=== PATIENT | male | born 1960 | race Caucasian/White ===

== ENCOUNTER → 2019-07-22 07:57 | Outpatient (BNVA) | payer MEDICARE, SELFPAY | PROVIDERS: Family Provider Family Medicine; PCP Family Medicine; Visit Provider Anesthesiology | DX: G89.4 Chronic pain syndrome (principal); M25.569 Pain in unspecified knee; M25.512 Pain in left shoulder; F17.210 Nicotine dependence, cigarettes, uncomplicated; Z79.891 Long term (current) use of opiate analgesic | CPT/HCPCS: 99214 ==

== ENCOUNTER → 2019-11-20 13:53 | Outpatient (BNVA) | payer MEDICARE, SELFPAY | PROVIDERS: Family Provider Family Medicine; PCP Family Medicine; Visit Provider Anesthesiology | DX: G89.4 Chronic pain syndrome (principal); M43.16 Spondylolisthesis, lumbar region; M54.9 Dorsalgia, unspecified; M25.512 Pain in left shoulder; F17.210 Nicotine dependence, cigarettes, uncomplicated; Z79.891 Long term (current) use of opiate analgesic | CPT/HCPCS: 99213; 99214 ==

== ENCOUNTER → 2020-01-01 14:00 | Outpatient (BNVA) | payer MEDICARE, SELFPAY | PROVIDERS: Family Provider Family Medicine; PCP Family Medicine; Visit Provider Nurse Practitioner Family | DX: R50.9 Fever, unspecified (principal); J44.1 Chronic obstructive pulmonary disease with (acute) exacerbation | CPT/HCPCS: 87635 ==

== ENCOUNTER 2020-01-04 03:59 | Inpatient (IN) | payer MEDICARE, SELFPAY ==
[2020-01-04] VITALS (43 sets, daily range): BP systolic 124–168; BP diastolic 74–100; PULSE 48–107; RESP 12–28; TEMP 35.9–37.1; O2SAT 92–100; BMI 27.1
--- NOTE | 2020-01-04 | XACV_ITS ---
Exam Room: [facility] Gender: Male : 1960 Exam Priority: Routine Procedure(s): Procedure Description: Diagnostic procedure Procedure Description: Left Heart Catheterization Procedure Description: Percutaenous coronary intervention Diagnostic Cath Status: Urgent Diagnostic Findings The left main is a medium caliber vessel with no significant stenotic lesions. The left circumflex artery is a medium caliber vessel which gives off a large obtuse marginal branch. The mid segment of the obtuse marginal artery was found to have a high-grade around 90 to 95% lesion. The rest of the vessel was found to have no significant stenotic lesion. Right coronary artery is a medium caliber dominant vessel which was found to have 20 to 30% irregular narrowing proximally. The distal artery was found to have minimal intimal irregularities. No significant stenotic lesions. The left anterior descending artery is a medium caliber vessel which appears to wrap around the LV apex. The proximal LAD was found to have a tapering narrowing of around 50% worse the first diagonal branch. The first diagonal branch was found an ostial around 60% stenosis. The mid LAD was found to have minimal intimal irregularities. The distal LAD was found to have a tubular extrinsic compression causing around 60- 70% narrowing during systole. Mid Circumflex Coronary Artery: Severe 80% stenosis, 18.00 mm in length, eccentric plaque, mild proximal segment tortuosity, ANNE: 2 flow, high/c lesion. PCI Status: Urgent PCI Indication: NSTE - ACS Interventional Findings Mid Circumflex Coronary Artery: 80% stenosis treated with AB TREK 2.50X15 RX BALLOON and MDT R EVERETT 2.75X22 LETY. 0% residual stenosis, ANNE: 3 flow. Successful intervention. Mid Circumflex Coronary Artery: treated with AB TREK 2.50X15 RX BALLOON and MDT R EVERETT 2.75X22 LETY. Conclusions No significant disease noted in the Left Main, LAD, or RCA coronary arteries. Mid Circumflex Coronary Artery was treated with Balloon and Drug Eluting Stent. 59-year-old white male with a history of heavy smoking abuse and alcohol abuse and requested history of dyslipidemia, presented with symptoms of unstable angina and clinical features of a non-ST elevation myocardial infarction. He continued to have chest pain during the hospital stay. For further management of his condition, an urgent cardiac catheterization was recommended. Patient underwent left heart catheterization with left and right coronary angiogram today. The findings are as follows. High-grade lesion mid circumflex extending into first obtuse marginal artery. Moderate disease in the proximal LAD and ostium of the first diagonal branch. 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 Mild diffuse disease in the other vessels. LVEDP of 16 mmHg. The cardiac catheterization findings were reviewed and discussed with Dr. Scott. For further management of his condition, PCI of the obtuse marginal artery lesion was thought to be appropriate. Dr. Scott took over further management of this patient at this time. Continue Aspirin and Plavix for atleast 1 year. Mid Circumflex Coronary Artery was successfully treated with Balloon and Drug Eluting Stent. Mid Circumflex Coronary Artery was treated with Balloon and Drug Eluting Stent. There is severe coronary artery disease with two vessel disease. Recommendations Continue Aspirin and Plavix for atleast 1 year. High intensity statin therapy. Smoking cessation advised. Diagnostic RX Recommendation: PCI w/o planned CABG LV EDP: 16 mmHg Left Ventriculography Findings: The LV gram was not performed since the LV ejection fraction was within normal limits by echocardiogram. Pressures Phase:Rest AO : 126 mmHg / 71 mmHg ( 91 mmHg ) @ 4:07:00 PM 125 mmHg / 70 mmHg ( 90 mmHg ) @ 4:08:00 PM 118 mmHg / 73 mmHg ( 94 mmHg ) @ 4:14:00 PM LV : 138 mmHg / -1 mmHg / @ 4:07:00 PM 132 mmHg / -4 mmHg / @ 4:07:00 PM Valves Phase:DefaultPhase AV : 6.0 mmHg @ 9:42:39 PM 6.0 mmHg @ 9:42:39 PM 6.0 mmHg @ 8:21:33 AM 6.0 mmHg @ 8:21:33 AM 6.0 mmHg @ 8:23:08 AM 6.0 mmHg @ 8:23:08 AM 6.0 mmHg @ 8:23:23 AM 6.0 mmHg @ 8:23:24 AM 6.0 mmHg @ 8:30:30 AM 6.0 mmHg @ 8:30:45 AM 6.0 mmHg @ 8:37:17 AM 6.0 mmHg @ 8:37:32 AM AV Mean Gradient: 13.0 mmHg @ 9:42:39 PM 13.0 mmHg @ 9:42:39 PM 13.0 mmHg @ 8:21:33 AM 13.0 mmHg @ 8:21:33 AM 13.0 mmHg @ 8:23:08 AM 13.0 mmHg @ 8:23:08 AM 13.0 mmHg @ 8:23:24 AM 13.0 mmHg @ 8:30:30 AM 13.0 mmHg @ 8:30:45 AM 13.0 mmHg @ 8:37:17 AM 13.0 mmHg @ 8:37:32 AM Clinical Evaluation EBL: 5mL-10mL Procedural Details Pre-Procedure Time Out. Identified patient by full name and date of as verbalized by the patient/guarantor. Does the consent match the physician's order: Yes. Accurate & Complete Informed Consent: Yes. Inpatient/Outpatient History & Physical on Chart: Yes. If H&P is completed, is and addenduem needed: No; If yes, is the addendum complete: No. Visualize and Verify Site with Patient/Guarantor: N/A. Relevant Radiology Images available: Yes. Pre-op teaching completed and patient verbalized understanding. The risks, benefits, and alternatives of sedation and/or procedure were discussed by physician. The patient agrees to continue. Procedure started. Correct patient, site and procedure confirmed by cath team. Current diagnosis: NSTEMI. PERRLA. 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 Lungs clear x 5 lobes. IV Site on Arrival: 18 gauge in the left anticubital. IV Fluids: 0.9% NaCl at KVO. 200 mL infused prior to lab instructor. Oxygen started at 2liters/min via nasal canula. right radial was prepped with chloroprep then draped in the usual sterile fashion. right groin was prepped with chloroprep then draped in the usual sterile fashion. Physician notified. Baseline sample Acquired. HR: 70 BPM. Equipment: 6F - Radial. Cardiac Cath Pack. ACIST Manifold Kit Model BT 2000. Heparinized Saline (2 units/mL), 1000 mL bag. Physician arrived. Physician scrubbed in. Immediate Pre-Procedure Time Out. Correct Patient: Yes; Correct Procedure: Yes; Correct Site: Yes; Correct Patient Position: Yes; Correct Supplies: Yes; Dried Flammable Prep: Yes; Blood Products Available: N/A;. Lidocaine 1% infiltrated to the right radial. Arterial access obtained. A 5 hungarian Martir catheter in over wire. Multiple views taken of left coronary artery. Catheter redirected to the RCA. Multiple views taken of right coronary artery. A 5 hungarian Angled Pig catheter in over wire. EDP Sample taken: LV 138/-2,16; HR: 75 BPM; SpO2: 94%. Pullback taken: LV 132/-5,16; AO 126/71(91); Mean: 13mmHg, Peak to Peak: 6mmHg, SEP: 7sec/min; HR: 78 BPM; SpO2: 94%. Catheter out. 6 hungarian XB 3.5 guide catheter was inserted over the wire. BMW guidewire was advanced through the guide catheter to lesion in the mid Circ. ACT drawn. Results 368 seconds. Therapeutic limits - pre-heparin administration 90-150 seconds and monitoring heparin during a vascular procedure >250 seconds. Balloon inserted to lesion in the mid Circ. Inflation number : 1 A AB TREK 2.50X15 RX BALLOON was prepped and advanced across the Mid CX , then inflated to 10 IVAN for 0:15 seconds. Inflation number: 2 The AB TREK 2.50X15 RX BALLOON was reinflated across the Mid CX, to 10 IVAN for 0:17 seconds. Balloon out. Stent inserted to lesion in the mid Circ. Inflation Number : 3 A MDT R EVERETT 2.75X22 LETY -Lot Number# [id number] was prepped and advanced across the Mid CX. The stent was deployed at 12 IVAN for 0:21 seconds. Inflation number: 4 The stent balloon was then re-inflated across the Mid CX to 16 IVAN for 0:09 seconds. Results checked. Stent balloon out over wire. Wire out. TR band placed. Hemostasis obtained. PERRLA. 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 No VTE prophylaxis required. Medication's Wasted: Lidocaine 1% = 18 mL. Total IV fluids: 75 mL. Medication's Wasted: Nitro = 49.8 mg. Medication's Wasted: Heparin = 1000 units. Complications: none. Estimated blood loss: 5mL-10mL. Procedure completed. Post-op diagnosis: nstemi . Patient transferred by wheelchair to 1st floor. Vital chart was stopped. Accurate & Complete Informed Consent: Yes. Inpatient/Outpatient History & Physical on Chart: Yes. If H&P is completed, is and addenduem needed: No; If yes, is the addendum complete: No. ACT drawn. Results 368 seconds. Therapeutic limits - pre-heparin administration 90-150 seconds and monitoring heparin during a vascular procedure >250 seconds. Accurate & Complete Informed Consent: Yes. Inpatient/Outpatient History & Physical on Chart: Yes. If H&P is completed, is and addenduem needed: No; If yes, is the addendum complete: No. ACT drawn. Results 368 seconds. Therapeutic limits - pre-heparin administration 90-150 seconds and monitoring heparin during a vascular procedure >250 seconds. Accurate & Complete Informed Consent: Yes. Inpatient/Outpatient History & Physical on Chart: Yes. If H&P is completed, is and addenduem needed: No; If yes, is the addendum complete: No. ACT drawn. Results 368 seconds. Therapeutic limits - pre-heparin administration 90-150 seconds and monitoring heparin during a vascular procedure >250 seconds. Accurate & Complete Informed Consent: Yes. Inpatient/Outpatient History & Physical on Chart: Yes. If H&P is completed, is and addenduem needed: No; If yes, is the addendum complete: No. ACT drawn. Results 368 seconds. Therapeutic limits - pre-heparin administration 90-150 seconds and monitoring heparin during a vascular procedure >250 seconds. Accurate & Complete Informed Consent: Yes. Inpatient/Outpatient History & Physical on Chart: Yes. If H&P is completed, is and addenduem needed: No; If yes, is the addendum complete: No. ACT drawn. Results 368 seconds. Therapeutic limits - pre-heparin administration 90-150 seconds and monitoring heparin during a vascular procedure >250 seconds. Accurate & Complete Informed Consent: Yes. Inpatient/Outpatient History & Physical on Chart: Yes. If H&P is completed, is and addenduem needed: No; If yes, is the addendum complete: No. ACT drawn. Results 368 seconds. Therapeutic limits - pre-heparin administration 90-150 seconds and monitoring heparin during a vascular procedure >250 seconds. Accurate & Complete Informed Consent: Yes. Inpatient/Outpatient History & Physical on Chart: Yes. If H&P is completed, is and addenduem needed: No; If yes, is the addendum complete: No. ACT drawn. Results 368 seconds. Therapeutic limits - pre-heparin administration 90-150 seconds and monitoring heparin during a vascular procedure >250 seconds. Site: Right Radial artery Sheath Size: 6 Fr Hemostasis Success: Unsuccessful Procedure Medications Start: 8:41 PM Stop: 8:41 PM Medication: Versed Amount: 1 mg Route: I.V. Start: 8:41 PM Stop: 8:41 PM Medication: Fentanyl Amount: 50 mcg Route: I.V. Start: 8:46 PM Stop: 8:46 PM Medication: Versed Amount: 1 mg Route: I.V. Start: 8:52 PM Stop: 8:52 PM Medication: Versed Amount: 1 mg Route: I.V. Start: 8:52 PM Stop: 8:52 PM Medication: Fentanyl Amount: 50 mcg Route: I.V. Start: 8:54 PM Stop: 8:54 PM Medication: Verapamil Amount: 5 mg Route: I.A. Start: 8:55 PM Stop: 8:55 PM Medication: Nitrogylcerin Amount: 200 mcg Route: I.A. Start: 8:59 PM Stop: 8:59 PM Medication: Versed Amount: 1 mg Route: I.V. Start: 9:10 PM Stop: 9:10 PM Medication: Heparin Amount: 5000 units Start: 9:10 PM Stop: 9:10 PM Medication: Fentanyl Amount: 50 mcg Route: I.V. Start: 9:13 PM Stop: 9:13 PM Medication: Versed Amount: 1 mg Route: I.V. Start: 9:20 PM Stop: 9:20 PM Medication: Fentanyl Amount: 50 mcg Route: I.V. Start: 9:21 PM Stop: 9:21 PM Medication: Versed Amount: 1 mg Route: I.V. Start: 9:26 PM Stop: 9:26 PM Medication: Versed Amount: 1 mg Route: I.V. Start: 9:33 PM Stop: 9:33 PM Medication: Versed Amount: 1 mg Route: I.V. Start: 9:36 PM Stop: 9:36 PM Medication: Plavix Amount: 300 mg Route: P.O. I, the attending physician, have reviewed and verified all procedure medications. Yes, all medications given per verbal order History/Risk Factors Hypertension: Yes Tobacco Use: Current/Recent(w/in 1 year) Report Signatures Diagnostic Workflow - Finalized by:Dr Nitesh Corral MD [facility] on 01/05/2020 10:53:28 AM Interventional Workflow - Finalized by: Mike Scott MD on 01/05/2020 9:18:14 AM
--- NOTE | 2020-01-04 04:04 | ECG_ITS ---
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 Measurements Intervals [place] Rate: 105 P: 73 [place]: 147 QRS: 142 QRSD: 98 T: 77 QT: 323 QTc: 427 Interpretive Statements SINUS TACHYCARDIA INCOMPLETE RIGHT BUNDLE BRANCH BLOCK [90+ ms QRS DURATION, TERMINAL R IN V1/V2, 40+ ms S IN I/aVL/V4/V5/V6] POSSIBLE RIGHT VENTRICULAR HYPERTROPHY [SOME/ALL OF: PROMINENT R IN V1, LATE TRANSITION, RAD, ELI, SSS] INTERPRETATION BASED ON A DEFAULT AGE OF 40 YEARS No previous ECG available for comparison Electronically Signed On 01-04-2020 22:54:54 CDT by Nitesh Corral M.D. [email or web address]
--- NOTE | 2020-01-04 04:05 | ED_ITS ---
Documented by User: Shahrzad Parra MD 01/04/20 05:18 HPI - Chest Pain General: Chief Complaint: Chest Pain Stated Complaint: CP Time Seen by Provider: 01/04/20 04:04 Source: patient and EMS Mode of arrival: EMS Limitations: no limitations History of Present Illness: HPI narrative: 59-year-old male who presents here with chest pain. He states headache cough shortness of breath over the last 2 weeks. Patient states he is recently put on prednisone and Levaquin. He states continue have a cough and a wheeze and has been having sharp chest pains with exertion. He states he is having sex tonight and started having a sharp pain. His pain is reproduced by palpation. He denies any fevers. He denies any vomiting or sweating. He does smoke. Onset (ago): week(s) Timing of current episode: episodic Onset: during exertion Pain location: substernal Severity: moderate Quality: sharp Relieving factors: nothing Exacerbating factors: nothing Associated symptoms: Reports dyspnea; Deny abdominal pain, fever(s), nausea or vomiting Review of Systems Const: Denies: fever(s), chills, body aches or change in appetite Eyes: Denies: blurry vision or eye discomfort ENMT: Denies: throat pain or dental pain Card: Reports: chest pain Resp: Reports: dyspnea and wheezing GI: Denies: abdominal pain, nausea, vomiting or diarrhea : Denies: dysuria Musc: Denies: neck pain or back pain Skin/Breast: Denies: rash Neuro: Denies: headache(s) Psych: Denies: depression Mauri/Lymph: Denies: easy bruising All/Imm: Denies: urticaria PFSH ED PFSH: Medical History Chronic pain in left shoulder Chronic pain syndrome Cigarette nicotine dependence Encounter for long-term (current) use of NSAIDs Encounter for long-term opiate analgesic use Surgical History Hx of hernia repair Hx of knee surgery Hx of shoulder surgery Family History Other Diabetes Hypertension Myocardial infarct Social History Smoking and tobacco status: former smoker Second hand smoke exposure: Yes Alcohol intake: never Lives independently: Yes Household members: spouse Marital status: History of recent travel: No Physical Exam Const: COMMON NORMALS: no acute distress, patient oriented x3 and healthy appearing HENMT: COMMON NORMALS: normocephalic and atraumatic HEAD & SCALP: normocephalic and atraumatic Eye: COMMON NORMALS: Equal, round and reactive pupils present and EOMs intact bilaterally PUPIL: Yes Equal, round and reactive pupils present Neck/C-Spine: COMMON NORMALS: full ROM and supple Chest: COMMONS NORMALS: normal inspection of the chest; negative for normal palpation of entire chest wall (point tender in center of chest reprodcues pain) Resp: COMMON NORMALS: normal respiratory effort, No retractions and No use of accessory muscles AUSCULTATION: wheezes Cardio: COMMON NORMALS: regular rate, regular rhythm and No murmurs present (Cardio) RATE: regular rate RHYTHM: regular rhythm GI: COMMON NORMALS: Normal to inspection, nondistended, normoactive bowel sounds present, Soft to palpation, non-tender and no masses PALPATION: Yes Soft to palpation Extremity: COMMON NORMALS: normal to inspection and full ROM Neuro: COMMON NORMALS: patient oriented x3, moves all extremities and no focal motor deficits Psych: COMMON NORMALS: mental status grossly normal, Normal thought process present and cooperative THOUGHT PROCESS: Normal thought process present Skin: COMMON NORMALS: no rashes or lesions noted and no wounds GENERAL SKIN EXAM: no rashes or lesions noted Course Vital Signs: Vital signs: Vital Signs Temperature 98.6 F 01/04/20 04:02 Pulse Rate 67 01/04/20 06:41 Respiratory Rate 18 01/04/20 06:41 Blood Pressure 148/84 01/04/20 06:41 Pulse Oximetry 96 01/04/20 06:41 MDM - Chest Pain MDM Narrative: Medical decision making narrative: David presents here with chest pain that is atypical in nature. His chest pain is likely pleuritic or chest wall as he is point tender to touch and reproduces pain. Patient feels improved after breathing treatments. X-ray shows no signs of pneumonia. Will check 2-hour troponin. Patient's care turned over to Dr. Francisco at this time to follow patient. Lab Data: Labs: Lab Results 0801/04/20 01/04/20 Range/Units 04:10 04:10 04:10 WBC 13.4 H (4.0-10.0) 10^3/ uL RBC 4.04 L (4.1-5.3) 10^6/u L Hgb 14.0 (11.7-16.6) g/dL Hct 41.9 L (42.0-52.0) % MCV 103.7 H (80-94) fL MCH 34.7 H (28.0-34.0) pg MCHC 33.4 (30.0-36.0) g/dL RDW 12.1 (12.1-15.1) % Plt Count 265 (130-400) 10^3/c mm MPV 8.5 (7.4-10.4) fL Neut % (Auto) 83.8 % Lymph % (Auto) 6.7 % [place] % (Auto) 8.5 % Eos % (Auto) 0.3 % Baso % (Auto) 0.3 % Neut # (Auto) 11.24 H (1.8-7.7) 10^3/u L Lymph # (Auto) 0.9 (0.8-4.8) 10^3/u L [place] # (Auto) 1.1 H (0.2-0.9) 10^3/u L Eos # (Auto) 0.0 (0.0-0.8) 10^3/u L Baso # (Auto) 0.0 (0.0-0.1) 10^3/u L Nucleated RBC % (a uto) 0 % Nucleated RBCs # 0.0 /100WBC Sodium 140 (136-145) mmol/L Potassium 3.9 (3.5-5.1) mmol/L Chloride 104 (98-107) mmol/L Carbon Dioxide 26 (22-29) mmol/L Anion Gap 13.9 (5-19) BUN 20 (6-20) mg/dL Creatinine 1.0 (0.7-1.2) mg/dL GFR Calculation 76.7 L (90-130) mL/min Glucose 143 H (65-115) mg/dL Calculated Osmolal ity 289 (285-295) mOsm/k g Calcium 9.7 (8.5-10.5) mg/dL Total Bilirubin 0.2 (0.15-1.2) mg/dL AST 41 H (0-40) U/L ALT 31 (0-41) U/L Alkaline Phosphata se 91 (40-130) IU/L Troponin T Baselin e 17 H (0-15) ng/L Troponin T 120 [place] (0-15) ng/L Delta Troponin T (0-10) ABS# NT-Pro-B Natriuret Pep 121 (0-125) pg/mL Total Protein 7.5 (6.6-8.7) g/dL Albumin 4.4 (3.5-5.2) g/dL Globulin 3.1 (1.3-4.6) g/dL 01/04/20 Range/Units 06:05 WBC (4.0-10.0) 10^3/ uL RBC (4.1-5.3) 10^6/u L Hgb (11.7-16.6) g/dL Hct (42.0-52.0) % MCV (80-94) fL MCH (28.0-34.0) pg MCHC (30.0-36.0) g/dL RDW (12.1-15.1) % Plt Count (130-400) 10^3/c mm MPV (7.4-10.4) fL Neut % (Auto) % Lymph % (Auto) % [place] % (Auto) % Eos % (Auto) % Baso % (Auto) % Neut # (Auto) (1.8-7.7) 10^3/u L Lymph # (Auto) (0.8-4.8) 10^3/u L [place] # (Auto) (0.2-0.9) 10^3/u L Eos # (Auto) (0.0-0.8) 10^3/u L Baso # (Auto) (0.0-0.1) 10^3/u L Nucleated RBC % (a uto) % Nucleated RBCs # /100WBC Sodium (136-145) mmol/L Potassium (3.5-5.1) mmol/L Chloride (98-107) mmol/L Carbon Dioxide (22-29) mmol/L Anion Gap (5-19) BUN (6-20) mg/dL Creatinine (0.7-1.2) mg/dL GFR Calculation (90-130) mL/min Glucose (65-115) mg/dL Calculated Osmolal ity (285-295) mOsm/k g Calcium (8.5-10.5) mg/dL Total Bilirubin (0.15-1.2) mg/dL AST (0-40) U/L ALT (0-41) U/L Alkaline Phosphata se (40-130) IU/L Troponin T Baselin e (0-15) ng/L Troponin T 120 [address] [place] 33.20 H (0-15) ng/L Delta Troponin T 16.20 H* (0-10) ABS# NT-Pro-B Natriuret Pep (0-125) pg/mL Total Protein (6.6-8.7) g/dL Albumin (3.5-5.2) g/dL Globulin (1.3-4.6) g/dL Imaging Data^: CXR: Radiologist's impression: [place] [address] XRay Report Signed Patient: David Lanza JR Unit #: [id number] : 1960 Age/Sex: 59 / M ADM Date: 01/04/20 Loc: ER Room/Bed: Attending Dr: Ordering Provider/Ordering MD: Shahrzad Parra MD Date of Service: 01/04/20 Procedure(s): XR chest 1V portable [id number] Accession Number(s): [id number] Report Number: [id number] PROCEDURE INFORMATION: Exam: XR Chest, 1 View Exam date and time: 01/04/2020 4:22 AM Age: 59 years old Clinical indication: Chest pain; Type not specified; Additional info: Cp TECHNIQUE: Imaging protocol: XR of the chest Views: 1 view. COMPARISON: CT Chest/Abdomen/Pelvis wo IV 12/20/2018 2:31 PM FINDINGS: Lungs: There are innumerable tiny bilateral apical pulmonary nodules as seen on chest CT 12/20/2018. There is no consolidation. Pleural space: There is no pleural effusion or pneumothorax. Heart/Mediastinum: Cardiomediastinal contours are unremarkable. Bones/joints: Bones are unremarkable. XR/XR chest 1V portable [id number] IMPRESSION: No acute findings. EKG Data^: EKG 1: Attestation: I personally reviewed and interpreted this EKG as follows: EKG interpretation date: 01/04/20 EKG interpretation time: 04:03 Interpretation: sinus tach hr [address] or t wave abnormalities rbbb qrs 98 qtc 384 no STEMI Discharge Plan Discharge Patient Disposition: Home Clinical Impression: Bronchitis, Atypical chest pain, Non-ST elevation (NSTEMI) myocardial infarction Condition: Fair Prescriptions: New Keflex 500 mg capsule 500 mg PO Q6H 7 Days Qty: 28 RF: 0 Naprosyn 500 mg tablet 500 mg PO BID PRN (Reason: pain) Qty: 20 RF: 0 No Action citalopram [Celexa] 20 mg tablet 20 mg PO QDAY RF: 0 albuterol sulfate 2.5 mg /3 mL (0.083 %) solution for nebulization 2.5 mg INHALATION Q6H RF: 0 hydrocodone-acetaminophen 10-325 mg tablet 1 tab PO .6 times a day PRN (Reason: pain) 30 Days Qty: 180 RF: 0 tramadol 50 mg tablet 50 mg PO .6 times a day PRN (Reason: pain) 30 Days Qty: 180 RF: 1 prednisone 20 mg tablet 40 mg PO DAILY Qty: 10 RF: 0 levofloxacin [Levaquin] 750 mg tablet 750 mg PO DAILY 7 Days Qty: 7 RF: 0 Discharge Diet: Advance as tolerated Discharge Activity: Resume usual activity Patient Instructions: Acute Bronchitis (ED) Sign Out Sign Out Data: Patient Sign Out occurred on 01/04/20 at 06:44. Patient's care was discussed, and care was transferred from to Marcel Perez. Coding Level of Care Code ED Habilitation Assistant for Chg Fwd Exam Comprehensive Documented by User: Marcel Perez DO 01/04/20 07:09 HPI - Chest Pain General: Chief Complaint: Chest Pain Stated Complaint: CP Time Seen by Provider: 01/04/20 04:04 PFSH ED PFSH: Medical History Chronic pain in left shoulder Chronic pain syndrome Cigarette nicotine dependence Encounter for long-term (current) use of NSAIDs Encounter for long-term opiate analgesic use Surgical History Hx of hernia repair Hx of knee surgery Hx of shoulder surgery Family History Other Diabetes Hypertension Myocardial infarct Social History Smoking and tobacco status: former smoker Second hand smoke exposure: Yes Alcohol intake: never Lives independently: Yes Household members: spouse Marital status: History of recent travel: No Course Vital Signs: Vital signs: Vital Signs Temperature 98.6 F 01/04/20 04:02 Pulse Rate 67 01/04/20 06:41 Respiratory Rate 18 01/04/20 06:41 Blood Pressure 148/84 01/04/20 06:41 Pulse Oximetry 96 01/04/20 06:41 MDM - Chest Pain Lab Data: Labs: Lab Results 01/04/20 01/04/20 01/04/20 Range/Units 04:10 04:10 04:10 WBC 13.4 H (4.0-10.0) 10^3/ uL RBC 4.04 L (4.1-5.3) 10^6/u L Hgb 14.0 (11.7-16.6) g/dL Hct 41.9 L (42.0-52.0) % MCV 103.7 H (80-94) fL MCH 34.7 H (28.0-34.0) pg MCHC 33.4 (30.0-36.0) g/dL RDW 12.1 (12.1-15.1) % Plt Count 265 (130-400) 10^3/c mm MPV 8.5 (7.4-10.4) fL Neut % (Auto) 83.8 % Lymph % (Auto) 6.7 % [place] % (Auto) 8.5 % Eos % (Auto) 0.3 % Baso % (Auto) 0.3 % Neut # (Auto) 11.24 H (1.8-7.7) 10^3/u L Lymph # (Auto) 0.9 (0.8-4.8) 10^3/u L [place] # (Auto) 1.1 H (0.2-0.9) 10^3/u L Eos # (Auto) 0.0 (0.0-0.8) 10^3/u L Baso # (Auto) 0.0 (0.0-0.1) 10^3/u L Nucleated RBC % (a uto) 0 % Nucleated RBCs # 0.0 /100WBC Sodium 140 (136-145) mmol/L Potassium 3.9 (3.5-5.1) mmol/L Chloride 104 (98-107) mmol/L Carbon Dioxide 26 (22-29) mmol/L Anion Gap 13.9 (5-19) BUN 20 (6-20) mg/dL Creatinine 1.0 (0.7-1.2) mg/dL GFR Calculation 76.7 L (90-130) mL/min Glucose 143 H (65-115) mg/dL Calculated Osmolal ity 289 (285-295) mOsm/k g Calcium 9.7 (8.5-10.5) mg/dL Total Bilirubin 0.2 (0.15-1.2) mg/dL AST 41 H (0-40) U/L ALT 31 (0-41) U/L Alkaline Phosphata se 91 (40-130) IU/L Troponin T Baselin e 17 H (0-15) ng/L Troponin T 120 [place] (0-15) ng/L Delta Troponin T (0-10) ABS# NT-Pro-B Natriuret Pep 121 (0-125) pg/mL Total Protein 7.5 (6.6-8.7) g/dL Albumin 4.4 (3.5-5.2) g/dL Globulin 3.1 (1.3-4.6) g/dL 01/04/20 Range/Units 06:05 WBC (4.0-10.0) 10^3/ uL RBC (4.1-5.3) 10^6/u L Hgb (11.7-16.6) g/dL Hct (42.0-52.0) % MCV (80-94) fL MCH (28.0-34.0) pg MCHC (30.0-36.0) g/dL RDW (12.1-15.1) % Plt Count (130-400) 10^3/c mm MPV (7.4-10.4) fL Neut % (Auto) % Lymph % (Auto) % [place] % (Auto) % Eos % (Auto) % Baso % (Auto) % Neut # (Auto) (1.8-7.7) 10^3/u L Lymph # (Auto) (0.8-4.8) 10^3/u L [place] # (Auto) (0.2-0.9) 10^3/u L Eos # (Auto) (0.0-0.8) 10^3/u L Baso # (Auto) (0.0-0.1) 10^3/u L Nucleated RBC % (a uto) % Nucleated RBCs # /100WBC Sodium (136-145) mmol/L Potassium (3.5-5.1) mmol/L Chloride (98-107) mmol/L Carbon Dioxide (22-29) mmol/L Anion Gap (5-19) BUN (6-20) mg/dL Creatinine (0.7-1.2) mg/dL GFR Calculation (90-130) mL/min Glucose (65-115) mg/dL Calculated Osmolal ity (285-295) mOsm/k g Calcium (8.5-10.5) mg/dL Total Bilirubin (0.15-1.2) mg/dL AST (0-40) U/L ALT (0-41) U/L Alkaline Phosphata se (40-130) IU/L Troponin T Baselin e (0-15) ng/L Troponin T 120 [address] [place] 33.20 H (0-15) ng/L Delta Troponin T 16.20 H* (0-10) ABS# NT-Pro-B Natriuret Pep (0-125) pg/mL Total Protein (6.6-8.7) g/dL Albumin (3.5-5.2) g/dL Globulin (1.3-4.6) g/dL Discharge Plan Discharge Patient Disposition: Home Clinical Impression: Bronchitis, Atypical chest pain, Non-ST elevation (NSTEMI) myocardial infarction Condition: Fair Prescriptions: New Keflex 500 mg capsule 500 mg PO Q6H 7 Days Qty: 28 RF: 0 Naprosyn 500 mg tablet 500 mg PO BID PRN (Reason: pain) Qty: 20 RF: 0 No Action citalopram [Celexa] 20 mg tablet 20 mg PO QDAY RF: 0 albuterol sulfate 2.5 mg /3 mL (0.083 %) solution for nebulization 2.5 mg INHALATION Q6H RF: 0 hydrocodone-acetaminophen 10-325 mg tablet 1 tab PO .6 times a day PRN (Reason: pain) 30 Days Qty: 180 RF: 0 tramadol 50 mg tablet 50 mg PO .6 times a day PRN (Reason: pain) 30 Days Qty: 180 RF: 1 prednisone 20 mg tablet 40 mg PO DAILY Qty: 10 RF: 0 levofloxacin [Levaquin] 750 mg tablet 750 mg PO DAILY 7 Days Qty: 7 RF: 0 Discharge Diet: Advance as tolerated Discharge Activity: Resume usual activity Patient Instructions: Acute Bronchitis (ED) Sign Out Sign Out Data: Patient Sign Out occurred on 01/04/20 at 06:44. Patient's care was discussed, and care was transferred from to Marcel Perez. Coding Level of Care Code ED Habilitation Assistant for Mara Fwjoaquin Exam Comprehensive
[2020-01-04] MEDS: ondansetron 2 mg/ML SDV 2 mL 4 MG IVP (04:09)
[2020-01-04] MEDS: ipratropium-albuterol 3 mL Neb INHALATION ×2 (04:10→08:29)
[2020-01-04] MEDS: morphine 4 mg/mL SDV 1 mL IVP (04:10)
[2020-01-04 04:24] LABS: Basophils % 0.3 %; Eosinophils % 0.3 %; Hematocrit 41.9 % (42.0-52.0); Lymphocytes # 0.9 10^3/uL (0.8-4.8); Lymphocytes % 6.7 %; Mean Corpuscular HGB Conc 33.4 g/dL (30.0-36.0); Mean Corpuscular Hemoglobin 34.7 pg (28.0-34.0); Mean Corpuscular Volume 103.7 fL (80-94); Mean Platelet Volume 8.5 fL (7.4-10.4); Monocytes # 1.1 10^3/uL (0.2-0.9); Monocytes % 8.5 %; Neutrophils # 11.24 10^3/uL (1.8-7.7); Neutrophils % 83.8 %; Nucleated Red Blood Cells % 0 %; Platelet Count 265 10^3/cmm (130-400); Red Blood Count 4.04 10^6/uL (4.1-5.3); Red Cell Distribution Width 12.1 % (12.1-15.1); White Blood Count 13.4 10^3/uL (4.0-10.0)
[2020-01-04 04:51] LABS: Troponin(5th) Baseline 17 ng/L (0-15)
[2020-01-04 05:00] LABS: Alanine Aminotransferase 31 U/L (0-41); Albumin Level 4.4 g/dL (3.5-5.2); Alkaline Phosphatase 91 IU/L (40-130); Anion Gap 13.9 (5-19); Aspartate Amino Transferase 41 U/L (0-40); Blood Urea Nitrogen 20 mg/dL (6-20); Calcium 9.7 mg/dL (8.5-10.5); Carbon Dioxide 26 mmol/L (22-29); Chloride 104 mmol/L (98-107); Globulin 3.1 g/dL (1.3-4.6); Glomerular Filtration Rate 76.7 mL/min (90-130); Glucose 143 mg/dL (65-115); NT Pro B Type Natriuretic Pept 121 pg/mL (0-125); Osmolality Calculated 289 mOsm/kg (285-295); Potassium 3.9 mmol/L (3.5-5.1); Sodium 140 mmol/L (136-145); Total Bilirubin 0.2 mg/dL (0.15-1.2); Total Protein 7.5 g/dL (6.6-8.7)
--- NOTE | 2020-01-04 06:04 | ECG_ITS ---
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 Measurements Intervals [place] Rate: 85 P: 66 [place]: 159 QRS: 99 QRSD: 109 T: 75 QT: 372 QTc: 444 Interpretive Statements SINUS RHYTHM WITH SINUS ARRHYTHMIA BORDERLINE RIGHT AXIS DEVIATION [QRS AXIS > 90] INCOMPLETE RIGHT BUNDLE BRANCH BLOCK [90+ ms QRS DURATION, TERMINAL R IN V1/V2, 40+ ms S IN I/aVL/V4/V5/V6] POSSIBLE INFERIOR MYOCARDIAL INFARCTION , OF INDETERMINATE AGE [30 ms Q WAVE IN II/aVF] INTERPRETATION BASED ON A DEFAULT AGE OF 40 YEARS Compared to ECG 01/04/2020 04:03:49 Myocardial infarct finding now present Sinus tachycardia no longer present Atrial abnormality no longer present Electronically Signed On 01-05-2020 9:40:40 CDT by Nitesh Corral M.D. [id number]
--- NOTE | 2020-01-04 06:50 | PC.NURSE ---
Report received from DORCAS Sanches.
[2020-01-04] MEDS: sodium chloride 0.9% 1,000 ML 125 ML IV (07:17)
--- NOTE | 2020-01-04 08:23 | USCV_ITS ---
David Lanza Age: 59 Gender: M : 1960 Exam Date: 01/04/2020 10:01 Ordering Phys: Héctor Hutton MD Technologist: Berenice Reyna Exam Location: [facility] [place] Indication: Myocardial infarction BP: 137 / 75 HR: 66 Rhythm: Sinus Technical Quality: Technically difficult study MEASUREMENTS (Male / Female) Normal Values 2D ECHO LV Diastolic Diameter PLAX 3.1 cm 4.2 - 5.9 / 3.9 - 5.3 cm LV Systolic Diameter PLAX 2.0 cm LV Chamber Size 3.6 cm IVS Diastolic Thickness 1.1 cm 0.6 - 1.0 / 0.6 - 0.9 cm IVS Systolic Thickness 1.6 cm LVPW Diastolic Thickness 1.2 cm 0.6 - 1.0 / 0.6 - 0.9 cm LVPW Systolic Thickness 1.7 cm RV Chamber Size 2.7 cm LVOT Diameter 2.0 cm LV Ejection Fraction 2D Teich 64.0 % LA Diameter 2.3 cm LA Width 2.7 cm LA Height 5.0 cm RA Width 2.8 cm RA Height 4.5 cm Aorta at Sinotubular Diameter 3.6 cm M-MODE LV Diastolic Diameter MM 5.4 cm 4.2 - 5.9 / 3.9 - 5.3 cm LV Systolic Diameter MM 2.9 cm LV Ejection Fraction MM Teich 77.5 % IVS Diastolic Thickness MM 1.1 cm 0.6 - 1.0 / 0.6 - 0.9 cm IVS Systolic Thickness MM 1.6 cm LVPW Diastolic Thickness MM 1.0 cm 0.6 - 1.0 / 0.6 - 0.9 cm LVPW Systolic Thickness MM 1.5 cm RV Diastolic Diameter MM 2.0 cm DOPPLER AV Peak Velocity 162.0 cm/s LVOT Peak Velocity 149.0 cm/s AV Area Cont Eq vti 3.0 cm squared AV Area Cont Eq pk 2.9 cm squared MV Area PHT 2.3 cm squared Mitral E to A Ratio 0.9 MV E' Velocity 12.0 cm/s Mitral E to MV E' Ratio 5.5 Mitral E to LV E' Lateral Ratio 5.6 Mitral E to LV E' Septal Ratio 5.5 TV Peak E Velocity 62.0 cm/s Right Atrial Pressure 3.0 mmHg PV Peak Velocity 83.0 cm/s RV Acceleration Time 0.1 s RV Ejection Time 0.3 s RV AcT/ET 0.3 FINDINGS Left Ventricle Normal left ventricular size and systolic function, EF 65% . No regional wall motion abnormalities. Right Ventricle The right ventricle is normal in size and function. Right Atrium The right atrium is normal in size. Left Atrium The left atrium is normal in size. Mitral Valve Thickened mitral valve. Mild mitral annular calcification. Aortic Valve Thickened aortic valve. Tricuspid Valve No gross abnormalities noted Pulmonic Valve Pulmonic valve not well visualized. Pericardium Normal pericardium without effusion. Aorta Normal aortic annulus size. CONCLUSIONS Normal left ventricular size and systolic function, EF 65% . Thickened mitral valve. Mild mitral annular calcification. Thickened aortic valve. No regional wall motion abnormalities. There is no pericardial effusion. There are no intracardiac masses. No previous study is available for comparison. Dr Nitesh Corral MD FAC (Electronically Signed) Final Date: 04 January 2020 12:16 S
--- NOTE | 2020-01-04 08:26 | ECG_ITS ---
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 Measurements Intervals [place] Rate: 86 P: 58 [place]: 164 QRS: 128 QRSD: 110 T: 63 QT: 347 QTc: 417 Interpretive Statements SINUS RHYTHM INCOMPLETE RIGHT BUNDLE BRANCH BLOCK [90+ ms QRS DURATION, TERMINAL R IN V1/V2, 40+ ms S IN I/aVL/V4/V5/V6] POSSIBLE RIGHT VENTRICULAR HYPERTROPHY [SOME/ALL OF: PROMINENT R IN V1, LATE TRANSITION, RAD, ELI, SSS] PROBABLE INFERIOR MYOCARDIAL INFARCTION [35 ms Q WAVE IN II/aVF], OF INDETERMINATE AGE Compared to ECG 01/04/2020 06:06:03 Atrial abnormality now present Sinus arrhythmia no longer present Myocardial infarct finding still present Electronically Signed On 01-04-2020 22:55:06 CDT by Nitesh Corral M.D. [id number]
[2020-01-04] MEDS: nitroglycerin 0.4 mg sublingual Tablet SUBLINGUAL (08:46)
[2020-01-04] MEDS: enoxaparin 100 mg/mL Syringe 90 MG SUBCUT (08:47)
[2020-01-04] MEDS: levalbuterol 0.63 mg/3 mL Neb INHALATION ×3 (08:47→15:24)
[2020-01-04] MEDS: pantoprazole 40 mg SDV IVP (08:48)
--- NOTE | 2020-01-04 08:55 | P.HP_ITS ---
Providers/Chief Complaint Admitting Physician: Héctor Hutton MD Chief Complaint: CP History of Present Illness David Lanza JR is a 59 year old male presents to emerge department with severe substernal nonradiating sharp chest pain that started at midnight while patient was having sex with his . called EMS and patient was given full dose aspirin, nitroglycerin and morphine. His pain almost completely was gone but recurred while in emergency department. He became diaphoretic but denied nausea. He had some shortness of breath. Patient reports that in the last 2 weeks he had to similar episodes of severe chest pain with exertion. He denies previous history of diabetes or heart disease. He had stroke twice affecting his left side but completely improving back to normal baseline 2 weeks later. His troponin was elevated with positive delta. His EKG showed no evidence of ST elevation. During my evaluation on cardiac stepdown unit patient reports 4-5 out of 10 similar chest pain. He denies lower extremity swelling. He has chronic COPD and uses nebulized treatments at home. He is in mild COPD exacerbation clinically with expiratory wheezing throughout and decreased air movement. He is hypertensive with blood pressure 160s over 100 during my evaluation and heart rate around 100. He is a lifelong smoker but reports that 6 months ago he decreased his smoking to 2 cigarettes/day and reports that sometimes he even has days when he did not smoke. He used to be drinking alcohol heavily but is completely abstinent for the last 2 years. Reports that he was diagnosed with hepatitis C before which was treated and he is now virus free. He has history of IV drug abuse in his young ages. Reports that only did it 2-3 times. He has been on steroids for the last 2 days and likely the cause of patient's leukocytosis Review of Systems Const: Denies: fever(s) or chills Eyes: Denies: change in vision ENMT: Denies: throat pain or change in hearing Card: Denies: chest pain, edema or lightheadedness Resp: Reports: non-productive cough (For several months); Denies: dyspnea or productive cough GI: Reports: dysphagia (Reports having sensation with food getting stuck at the lower esophageal ar), constipation (Ever since he was started on opioid medications.) and hematochezia (Reports occasionally having small amount/streaks of blood on the stool which appeared to be related to episodes of constipation with hard stool.); Denies: abdominal pain, nausea, vomiting, diarrhea or melena Musc: Reports: joint pain (Chronic left shoulder pain); Denies: joint swelling Skin/Breast: Denies: rash or erythema Neuro: Denies: headache(s) or weakness in extremities Psych: Denies: depression or suicidal ideation Endo: Denies: excessive sweating Mauri/Lymph: Denies: easy bleeding (Except as mentioned.) or tender lymph nodes All/Imm: Denies: throat swelling Medications/Allergies Home Medications Medication Instructions Recorded Confirmed Last Taken Type albuterol sulfate 2.5 mg INHALATION Q6H 06/19/19 01/04/20 01/03/20 08:30 History citalopram 20 mg tablet 20 mg PO QDAY 06/19/19 01/04/20 01/03/20 08:30 History hydrocodone 10 mg-acetaminophen 1 tab PO .6 times a day PRN 30 11/20/19 01/04/20 01/03/20 22:00 Rx 325 mg tablet Days #180 tab tramadol 50 mg tablet 50 mg PO .6 times a day PRN 30 11/20/19 01/04/20 01/03/20 20:00 Rx Days #180 tab levofloxacin 750 mg tablet 750 mg PO DAILY 7 Days #7 tab 01/01/20 01/04/20 01/03/20 08:30 Rx prednisone 20 mg tablet 40 mg PO DAILY #10 tab 01/01/20 01/04/20 01/03/20 08:30 Rx cephalexin [Keflex] 500 mg PO Q6H 7 Days #28 cap 01/04/20 Unknown Rx naproxen [Naprosyn] 500 mg PO BID PRN #20 tab 01/04/20 Unknown Rx Allergies Allergy/AdvReac Type Severity Reaction Status Date / Time gabapentin [From Neurontin] Allergy ADR-Agitate Verified 01/04/20 04:14 d PFSH Acute PFSH: Medical History (Updated 01/04/20 @ 09:06 by Héctor Hutton MD) Chronic pain in left shoulder Chronic pain syndrome Cigarette nicotine dependence Encounter for long-term (current) use of NSAIDs Encounter for long-term opiate analgesic use Hepatitis C Liver cirrhosis Surgical History Hx of hernia repair Hx of knee surgery Hx of shoulder surgery Family History Other Diabetes Hypertension Myocardial infarct Social History (Updated 01/04/20 @ 09:05 by Héctor Hutton MD) Smoking and tobacco status: current some day smoker Second hand smoke exposure: Yes Alcohol intake: former Lives independently: Yes Household members: spouse Marital status: History of recent travel: No Vitals/I&O/Wt Last Vital Signs Temp 98.6 F 01/04/20 04:02 Pulse 81 01/04/20 08:40 Resp 18 01/04/20 08:29 BP 124/78 01/04/20 08:00 Pulse Ox 92 01/04/20 08:29 Weight last 48 hrs Weight 90.718 kg Physical Exam Const: COMMON NORMALS: no acute distress, patient oriented x3 and alert HENMT: COMMON NORMALS: normocephalic and atraumatic HEAD & SCALP: normocephalic and atraumatic Eye: COMMON NORMALS: EOMs intact bilaterally, conjunctivae normal and no scleral icterus CONJUNCTIVA: Yes conjunctivae normal Neck/C-Spine: COMMON NORMALS: no lymphadenopathy and no meningeal signs Lymph: LYMPHATIC: no lymphadenopathy noted Chest: COMMONS NORMALS: normal palpation of entire chest wall Resp: COMMON NORMALS: No use of accessory muscles OTHER: Decreased air movement with minimal expiratory wheezing throughout Cardio: COMMON NORMALS: regular rate, regular rhythm and No murmurs present (Cardio) RATE: regular rate RHYTHM: regular rhythm OTHER: No lower extremity edema GI: COMMON NORMALS: Soft to palpation and non-tender PALPATION: Yes Soft to palpation RECTAL EXAM: Yes deferred : COMMON NORMALS: Yes no CVA tenderness BLADDER/KIDNEY EXAM: Yes no CVA tenderness Back/Pelvis: COMMON NORMALS: no CVA tenderness and thoracic and lumbar spine normal to inspection Extremity: COMMON NORMALS: normal to inspection and capillary refill normal Neuro: COMMON NORMALS: patient oriented x3 and no focal motor deficits SENSORIUM/ORIENTATION: Yes alert MENINGEAL SIGNS: Yes no meningeal signs Psych: COMMON NORMALS: mental status grossly normal, Normal thought process present and cooperative THOUGHT PROCESS: Normal thought process present Skin: COMMON NORMALS: no rashes or lesions noted GENERAL SKIN EXAM: no rashes or lesions noted Data : 01/04/20 04:10 01/04/20 04:10 A&P Assessment and plan (1) Non-ST elevation (NSTEMI) myocardial infarction: Status: Acute (2) COPD exacerbation: Status: Acute (3) Esophageal dysphagia: This is likely related to steroid/NSAID induced gastritis/esophagitis Status: Acute (4) Tobacco abuse: Status: Acute Additional A&P Information PLAN: Patient will be given nitroglycerin, morphine and start therapeutic Lovenox. If pain is not controlled we will transfer patient to ICU for nitroglycerin drip. Discussed case with Dr. Corral who will see patient in consultation. At this point I think patient needs coronary angiogram. Will request echocardiogram and also carotid artery ultrasound as well given previous history of stroke. Will start patient on levalbuterol. Hold steroids and start IV Protonix. Repeat EKG. Discussed regarding importance of smoking cessation. Patient voiced understanding and agreed that he needs to absolutely quit. He does not want any pharmacological help. If patient's dysphagia does not improve with Protonix consider upper endoscopy down the road. Attestations Medical Necessity Statement*: Patient with non-ST elevation [place] requires close inpatient monitoring, treatment and evaluation. I expect patient will require more than 2 midnights. Time Spent in Patient Care: Greater than 35 minutes Coding Level of Care Code Acute Supervisor [employer] for [facility] Diagnoses Non-ST elevation (NSTEMI) myocardial infarction I21.4 COPD exacerbation J44.1 Esophageal dysphagia R13.10 Tobacco abuse Z72.0
--- NOTE | 2020-01-04 09:05 | PC.NURSE ---
Chest Pain 4-5/10 per pain scale EKG taken, BP- 162/104 sitting, HR- 97. Dr. Hutton at bedside, RT at bedside for breathing treatment for wheezing and SOB 0845- Nitro SL given, BP-124/78, HR-120s, ST 0900- Chest pain down to 3/10 pain scale. 2nd nitro given. BP-111/65, HR-97. 2 L/min O2 administered for Spo2 of 87%-90%. Received orders for Nitro paste and Morphine PRN.
[2020-01-04 09:07] LABS: INR 0.94 (0.8-1.2)
[2020-01-04 09:08] LABS: Partial Thromboplastin Time 27.7 SECONDS (23.9-36.7)
--- NOTE | 2020-01-04 09:14 | USCV_ITS ---
David Lanza Age: 59 Gender: M : 1960 Exam Date: 01/04/2020 09:30 Ordering Phys: Héctor Hutton MD Technologist: Berenice Reyna [place] [facility] [place], previous history of stroke Risk Factors: Smoker Previous Vascular Surgery: None Right Brachial BP: / Left Brachial BP: / Right Left Velocity (cm/s) Spectral Plaque Velocity (cm/s) Spectral Plaque Syst/Diast Broadening Syst/Diast Broadening 93.70/ 9.90 Prox CCA 104.70/ 15.40 109.20/9.90 Mid CCA 114.40/ 19.70 Homo 145.70/12.60 Hetro Distal CCA 152.30/ 14.00 Hetro 134.90/16.20 Homo Prox ICA 145.70/ 14.40 Hetro 69.70/ 11.80 Mid ICA 104.30/ 14.40 69.70/ 14.50 Distal ICA 57.80 / 17.10 140.30 ECA 151.10 0.93 ICA/CCA 0.96 Antegrade Vertebral Antegrade 44.40/ 11.10 cm/s 53.00/ 12.00 cm/s Tri Subclavian Tri 154.8 172.9 0 0 FINDINGS Comparison: 11-29-10. See measurements listed above. Mild to moderate dense irregular plaques at the bifurcations bilaterally Carotid plaques in the common carotid arteries bilaterally Elevated velocity in the distal CCAs and proximal ICAs bilaterally CONCLUSIONS Mild to moderate dense plaques at the bifurcations and distal CCA's bilaterally with elevated velocities, may suggest hemodynamically significant stenosis. Consider CTA, to better evaluate the aortic arch vessels and the common carotid arteries No previous studies available for comparison Dr Nitesh Corral MD [facility] (Electronically Signed) Final Date: 04 January 2020 12:28 S
[2020-01-04] MEDS: morphine 4 mg/mL SDV 1 mL 2 MG IVP ×2 (09:17→13:20)
[2020-01-04] MEDS: lactated ringers 1,000 ML 75 ML IV (09:23)
[2020-01-04] MEDS: docusate sodium 100 mg Capsule PO ×2 (09:28→17:08)
[2020-01-04] MEDS: nitroglycerin 1 gm/inch oint Pkt 2 INCH TOPICAL ×2 (09:28→17:14)
--- NOTE | 2020-01-04 10:05 | PC.NURSE ---
Addendum entered by Dontae Cruz RN 01/04/20 10:10: Re-assess pain and pt verbalizes, the pain is completely gone. just pressure right now. Nitro paste applied as ordered. BP-109/56; SpO2-95-97% on 2 L/min NC Original Note: No chest pain Dr Corral at bedside. Ancillary staff at bedside. Pt denies any chest pain post Morphine administration. Will keep monitor.
--- NOTE | 2020-01-04 10:13 | P.CONIM_ITS ---
Providers/Reason For Consult Consulting Physican/Specialty*: FRENCH Ellis/cardiology Reason for Consult*: Patient with chest pain and elevated troponin T Attending Physician: Héctor Hutton MD History of Present Illness History of Present Illness David Lanza JR is a 59 year old male with a history of COPD/emphysema and dyslipidemia, is present with complaints of chest pain off and on for the last 2 weeks. He had a prolonged episode of chest pain around midnight while having sex with his . The pain was most severe at this time. For this reason, his called the ambulance and was brought to the hospital. His troponin T came back with a positive delta. Cardiology consult is requested for further cardiac evaluation recommendations. Patient has no previous history for coronary artery disease, myocardial infarction or congestive heart failure. He has a history of CVA x2, first 1 was 5 years ago and the second 1 was 3 years ago. According the patient, the first episode of CVA happened with anemia caused by a drug that he was taking for hepatitis C. Because of the second CVA is not known. He used to be a heavy smoker and alcoholic. He practically quit smoking a year ago. He smoked drinking also a year ago. He has been his baseline state of health up until 2 weeks ago when he started having a cough and shortness of breath. He has been coughing up yellowish/greenish sputum. He was seen by a healthcare provider 2 days ago and was prescribed some antibiotic and steroids. He had 3 episodes of chest pain within the last 3 weeks. Each time the pains are precipitated with activities. The pain may last anywhere from 15 to 20 minutes. It is upper substernal and of moderate intensity. Pressure-like in nature. Associated with shortness of breath and sweating. He has been profusely sweating even with the air conditioner on. No radiation of pain. No other associated symptoms. Last night apparently the pain was more severe which is subsided a little bit with rest. But for minutes later, he started having the pain again. For this reason, his called the ambulance. In the ambulance, he was given sublingual nitro, p.o. aspirin and morphine. His symptoms started subsiding. While being in the emergency room, he had an episode of chest pain associated with profuse sweating. The pain has been waxing and waning since then. His EKG did not reveal any acute ST-T changes. He was given another dose of morphine, started on nitro paste. His symptoms are getting better. Currently has a pressure-like feeling in the chest otherwise most of the pain is gone. He has no fever or chills. No other specific complaints. Review of Systems Narrative: CONSTITUTIONAL: No fever or chills. Cough and shortness of breath as mentioned above EYES: No blurring of vision or other visual disturbances lately. ENT: No hoarseness of voice, auditory disturbances or sore throat. CARDIOVASCULAR: As mentioned above. RESPIRATORY: Cough and shortness of breath. Bringing out yellowish sputum. GASTROINTESTINAL: History of cirrhosis of the liver. Hepatitis C GENITOURINARY: No dysuria or hematuria. INTEGUMENTARY: No skin rashes or history of skin cancer. NEURO: History of CVA x2 PSYCHIATRIC: No history of psychosis or major depression. HEMATOLOGIC: History of anemia ENDOCRINE: No history of polyuria or polydipsia. MUSCULOSKELETAL: No recent joint pain or swelling. ALLERGY/IMMUNOLOGY: As mentioned above. Meds/Allergies Home Medications and Allergies Home Medications Medication Instructions Recorded Confirmed Last Taken Type albuterol sulfate 2.5 mg INHALATION Q6H 06/19/19 01/04/20 01/03/20 08:30 History citalopram 20 mg tablet 20 mg PO QDAY 06/19/19 01/04/20 01/03/20 08:30 History hydrocodone 10 mg-acetaminophen 1 tab PO .6 times a day PRN 30 11/20/19 01/04/20 01/03/20 22:00 Rx 325 mg tablet Days #180 tab tramadol 50 mg tablet 50 mg PO .6 times a day PRN 30 11/20/19 01/04/20 01/03/20 20:00 Rx Days #180 tab levofloxacin 750 mg tablet 750 mg PO DAILY 7 Days #7 tab 01/01/20 01/04/20 01/03/20 08:30 Rx prednisone 20 mg tablet 40 mg PO DAILY #10 tab 01/01/20 01/04/20 01/03/20 08:30 Rx cephalexin [Keflex] 500 mg PO Q6H 7 Days #28 cap 01/04/20 Unknown Rx naproxen [Naprosyn] 500 mg PO BID PRN #20 tab 01/04/20 Unknown Rx Allergies Allergy/AdvReac Type Severity Reaction Status Date / Time gabapentin [From Neurontin] Allergy ADR-Agitate Verified 01/04/20 04:14 d Current Medications Current Medications Generic Name Dose Route Start Last Admin Trade Name Freq PRN Reason Stop Dose Admin Docusate Sodium 100 mg 01/04/20 09:00 01/04/20 09:28 Colace PO 100 mg BID REBECA Administration Enoxaparin Sodium 90 mg 01/04/20 08:30 01/04/20 08:47 Lovenox 1 mg/kg (90 mg) 90 mg SUBCUT Administration Q12H REBECA Sodium Chloride 1,000 mls @ 125 mls/hr 01/04/20 07:15 01/04/20 07:17 Sodium Chloride 0.9% IV 125 mls/hr .Q8H REBECA Administration Lactated Ringer's 1,000 mls @ 75 mls/hr 01/04/20 09:00 01/04/20 09:23 Lactated Ringers IV 75 mls/hr .[id number] REBECA Administration Levalbuterol HCl 0.63 mg 01/04/20 09:00 01/04/20 08:47 Xopenex INHALATION 0.63 mg QID REBECA Administration Morphine Sulfate 2 mg 01/04/20 08:49 01/04/20 09:17 Morphine IVP 2 mg Q4H PRN Administration SEVERE PAIN Nitroglycerin 0.4 mg 01/04/20 08:32 01/04/20 08:46 Nitrostat SUBLINGUAL 0.4 mg Q5M PRN Administration CHEST PAIN Nitroglycerin 2 inch 01/04/20 09:00 01/04/20 09:28 Nitro-Bid TOPICAL 2 inch Q6H REBECA Administration Pantoprazole Sodium 40 mg 01/04/20 09:00 01/04/20 08:48 Protonix IVP 40 mg DAILY REBECA Administration PFSH Acute PFSH: Medical History Alcoholic cirrhosis of liver Chronic pain in left shoulder Chronic pain syndrome Cigarette nicotine dependence Dyslipidemia Encounter for long-term (current) use of NSAIDs Encounter for long-term opiate analgesic use Hepatitis C Liver cirrhosis Recurrent cerebrovascular accidents (CVAs) Surgical History Hx of hernia repair Hx of knee surgery Hx of shoulder surgery Family History Mother CAD (coronary artery disease) Had a myocardial infarction at the age of 18. She is alive. She had a PCI? Father CAD (coronary artery disease) Had myocardial infarction in his 70s and is alive Other Diabetes Hypertension Myocardial infarct Social History Smoking and tobacco status: current some day smoker Second hand smoke exposure: Yes Alcohol intake: former Lives independently: Yes Household members: spouse Marital status: History of recent travel: No Vitals/I&O/Wt Last Vital Signs Temp 98.7 F 01/04/20 09:27 Pulse 85 01/04/20 09:27 Resp 23 H 01/04/20 09:27 BP 137/75 01/04/20 09:27 Pulse Ox 95 01/04/20 09:27 Weight last 48 hrs Weight 200 lb Physical Exam Narrative: EXAM NARRATIVE: GENERAL: The patient is alert and oriented times three. Not in any acute distress. HEENT: No significant pallor, icterus or lymphadenopathy. The pupils are reactant to light. Oral cavity: There are no mucous membrane lesions. Funduscopic examination: Fundus is not visualized NECK: Trachea appears to be central. No masses noted. No JVD or thyromegaly appreciated. No carotid bruit. RESPIRATORY: Chest is symmetrical. No intercostals muscle retraction or any accessory muscle activation. There is no chest wall tenderness. Breath sounds are heard bilaterally. Scattered expiratory wheezing and some occasional coarse crackles. Diminished intensity of breath sounds in the bases. BREASTS: Deferred. HEART: The PMI could not be palpated. No other palpable precordial events. First and second heart sounds are normal. No S3. No significant murmurs. ABDOMEN: No vessel pulsations or distention. No tenderness. No organomegaly appreciated. No abdominal bruit. Bowel sounds are normally heard. : Deferred. RECTAL: Deferred. LYMPHATIC: No lymphadenopathy noted in the neck or groin. EXTREMITIES: No edema or cyanosis. No clubbing. The pulses are symmetrical bilaterally. The radial, femoral, dorsalis pedis and the posterior tibial pulses are palpated and found to be in good volume and amplitude. MUSCULOSKELETAL: No acute joint deformities or swelling SKIN: There are no significant scars or skin rash noted. NEUROPSYCHIATRIC: The patient is alert and oriented x3. Appears to be in a good mood. The higher functions are grossly within normal limits. No tremors or rigidity noted. Data Labs: Other Labs: Laboratory Last Values WBC 13.4 10^3/uL (4.0 -10.0) H 01/04/20 04:10 RBC 4.04 10^6/uL (4.1 -5.3) L 01/04/20 04:10 Hgb 14.0 g/dL (11.7-1 6.6) 01/04/20 04:10 Hct 41.9 % (42.0-52.0 ) L 01/04/20 04:10 MCV 103.7 fL (80-94) H 01/04/20 04:10 MCH 34.7 pg (28.0-34. 0) H 01/04/20 04:10 MCHC 33.4 g/dL (30.0-3 6.0) 01/04/20 04:10 RDW 12.1 % (12.1-15.1 ) 01/04/20 04:10 Plt Count 265 10^3/cmm (130 -400) 01/04/20 04:10 MPV 8.5 fL (7.4-10.4) 01/04/20 04:10 Neut % (Auto) 83.8 % 01/04/20 04:10 Lymph % (Auto) 6.7 % 01/04/20 04:10 [place] % (Auto) 8.5 % 01/04/20 04:10 Eos % (Auto) 0.3 % 01/04/20 04:10 Baso % (Auto) 0.3 % 01/04/20 04:10 Neut # (Auto) 11.24 10^3/uL (1. 8-7.7) H 01/04/20 04:10 Lymph # (Auto) 0.9 10^3/uL (0.8- 4.8) 01/04/20 04:10 [place] # (Auto) 1.1 10^3/uL (0.2- 0.9) H 01/04/20 04:10 Eos # (Auto) 0.0 10^3/uL (0.0- 0.8) 01/04/20 04:10 Baso # (Auto) 0.0 10^3/uL (0.0- 0.1) 01/04/20 04:10 Nucleated RBC % (a uto) 0 % 01/04/20 04:10 Nucleated RBCs # 0.0 /100WBC 01/04/20 04:10 PT 12.90 SECONDS (10 .5-13.3) 01/04/20 04:10 INR 0.94 (0.8-1.2) 01/04/20 04:10 APTT 27.7 SECONDS (23. 9-36.7) 01/04/20 04:10 Sodium 140 mmol/L (136-1 45) 01/04/20 04:10 Potassium 3.9 mmol/L (3.5-5 .1) 01/04/20 04:10 Chloride 104 mmol/L (98-10 7) 01/04/20 04:10 Carbon Dioxide 26 mmol/L (22-29) 01/04/20 04:10 Anion Gap 13.9 (5-19) 01/04/20 04:10 BUN 20 mg/dL (6-20) 01/04/20 04:10 Creatinine 1.0 mg/dL (0.7-1. 2) 01/04/20 04:10 GFR Calculation 76.7 mL/min (90-1 30) L 01/04/20 04:10 Glucose 143 mg/dL (65-115 ) H 01/04/20 04:10 Calculated Osmolal ity 289 mOsm/kg (285- 295) 01/04/20 04:10 Calcium 9.7 mg/dL (8.5-10 .5) 01/04/20 04:10 Phosphorus 2.8 mg/dL (2.5-4. 5) 01/04/20 10:00 Magnesium 2.0 mg/dL (1.7-2. 3) 01/04/20 10:00 Total Bilirubin 0.2 mg/dL (0.15-1 .2) 01/04/20 04:10 AST 41 U/L (0-40) H 01/04/20 04:10 ALT 31 U/L (0-41) 01/04/20 04:10 Alkaline Phosphata se 91 IU/L (40-130) 01/04/20 04:10 Troponin T Baselin e 17 ng/L (0-15) H 01/04/20 04:10 Troponin T 120 Min [place] 33.20 ng/L (0-15) H 01/04/20 06:05 Delta Troponin T 16.20 ABS# (0-10) H* 01/04/20 06:05 Troponin T Hi Sens 6Hr 71.48 ng/L (0-15) H 01/04/20 10:00 Troponin T Hi Sens 6Hr Delta 54.48 ng/L (0-12) H* 01/04/20 10:00 NT-Pro-B Natriuret Pep 194 pg/mL (0-125) H 01/04/20 10:00 Total Protein 7.5 g/dL (6.6-8.7 ) 01/04/20 04:10 Albumin 4.4 g/dL (3.5-5.2 ) 01/04/20 04:10 Globulin 3.1 g/dL (1.3-4.6 ) 01/04/20 04:10 TSH 0.31 uIU/mL (0.27 -4.20) 01/04/20 10:00 A&P Assessment and plan (1) Non-ST elevation (NSTEMI) myocardial infarction: Patient's clinical features and elevated troponin T are suggestive of an unstable angina with a non-ST elevation myocardial infarction. Hemodynamically he seems to be stable. His symptoms is currently subsiding. An echocardiogram would be helpful to further evaluate his LV function and rule out any other pathology. I may start him with subcu Lovenox, aspirin, beta-ayla and statin. I may go ahead and give him 300 mg of Plavix p.o. now. May continue on the current medications. Status: Acute (2) Dyslipidemia: May do a lipid profile on the blood in the lab. Patient may be started on Crestor 10 mg p.o. now and daily. Status: Acute (3) COPD (chronic obstructive pulmonary disease): Patient has a 80 pack year history of smoking abuse. Management as per the primary. Status: Acute Qualifiers: COPD type: unspecified COPD Qualified Code(s): J44.9 - Chronic obstructive pulmonary disease, unspecified (4) Alcoholic cirrhosis of liver: Has a history of heavy alcohol abuse Status: Acute Qualifiers: Ascites presence: unspecified Qualified Code(s): K70.30 - Alcoholic cirrhosis of liver without ascites (5) Recurrent cerebrovascular accidents (CVAs): Etiology of the CVA is not clear at this time. I may review his carotid Doppler examination. Status: Acute (6) Bronchitis: Patient is currently on antibiotics which may be continued. Status: Acute Additional A&P Information Based on the patient's clinical progress and the results of the above, further recommendations will be made. Thank you for the opportunity to evaluate this patient make these recommendations. I may keep him n.p.o. for the time being. 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
[2020-01-04 10:23] LABS: Troponin 5 6HR 71.48 ng/L (0-15)
[2020-01-04 10:33] LABS: Troponin 5 6HR Delta 54.48 ng/L (0-12)
[2020-01-04 10:34] LABS: NT Pro B Type Natriuretic Pept 194 pg/mL (0-125); Phosphorus 2.8 mg/dL (2.5-4.5); Thyroid Stimulating Hormone 0.31 uIU/mL (0.27-4.20)
--- NOTE | 2020-01-04 10:50 | PC.CHAP ---
Pastoral Care Encounter/Spiritual Assessment Type of Contact [] Declined it systems engineer visit [] Patient/Family/Request visit [] Outpatient visit [] Follow-up visit [] Physician referral [] Code/Alert [X] Routine visit [] Staff referral [] Actively dying [] Patient sleeping [] Family support [] [] Out of room [] Palliative care [] [] Receiving care in room [] Pre-surgical visit [] Trauma [] Long length of stay [] ICU visit [] Other: Relational/Emotional Strength [X] Patient feels connected with others/family/visitors/staff [] Distress [] Loneliness/isolation [] Abandonment Spirituality of Patient [] Person of Lulu [] Attends Mosque of their Lulu [] Believes in Prayer [] Reads Bible or Yazidi materials [] There are Spiritual issues to be addressed Bank Secrecy Act Officer Interventions [] Prayer [] Active listening [] Non-anxious presence [] Spiritual/emotional support [] Crisis/trauma care [] Spiritual counseling [] Bereavement support [] Provided bereavement packet [] Provided Bible/devotional materials [] Provided toy/stuffed animal, coloring book to patient or family member [] Provided Communion [] Anointing/[place] [] Salvation [X] Completed spiritual assessment [] Other: Impact on Illness or Injury [] Angry [] Fearful [] Anxious [] Often cries [] Exhaustion [] Unable to work [] Unable to attend gnosticist [] Unable to walk/stand [] Unable to read [] Unable to drive [] Unable to eat/drink [] Unable to sleep [] Unable to be with family [] Patient intubated [] Other: Summary: Pt reports that he had a heart attack. His daughter works at [employer] as a nurse. He is connected to his family and was able to speak with his this morning. He seemed fidgety--looking around the room rather than holding eye contact, giving me quick answers. I asked about the care he is receiving and assessed any need for advocacy; there was none. I summarized that it seems he is being well taken care of, is connected with his family, and I asked about other needs. He denied needing anything else, so I asked if I could keep him in prayer; this made his eyes water. If he remains in the hospital tomorrow, Jess may be able to connect with him. Time spent with patient: <5 mins
[2020-01-04] MEDS: atorvastatin 40 mg Tablet PO (11:32)
[2020-01-04] MEDS: clopidogrel 300 mg Tablet PO (11:33)
--- NOTE | 2020-01-04 13:15 | ECG_ITS ---
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 Measurements Intervals [place] Rate: 97 P: 147 CT: 125 QRS: 143 QRSD: 98 T: 150 QT: 337 QTc: 428 Interpretive Statements SINUS RHYTHM INCOMPLETE RIGHT BUNDLE BRANCH BLOCK [90+ ms QRS DURATION, TERMINAL R IN V1/V2, 40+ ms S IN I/aVL/V4/V5/V6] POSSIBLE RIGHT VENTRICULAR HYPERTROPHY [SOME/ALL OF: PROMINENT R IN V1, LATE TRANSITION, RAD, ELI, SSS] POSSIBLE INFERIOR MYOCARDIAL INFARCTION [30 ms Q WAVE IN II/aVF], PROBABLY OLD Compared to ECG 01/04/2020 08:44:59 No significant changes Electronically Signed On 01-05-2020 9:41:31 CDT by Nitesh Corral M.D. [email or web address]
--- NOTE | 2020-01-04 13:52 | PC.NURSE ---
Pt reports Pain Pt stated he has 3/10 chest pain. I asked him to describe and he said achy pain. I asked him to show where the pain is at and he pointed to left rib cage area.Area is tender to the touch. He stated pain is worse when he coughs. He stated he had broken ribs from falls. He said he goes to pain mgt clinic and takes hydrocodone and tramadol 6x a day. EKG taken, no changes noted. Morphine 2 mg given PRN order. Notified Dr to review his home meds.
[2020-01-04] MEDS: metoprolol tartrate 25 mg Tablet PO (17:08)
--- NOTE | 2020-01-04 19:30 | ECG_ITS ---
[facility] Test Date: 2020-01-04 Pat Name: David Lanza Department: Room: 101 Gender: Male Contract Law Specialist: joanna RODRIGUEZ: 1960 Requested By: Nitesh Corral Order Number: [id number] Amalia MD: Nitesh Corral M.D. Measurements Intervals [place] Rate: 72 P: 81 FL: 163 QRS: 94 QRSD: 106 T: 76 QT: 384 QTc: 421 Interpretive Statements SINUS RHYTHM BORDERLINE RIGHT AXIS DEVIATION [QRS AXIS > 90] INCOMPLETE RIGHT BUNDLE BRANCH BLOCK [90+ ms QRS DURATION, TERMINAL R IN V1/V2, 40+ ms S IN I/aVL/V4/V5/V6] INTERPRETATION BASED ON A DEFAULT AGE OF 40 YEARS Compared to ECG 01/04/2020 13:28:16 Myocardial infarct finding no longer present Electronically Signed On 01-05-2020 9:30:24 CDT by Nitesh Corral M.D. [id number]
--- NOTE | 2020-01-04 19:33 | PC.NURSE ---
PT C/O CHEST PAIN 10/11. PT STATES THAT IT FEELS LIKE HE WAS KICKED IN THE CHEST AND SOMETHING SAT ON IT. PT STATES THAT THEY COULDN'T EAT ANYTHING BUT THE SALAD BECAUSE OF THE PAIN. DR SMALLWOOD IS IN THE ROOM WITH PT AT THIS TIME. 2 OF NITRO IS ON LEFT CHEST. BP 141/76. PT TOLD THE DOCTOR THAT IT IS THE SAME PAIN WHEN THE DR TOUCHES HIS CHEST. DR SAYS IT IS POSSIBLE TO DO AN ANGIOGRAM TONIGHT. PT STATES THAT WE SHOULD DO IT.
[2020-01-04] MEDS: nitroglycerin drip 50 MG/250 ML PREMIX 6 MG IV (20:03)
--- NOTE | 2020-01-04 20:04 | PC.NURSE ---
PT SIGNED CONSENT FORM. PULSES WERE DOPPLED. DAYSHIFT RN STARTED NITRO DRIP 20MCG. AWAITING CARD CUTTER. WILL CONTINUE TO MONITOR.
--- NOTE | 2020-01-04 20:15 | XACV_ITS ---
Exam Room: [facility] Gender: Male : 1960 Exam Priority: Routine Indication(s): - NSTEMI Procedure(s): Procedure Description: Diagnostic procedure Procedure Description: Left Heart Catheterization Procedure Description: Right Heart Catheterization Diagnostic Cath Status: Urgent Diagnostic Findings The left main is a medium caliber vessel with no significant stenotic lesions. The left anterior descending artery is a medium caliber vessel which appears to wrap around the LV apex. The proximal LAD was found to have a tapering narrowing of around 50% worse the first diagonal branch. The first diagonal branch was found an ostial around 60% stenosis. The mid LAD was found to have minimal intimal irregularities. The distal LAD was found to have a tubular extrinsic compression causing around 60- 70% narrowing during systole. The left circumflex artery is a medium caliber vessel which gives off a large obtuse marginal branch. The mid segment of the obtuse marginal artery was found to have a high-grade around 90 to 95% lesion. The rest of the vessel was found to have no significant stenotic lesion. Right coronary artery is a medium caliber dominant vessel which was found to have 20 to 30% irregular narrowing proximally. The distal artery was found to have minimal intimal irregularities. No significant stenotic lesions. Interventional Findings Mid Circumflex Coronary Artery: treated with AB TREK 2.50X15 RX BALLOON and BRIAN De León EVERETT 2.75X22 LETY. Conclusions No significant disease noted in the Left Main, LAD, Circumflex, or RCA coronary arteries. Mid Circumflex Coronary Artery was treated with Balloon and Drug Eluting Stent. 59-year-old white male with a history of heavy smoking abuse and alcohol abuse and requested history of dyslipidemia, presented with symptoms of unstable angina and clinical features of a non-ST elevation myocardial infarction. He continued to have chest pain during the hospital stay. For further management of his condition, an urgent cardiac catheterization was recommended. Patient underwent left heart catheterization with left and right coronary angiogram today. The findings are as follows. High-grade lesion in the first obtuse marginal artery. Moderate disease in the proximal LAD and ostium of the first diagonal branch. 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 Mild diffuse disease in the other vessels. LVEDP of 16 mmHg. The cardiac catheterization findings were reviewed and discussed with Dr. Scott. For further management of his condition, PCI of the obtuse marginal artery lesion was thought to be appropriate. Dr. Scott took over further management of this patient at this time. Recommendations Continue current medical management and risk factor modification. Diagnostic RX Recommendation: PCI w/o planned CABG LV EDP: 16 mmHg Left Ventriculography Findings: The LV gram was not performed since the LV ejection fraction was within normal limits by echocardiogram. Pressures Phase:Rest AO : 126 mmHg / 71 mmHg ( 91 mmHg ) @ 4:07:00 PM 125 mmHg / 70 mmHg ( 90 mmHg ) @ 4:08:00 PM 118 mmHg / 73 mmHg ( 94 mmHg ) @ 4:14:00 PM LV : 138 mmHg / -1 mmHg / @ 4:07:00 PM 132 mmHg / -4 mmHg / @ 4:07:00 PM Valves Phase:DefaultPhase AV : 6.0 mmHg @ 9:42:39 PM 6.0 mmHg @ 9:42:39 PM AV Mean Gradient: 13.0 mmHg @ 9:42:39 PM 13.0 mmHg @ 9:42:39 PM Clinical Evaluation EBL: 5mL-10mL Procedural Details Pre-Procedure Time Out. Identified patient by full name and date of as verbalized by the patient/guarantor. Does the consent match the physician's order: Yes. Accurate & Complete Informed Consent: Yes. Inpatient/Outpatient History & Physical on Chart: Yes. If H&P is completed, is and addenduem needed: No; If yes, is the addendum complete: No. Visualize and Verify Site with Patient/Guarantor: N/A. Relevant Radiology Images available: Yes. Pre-op teaching completed and patient verbalized understanding. The risks, benefits, and alternatives of sedation and/or procedure were discussed by physician. The patient agrees to continue. Procedure started. Correct patient, site and procedure confirmed by cath team. Current diagnosis: NSTEMI. PERRLA. Strong, equal hand through operator bilaterally. Lungs clear x 5 lobes. IV Site on Arrival: 18 gauge in the left anticubital. IV Fluids: 0.9% NaCl at KVO. 200 mL infused prior to flower shop laborer/designer. Oxygen started at 2liters/min via nasal canula. right radial was prepped with chloroprep then draped in the usual sterile fashion. right groin was prepped with chloroprep then draped in the usual sterile fashion. Physician notified. Baseline sample Acquired. HR: 70 BPM. Equipment: 6F - Radial. Cardiac Cath Pack. ACIST Manifold Kit Model BT 2000. Heparinized Saline (2 units/mL), 1000 mL bag. Physician arrived. Physician scrubbed in. Immediate Pre-Procedure Time Out. Correct Patient: Yes; Correct Procedure: Yes; Correct Site: Yes; Correct Patient Position: Yes; Correct Supplies: Yes; Dried Flammable Prep: Yes; Blood Products Available: N/A;. Lidocaine 1% infiltrated to the right radial. Arterial access obtained. A 5 tur[place] ca[place] islander Martir catheter in over wire. Multiple views taken of left coronary artery. Catheter redirected to the RCA. Multiple views taken of right coronary artery. A 5 tur[place] ca[place] islander Angled Pig catheter in over wire. EDP Sample taken: LV 138/-2,16; HR: 75 BPM; SpO2: 94%. Pullback taken: LV 132/-5,16; AO 126/71(91); Mean: 13mmHg, Peak to Peak: 6mmHg, SEP: 7sec/min; HR: 78 BPM; SpO2: 94%. Catheter out. 6 tur[place] and ca[place] islander XB 3.5 guide catheter was inserted over the wire. BMW guidewire was advanced through the guide catheter to lesion in the mid Circ. ACT drawn. Results 368 seconds. Therapeutic limits - pre-heparin administration 90-150 seconds and monitoring heparin during a vascular procedure >250 seconds. BMW guidewire was advanced through the guide catheter to lesion in the mid Circ. Balloon inserted to lesion in the mid Circ. Inflation number : 1 A AB TREK 2.50X15 RX BALLOON was prepped and advanced across the Mid CX , then inflated to 10 IVAN for 0:15 seconds. Inflation number: 2 The AB TREK 2.50X15 RX BALLOON was reinflated across the Mid CX, to 10 IVAN for 0:17 seconds. Balloon out. Stent inserted to lesion in the mid Circ. Inflation Number : 3 A BRIAN De León EVERETT 2.75X22 LETY -Lot Number# [id number] was prepped and advanced across the Mid CX. The stent was deployed at 12 IVAN for 0:21 seconds. Inflation number: 4 The stent balloon was then re-inflated across the Mid CX to 16 IVAN for 0:09 seconds. Results checked. Stent balloon out over wire. Wire out. TR band placed. Hemostasis obtained. PERRLA. Strong, equal hand through operator bilaterally. No VTE prophylaxis required. Medication's Wasted: Lidocaine 1% = 18 mL. Total IV fluids: 75 mL. Medication's Wasted: Nitro = 49.8 mg. Medication's Wasted: Heparin = 1000 units. Complications: none. Estimated blood loss: 5mL-10mL. Procedure completed. Post-op diagnosis: nstemi . Patient transferred by wheelchair to 1st floor. Vital chart was stopped. Site: Right Radial artery Sheath Size: 6 Fr Hemostasis Success: Unsuccessful Procedure Medications Start: 8:41 PM Stop: 8:41 PM Medication: Versed Amount: 1 mg Route: I.V. Start: 8:41 PM Stop: 8:41 PM Medication: Fentanyl Amount: 50 mcg Route: I.V. Start: 8:46 PM Stop: 8:46 PM Medication: Versed Amount: 1 mg Route: I.V. Start: 8:52 PM Stop: 8:52 PM Medication: Versed Amount: 1 mg Route: I.V. Start: 8:52 PM Stop: 8:52 PM Medication: Fentanyl Amount: 50 mcg Route: I.V. Start: 8:54 PM Stop: 8:54 PM Medication: Verapamil Amount: 5 mg Route: I.A. Start: 8:55 PM Stop: 8:55 PM Medication: Nitrogylcerin Amount: 200 mcg Route: I.A. Start: 8:59 PM Stop: 8:59 PM Medication: Versed Amount: 1 mg Route: I.V. Start: 9:10 PM Stop: 9:10 PM Medication: Heparin Amount: 5000 units Start: 9:10 PM Stop: 9:10 PM Medication: Fentanyl Amount: 50 mcg Route: I.V. Start: 9:13 PM Stop: 9:13 PM Medication: Versed Amount: 1 mg Route: I.V. Start: 9:20 PM Stop: 9:20 PM Medication: Fentanyl Amount: 50 mcg Route: I.V. Start: 9:21 PM Stop: 9:21 PM Medication: Versed Amount: 1 mg Route: I.V. Start: 9:26 PM Stop: 9:26 PM Medication: Versed Amount: 1 mg Route: I.V. Start: 9:33 PM Stop: 9:33 PM Medication: Versed Amount: 1 mg Route: I.V. Start: 9:36 PM Stop: 9:36 PM Medication: Plavix Amount: 300 mg Route: P.O. I, the attending physician, have reviewed and verified all procedure medications. Yes, all medications given per verbal order History/Risk Factors Hypertension: Yes Tobacco Use: Current/Recent(w/in 1 year) Report Signatures Finalized by:Dr Nitesh Corral MD [facility] on 01/04/2020 10:50:32 PM
[2020-01-04 20:20] LABS: Add Urine Microscopic? NO
[2020-01-04 20:27] LABS: Bilirubin Urine Neg (NEGATIVE); Blood Urine Neg (Negative); Glucose Urine UA Norm (Normal); Ketones Urine Negative (Negative); Leukocyte Esterase Urine Negative (Negative); Nitrate Urine Negative (Negative); Protein Urine Neg (Negative); Specific Gravity, Urine 1.015 (1.005-1.030); Urine Appearance Clear (CLEAR); Urine Color Yellow (Yellow); Urobilinogen Urine Norm (Negative); pH Urine 6 (5-7)
--- NOTE | 2020-01-04 20:48 | W.PM.OPSUD ---
Surgery/Procedure H&P Update DATE OF PROCEDURE: January 04, 2020 DATE H&P PERFORMED: 01/04/20 H&P UPDATE INFORMATION: I have reviewed H&P completed within last 30 days and I have examined patient prior to procedure PREOP DIAGNOSIS: UAP/NSTEMUI PATIENT REASSESSED PRIOR TO SEDATION, WITH NO CHANGE NOTED: Yes PHYSICAL EXAM: alert, oriented x 3, clear to auscultation bilaterally and regular rate & rhythm AIRWAY EVAL/ANESTHESIA PLAN: normal airway, see other exam findings, ASA II, Risks, benefits & alternatives of sedation and/or procedure discussed and Patient agrees to continue as planned
--- NOTE | 2020-01-04 21:55 | PC.NURSE ---
PT RETURNED FROM WALL CLEANER. PT HAD A STENT TO MID CIR. TR BAND ON RIGHT RADIAL AND HAS 17ML OF AIR AT THIS TIME. NO HEMATOMA NOTED. GOOD PULSE DISTAL TO TR BAND. PT DENIES PAIN AT THIS TIME. BP IS 153/88. PT STATES THAT THEY FEEL MUCH BETTER. WILL CONTINUE TO MONITOR.
[2020-01-05] VITALS (42 sets, daily range): BP systolic 120–159; BP diastolic 70–96; PULSE 45–78; RESP 15–30; TEMP 35.5–36.7; O2SAT 91–100
[2020-01-05] MEDS: lactated ringers 1,000 ML 75 ML IV (01:12)
--- NOTE | 2020-01-05 04:10 | PC.NURSE ---
Began taking air out of patient's TR band about 2330. TR band began with 17 mls of air in it. I got down to 8mls out. Patients wrist was oozing I added 2 mls and waited 30mins. Patient was still oozing and added 2more mls of air. About 0300 supervisor dimension warehouse was called to come and evaluate the band cause it did not feel like it was blowing up with air like it was supposed to. Pressure was held while we took all the air out and refilled the band. Waited 30min and re checked band had leaked out 6mls out of 13 mls. TR band removed at 0347 and manual pressure held 10 minutes. No hematoma. Dressing is clean dry and intact. Will continue to monitor.
[2020-01-05 05:26] LABS: Basophils % 0.3 %; Eosinophils % 0.3 %; Hematocrit 40.2 % (42.0-52.0); Hemoglobin 13.2 g/dL (11.7-16.6); Lymphocytes # 2.1 10^3/uL (0.8-4.8); Lymphocytes % 15.1 %; Mean Corpuscular HGB Conc 32.8 g/dL (30.0-36.0); Mean Corpuscular Hemoglobin 33.9 pg (28.0-34.0); Mean Corpuscular Volume 103.3 fL (80-94); Mean Platelet Volume 8.7 fL (7.4-10.4); Monocytes # 1.4 10^3/uL (0.2-0.9); Monocytes % 10.6 %; Neutrophils # 9.88 10^3/uL (1.8-7.7); Nucleated Red Blood Cells % 0 %; Platelet Count 246 10^3/cmm (130-400); Red Blood Count 3.89 10^6/uL (4.1-5.3); Red Cell Distribution Width 12.4 % (12.1-15.1); White Blood Count 13.5 10^3/uL (4.0-10.0)
[2020-01-05 05:48] LABS: Alanine Aminotransferase 24 U/L (0-41); Albumin Level 4.2 g/dL (3.5-5.2); Alkaline Phosphatase 78 IU/L (40-130); Anion Gap 14.9 (5-19); Aspartate Amino Transferase 24 U/L (0-40); Blood Urea Nitrogen 13 mg/dL (6-20); Calcium 9.8 mg/dL (8.5-10.5); Carbon Dioxide 28 mmol/L (22-29); Chloride 99 mmol/L (98-107); Globulin 3.1 g/dL (1.3-4.6); Glomerular Filtration Rate 115.8 mL/min (90-130); Glucose 88 mg/dL (65-115); Magnesium 2.3 mg/dL (1.7-2.3); Osmolality Calculated 282 mOsm/kg (285-295); Potassium 3.9 mmol/L (3.5-5.1); Sodium 138 mmol/L (136-145); Total Bilirubin 0.4 mg/dL (0.15-1.2); Total Protein 7.3 g/dL (6.6-8.7)
[2020-01-05 06:00] LABS: Estmated Average Glucose 126
[2020-01-05 06:01] LABS: Cholesterol 171 mg/dL (0-200); HDL Cholesterol 45 mg/dL (60-100); LDL Cholesterol Calculated 97 mg/dL (50-129); LDL HDL Ratio 2.16 RATIO (0.00-3.22); Triglycerides 146 mg/dL (0-150)
--- NOTE | 2020-01-05 06:32 | PC.NURSE ---
PT APPEARED TO HAVE RESTED WELL. PAPER SUPERVISOR NURSE HAD TO HOLD MANUAL PRESSURE TO STOP SOME OOZING AROUND TR BAND. TR BAND DIDN'T WANT TO HOLD AIR. NO HEMATOMA NOTED. PRESSURE DRESSING IS C/D/I. HR 53. WILL GIVE REPORT TO ON COMING NURSE.
[2020-01-05] MEDS: levalbuterol 0.63 mg/3 mL Neb INHALATION ×3 (07:38→19:55)
--- NOTE | 2020-01-05 08:51 | PM.PN ---
Subjective Subjective: Interval history: The patient is feeling okay with no recurrence of chest pain. Has significant improvement of the symptoms, since the PCI. Continues to have the productive cough. No hemoptysis. No fever or chills. Medications: Reviewed: Yes Medication Review Details: Current Medications Acetaminophen (Tylenol) 650 mg PO Q6H PRN PRN Reason: MILD PAIN Al Hydrox/Mg Hydrox/Simethicone (Maalox) 30 ml PO Q15M PRN PRN Reason: INDIGESTION Alprazolam (Xanax) 0.25 mg PO TID PRN PRN Reason: ANXIETY Atorvastatin Calcium (Lipitor) 40 mg PO BEDTIME [facility] Atropine Sulfate (Atropine) 0.5 mg IVP PRN PRN PRN Reason: Symptomatic bradycardia Clopidogrel Bisulfate (Plavix) 75 mg PO DAILY [facility] Docusate Sodium (Colace) 100 mg PO BID [facility] Last Admin: 01/04/20 17:08 Dose: 100 mg Documented by: Sodium Chloride (Sodium Chloride 0.9%) 1,000 mls @ 50 mls/hr IV .Q20H ONE Stop: 01/05/20 15:47 Last Admin: 01/04/20 22:26 Dose: Not Given Documented by: Lactated Ringer's (Lactated Ringers) 1,000 mls @ 75 mls/hr IV .[id number] [facility] Last Admin: 01/05/20 01:12 Dose: 75 mls/hr Documented by: Levalbuterol HCl (Xopenex) 0.63 mg INHALATION QID.RESPIRATORY [facility] Last Admin: 01/05/20 07:38 Dose: 0.63 mg Documented by: Magnesium Hydroxide (Milk Of Magnesia) 30 ml PO DAILY PRN PRN Reason: CONSTIPATION Metoprolol Tartrate (Lopressor) 25 mg PO BID [facility] Last Admin: 01/04/20 17:08 Dose: 25 mg Documented by: Morphine Sulfate (Morphine) 2 mg IVP Q4H PRN PRN Reason: SEVERE PAIN Last Admin: 01/04/20 13:20 Dose: 2 mg Documented by: Naloxone HCl (Narcan) 0.1 mg IVP Q2M PRN PRN Reason: RESPIRATORY RATE < 8/MIN Nitroglycerin (Nitrostat) 0.4 mg SUBLINGUAL Q5M PRN PRN Reason: CHEST PAIN Last Admin: 01/04/20 08:46 Dose: 0.4 mg Documented by: Ondansetron HCl (Zofran) 4 mg IVP Q8H PRN PRN Reason: vomiting, or N/V if npo Pantoprazole Sodium (Protonix) 40 mg IVP DAILY [facility] Last Admin: 01/04/20 08:48 Dose: 40 mg Documented by: Senna (Senna Lax) 17.2 mg PO BEDTIME [facility] Temazepam (Restoril) 15 mg PO BEDTIME PRN PRN Reason: INSOMNIA Vitals/I&O/Wt Last Vital Signs Temp 97.4 F L 01/05/20 03:43 Pulse 74 01/05/20 07:42 Resp 16 01/05/20 07:42 BP 136/85 01/05/20 06:15 Pulse Ox 94 01/05/20 07:42 01/04/20 01/05/20 01/05/20 22:59 06:59 14:59 Intake Total 0 / 0 Output Total 500 / 500 1000 / 1500 Balance -500 / -500 -1000 / -1500 Weight last 48 hrs Weight 200 lb Physical Exam Narrative: EXAM NARRATIVE: GENERAL: The patient is alert and oriented times three. Not in any acute distress. HEENT: No significant pallor, icterus or lymphadenopathy. The pupils are reactant to light. Oral cavity: There are no mucous membrane lesions. Funduscopic examination: NECK: Trachea appears to be central. No masses noted. No JVD or thyromegaly appreciated. No carotid bruit. RESPIRATORY: Chest is symmetrical. No intercostals muscle retraction or any accessory muscle activation. There is no chest wall tenderness. Breath sounds are heard bilaterally. Scattered expiratory wheezing and some occasional coarse crackles. Diminished intensity of breath sounds in the bases. BREASTS: Deferred. HEART: The PMI could not be palpated. No other palpable precordial events. First and second heart sounds are normal. No S3. No significant murmurs. ABDOMEN: No vessel pulsations or distention. No tenderness. No organomegaly appreciated. No abdominal bruit. Bowel sounds are normally heard. : Deferred. RECTAL: Deferred. LYMPHATIC: No lymphadenopathy noted in the neck or groin. EXTREMITIES: No edema or cyanosis. No clubbing. The radial arterial puncture site has minimal oozing. No hematoma. MUSCULOSKELETAL: No acute joint deformities or swelling SKIN: There are no significant scars or skin rash noted. NEUROPSYCHIATRIC: The patient is alert and oriented x3. Appears to be in a good mood. The higher functions are grossly within normal limits. No tremors or rigidity noted. Const: COMMON NORMALS: alert Resp: COMMON NORMALS: clear to auscultation bilaterally AUSCULTATION: clear to auscultation bilaterally Neuro: SENSORIUM/ORIENTATION: Yes alert Data : 01/06/20 03:06 01/06/20 03:06 Other Labs: Laboratory Last Values WBC 13.5 10^3/uL (4.0-10.0) H 01/05/20 04:20 RBC 3.89 10^6/uL (4.1-5.3) L 01/05/20 04:20 Hgb 13.2 g/dL (11.7-16.6) 01/05/20 04:20 Hct 40.2 % (42.0-52.0) L 01/05/20 04:20 MCV 103.3 fL (80-94) H 01/05/20 04:20 MCH 33.9 pg (28.0-34.0) 01/05/20 04:20 MCHC 32.8 g/dL (30.0-36.0) 01/05/20 04:20 RDW 12.4 % (12.1-15.1) 01/05/20 04:20 Plt Count 246 10^3/cmm (130-400) 01/05/20 04:20 MPV 8.7 fL (7.4-10.4) 01/05/20 04:20 Neut % (Auto) 73.0 % 01/05/20 04:20 Lymph % (Auto) 15.1 % 01/05/20 04:20 [place] % (Auto) 10.6 % 01/05/20 04:20 Eos % (Auto) 0.3 % 01/05/20 04:20 Baso % (Auto) 0.3 % 01/05/20 04:20 Neut # (Auto) 9.88 10^3/uL (1.8-7.7) H 01/05/20 04:20 Lymph # (Auto) 2.1 10^3/uL (0.8-4.8) 01/05/20 04:20 [place] # (Auto) 1.4 10^3/uL (0.2-0.9) H 01/05/20 04:20 Eos # (Auto) 0.0 10^3/uL (0.0-0.8) 01/05/20 04:20 Baso # (Auto) 0.0 10^3/uL (0.0-0.1) 01/05/20 04:20 Nucleated RBC % (auto) 0 % 01/05/20 04:20 Nucleated RBCs # 0.0 /100WBC 01/05/20 04:20 PT 12.90 SECONDS (10.5-13.3) 01/04/20 04:10 INR 0.94 (0.8-1.2) 01/04/20 04:10 APTT 27.7 SECONDS (23.9-36.7) 01/04/20 04:10 Sodium 138 mmol/L (136-145) 01/05/20 04:20 Potassium 3.9 mmol/L (3.5-5.1) 01/05/20 04:20 Chloride 99 mmol/L (98-107) 01/05/20 04:20 Carbon Dioxide 28 mmol/L (22-29) 01/05/20 04:20 Anion Gap 14.9 (5-19) 01/05/20 04:20 BUN 13 mg/dL (6-20) 01/05/20 04:20 Creatinine 0.7 mg/dL (0.7-1.2) 01/05/20 04:20 GFR Calculation 115.8 mL/min (90-130) 01/05/20 04:20 Glucose 88 mg/dL (65-115) 01/05/20 04:20 Estimat Average Glucose 126 01/05/20 04:20 Hemoglobin A1c 6.0 % (4.0-6.0) 01/05/20 04:20 Calculated Osmolality 282 mOsm/kg (285-295) L 01/05/20 04:20 Calcium 9.8 mg/dL (8.5-10.5) 01/05/20 04:20 Phosphorus 2.8 mg/dL (2.5-4.5) 01/04/20 10:00 Magnesium 2.3 mg/dL (1.7-2.3) 01/05/20 04:20 Total Bilirubin 0.4 mg/dL (0.15-1.2) 01/05/20 04:20 AST 24 U/L (0-40) 01/05/20 04:20 ALT 24 U/L (0-41) 01/05/20 04:20 Alkaline Phosphatase 78 IU/L (40-130) 01/05/20 04:20 Troponin T Baseline 17 ng/L (0-15) H 01/04/20 04:10 Troponin T 120 Minute 33.20 ng/L (0-15) H 01/04/20 06:05 Delta Troponin T 16.20 ABS# (0-10) H* 01/04/20 06:05 Troponin T Hi Sens 6Hr 71.48 ng/L (0-15) H 01/04/20 10:00 Troponin T Hi Sens 6Hr Delta 54.48 ng/L (0-12) H* 01/04/20 10:00 NT-Pro-B Natriuret Pep 194 pg/mL (0-125) H 01/04/20 10:00 Total Protein 7.3 g/dL (6.6-8.7) 01/05/20 04:20 Albumin 4.2 g/dL (3.5-5.2) 01/05/20 04:20 Globulin 3.1 g/dL (1.3-4.6) 01/05/20 04:20 Triglycerides 146 mg/dL (0-150) 01/05/20 04:20 Cholesterol 171 mg/dL (0-200) 01/05/20 04:20 LDL Cholesterol, Calc 97 mg/dL (50-129) 01/05/20 04:20 HDL Cholesterol 45 mg/dL (60-100) L 01/05/20 04:20 LDL/HDL Ratio 2.16 RATIO (0.00-3.22) 01/05/20 04:20 Cholesterol/HDL Ratio 3.80 mg/dL (1.0-5.00) 01/05/20 04:20 TSH 0.31 uIU/mL (0.27-4.20) 01/04/20 10:00 Urine Color Yellow (Yellow) 01/04/20 18:40 Urine Appearance Clear (CLEAR) 01/04/20 18:40 Urine pH 6 (5-7) 01/04/20 18:40 Ur Specific [place] 1.015 (1.005-1.030) 01/04/20 18:40 Urine Protein Neg (Negative) 01/04/20 18:40 Urine Glucose (UA) Norm (Normal) 01/04/20 18:40 Urine Ketones Negative (Negative) 01/04/20 18:40 Urine Blood Neg (Negative) 01/04/20 18:40 Urine Nitrate Negative (Negative) 01/04/20 18:40 Urine Bilirubin Neg (NEGATIVE) 01/04/20 18:40 Urine Urobilinogen Norm mg/dL (Negative) 01/04/20 18:40 Ur Leukocyte Esterase Negative (Negative) 01/04/20 18:40 A&P Assessment and plan (1) Non-ST elevation (NSTEMI) myocardial infarction: Patient is status post angiogram and PCI of the obtuse marginal artery. Currently seems to be stable. May continue on the Plavix, aspirin and other medications. Status: Acute (2) Dyslipidemia: Currently on the statin Status: Acute (3) COPD (chronic obstructive pulmonary disease): Patient has a 80 pack year history of smoking abuse. Management as per the primary. Status: Acute Qualifiers: COPD type: unspecified COPD Qualified Code(s): J44.9 - Chronic obstructive pulmonary disease, unspecified (4) Alcoholic cirrhosis of liver: Has a history of heavy alcohol abuse Status: Acute Qualifiers: Ascites presence: unspecified Qualified Code(s): K70.30 - Alcoholic cirrhosis of liver without ascites (5) Recurrent cerebrovascular accidents (CVAs): Carotid duplex have revealed bilateral carotid artery disease. He needs to have follow-up evaluations. Status: Acute (6) Bronchitis: Patient is currently on antibiotics which may be continued. His white cell count still remains elevated. Could be related to the recent steroids Status: Acute Additional A&P Information Advised to have a pressure dressing at the arterial puncture site. There appears to be oozing from the skin. Currently other measures. Attestations Medical Necessity Statement*: Patient requires continued hospital stay for close monitoring and further management. Possible discharge home tomorrow Coding Level of Care Code Acute Engineering Designer for Devorag Fwd Exam Expanded Problem Focused Diagnoses Non-ST elevation (NSTEMI) myocardial infarction I21.4 Dyslipidemia E78.5 COPD (chronic obstructive pulmonary disease) J44.9 COPD type: unspecified COPD Alcoholic cirrhosis of liver K70.30 Ascites presence: unspecified Recurrent cerebrovascular accidents (CVAs) I63.9 Bronchitis J40
[2020-01-05] MEDS: clopidogrel 75 mg Tablet PO (09:00)
[2020-01-05] MEDS: docusate sodium 100 mg Capsule PO ×2 (09:00→18:14)
[2020-01-05] MEDS: pantoprazole 40 mg SDV IVP (09:00)
[2020-01-05] MEDS: metoprolol tartrate 25 mg Tablet PO ×2 (09:00→18:14)
--- NOTE | 2020-01-05 09:23 | PC.NURSE ---
Oozing on dressing noted Pt post Tr band removal with right wrist dressing. Oozing noted .5cm x.5cm under 2x2 dressing. Palpable +3 radial pulse. No hematoma, swelling noted. Marked and circled. will keep monitoring.
--- NOTE | 2020-01-05 09:28 | PC.NURSE ---
Dressing is saturated with blood Dr Corral in room and look at the dressing and right wrist area post access. No hematoma. This nurse applied 10 mins of manual pressure directly to puncture site. Dr. Corral verbal orders to change saturated dressing and apply new one and wrap with coband. Will keep monitoring. Instructed pt to not apply weight of more than 5 lbs next 2-3 days. Pt verbalizes understanding. Educational video regarding post heart attack provided to pt. He is watching now.
--- NOTE | 2020-01-05 09:56 | PM.PN ---
Vitals/I&O/Wt Last Vital Signs Temp 97.4 F L 01/05/20 03:43 Pulse 74 01/05/20 07:42 Resp 16 01/05/20 07:42 BP 136/85 01/05/20 06:15 Pulse Ox 94 01/05/20 07:42 01/04/20 01/05/20 01/05/20 22:59 06:59 14:59 Intake Total 0 / 0 354 / 354 Output Total 500 / 500 1000 / 1500 300 / 300 Balance -500 / -500 -1000 / -1500 54 / 54 Weight last 48 hrs Weight 90.718 kg Physical Exam Narrative: EXAM NARRATIVE: GEN: Awake, alert and oriented, no acute distress CVS: S1S2 N RS: CTA B/L Abd: Soft, nt/nd , bs+ RUBBER CUTTER AND SHAPE CARVER: no focal neuro deficits Data : 01/05/20 04:20 01/05/20 04:20 A&P Assessment and plan (1) Non-ST elevation (NSTEMI) myocardial infarction: Status: Acute (2) COPD exacerbation: Status: Acute (3) Esophageal dysphagia: This is likely related to steroid/NSAID induced gastritis/esophagitis Status: Acute (4) Tobacco abuse: Status: Acute Additional A&P Information 1. NSTEMI: s/p PCI with stent to obtuse marginal overnight Start ASA 81mg po qd Continue plavix 75mg po qd, given loading dose of 300mg continue metoprolol 25mg po BID, atorvastatin 40mg po qd Normal left ventricular size and systolic function, EF 65% D/c IVF 2. COPD, recently with exacerbation for which he was on outpatient steroids and abx No evidence of pneumonia on CXR Covid 19 testing negative on 12/31 as outpatient (quest) Duonebs q4h prn home 02 eval, currently on 1lpm nasal canula continue prednisone to complete 5 day course 3. chronic pain, resume home dose of norco and tramadol Attestations Medical Necessity Statement*: awaiting optimization of respiratory status prior to discharge Coding Level of Care Code Acute Form Press Operator for Mara Enriquez Diagnoses Non-ST elevation (NSTEMI) myocardial infarction I21.4 COPD exacerbation J44.1 Esophageal dysphagia R13.10 Tobacco abuse Z72.0
--- NOTE | 2020-01-05 10:00 | USCV_ITS ---
Pool David Age: 59 Gender: M : 1960 Exam Date: 01/05/2020 10:13 Ordering Phys: Jessica Lee MD Technologist: Ifrah Woodruff Exam Location: [facility] [place] Indication: NSTEMI PCI BP: 140 / 70 HR: 62 Rhythm: Sinus Technical Quality: Very poor MEASUREMENTS (Male / Female) Normal Values 2D ECHO LV Diastolic Diameter PLAX 4.0 cm 4.2 - 5.9 / 3.9 - 5.3 cm LV Systolic Diameter PLAX 3.0 cm LV Chamber Size 3.4 cm IVS Diastolic Thickness 1.3 cm 0.6 - 1.0 / 0.6 - 0.9 cm IVS Systolic Thickness 1.7 cm LVPW Diastolic Thickness 1.5 cm 0.6 - 1.0 / 0.6 - 0.9 cm LVPW Systolic Thickness 2.0 cm RV Chamber Size 3.0 cm LVOT Diameter 2.0 cm LV Ejection Fraction 2D Teich 46.4 % LV Ejection Fraction MOD 2C 69.9 % LV Ejection Fraction 2C AL 71.6 % LA Diameter 3.5 cm LA Width 2.9 cm LA Height 4.2 cm RA Width 3.6 cm RA Height 3.5 cm M-MODE LV Diastolic Diameter MM 3.2 cm 4.2 - 5.9 / 3.9 - 5.3 cm LV Systolic Diameter MM 2.6 cm LV Ejection Fraction MM Teich 37.5 % IVS Diastolic Thickness MM 1.8 cm 0.6 - 1.0 / 0.6 - 0.9 cm IVS Systolic Thickness MM 2.1 cm LVPW Diastolic Thickness MM 1.2 cm 0.6 - 1.0 / 0.6 - 0.9 cm LVPW Systolic Thickness MM 1.7 cm RV Diastolic Diameter MM 3.9 cm Aortic Annulus Diameter 3.4 cm LA Ao Ratio MM 1.0 MV E Point Septal Separation 0.6 cm DOPPLER AV Peak Velocity 177.0 cm/s LVOT Peak Velocity 111.0 cm/s AV Area Cont Eq vti 2.0 cm squared AV Area Cont Eq pk 2.0 cm squared MV Area PHT 3.0 cm squared Mitral E to A Ratio 1.6 MV E' Velocity 13.0 cm/s Mitral E to MV E' Ratio 7.7 Mitral E to LV E' Lateral Ratio 6.2 Mitral E to LV E' Septal Ratio 10.4 TR Peak Velocity 197.0 cm/s TR Peak Gradient 15.6 mmHg TR Mean Velocity 137.2 cm/s TR Mean Gradient 8.9 mmHg TR Velocity Time Integral 56.6 cm TV Peak E Velocity 47.0 cm/s Right Atrial Pressure 3.0 mmHg Pulmonary Artery Systolic Pressu 18.5 mmHg PV Peak Velocity 52.0 cm/s RV Acceleration Time 0.2 s RV Ejection Time 0.3 s RV AcT/ET 0.5 FINDINGS Left Ventricle Normal left ventricular cavity size. Normal left ventricular systolic function. No regional wall motion abnormalities. Left ventricular ejection fraction is estimated at 60 %. Grade II/IV diastolic dysfunction, moderately elevated filling pressures. Right Ventricle The right ventricle is normal in size and function. Right Atrium The right atrium is normal in size. Left Atrium The left atrium is normal in size. Mitral Valve Structurally normal mitral valve without significant stenosis or prolapse. There is no mitral regurgitation. Aortic Valve Moderate aortic valve calcification. No aortic valve stenosis. Mild aortic valve regurgitation. Tricuspid Valve Structurally normal tricuspid valve without significant stenosis or regurgitation. Pulmonary artery systolic pressure is normal. Pulmonic Valve Structurally normal pulmonic valve without significant stenosis. There is no pulmonic regurgitation. Pericardium Normal pericardium without effusion. Aorta Normal ascending aorta dimension. CONCLUSIONS 1-Normal left ventricular cavity size. Normal left ventricular systolic function. No regional wall motion abnormalities. Left ventricular ejection fraction is estimated at 60 %. Grade II/IV diastolic dysfunction, moderately elevated filling pressures. 2-Moderate aortic valve calcification. No aortic valve stenosis. Mild aortic valve regurgitation. 3-There is no pericardial effusion. 4-Pulmonary artery systolic pressure is within normal limits. 5-Right atrial pressure is around 5 mm of mercury. 6-when compared to the prior echocardiogram dated 0 07/24/2019 there appeared to be mild aortic valve regurgitation Chang Rojo MD (Electronically Signed) Final Date: 07 January 2020 19:46 S
--- NOTE | 2020-01-05 10:14 | PC.CHAP ---
Pastoral Care Encounter/Spiritual Assessment Type of Contact [] Declined voice intercept technician visit [] Patient/Family/Request visit [] Outpatient visit [] Follow-up visit [] Physician referral [] Code/Alert [x] Routine visit [] Staff referral [] Actively dying [] Patient sleeping [] Family support [] [] Out of room [] Palliative care [] [] Receiving care in room [] Pre-surgical visit [] Trauma [] Long length of stay [] ICU visit [] Other: Relational/Emotional Strength [] Patient feels connected with others/family/visitors/staff [] Distress [] Loneliness/isolation [] Abandonment Spirituality of Patient [] Person of Lulu [] Attends Taoism of their Lulu [] Believes in Prayer [] Reads Bible or Hinduism materials [] There are Spiritual issues to be addressed Hadoop Application Developer Interventions [x] Prayer [x] Active listening [x] Non-anxious presence [x] Spiritual/emotional support [] Crisis/trauma care [] Spiritual counseling [] Bereavement support [] Provided bereavement packet [] Provided Bible/devotional materials [] Provided toy/stuffed animal, coloring book to patient or family member [] Provided Communion [] Anointing/[place] [] Salvation [x] Completed spiritual assessment [] Other: Impact on Illness or Injury [] Angry [] Fearful [] Anxious [] Often cries [] Exhaustion [] Unable to work [] Unable to attend druze [] Unable to walk/stand [] Unable to read [] Unable to drive [] Unable to eat/drink [] Unable to sleep [] Unable to be with family [] Patient intubated [] Other: Summary patient resting well. pain in chest has eased Time spent with patient 10 min
--- NOTE | 2020-01-05 10:38 | PC.RESP ---
Smoking Cessation and Pulmonary Rehab information sent to patient.
[2020-01-05] MEDS: HYDROcodone-acetaminophen 10-325 mg Tablet 1 TAB PO ×3 (10:46→20:09)
[2020-01-05] MEDS: aspirin 81 mg EC Tablet PO (10:48)
[2020-01-05] MEDS: citalopram 20 mg Tablet PO (10:48)
[2020-01-05] MEDS: ipratropium-albuterol 3 mL Neb INHALATION (11:16)
--- NOTE | 2020-01-05 13:35 | PC.NURSE ---
Saturated dressing Upon checking on pt, noted blood on bed sheet and gown. 2x2 dressing that was applied around 9 am was completely saturated. Applied pressure for 10 mins and still has track ooze, Called Dr Corral to inform him and be aware. 4x4 dressing applied and manual pressure applied for another 30 mins. No track ooze noted but DORCAS Blue took over and held for another 15 mins. Will keep monitoring. No hematoma, swlling around site. Pt reports of mild tenderness upon palpation. instructed pt to call nurse if noticed blood oozing, unusual pain or swelling on right wrist. He verbalizes understanding.
--- NOTE | 2020-01-05 18:30 | PC.NURSE ---
Dressing is dry and intact No new bleeding noted. radial pulse is palpable. No hematoma noted. Instructed pt on activity restrictions.
--- NOTE | 2020-01-05 19:58 | PC.NURSE ---
PT RESTING IN BED. DRESSING TO RIGHT RADIAL IS C/D/I. PT DENIES PAIN AT THIS TIME. VS WNL. RT IS IN WITH PT AT THIS TIME. WILL CONTINUE TO MONITOR.
[2020-01-05] MEDS: sennosides 8.6 mg Tablet 17.2 MG PO (20:11)
[2020-01-05] MEDS: atorvastatin 40 mg Tablet PO (20:11)
[2020-01-06] VITALS (9 sets, daily range): BP systolic 114–138; BP diastolic 65–97; PULSE 51–73; RESP 16–20; TEMP 36.4–36.9; O2SAT 91–93
[2020-01-06] MEDS: HYDROcodone-acetaminophen 10-325 mg Tablet 1 TAB PO ×2 (01:16→08:00)
[2020-01-06 04:42] LABS: Basophils # 0.1 10^3/uL (0.0-0.1); Basophils % 0.6 %; Eosinophils # 0.3 10^3/uL (0.0-0.8); Eosinophils % 3.5 %; Hematocrit 38.7 % (42.0-52.0); Hemoglobin 12.8 g/dL (11.7-16.6); Lymphocytes # 1.8 10^3/uL (0.8-4.8); Lymphocytes % 21.7 %; Mean Corpuscular HGB Conc 33.1 g/dL (30.0-36.0); Mean Corpuscular Hemoglobin 34.3 pg (28.0-34.0); Mean Corpuscular Volume 103.8 fL (80-94); Mean Platelet Volume 8.5 fL (7.4-10.4); Neutrophils # 5.19 10^3/uL (1.8-7.7); Neutrophils % 61.4 %; Nucleated Red Blood Cells % 0 %; Platelet Count 219 10^3/cmm (130-400); Red Blood Count 3.73 10^6/uL (4.1-5.3); Red Cell Distribution Width 12.4 % (12.1-15.1); White Blood Count 8.5 10^3/uL (4.0-10.0)
[2020-01-06 05:13] LABS: Alanine Aminotransferase 18 U/L (0-41); Albumin Level 3.5 g/dL (3.5-5.2); Alkaline Phosphatase 65 IU/L (40-130); Anion Gap 13.2 (5-19); Aspartate Amino Transferase 16 U/L (0-40); Blood Urea Nitrogen 13 mg/dL (6-20); Calcium 8.8 mg/dL (8.5-10.5); Carbon Dioxide 26 mmol/L (22-29); Chloride 101 mmol/L (98-107); Globulin 2.8 g/dL (1.3-4.6); Glomerular Filtration Rate 99.3 mL/min (90-130); Glucose 88 mg/dL (65-115); Magnesium 2.1 mg/dL (1.7-2.3); Osmolality Calculated 278 mOsm/kg (285-295); Potassium 4.2 mmol/L (3.5-5.1); Sodium 136 mmol/L (136-145); Total Bilirubin 0.4 mg/dL (0.15-1.2); Total Protein 6.3 g/dL (6.6-8.7)
--- NOTE | 2020-01-06 05:33 | PC.NURSE ---
PT RESTING IN BED. DRESSING TO RIGHT RADIAL IS C/D/I. PT DENIES PAIN AT THIS TIME. PT HAS BEEN ON THE GAMA SIDE 40-50'S. WILL GIVE REPORT TO ON COMING NURSE.
[2020-01-06] MEDS: levalbuterol 0.63 mg/3 mL Neb INHALATION ×2 (07:30→11:27)
[2020-01-06] MEDS: predniSONE 20 mg Tablet 40 MG PO (08:00)
[2020-01-06] MEDS: citalopram 20 mg Tablet PO (08:01)
[2020-01-06] MEDS: clopidogrel 75 mg Tablet PO (08:01)
[2020-01-06] MEDS: pantoprazole DR 40 mg Tablet PO (08:01)
[2020-01-06] MEDS: metoprolol tartrate 25 mg Tablet PO (08:02)
[2020-01-06] MEDS: aspirin 81 mg EC Tablet PO (08:02)
[2020-01-06] MEDS: docusate sodium 100 mg Capsule PO (08:05)
--- NOTE | 2020-01-06 08:43 | P.PN_ITS ---
Subjective Subjective: Interval history: This patient is feeling okay. He has no chest pain or shortness of breath. He remains afebrile. The white cell count is coming down. No unusual shortness of breath. No arrhythmias on the monitor. Medications: Reviewed: Yes Medication Review Details: Current Medications Acetaminophen (Tylenol) 650 mg PO Q6H PRN PRN Reason: MILD PAIN Hydrocodone Bitart/Acetaminophen ([place] 10-325 Mg) 1 tab PO 6XD PRN PRN Reason: pain Last Admin: 01/06/20 08:00 Dose: 1 tab Documented by: Al Hydrox/Mg Hydrox/Simethicone (Maalox) 30 ml PO Q15M PRN PRN Reason: INDIGESTION Albuterol/Ipratropium (Duoneb) 3 ml INHALATION Q4H.RESPIRATORY PRN PRN Reason: SHORTNESS OF BREATH Last Admin: 01/05/20 11:16 Dose: 3 ml Documented by: Alprazolam (Xanax) 0.25 mg PO TID PRN PRN Reason: ANXIETY Aspirin (Aspirin Ec) 81 mg PO DAILY [facility] Last Admin: 01/06/20 08:02 Dose: 81 mg Documented by: Atorvastatin Calcium (Lipitor) 40 mg PO BEDTIME [facility] Last Admin: 01/05/20 20:11 Dose: 40 mg Documented by: Atropine Sulfate (Atropine) 0.5 mg IVP PRN PRN PRN Reason: Symptomatic bradycardia Citalopram Hydrobromide (Celexa) 20 mg PO DAILY [facility] Last Admin: 01/06/20 08:01 Dose: 20 mg Documented by: Clopidogrel Bisulfate (Plavix) 75 mg PO DAILY [facility] Last Admin: 01/06/20 08:01 Dose: 75 mg Documented by: Docusate Sodium (Colace) 100 mg PO BID [facility] Last Admin: 01/06/20 08:05 Dose: 100 mg Documented by: Levalbuterol HCl (Xopenex) 0.63 mg INHALATION QID.RESPIRATORY [facility] Last Admin: 01/06/20 07:30 Dose: 0.63 mg Documented by: Magnesium Hydroxide (Milk Of Magnesia) 30 ml PO DAILY PRN PRN Reason: CONSTIPATION Metoprolol Tartrate (Lopressor) 25 mg PO BID [facility] Last Admin: 01/06/20 08:02 Dose: 25 mg Documented by: Morphine Sulfate (Morphine) 2 mg IVP Q4H PRN PRN Reason: SEVERE PAIN Last Admin: 01/04/20 13:20 Dose: 2 mg Documented by: Naloxone HCl (Narcan) 0.1 mg IVP Q2M PRN PRN Reason: RESPIRATORY RATE < 8/MIN Nitroglycerin (Nitrostat) 0.4 mg SUBLINGUAL Q5M PRN PRN Reason: CHEST PAIN Last Admin: 01/04/20 08:46 Dose: 0.4 mg Documented by: Ondansetron HCl (Zofran) 4 mg IVP Q8H PRN PRN Reason: vomiting, or N/V if npo Pantoprazole Sodium (Protonix) 40 mg PO DAILY [facility] Last Admin: 01/06/20 08:01 Dose: 40 mg Documented by: Prednisone (Prednisone) 40 mg PO DAILY [facility] Last Admin: 01/06/20 08:00 Dose: 40 mg Documented by: Senna (Senna Lax) 17.2 mg PO BEDTIME [facility] Last Admin: 01/05/20 20:11 Dose: 17.2 mg Documented by: Temazepam (Restoril) 15 mg PO BEDTIME PRN PRN Reason: INSOMNIA Tramadol HCl (Ultram) 50 mg PO 6XD PRN PRN Reason: pain Vitals/I&O/Wt Last Vital Signs Temp 97.5 F L 01/06/20 07:10 Pulse 57 L 01/06/20 07:28 Resp 16 01/06/20 07:28 BP 114/89 01/06/20 07:10 Pulse Ox 92 01/06/20 07:28 01/05/20 01/06/20 01/06/20 22:59 06:59 14:59 Intake Total 360 / 714 660 / 1374 340 / 340 Output Total 500 / 1150 175 / 1325 500 / 500 Balance -140 / -436 485 / 49 -160 / -160 Physical Exam Narrative: EXAM NARRATIVE: GENERAL: The patient is alert and oriented times three. Not in any acute distress. HEENT: No significant pallor, icterus or lymphadenopathy. The pupils are reactant to light. Oral cavity: There are no mucous membrane lesions. NECK: Trachea appears to be central. No masses noted. No JVD or thyromegaly appreciated. No carotid bruit. RESPIRATORY: Chest is symmetrical. No intercostals muscle retraction or any accessory muscle activation. There is no chest wall tenderness. Breath sounds are heard bilaterally. Scattered expiratory wheezing and some occasional coarse crackles. Diminished intensity of breath sounds in the bases. BREASTS: Deferred. HEART: The PMI could not be palpated. No other palpable precordial events. First and second heart sounds are normal. No S3. No significant murmurs. ABDOMEN: No vessel pulsations or distention. No tenderness. No organomegaly appreciated. No abdominal bruit. Bowel sounds are normally heard. : Deferred. RECTAL: Deferred. LYMPHATIC: No lymphadenopathy noted in the neck or groin. EXTREMITIES: No edema or cyanosis. No clubbing. The radial arterial puncture site has no hematoma or bleeding MUSCULOSKELETAL: No acute joint deformities or swelling SKIN: There are no significant scars or skin rash noted. NEUROPSYCHIATRIC: The patient is alert and oriented x3. Appears to be in a good mood. The higher functions are grossly within normal limits. No tremors or rigi dity noted. Const: COMMON NORMALS: alert Resp: COMMON NORMALS: clear to auscultation bilaterally AUSCULTATION: clear to auscultation bilaterally Neuro: SENSORIUM/ORIENTATION: Yes alert Data : 01/06/20 03:06 01/06/20 03:06 Other Labs: Laboratory Last Values WBC 8.5 10^3/uL (4.0-10.0) 01/06/20 03:06 RBC 3.73 10^6/uL (4.1-5.3) L 01/06/20 03:06 Hgb 12.8 g/dL (11.7-16.6) 01/06/20 03:06 Hct 38.7 % (42.0-52.0) L 01/06/20 03:06 MCV 103.8 fL (80-94) H 01/06/20 03:06 MCH 34.3 pg (28.0-34.0) H 01/06/20 03:06 MCHC 33.1 g/dL (30.0-36.0) 01/06/20 03:06 RDW 12.4 % (12.1-15.1) 01/06/20 03:06 Plt Count 219 10^3/cmm (130-400) 01/06/20 03:06 MPV 8.5 fL (7.4-10.4) 01/06/20 03:06 Neut % (Auto) 61.4 % 01/06/20 03:06 Lymph % (Auto) 21.7 % 01/06/20 03:06 [place] % (Auto) 12.0 % 01/06/20 03:06 Eos % (Auto) 3.5 % 01/06/20 03:06 Baso % (Auto) 0.6 % 01/06/20 03:06 Neut # (Auto) 5.19 10^3/uL (1.8-7.7) 01/06/20 03:06 Lymph # (Auto) 1.8 10^3/uL (0.8-4.8) 01/06/20 03:06 [place] # (Auto) 1.0 10^3/uL (0.2-0.9) H 01/06/20 03:06 Eos # (Auto) 0.3 10^3/uL (0.0-0.8) 01/06/20 03:06 Baso # (Auto) 0.1 10^3/uL (0.0-0.1) 01/06/20 03:06 Nucleated RBC % (auto) 0 % 01/06/20 03:06 Nucleated RBCs # 0.0 /100WBC 01/06/20 03:06 PT 12.90 SECONDS (10.5-13.3) 01/04/20 04:10 INR 0.94 (0.8-1.2) 01/04/20 04:10 APTT 27.7 SECONDS (23.9-36.7) 01/04/20 04:10 Sodium 136 mmol/L (136-145) 01/06/20 03:06 Potassium 4.2 mmol/L (3.5-5.1) 01/06/20 03:06 Chloride 101 mmol/L (98-107) 01/06/20 03:06 Carbon Dioxide 26 mmol/L (22-29) 01/06/20 03:06 Anion Gap 13.2 (5-19) 01/06/20 03:06 BUN 13 mg/dL (6-20) 01/06/20 03:06 Creatinine 0.8 mg/dL (0.7-1.2) 01/06/20 03:06 GFR Calculation 99.3 mL/min (90-130) 01/06/20 03:06 Glucose 88 mg/dL (65-115) 01/06/20 03:06 Estimat Average Glucose 126 01/05/20 04:20 Hemoglobin A1c 6.0 % (4.0-6.0) 01/05/20 04:20 Calculated Osmolality 278 mOsm/kg (285-295) L 01/06/20 03:06 Calcium 8.8 mg/dL (8.5-10.5) 01/06/20 03:06 Phosphorus 2.8 mg/dL (2.5-4.5) 01/04/20 10:00 Magnesium 2.1 mg/dL (1.7-2.3) 01/06/20 03:06 Total Bilirubin 0.4 mg/dL (0.15-1.2) 01/06/20 03:06 AST 16 U/L (0-40) 01/06/20 03:06 ALT 18 U/L (0-41) 01/06/20 03:06 Alkaline Phosphatase 65 IU/L (40-130) 01/06/20 03:06 Troponin T Baseline 17 ng/L (0-15) H 01/04/20 04:10 Troponin T 120 Minute 33.20 ng/L (0-15) H 01/04/20 06:05 Delta Troponin T 16.20 ABS# (0-10) H* 01/04/20 06:05 Troponin T Hi Sens 6Hr 71.48 ng/L (0-15) H 01/04/20 10:00 Troponin T Hi Sens 6Hr Delta 54.48 ng/L (0-12) H* 01/04/20 10:00 NT-Pro-B Natriuret Pep 194 pg/mL (0-125) H 01/04/20 10:00 Total Protein 6.3 g/dL (6.6-8.7) L 01/06/20 03:06 Albumin 3.5 g/dL (3.5-5.2) 01/06/20 03:06 Globulin 2.8 g/dL (1.3-4.6) 01/06/20 03:06 Triglycerides 146 mg/dL (0-150) 01/05/20 04:20 Cholesterol 171 mg/dL (0-200) 01/05/20 04:20 LDL Cholesterol, Calc 97 mg/dL (50-129) 01/05/20 04:20 HDL Cholesterol 45 mg/dL (60-100) L 01/05/20 04:20 LDL/HDL Ratio 2.16 RATIO (0.00-3.22) 01/05/20 04:20 Cholesterol/HDL Ratio 3.80 mg/dL (1.0-5.00) 01/05/20 04:20 TSH 0.31 uIU/mL (0.27-4.20) 01/04/20 10:00 Urine Color Yellow (Yellow) 01/04/20 18:40 Urine Appearance Clear (CLEAR) 01/04/20 18:40 Urine pH 6 (5-7) 01/04/20 18:40 Ur Specific [place] 1.015 (1.005-1.030) 01/04/20 18:40 Urine Protein Neg (Negative) 01/04/20 18:40 Urine Glucose (UA) Norm (Normal) 01/04/20 18:40 Urine Ketones Negative (Negative) 01/04/20 18:40 Urine Blood Neg (Negative) 01/04/20 18:40 Urine Nitrate Negative (Negative) 01/04/20 18:40 Urine Bilirubin Neg (NEGATIVE) 01/04/20 18:40 Urine Urobilinogen Norm mg/dL (Negative) 01/04/20 18:40 Ur Leukocyte Esterase Negative (Negative) 01/04/20 18:40 A&P Assessment and plan (1) Non-ST elevation (NSTEMI) myocardial infarction: Patient is status post angiogram and PCI of the obtuse marginal artery. Currently seems to be stable. May continue on the Plavix, aspirin and other medications. Status: Acute (2) Dyslipidemia: Currently on the statin Status: Acute (3) COPD (chronic obstructive pulmonary disease): Patient has a 80 pack year history of smoking abuse. Management as per the primary. Status: Acute Qualifiers: COPD type: unspecified COPD Qualified Code(s): J44.9 - Chronic obstructive pulmonary disease, unspecified (4) Alcoholic cirrhosis of liver: Has a history of heavy alcohol abuse Status: Acute Qualifiers: Ascites presence: unspecified Qualified Code(s): K70.30 - Alcoholic cirrhosis of liver without ascites (5) Recurrent cerebrovascular accidents (CVAs): Carotid duplex have revealed bilateral carotid artery disease. He needs to have follow-up evaluations. Status: Acute (6) Bronchitis: Antibiotic management as per the primary Status: Acute Additional A&P Information If the patient continues remain stable, may be discharged home from a cardiac standpoint. Need to be seen at the office this by the nurse practitioner, Keisha Scott. Please make an appointment to be seen by me in the office in 3 weeks. Importance of diet, exercise and medications were discussed with the patient in detail which is understood well. Attestations Medical Necessity Statement*: Possible discharge home today. Coding Level of Care Code Acute Device Repair Technician for g Fwd Exam Expanded Problem Focused Diagnoses Non-ST elevation (NSTEMI) myocardial infarction I21.4 Dyslipidemia E78.5 COPD (chronic obstructive pulmonary disease) J44.9 COPD type: unspecified COPD Alcoholic cirrhosis of liver K70.30 Ascites presence: unspecified Recurrent cerebrovascular accidents (CVAs) I63.9 Bronchitis J40
--- NOTE | 2020-01-06 10:33 | PM.DCS ---
Discharge Providers Date of Admission: 01/04/20 07:08 Date of Discharge: January 06, 2020 Attending Provider at Admission: Héctor Hutton MD Attending Provider at Discharge: Jessica Lee MD Diagnoses at Discharge Discharge Diagnosis (1) Non-ST elevation (NSTEMI) myocardial infarction: Status: Acute (2) Dyslipidemia: Status: Acute (3) COPD (chronic obstructive pulmonary disease): Status: Acute Qualifiers: COPD type: unspecified COPD Qualified Code(s): J44.9 - Chronic obstructive pulmonary disease, unspecified (4) Alcoholic cirrhosis of liver: Status: Acute Qualifiers: Ascites presence: unspecified Qualified Code(s): K70.30 - Alcoholic cirrhosis of liver without ascites (5) Recurrent cerebrovascular accidents (CVAs): Status: Acute (6) Bronchitis: Status: Acute Reason for Visit Reason for Visit: CP Hospital Course Discharge Summary: David Lanza JR is a 59 year old male with PMH COPD, CVA, hepatitis C, chronic amoking who presented to emergency department with severe substernal nonradiating sharp chest pain. He was found to have an NSTEMi based on rising tropinins and ongoing chest pain. Details as below: 1. NSTEMI: s/p PCI on 01/03, Mid Circumflex Coronary Artery was treated with Balloon and Drug Eluting Stent. No significant disease noted in the Left Main, LAD, or RCA coronary arteries. Continue ASA 81mg po qd and plavix 75mg po qd continue metoprolol 25mg po BID, atorvastatin 40mg po qd Normal left ventricular size and systolic function, EF 65% chest pain free since procedure 2. COPD, recently with exacerbation for which he was on outpatient steroids and abx No evidence of pneumonia on CXR Covid 19 testing negative on 12/31 as outpatient (quest) Duonebs q4h prn home 02 eval, does not qualify for home 02, saturating 92-94% on RA yesterday and today. On arrival needed 2-4lpm. continue prednisone to complete 5 day course PFT as an outpatient given recently worsening COPD, reports not having this study as an outpatient. Reports getting annual CTs for screening, reportedly has multiple nodules of unclear etiology. Last Ct from 2018 with centrilobular emphysematous changes in the bilateral lungs. 3. chronic pain, resume home dose of norco and tramadol Discharge today, currently stable. f/up with Keisha Begum on 01/07, Dr. Corral in 3 weeks 4. B/L carotid artery stenosis with h/o recurrent CVAs, referral to Dr. Rowley as outpatient Physical Exam Narrative: EXAM NARRATIVE: GEN: Awake, alert and oriented, no acute distress CVS: S1S2 N RS: CTA B/L Abd: Soft, nt/nd , bs+ TANGIBLE PERSONAL PROPERTY APPRAISER: no focal neuro deficits Discharge Data Data Completed and Pending: Completed Studies During Hospitalization Category Date Time Status CAR CONSTRUCTION SUPERINTENDENT request for service Routin e Exams 01/04/20 Completed XR chest 1V lesvia ble [id number] Stat Exams 01/04/20 04:04 Completed CV carotid duplex BI* [id number] Routine Ultrasound 01/04/20 09:14 Completed CV echo complete* [id number] Routine Ultrasound 01/04/20 08:23 Completed Pending at discharge Category Date Time Status Complete Blood Co unt w/Auto AM LABS Lab 01/07/20 04:00 Ordered Comprehensive Met abolic Panel AM LA BS Lab 01/07/20 04:00 Ordered Magnesium AM LABS Lab 01/07/20 04:00 Ordered CV echo complete* [id number] Routine Ultrasound 01/05/20 10:00 Taken Labs from last 24 hours 01/06/20 01/06/20 03:06 03:06 WBC 8.5 RBC 3.73 L Hgb 12.8 Hct 38.7 L MCV 103.8 H MCH 34.3 H MCHC 33.1 RDW 12.4 Plt Count 219 MPV 8.5 Neut % (Auto) 61.4 Lymph % (Auto) 21.7 [place] % (Auto) 12.0 Eos % (Auto) 3.5 Baso % (Auto) 0.6 Neut # (Auto) 5.19 Lymph # (Auto) 1.8 [place] # (Auto) 1.0 H Eos # (Auto) 0.3 Baso # (Auto) 0.1 Nucleated RBC % (a uto) 0 Nucleated RBCs # 0.0 Sodium 136 Potassium 4.2 Chloride 101 Carbon Dioxide 26 Anion Gap 13.2 BUN 13 Creatinine 0.8 GFR Calculation 99.3 Glucose 88 Calculated Osmolal ity 278 L Calcium 8.8 Magnesium 2.1 Total Bilirubin 0.4 AST 16 ALT 18 Alkaline Phosphata se 65 Total Protein 6.3 L Albumin 3.5 Globulin 2.8 Vitals: Last Vital Signs Temp 97.5 F L 01/06/20 07:10 Pulse 57 L 01/06/20 07:28 Resp 16 01/06/20 07:28 BP 114/89 01/06/20 07:10 Pulse Ox 92 01/06/20 07:28 Discharge Plan Discharge Patient Disposition: Home Condition: Stable Prescriptions: New atorvastatin 40 mg Tablet 40 mg PO BEDTIME 30 Days Qty: 30 RF: 0 clopidogrel 75 mg Tablet 75 mg PO DAILY 30 Days Qty: 30 RF: 0 aspirin 81 mg Tablet,Delayed Release (Dr/Ec) 81 mg PO DAILY 30 Days Qty: 30 RF: 0 pantoprazole 40 mg Tablet,Delayed Release (Dr/Ec) 40 mg PO DAILY Qty: 0 RF: 0 metoprolol tartrate 25 mg Tablet 25 mg PO BID 30 Days Qty: 60 RF: 0 Continued citalopram [Celexa] 20 mg tablet 20 mg PO QDAY RF: 0 albuterol sulfate 2.5 mg /3 mL (0.083 %) solution for nebulization 2.5 mg continuous nebulization Q6H RF: 0 hydrocodone-acetaminophen 10-325 mg tablet 1 tab PO .6 times a day PRN (Reason: pain) 30 Days Qty: 180 RF: 0 tramadol 50 mg tablet 50 mg PO .6 times a day PRN (Reason: pain) 30 Days Qty: 180 RF: 1 Discontinued prednisone 20 mg tablet 40 mg PO DAILY Qty: 10 RF: 0 levofloxacin [Levaquin] 750 mg tablet 750 mg PO DAILY 7 Days Qty: 7 RF: 0 Discharge Orders: Discharge Order (Routine); Ordered 01/06/20 Ordered By: Jessica Lee Other Ambulatory Orders: Pulmonary Function Screen with Bronchodilator (Routine) Timeframe: 1 Week Facility: [facility] - Location: Respiratory Therapy Ordered By: Jessica Lee Referrals: Austin Devine MD [Physician] - 1 month (COPD, no past evaluation, f/up with PFT and optimization ) Nitesh Corral MD [Physician] - 1 month Isrrael Rowley MD [Physician] - 1 month (B/L carotid artery stenosis ) Keisha Begum FNP [Nurse Practitioner] - 01/08/20 Discharge Diet: Advance as tolerated Discharge Activity: Resume usual activity Patient Instructions: Acute Bronchitis (ED), Coronary Angioplasty (DC), Left Heart Catheterization (DC) Discharge Attestations Time Spent in Discharge Care*: greater than 30 min Quality Metrics Clinical Quality Measures During this hospital stay, did patient experience: AMI Clinical Trial Participant: No Contraindication to aspirin (AMI): Aspirin given Contraindication to statin: Statin prescribed Coding Level of Care Code Acute 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
--- NOTE | 2020-01-06 12:03 | PC.NURSE ---
Called in new Rx to [facility] Offered pt employee pharmacy but pt preferred [facility]. New Rx called in.
--- NOTE | 2020-01-06 12:27 | PC.NURSE ---
Dicharge to home Instructed pt on follow-up appointments as scheduled. Informed him new medications actions, dosing and timing and possible side effects. Informed pt on stop meds as well as the continued meds. Post op angiogram wound care and activity restrictions discuss with pt. Pt verbalizes understanding. Discharge papers provided to pt.
== END 2020-01-06 12:31 | disposition home or self-care (01) | DRG 247 ==
LOC: ER 07:31 → CSU 09:34
PROVIDERS: Emergency Medicine; Internal Medicine; Internal Medicine Cardiovascular Disease; Admitting Provider Internal Medicine; Visit Provider Student in an Organized Health Care Education/Training Program
PROC: 027034Z Dilation of Coronary Artery, One Artery with Drug-eluting Intraluminal Device, Percutaneous Approach (ICD-10-PCS; principal; 2020-01-04 20:00)
DX: I21.4 Non-ST elevation (NSTEMI) myocardial infarction (principal); I10 Essential (primary) hypertension; F17.210 Nicotine dependence, cigarettes, uncomplicated; F10.21 Alcohol dependence, in remission; Z86.19 Personal history of other infectious and parasitic diseases; I25.10 Atherosclerotic heart disease of native coronary artery without angina pectoris; M25.512 Pain in left shoulder; G89.4 Chronic pain syndrome; Z79.1 Long term (current) use of non-steroidal anti-inflammatories (NSAID); Z79.891 Long term (current) use of opiate analgesic; K70.30 Alcoholic cirrhosis of liver without ascites; R13.10 Dysphagia, unspecified; J43.9 Emphysema, unspecified; E78.5 Hyperlipidemia, unspecified; Z86.73 Personal history of transient ischemic attack (TIA), and cerebral infarction without residual deficits; I65.23 Occlusion and stenosis of bilateral carotid arteries; Z79.51 Long term (current) use of inhaled steroids
CPT/HCPCS: 12345; 36415; 71045; 80053; 80061; 81003; 83036; 83735; 83880; 84100; 84443; 84484; 85025; 85347; 85610; 85730; 87635; 93005; 93306; 93452; 93880; 94640; 96372; 96375; 99283; C1725; C1769; C1874; C1887; C1894; C9113; C9600; J1644; J1650; J2250; J2270; J2405; J2930; J3010; J3490; J7030; J7512; J7611; J7614; Q9967

== ENCOUNTER → 2020-01-13 14:11 | Outpatient (BNVA) | payer MEDICARE, SELFPAY | PROVIDERS: PCP Family Medicine; Visit Provider Nurse Practitioner Family | DX: I25.10 Atherosclerotic heart disease of native coronary artery without angina pectoris (principal); I25.2 Old myocardial infarction; F17.210 Nicotine dependence, cigarettes, uncomplicated | CPT/HCPCS: 80048 ==

== ENCOUNTER → 2020-01-16 08:25 | Outpatient (BNVA) | payer MEDICARE, SELFPAY | PROVIDERS: Family Provider Family Medicine; PCP Family Medicine; Visit Provider Anesthesiology | DX: G89.4 Chronic pain syndrome (principal); M54.9 Dorsalgia, unspecified; F17.210 Nicotine dependence, cigarettes, uncomplicated; Z79.891 Long term (current) use of opiate analgesic; Z71.6 Tobacco abuse counseling | CPT/HCPCS: 99214 ==

== ENCOUNTER → 2020-02-12 15:16 | Outpatient (BNVA) | payer MEDICARE, SELFPAY | PROVIDERS: Family Provider Family Medicine; PCP Family Medicine; Visit Provider Internal Medicine Cardiovascular Disease | DX: E78.5 Hyperlipidemia, unspecified (principal); R55 Syncope and collapse | CPT/HCPCS: 80061; 80076 ==

== ENCOUNTER → 2020-02-17 12:09 | Outpatient (BNVA) | payer MEDICARE, SELFPAY | PROVIDERS: Family Provider Family Medicine; PCP Family Medicine; Visit Provider Internal Medicine Pulmonary Disease | DX: Z11.59 Encounter for screening for other viral diseases (principal); J04.10 Acute tracheitis without obstruction | CPT/HCPCS: 87635 ==

== ENCOUNTER 2020-02-19 06:55 | Outpatient (CLI) | payer MEDICARE, SELFPAY ==
[2020-02-19 07:25] VITALS: O2SAT 87; O2SAT 95
--- NOTE | 2020-02-19 07:30 | PFTS_ITS ---
Date of Study:02/19/20 Date of Dictation: MECHANICS: Forced vital capacity (FVC) is reduced. Forced expiratory volume in one second (FEV1) is reduced. FEV1/FVC is reduced. FLOW VOLUME LOOP: Reduced flow at all lung volumes with significant scooping. LUNG VOLUMES: Total lung capacity (TLC) is normal. Residual volume (RV) is increased. DIFFUSING CAPACITY FOR CARBON MONOXIDE: Normal. INTERPRETATION: The pulmonary function tests are consistent with severe obstruction. Lung volumes are consistent with air trapping.. Gas exchange (DLCO) is normal. MTDD
== END 2020-02-19 06:56 | disposition home or self-care (01) ==
PROVIDERS: PCP Family Medicine; Visit Provider Internal Medicine Pulmonary Disease
DX: J44.9 Chronic obstructive pulmonary disease, unspecified (principal)
CPT/HCPCS: 94010; 94726; 94729

== ENCOUNTER 2020-02-26 09:31 | Outpatient (CLI) | payer MEDICARE, SELFPAY ==
--- NOTE | 2020-02-26 09:30 | CT_ITS ---
WS: [id number] CT ANGIOGRAM CAROTID ARTERIES HISTORY: carotid stenosis TECHNIQUE: CT angiogram is performed of the carotid arteries. During arterial injection imaging is ob tained from the skull base to the aortic arch in 1.25 mm imaging. Coronal and sagittal reformats are submitted, MIP imaging also reviewed. Additional multiplanar reformats of the carotid arteries are suarez bmitted. NASCET criteria utilized. All CT scans at [facility] use at least one of these d ose optimization techniques: automated exposure control; mA and/or kV adjustment per patient size (in cludes targeted exams where dose is matched to clinical indication); or iterative reconstruction. CONTRAST: Omnipaque 350; 95 mL IV. DLP: 1054.75 mGycm COMPARISON: Carotid ultrasound 01/04/2020 Right carotid: Common carotid artery: Arises normally from the innominate. Artifact from the patient's shoulder and contrast bolus is obscuring the very proximal RIGHT CCA. There is intimal thickening circumferentiall y around the distal common carotid artery into the bifurcation. No significant stenosis. Transverse d iameter remains greater than 4 mm. Internal carotid artery: Minimal intimal thickening. No calcified plaque. Stenosis much less than 50% . External carotid artery: Patent. Left carotid: Common carotid artery: Arises normally from the aortic arch. No significant stenosis. Circumferential intimal thickening and a small amount of plaque in the distal common carotid artery into the bifurca tion. Internal carotid artery: Circumferential intimal thickening and plaque. No significant stenosis. Smal l amount of calcified plaque at bifurcation. Stenosis much less than 50%. External carotid artery: Patent. Right vertebral artery: Unremarkable. Left vertebral artery: Unremarkable. Arises normally from the left subclavian artery. Subclavian arteries: Artifact obscuring portions of the subclavian arteries. No stenosis is identifie d are appreciated. Upper thorax: 2 3 mm nodules some of which are calcified in the upper lung [place] and RIGHT upper lob e pleural thickening with adjacent calcification. No change since 12/20/2018. Chronic emphysema. Thyroid gland: Normal. Osseous structures: Unremarkable. Skull base: Significant dental caries. CT/CT angio neck [id number] IMPRESSION: 1. Mild bilateral intimal thickening and calcified plaque in the distal common carotid arteries and proximal bifurcations. Stenosis much less than 50%. 2. Stable bilateral upper lobe pulmonary micronodules in RIGHT pleural thicken ing.
[2020-02-26] MEDS: iohexol 350 mg/mL 100 mL Btl IV (09:57)
== END 2020-02-26 09:32 | disposition home or self-care (01) ==
LOC: RADWPI 09:36
PROVIDERS: Family Provider Family Medicine; PCP Family Medicine; Visit Provider Thoracic Surgery (Cardiothoracic Vascular Surgery)
DX: I65.23 Occlusion and stenosis of bilateral carotid arteries (principal); R91.8 Other nonspecific abnormal finding of lung field
CPT/HCPCS: 70498; Q9967

== ENCOUNTER 2020-03-03 10:41 | Outpatient (CLI) | payer MEDICARE, SELFPAY ==
--- NOTE | 2020-03-03 10:46 | CT_ITS ---
WS: [id number] LDCT LUNG CANCER SCREENING HISTORY: NICOTINE Dependence, cigarettes TECHNIQUE: Axial imaging performed from the apices to 1 cm below the costophrenic angles. Coronal and sagittal reformats are submitted with axial MIP series. All CT scans at [facility] use at least one of these dose optimization techniques: automated exposure control; mA and/or kV adjustment per patient size (includes targeted exams where dose is matched to clinical indication); or iterativ e reconstruction. DLP: 55.27 mGy.cm DIvol: 1.52 mGy COMPARISON: 12/20/2018 Diagnostic quality: Satisfactory Lung Nodules: There are numerous pulmonary nodules bilaterally throughout all lobes. These nodules ar e predominantly calcified. There are a few additional nodules which may be partially calcified that w ere also present on the prior study dating back to 2014. Mild thickening along the superior RIGHT bernie or fissure fluoroscopy. There is additional pleural thickening bilaterally which is partially calcifi ed. No new or suspicious nodules. Lungs: Lungs are hyperexpanded with changes of moderate to severe emphysema. Heart: Mildly enlarged heart. Scattered coronary artery calcifications. Other findings: Small mediastinal and hilar lymph nodes. No adenopathy. Mild atherosclerosis aorta. CT/CT lung screening [id number] IMPRESSION: LUNG-RADS: 2-Benign Appearance or Behavior FOLLOW UP: 12 Month: Continue annual screening with LDCT OTHER FINDINGS (S MODIFIER): None.
== END 2020-03-03 10:42 | disposition home or self-care (01) ==
LOC: CT 10:42
PROVIDERS: PCP Family Medicine; Visit Provider Internal Medicine Pulmonary Disease
DX: Z12.2 Encounter for screening for malignant neoplasm of respiratory organs (principal); F17.210 Nicotine dependence, cigarettes, uncomplicated
CPT/HCPCS: G0297

== ENCOUNTER → 2020-03-17 08:43 | Outpatient (BNVA) | payer MEDICARE, SELFPAY | PROVIDERS: Family Provider Family Medicine; PCP Family Medicine; Visit Provider Anesthesiology | DX: G89.29 Other chronic pain (principal); M54.9 Dorsalgia, unspecified; F17.219 Nicotine dependence, cigarettes, with unspecified nicotine-induced disorders; Z79.891 Long term (current) use of opiate analgesic | CPT/HCPCS: 99212; 99214 ==

== ENCOUNTER → 2020-06-18 09:24 | Outpatient (BNVA) | payer MEDICARE, SELFPAY | PROVIDERS: Family Provider Family Medicine; PCP Family Medicine; Visit Provider Nurse Practitioner | DX: G89.29 Other chronic pain (principal); M54.9 Dorsalgia, unspecified; M25.512 Pain in left shoulder; F17.210 Nicotine dependence, cigarettes, uncomplicated; Z79.1 Long term (current) use of non-steroidal anti-inflammatories (NSAID); Z79.891 Long term (current) use of opiate analgesic | CPT/HCPCS: 99213 ==

== ENCOUNTER 2020-06-27 04:39 | Emergency (ER) | payer MEDICARE, SELFPAY ==
[2020-06-27 04:40] VITALS: BP 121/79; PULSE 90; RESP 18; TEMP 37; O2SAT 84; BMI 29.0
--- NOTE | 2020-06-27 04:44 | ECG_ITS ---
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1960 Requested By: Shahrzad Parra Order Number: [id number] Reading MD: JAEL DANIELS Measurements Intervals [place] Rate: 99 P: 72 MS: 188 QRS: 142 QRSD: 114 T: 59 QT: 366 QTc: 470 Interpretive Statements SINUS RHYTHM POSSIBLE LEFT ATRIAL ENLARGEMENT [-0.1mV P WAVE IN V1/V2] INCOMPLETE RIGHT BUNDLE BRANCH BLOCK [90+ ms QRS DURATION, TERMINAL R IN V1/V2, 40+ ms S IN I/aVL/V4/V5/V6] POSSIBLE INFERIOR MYOCARDIAL INFARCTION , OF INDETERMINATE AGE [30 ms Q WAVE IN II/aVF] INTERPRETATION BASED ON A DEFAULT AGE OF 40 YEARS Compared to ECG 01/04/2020 19:33:47 Right ventricular hypertrophy now present Atrial abnormality now present Myocardial infarct finding now present Electronically Signed On 06-27-2020 21:24:08 TAX INTERN by JAEL DANIELS [email or web address]
--- NOTE | 2020-06-27 04:44 | XRR_ITS ---
PROCEDURE INFORMATION: Exam: XR Chest, 1 View Exam date and time: 06/27/2020 4:53 AM Age: 59 years old Clinical indication: Shortness of breath; Additional info: SOB TECHNIQUE: Imaging protocol: XR of the chest Views: 1 view. COMPARISON: CR XR chest 1V portable [id number] 01/04/2020 4:12 AM FINDINGS: Lungs: No CHF/pulmonary edema. Probable small calcified granulomas again seen in both upper lungs, not significantly changed. Visible lungs otherwise appear essentially essentially clear. Pleural space: No visible pneumothorax. No definite pleural fluid. Heart/Mediastinum: Heart size is within normal limits. Vasculature: Mild to moderate aortic tortuosity, unchanged. Bones/joints: No significant acute finding. XR/XR chest 1V portable [id number] IMPRESSION: 1. No definite CHF or pneumonia. 2. Other findings discussed above.
--- NOTE | 2020-06-27 04:45 | W.ED.AMS ---
HPI - Altered Mental Status General: Chief Complaint: Altered Mental Status Stated Complaint: AMS Time Seen by Provider: 06/27/20 04:43 Source: patient and EMS Mode of arrival: EMS Limitations: no limitations History of Present Illness: HPI narrative: 59-year-old male brought in by EMS. Patient's found him unresponsive hemostased and they arrived he was unresponsive and combative. Patient is now awake alert answering all my questions appropriately. He has chronic pain and takes tramadol and hydrocodone he states he may have taken too many of his medications. States he also had a seizure few weeks back and is unsure if he had a seizure this time. Any worsening or improving factors. He denies any fever. He has a chronic cough. Denies any shortness of breath. He has had some nausea. Associated symptoms: Deny depression Review of Systems Const: Denies: fever(s), chills, body aches or change in appetite Eyes: Denies: blurry vision or eye discomfort ENMT: Denies: throat pain or dental pain Card: Denies: chest pain Resp: Denies: dyspnea GI: Denies: abdominal pain, nausea, vomiting or diarrhea : Denies: dysuria Musc: Denies: neck pain or back pain Skin/Breast: Denies: rash Neuro: Reports: confusion Psych: Denies: depression Mauri/Lymph: Denies: easy bruising All/Imm: Denies: urticaria PFSH ED PFSH: Medical History (Updated 06/27/20 @ 06:14 by Shahrzad Parra MD) Alcoholic cirrhosis of liver Atherosclerosis of coronary artery of [place] heart without angina pectoris Chronic back pain Chronic pain in left shoulder Chronic pain syndrome Cigarette nicotine dependence Coronary artery disease Dyslipidemia Dyslipidemia (high LDL; low HDL) Encounter for long-term (current) use of NSAIDs Encounter for long-term opiate analgesic use Hepatitis C Liver cirrhosis Recurrent cerebrovascular accidents (CVAs) Syncope and collapse Surgical History Hx of hernia repair Hx of knee surgery Hx of shoulder surgery Family History Mother CAD (coronary artery disease) Had a myocardial infarction at the age of 18. She is alive. She had a PCI? Father CAD (coronary artery disease) Had myocardial infarction in his 70s and is alive Other Diabetes Hypertension Myocardial infarct Social History (Updated 06/18/20 @ 09:33 by KATHLEEN Britt) Smoking and tobacco status: current some day smoker cigarettes [ Other cigarette details: 1 cig every 3 or 4 days ] Quit status (tobacco): has quit using tobacco Year quit tobacco: 2020 6mths ago 2ppd x 40y Second hand smoke exposure: Yes Smoking risk assessment/counseling performed?: Yes Alcohol intake: former Lives independently: Yes Household members: spouse Marital status: service: No Current occupational status: disabled History of recent travel: No Current gender identity: Male Course Vital Signs: Vital signs: Vital Signs Temperature 98.6 F 06/27/20 04:40 Pulse Rate 83 06/27/20 05:18 Respiratory Rate 17 06/27/20 05:18 Blood Pressure 121/79 06/27/20 05:18 Pulse Oximetry 94 06/27/20 05:18 MDM - Altered Mental Status MDM Narrative: Medical decision making narrative: David presents here with possible seizure versus a possible overdose. This has been accidental and patient's been awake and alert and well-appearing here. Talking to his she states he had a 1 to 2-minute seizure and he had 1 roughly 6 to [address] His head CT and blood work are all normal. I will start him on Keppra and he is to follow-up with neurology. Lab Data: Labs: Lab Results 06/27/20 06/27/20 06/27/20 Range/Units 04:51 04:55 04:55 WBC 9.0 (4.0-10.0) 10^3/ uL RBC 4.38 (4.1-5.3) 10^6/u L Hgb 14.5 (11.7-16.6) g/dL Hct 44.8 (42.0-52.0) % MCV 102.3 H (80-94) fL MCH 33.1 (28.0-34.0) pg MCHC 32.4 (30.0-36.0) g/dL RDW 12.4 (12.1-15.1) % Plt Count 239 (130-400) 10^3/c mm MPV 8.3 (7.4-10.4) fL Neut % (Auto) 64.9 % Lymph % (Auto) 17.6 % [place] % (Auto) 13.4 % Eos % (Auto) 3.0 % Baso % (Auto) 0.8 % Neut # (Auto) 5.85 (1.8-7.7) 10^3/u L Lymph # (Auto) 1.6 (0.8-4.8) 10^3/u L [place] # (Auto) 1.2 H (0.2-0.9) 10^3/u L Eos # (Auto) 0.3 (0.0-0.8) 10^3/u L Baso # (Auto) 0.1 (0.0-0.1) 10^3/u L Nucleated RBC % (a uto) 0 % Nucleated RBCs # 0.0 /100WBC Specimen Type Sample Site ABG pH (7.35-7.45) ABG pCO2 (35-45) mmHg ABG pO2 (80.0-100.0) mmH g ABG HCO3 (22-26) mmol/L ABG Base Excess (-2.0-2.0) mmol/ L Nathanael Test Hematocrit (42-52) % O2 Delivery Device O2 Liters/Min % Learning Manager ID Sodium 138 (136-145) mmol/L Potassium 4.2 (3.5-5.1) mmol/L Chloride 99 (98-107) mmol/L Carbon Dioxide 28 (22-29) mmol/L Anion Gap 15.2 (5-19) BUN 18 (6-20) mg/dL Creatinine 1.2 (0.7-1.2) mg/dL GFR Calculation 62.2 L (90-130) mL/min Glucose 113 (65-115) mg/dL POC Glucose 111 H (70-110) mg/dL Calculated Osmolal ity 289 (285-295) mOsm/k g Calcium 9.7 (8.5-10.5) mg/dL Total Bilirubin 0.8 (0.15-1.2) mg/dL AST 21 (0-40) U/L ALT 18 (0-41) U/L Alkaline Phosphata se 98 (40-130) IU/L Troponin T Baselin e (0-15) ng/L Total Protein 7.5 (6.6-8.7) g/dL Albumin 4.2 (3.5-5.2) g/dL Globulin 3.3 (1.3-4.6) g/dL Ethyl Alcohol < 10 (0-10) mg/dL 06/27/20 06/27/20 Range/Units 04:55 05:22 WBC (4.0-10.0) 10^3/ uL RBC (4.1-5.3) 10^6/u L Hgb (11.7-16.6) g/dL Hct (42.0-52.0) % MCV (80-94) fL MCH (28.0-34.0) pg MCHC (30.0-36.0) g/dL RDW (12.1-15.1) % Plt Count (130-400) 10^3/c mm MPV (7.4-10.4) fL Neut % (Auto) % Lymph % (Auto) % [place] % (Auto) % Eos % (Auto) % Baso % (Auto) % Neut # (Auto) (1.8-7.7) 10^3/u L Lymph # (Auto) (0.8-4.8) 10^3/u L [place] # (Auto) (0.2-0.9) 10^3/u L Eos # (Auto) (0.0-0.8) 10^3/u L Baso # (Auto) (0.0-0.1) 10^3/u L Nucleated RBC % (a uto) % Nucleated RBCs # /100WBC Specimen Type Arterial Sample Site Radial, right ABG pH 7.30 L (7.35-7.45) ABG pCO2 57.1 H (35-45) mmHg ABG pO2 92.0 (80.0-100.0) mmH g ABG HCO3 28.3 H (22-26) mmol/L ABG Base Excess 0.6 (-2.0-2.0) mmol/ L Nathanael Test Pos Hematocrit 44.6 (42-52) % O2 Delivery Device Nc O2 Liters/Min 4.0 % Learning Manager ID Jlg Sodium (136-145) mmol/L Potassium (3.5-5.1) mmol/L Chloride (98-107) mmol/L Carbon Dioxide (22-29) mmol/L Anion Gap (5-19) BUN (6-20) mg/dL Creatinine (0.7-1.2) mg/dL GFR Calculation (90-130) mL/min Glucose (65-115) mg/dL POC Glucose (70-110) mg/dL Calculated Osmolal ity (285-295) mOsm/k g Calcium (8.5-10.5) mg/dL Total Bilirubin (0.15-1.2) mg/dL AST (0-40) U/L ALT (0-41) U/L Alkaline Phosphata se (40-130) IU/L Troponin T Baselin e 11 (0-15) ng/L Total Protein (6.6-8.7) g/dL Albumin (3.5-5.2) g/dL Globulin (1.3-4.6) g/dL Ethyl Alcohol (0-10) mg/dL Imaging Data^: CT Head: Attestation: I personally reviewed and interpreted this imaging study as follows: Radiologist's impression: [address] [address] [address] Scan Report Signed Patient: David Lanza Unit #: [id number] : 1960 Age/Sex: 59 / M ADM Date: 06/27/20 Loc: ER Room/Bed: Attending Dr: Ordering Provider/Ordering MD: Shahrzad Parra MD Date of Service: 06/27/20 Procedure(s): CT head wo con* [id number] Accession Number(s): [id number] Report Number: [id number] PROCEDURE INFORMATION: Exam: CT Head Without Contrast Exam date and time: 06/27/2020 4:53 AM Age: 59 years old Clinical indication: Altered mental status/memory loss; Confusion or disorientation; Additional info: AMS TECHNIQUE: Imaging protocol: Computed tomography of the head without contrast. Radiation optimization: All CT scans at this facility use at least one of these dose optimization techniques: automated exposure control; mA and/or kV adjustment per patient size (includes targeted exams where dose is matched to clinical indication); or iterative reconstruction. COMPARISON: CT head wo con* [id number] 09/10/2017 10:11 PM RADIATION DOSE METRICS: Total DLP (mGy-cm): 878.35 FINDINGS: Brain: No acute intracranial hemorrhage or mass effect. There is mild decreased attenuation in the periventricular white matter, likely from microvascular disease. No definite acute infarct by CT. MRI could be more sensitive/specific for detection, as clinically directed. Cerebral ventricles: Ventricle size is normal for age. Bones/joints: No definite acute skull fracture. Paranasal sinuses: Included paranasal sinuses are essentially clear. Mastoid air cells: No significant acute finding. CT/CT head wo con* [id number] IMPRESSION: 1. No acute intracranial hemorrhage or mass effect. 2. Changes of microvascular disease. 3. No definite acute infarct by CT, see above. 4. Other findings discussed above. EKG Data^: EKG 1: Attestation: I personally reviewed and interpreted this EKG as follows: EKG interpretation date: 06/27/20 EKG interpretation time: 04:51 Interpretation: nsr hr 99 with no sr ot wave abnormalities qrs 114 qtc 422 Discharge Plan Discharge Patient Disposition: Home Clinical Impression: Seizure, Altered mental status Condition: Stable Prescriptions: New Keppra 500 mg tablet 500 mg PO BID Qty: 60 RF: 0 No Action albuterol sulfate 2.5 mg /3 mL (0.083 %) solution for nebulization 2.5 mg continuous nebulization Q6H RF: 0 aspirin [Adult Low Dose Aspirin] 81 mg tablet,delayed release (DR/EC) 81 mg PO DAILY RF: 0 tramadol 50 mg tablet 50 mg PO .6 times a day PRN (Reason: pain) 30 Days Qty: 180 RF: 1 hydrocodone-acetaminophen 10-325 mg tablet 1 tab PO .6 times a day PRN (Reason: Pain) 30 Days Qty: 180 RF: 0 hydrocodone-acetaminophen 10-325 mg tablet 1 tab PO .6 times a day PRN (Reason: pain) 30 Days Qty: 180 RF: 0 Spiriva Respimat 2.5 mcg/actuation mist 2 puff INHALATION DAILY Qty: 4 RF: 3 pantoprazole 40 mg tablet,delayed release (DR/EC) 40 mg PO DAILY 90 Days Qty: 90 RF: 1 atorvastatin [Lipitor] 20 mg tablet 20 mg PO DAILY Qty: 90 RF: 1 clopidogrel 75 mg tablet 75 mg PO DAILY Qty: 90 RF: 3 fluticasone propion-salmeterol [Advair HFA] 230-21 mcg/actuation HFA aerosol inhaler See Rx Instructions .ROUTE .COMPLEX Qty: 12 RF: 1 Discharge Orders: Discharge ED (Routine); Ordered 06/27/20 Ordered By: Shahrzad Parra Referrals: Keyanna Brown MD [Primary Care Provider] - 1-3 days Discharge Diet: Advance as tolerated Discharge Activity: Resume usual activity Patient Instructions: Seizures Coding Level of Care Code ED Aed Trainer for Mara Enriquez
[2020-06-27] MEDS: ondansetron 2 mg/ML SDV 2 mL 4 MG IVP (04:54)
[2020-06-27 04:55] LABS: Glucose Point of Care 111 mg/dL (70-110)
[2020-06-27 05:04] LABS: Basophils # 0.1 10^3/uL (0.0-0.1); Basophils % 0.8 %; Eosinophils # 0.3 10^3/uL (0.0-0.8); Hematocrit 44.8 % (42.0-52.0); Hemoglobin 14.5 g/dL (11.7-16.6); Lymphocytes # 1.6 10^3/uL (0.8-4.8); Lymphocytes % 17.6 %; Mean Corpuscular HGB Conc 32.4 g/dL (30.0-36.0); Mean Corpuscular Hemoglobin 33.1 pg (28.0-34.0); Mean Corpuscular Volume 102.3 fL (80-94); Mean Platelet Volume 8.3 fL (7.4-10.4); Monocytes # 1.2 10^3/uL (0.2-0.9); Monocytes % 13.4 %; Neutrophils # 5.85 10^3/uL (1.8-7.7); Neutrophils % 64.9 %; Nucleated Red Blood Cells % 0 %; Platelet Count 239 10^3/cmm (130-400); Red Blood Count 4.38 10^6/uL (4.1-5.3); Red Cell Distribution Width 12.4 % (12.1-15.1)
[2020-06-27 05:18] VITALS: BP 121/79; PULSE 83; RESP 17; O2SAT 94
[2020-06-27 05:20] LABS: Alanine Aminotransferase 18 U/L (0-41); Albumin Level 4.2 g/dL (3.5-5.2); Alkaline Phosphatase 98 IU/L (40-130); Blood Urea Nitrogen 18 mg/dL (6-20); Calcium 9.7 mg/dL (8.5-10.5); Carbon Dioxide 28 mmol/L (22-29); Chloride 99 mmol/L (98-107); Globulin 3.3 g/dL (1.3-4.6); Glomerular Filtration Rate 62.2 mL/min (90-130); Glucose 113 mg/dL (65-115); Osmolality Calculated 289 mOsm/kg (285-295); Sodium 138 mmol/L (136-145); Total Bilirubin 0.8 mg/dL (0.15-1.2); Total Protein 7.5 g/dL (6.6-8.7)
--- NOTE | 2020-06-27 05:20 | PC.NURSE ---
Patient's called to check on patient and informed me that she found patient down in the living room having a seizure. states the seizure lasted 4 minutes and then she could not get him to respond. states patient had seizures approximately 8-9 years ago from a medication. also believes patient may have been taking too much of his tramadol due to depression/increasing pain.
[2020-06-27 05:22] LABS: Troponin(5th) Baseline 11 ng/L (0-15)
[2020-06-27 05:30] LABS: Alcohol Level < 10 mg/dL (0-10)
[2020-06-27 05:31] LABS: Anion Gap 15.2 (5-19); Aspartate Amino Transferase 21 U/L (0-40); Potassium 4.2 mmol/L (3.5-5.1)
[2020-06-27 05:34] LABS: ABG PCO2 57.1 mmHg (35-45); Arterial Blood Gas Hematocrit 44.6 % (42-52); Base Excess ABG 0.6 mmol/L (-2.0-2.0); Blood Gas Allen Test Pos; Blood Gas Sample Site Radial, right; Blood Gas Sample Type Arterial; HCO3 ABG 28.3 mmol/L (22-26); Oxygen Device NC
[2020-06-27 06:30] VITALS: BP 120/81; PULSE 83; RESP 17; O2SAT 94
[2020-06-27 07:30] VITALS: BP 120/81; PULSE 78; O2SAT 94
[2020-06-27 08:34] VITALS: BP 137/79; PULSE 84; O2SAT 95
--- NOTE | 2020-06-28 12:19 | DCPLANNER ---
clinical study manager had message to schedule a follow up appointment for patient with Dr. Stevens. clinical study manager called the office of Dr. Stevens, spoke with Jennie, gave clinic patients information. clinical study manager was told that patients information would be printed and reviewed. Clinic will call patient with appointment information.
--- NOTE | 2020-07-08 11:57 | DCPLANNER ---
Patient has a follow up appointment scheduled for August at 1:[address] Stevens. Clinic will call patient with appointment information.
--- NOTE | 2020-08-25 15:52 | DCPLANNER ---
Patient had a follow up appointment scheduled for 08.12.[address] Stevens - patient did attend appointment.
== END 2020-06-27 08:36 | disposition home or self-care (01) ==
PROVIDERS: Emergency Provider Emergency Medicine; PCP Family Medicine
DX: R41.82 Altered mental status, unspecified (principal); R56.9 Unspecified convulsions; Z79.82 Long term (current) use of aspirin; Z79.02 Long term (current) use of antithrombotics/antiplatelets; I25.10 Atherosclerotic heart disease of native coronary artery without angina pectoris; E78.5 Hyperlipidemia, unspecified; Z86.19 Personal history of other infectious and parasitic diseases; Z86.73 Personal history of transient ischemic attack (TIA), and cerebral infarction without residual deficits; F17.210 Nicotine dependence, cigarettes, uncomplicated
CPT/HCPCS: 12345; 36416; 36600; 70450; 71045; 80053; 80307; 82803; 82962; 84484; 85025; 93005; 96374; 96375; 99283; 99284; J1953; J2405

== ENCOUNTER → 2020-08-11 08:24 | Outpatient (BNVA) | payer MEDICARE, SELFPAY | PROVIDERS: PCP Family Medicine; Visit Provider Nurse Practitioner | DX: G89.29 Other chronic pain (principal); M54.9 Dorsalgia, unspecified; M25.512 Pain in left shoulder; F17.210 Nicotine dependence, cigarettes, uncomplicated; Z79.891 Long term (current) use of opiate analgesic; Z71.6 Tobacco abuse counseling | CPT/HCPCS: 99213; 99214 ==

== ENCOUNTER → 2020-08-12 12:42 | Outpatient (BNVA) | payer MEDICARE, SELFPAY | PROVIDERS: PCP Family Medicine; Referring Provider Emergency Medicine; Visit Provider Specialist | DX: G40.309 Generalized idiopathic epilepsy and epileptic syndromes, not intractable, without status epilepticus (principal); K70.30 Alcoholic cirrhosis of liver without ascites; J44.9 Chronic obstructive pulmonary disease, unspecified; F17.219 Nicotine dependence, cigarettes, with unspecified nicotine-induced disorders | CPT/HCPCS: 99205 ==

== ENCOUNTER → 2020-09-07 08:38 | Outpatient (BNVA) | payer MEDICARE, SELFPAY | PROVIDERS: PCP Family Medicine; Visit Provider Nurse Practitioner | DX: G89.29 Other chronic pain (principal); M54.9 Dorsalgia, unspecified; F17.210 Nicotine dependence, cigarettes, uncomplicated; Z79.891 Long term (current) use of opiate analgesic | CPT/HCPCS: 99213 ==

== ENCOUNTER 2020-09-13 15:28 | Observation (INO) | payer MEDICARE, SELFPAY ==
[2020-09-13] VITALS (14 sets, daily range): BP systolic 132–161; BP diastolic 66–101; PULSE 87–103; RESP 17–23; TEMP 36.6; O2SAT 92–98; BMI 28.5
--- NOTE | 2020-09-13 15:57 | ECG_ITS ---
[facility] Test Date: 2020-09-13 Pat Name: David Lanza Department: Room: Gender: Male Reordering Clerk: : 1960 Requested By: Jan Jeffers I Order Number: [id number] Amalia MD: Mike Scott M.D. Measurements Intervals [place] Rate: 103 P: 82 IA: 124 QRS: 114 QRSD: 93 T: 79 QT: 333 QTc: 437 Interpretive Statements SINUS TACHYCARDIA INCOMPLETE RIGHT BUNDLE BRANCH BLOCK [90+ ms QRS DURATION, TERMINAL R IN V1/V2, 40+ ms S IN I/aVL/V4/V5/V6] POSSIBLE RIGHT VENTRICULAR HYPERTROPHY [SOME/ALL OF: PROMINENT R IN V1, LATE TRANSITION, RAD, ELI, SSS] Compared to ECG 06/27/2020 04:51:43 Sinus rhythm no longer present Myocardial infarct finding no longer present Electronically Signed On 09-13-2020 20:10:25 CDT by Mike Scott M.D. [id number]
--- NOTE | 2020-09-13 15:57 | XRR_ITS ---
PROCEDURE INFORMATION: Exam: XR Chest Exam date and time: 09/13/2020 4:47 PM Age: 60 years old Clinical indication: Shortness of breath and wheezing; Chest pain; Prior surgery; Surgery type: Stents; Additional info: Cp, wheezing TECHNIQUE: Imaging protocol: XR of the chest. Views: 1 view. COMPARISON: CR XR chest 1V portable [id number] 06/27/2020 4:54 AM FINDINGS: Lungs: COPD, interstitial disease, chronic granulomatous disease. Pleural spaces: No significant pleural effusion. Heart/Mediastinum: Epicardial fat, without cardiomegaly. Bones/joints: Degenerative change. XR/XR chest 1V portable [id number] IMPRESSION: COPD, interstitial disease, chronic granulomatous disease.
[2020-09-13 16:07] LABS: Basophils % 0.6 %; Eosinophils # 0.2 10^3/uL (0.0-0.8); Eosinophils % 2.7 %; Hematocrit 39.3 % (42.0-52.0); Hemoglobin 13.3 g/dL (11.7-16.6); Lymphocytes # 1.6 10^3/uL (0.8-4.8); Lymphocytes % 23.2 %; Mean Corpuscular HGB Conc 33.8 g/dL (30.0-36.0); Mean Corpuscular Hemoglobin 34.5 pg (28.0-34.0); Mean Corpuscular Volume 101.8 fL (80-94); Mean Platelet Volume 8.6 fL (7.4-10.4); Monocytes # 1.1 10^3/uL (0.2-0.9); Monocytes % 15.7 %; Neutrophils # 3.89 10^3/uL (1.8-7.7); Neutrophils % 57.5 %; Nucleated Red Blood Cells % 0 %; Platelet Count 208 10^3/cmm (130-400); Red Blood Count 3.86 10^6/uL (4.1-5.3); Red Cell Distribution Width 12.6 % (12.1-15.1); White Blood Count 6.8 10^3/uL (4.0-10.0)
[2020-09-13 16:26] LABS: ABG PCO2 43.3 mmHg (35-45); ABG PH Result 7.43 (7.35-7.45); Arterial Blood Gas Hematocrit 42.3 % (42-52); Base Excess ABG 3.5 mmol/L (-2.0-2.0); Blood Gas Operator Identificat AMH; Blood Gas Sample Site Brachial, left; Blood Gas Sample Type Arterial; HCO3 ABG 28.4 mmol/L (22-26); Oxygen Device NC
[2020-09-13 16:30] LABS: Troponin(5th) Baseline 9 ng/L (0-15)
[2020-09-13] MEDS: ipratropium-albuterol 3 mL Neb INHALATION ×2 (16:31→23:47)
[2020-09-13] MEDS: morphine 4 mg/mL SDV 1 mL IVP (16:34)
[2020-09-13] MEDS: ondansetron 2 mg/ML SDV 2 mL 4 MG IVP (16:34)
[2020-09-13] MEDS: nitroglycerin 1 gm/inch oint Pkt 1 INCH TOPICAL (16:34)
[2020-09-13 16:35] LABS: Alanine Aminotransferase 14 U/L (0-41); Albumin Level 4.2 g/dL (3.5-5.2); Alkaline Phosphatase 99 IU/L (40-130); Anion Gap 16.6 (5-19); Aspartate Amino Transferase 14 U/L (0-40); Blood Urea Nitrogen 16 mg/dL (6-20); Calcium 8.8 mg/dL (8.5-10.5); Carbon Dioxide 26 mmol/L (22-29); Chloride 101 mmol/L (98-107); Globulin 2.5 g/dL (1.3-4.6); Glomerular Filtration Rate 115.4 mL/min (90-130); Glucose 100 mg/dL (65-115); Lipase 48 U/L (13-60); NT Pro B Type Natriuretic Pept 43 pg/mL (0-125); Osmolality Calculated 291 mOsm/kg (285-295); Potassium 3.6 mmol/L (3.5-5.1); Sodium 140 mmol/L (136-145); Total Bilirubin 0.2 mg/dL (0.15-1.2); Total Protein 6.7 g/dL (6.6-8.7)
--- NOTE | 2020-09-13 17:57 | ECG_ITS ---
[facility] Test Date: 2020-09-13 Pat Name: David Lanza Department: Room: Gender: Male Services Account Manager: : 1960 Requested By: Jan Jeffers I Order Number: [id number] Amalia MD: Mike Scott M.D. Measurements Intervals [place] Rate: 93 P: 78 [place]: 157 QRS: 102 QRSD: 104 T: 77 QT: 358 QTc: 446 Interpretive Statements SINUS RHYTHM RIGHT AXIS DEVIATION [QRS AXIS > 100] Compared to ECG 09/13/2020 15:35:07 Right-axis deviation now present Sinus tachycardia no longer present Incomplete right bundle-branch block no longer present Atrial abnormality no longer present Electronically Signed On 09-13-2020 20:13:42 CDT by Mike Scott M.D. [id number]
--- NOTE | 2020-09-13 18:56 | W.ED.CHESTPA ---
HPI - Chest Pain General: Chief Complaint: Chest Pain Stated Complaint: L SIDE CP, SOB Time Seen by Provider: 09/13/20 15:33 Source: family and EMS Mode of arrival: ambulatory Limitations: no limitations History of Present Illness: HPI narrative: 60 year old male with a history of COPD, chronic respiratory failure, on 3 lpm chronically, CAD, alcohol dependence and liver cirrhosis, hep C. He presents to the ED with complaints of left chest pain, described as sensation of something sitting on his chest. He endorses shortness of breath and nausea, no diaphoresis. No dizziness. Pain radiates to his back. He was given 325 mg of aspirin and 2 SL nitro. 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 (COPD) Onset (ago): hour(s) Timing of current episode: constant Prior episodes: No Onset: during rest Pain location: left chest Pain radiation: none Severity: moderate Quality: heaviness Relieving factors: nothing Exacerbating factors: nothing Associated symptoms: Reports dyspnea and nausea; Deny abdominal pain, diaphoresis, fever(s), leg edema, palpitations, sense of impending doom, syncope or vomiting Treatment prior to arrival: aspirin and nitroglycerin Review of Systems General: Reports: 10 or more systems reviewed and unremarkable except in HPI and below Const: Denies: fever(s) or diaphoresis Card: Denies: palpitations or syncope Resp: Reports: dyspnea GI: Reports: nausea; Denies: abdominal pain or vomiting [facility] [place] [facility] PFSH: Medical History (Updated 09/21/20 @ 08:56 by Jan Jeffers MD, [facility] [place] Alcoholic cirrhosis of liver Atherosclerosis of coronary artery of [place] heart without angina pectoris Chronic back pain Chronic pain in left shoulder Chronic pain syndrome Cigarette nicotine dependence Coronary artery disease Dyslipidemia Dyslipidemia (high LDL; low HDL) Encounter for long-term (current) use of NSAIDs Encounter for long-term opiate analgesic use Hepatitis C Liver cirrhosis Recurrent cerebrovascular accidents (CVAs) Syncope and collapse Surgical History Hx of hernia repair Hx of knee surgery Hx of shoulder surgery Family History Mother CAD (coronary artery disease) Had a myocardial infarction at the age of 18. She is alive. She had a PCI? Father CAD (coronary artery disease) Had myocardial infarction in his 70s and is alive Other Diabetes Hypertension Myocardial infarct Social History Smoking and tobacco status: current some day smoker cigarettes [ Other cigarette details: 1 cig every 3 or 4 days ] Quit status (tobacco): has quit using tobacco Year quit tobacco: 2020 6mths ago 2ppd x 40y Second hand smoke exposure: Yes Smoking risk assessment/counseling performed?: Yes Alcohol intake: former Lives independently: Yes Household members: spouse Housing: House Marital status: service: No Current occupational status: disabled Pets and animals: Yes History of recent travel: No Current gender identity: Male Physical Exam Const: COMMON NORMALS: no acute distress, average body habitus, patient oriented x3, no limitations, healthy appearing, alert and well nourished Neck/C-Spine: COMMON NORMALS: full ROM, supple, no meningeal signs, no JVD and No carotid bruits Chest: COMMONS NORMALS: normal inspection of the chest and normal palpation of entire chest wall Resp: COMMON NORMALS: normal respiratory effort, No retractions, No use of accessory muscles and percussion normal AUSCULTATION: wheezes throughout and diminished lung sounds PERCUSSION: percussion normal Cardio: COMMON NORMALS: no JVD, regular rate, regular rhythm, S1 normal heart sound present, S2 normal heart sound present, No gallops present (Cardio), No clicks present (Cardio), No murmurs present (Cardio), No rub (Cardio) and Peripheral pulses 2+ throughout RATE: regular rate RHYTHM: regular rhythm HEART SOUNDS: S1 normal heart sound present and S2 normal heart sound present PERIPHERAL PULSES: Peripheral pulses 2+ throughout GI: COMMON NORMALS: Normal to inspection, nondistended, normoactive bowel sounds present, Soft to palpation, No hepatosplenomegaly present, no masses and no bruits PALPATION: Yes Soft to palpation, Yes Tenderness to palpation present (GI) (epigastric) and Yes No hepatosplenomegaly present Extremity: COMMON NORMALS: normal to inspection, full ROM, capillary refill normal, no calf tenderness and no pedal edema Neuro: COMMON NORMALS: patient oriented x3 SENSORIUM/ORIENTATION: Yes alert MENINGEAL SIGNS: Yes no meningeal signs Skin: COMMON NORMALS: no rashes or lesions noted, no wounds, turgor normal, no jaundice, no petechiae and no mottling GENERAL SKIN EXAM: no rashes or lesions noted and turgor normal Course Reevaluation(s): Reevaluation #1: Still wheezing on examination in all lung zones. Will admit to the hospital for management of COPD exacerbation and pulmonary toilet. He voiced understanding and is in agreement with the plan Time: 18:56 Consultations: Consultation #1: Discussed the patient with Dr. Rabago, hospitalist and he kindly accepted the patient to his service Vital Signs: Vital signs: Vital Signs Temperature 98.7 F 09/14/20 16:22 Pulse Rate 108 H 09/14/20 16:22 Respiratory Rate 17 09/14/20 16:22 Blood Pressure 165/89 09/14/20 16:22 Pulse Oximetry 94 09/14/20 16:22 MDM - Chest Pain MDM Narrative: Medical decision making narrative: 60 year old male with multiple comorbitidies who presented to the ED with complaints of chest pain. Initial cardiac workup was unremarkable, and clinically, he appears to be in COPD exacerbation. He improved slightly with a breathing treatment and IV corticosteroids but he still had significantly reduced air movement and wheezing. He is therefore being admitted to the hospital for further evaluation and management. Lab Data: Labs: Lab Results 09/13/20 09/13/20 09/13/20 Range/Units 15:47 15:47 15:47 WBC 6.8 (4.0-10.0) 10^3/ uL RBC 3.86 L (4.1-5.3) 10^6/u L Hgb 13.3 (11.7-16.6) g/dL Hct 39.3 L (42.0-52.0) % MCV 101.8 H (80-94) fL MCH 34.5 H (28.0-34.0) pg MCHC 33.8 (30.0-36.0) g/dL RDW 12.6 (12.1-15.1) % Plt Count 208 (130-400) 10^3/c mm MPV 8.6 (7.4-10.4) fL Neut % (Auto) 57.5 % Lymph % (Auto) 23.2 % Becker % (Auto) 15.7 % Eos % (Auto) 2.7 % Baso % (Auto) 0.6 % Neut # (Auto) 3.89 (1.8-7.7) 10^3/u L Lymph # (Auto) 1.6 (0.8-4.8) 10^3/u L Becker # (Auto) 1.1 H (0.2-0.9) 10^3/u L Eos # (Auto) 0.2 (0.0-0.8) 10^3/u L Baso # (Auto) 0.0 (0.0-0.1) 10^3/u L Nucleated RBC % (a uto) 0 % Nucleated RBCs # 0.0 /100WBC D-Dimer (0-0.59) ug/mIFE U Specimen Type Sample Site ABG pH (7.35-7.45) ABG pCO2 (35-45) mmHg ABG pO2 (80.0-100.0) mmH g ABG HCO3 (22-26) mmol/L ABG Base Excess (-2.0-2.0) mmol/ L Nathanael Test Hematocrit (42-52) % O2 Delivery Device O2 Liters/Min % FiO2 % Sap Basis Consultant ID Sodium 140 (136-145) mmol/L Potassium 3.6 (3.5-5.1) mmol/L Chloride 101 (98-107) mmol/L Carbon Dioxide 26 (22-29) mmol/L Anion Gap 16.6 (5-19) BUN 16 (6-20) mg/dL Creatinine 0.7 (0.7-1.2) mg/dL GFR Calculation 115.4 (90-130) mL/min Glucose 100 (65-115) mg/dL Calculated Osmolal ity 291 (285-295) mOsm/k g Calcium 8.8 (8.5-10.5) mg/dL Total Bilirubin 0.2 (0.15-1.2) mg/dL AST 14 (0-40) U/L ALT 14 (0-41) U/L Alkaline Phosphata se 99 (40-130) IU/L Troponin T Baselin e 9 (0-15) ng/L Troponin T 120 Min [place] (0-15) ng/L Delta Troponin T (0-10) ABS# NT-Pro-B Natriuret Pep 43 (0-125) pg/mL Total Protein 6.7 (6.6-8.7) g/dL Albumin 4.2 (3.5-5.2) g/dL Globulin 2.5 (1.3-4.6) g/dL Lipase 48 (13-60) U/L Ethyl Alcohol (0-10) mg/dL 09/13/20 09/13/20 09/13/20 Range/Units 15:47 15:47 16:15 WBC (4.0-10.0) 10^3/ uL RBC (4.1-5.3) 10^6/u L Hgb (11.7-16.6) g/dL Hct (42.0-52.0) % MCV (80-94) fL MCH (28.0-34.0) pg MCHC (30.0-36.0) g/dL RDW (12.1-15.1) % Plt Count (130-400) 10^3/c mm MPV (7.4-10.4) fL Neut % (Auto) % Lymph % (Auto) % Becker % (Auto) % Eos % (Auto) % Baso % (Auto) % Neut # (Auto) (1.8-7.7) 10^3/u L Lymph # (Auto) (0.8-4.8) 10^3/u L Becker # (Auto) (0.2-0.9) 10^3/u L Eos # (Auto) (0.0-0.8) 10^3/u L Baso # (Auto) (0.0-0.1) 10^3/u L Nucleated RBC % (a uto) % Nucleated RBCs # /100WBC D-Dimer 0.55 (0-0.59) ug/mIFE U Specimen Type Arterial Sample Site Brachial, left ABG pH 7.43 (7.35-7.45) ABG pCO2 43.3 (35-45) mmHg ABG pO2 127.0 H (80.0-100.0) mmH g ABG HCO3 28.4 H (22-26) mmol/L ABG Base Excess 3.5 H (-2.0-2.0) mmol/ L Nathanael Test N/a Hematocrit 42.3 (42-52) % O2 Delivery Device Nc O2 Liters/Min 3.0 % FiO2 32.0 % Sap Basis Consultant ID Amh Sodium (136-145) mmol/L Potassium (3.5-5.1) mmol/L Chloride (98-107) mmol/L Carbon Dioxide (22-29) mmol/L Anion Gap (5-19) BUN (6-20) mg/dL Creatinine (0.7-1.2) mg/dL GFR Calculation (90-130) mL/min Glucose (65-115) mg/dL Calculated Osmolal ity (285-295) mOsm/k g Calcium (8.5-10.5) mg/dL Total Bilirubin (0.15-1.2) mg/dL AST (0-40) U/L ALT (0-41) U/L Alkaline Phosphata se (40-130) IU/L Troponin T Baselin e (0-15) ng/L Troponin T 120 Min [place] (0-15) ng/L Delta Troponin T (0-10) ABS# NT-Pro-B Natriuret Pep (0-125) pg/mL Total Protein (6.6-8.7) g/dL Albumin (3.5-5.2) g/dL Globulin (1.3-4.6) g/dL Lipase (13-60) U/L Ethyl Alcohol 103 H (0-10) mg/dL 09/13/20 09/13/20 Range/Units 18:08 18:08 WBC (4.0-10.0) 10^3/ uL RBC (4.1-5.3) 10^6/u L Hgb (11.7-16.6) g/dL Hct (42.0-52.0) % MCV (80-94) fL MCH (28.0-34.0) pg MCHC (30.0-36.0) g/dL RDW (12.1-15.1) % Plt Count (130-400) 10^3/c mm MPV (7.4-10.4) fL Neut % (Auto) % Lymph % (Auto) % Becker % (Auto) % Eos % (Auto) % Baso % (Auto) % Neut # (Auto) (1.8-7.7) 10^3/u L Lymph # (Auto) (0.8-4.8) 10^3/u L Becker # (Auto) (0.2-0.9) 10^3/u L Eos # (Auto) (0.0-0.8) 10^3/u L Baso # (Auto) (0.0-0.1) 10^3/u L Nucleated RBC % (a uto) % Nucleated RBCs # /100WBC D-Dimer (0-0.59) ug/mIFE U Specimen Type Sample Site ABG pH (7.35-7.45) ABG pCO2 (35-45) mmHg ABG pO2 (80.0-100.0) mmH g ABG HCO3 (22-26) mmol/L ABG Base Excess (-2.0-2.0) mmol/ L Nathanael Test Hematocrit (42-52) % O2 Delivery Device O2 Liters/Min % FiO2 % Sap Basis Consultant ID Sodium (136-145) mmol/L Potassium (3.5-5.1) mmol/L Chloride (98-107) mmol/L Carbon Dioxide (22-29) mmol/L Anion Gap (5-19) BUN (6-20) mg/dL Creatinine (0.7-1.2) mg/dL GFR Calculation (90-130) mL/min Glucose (65-115) mg/dL Calculated Osmolal ity (285-295) mOsm/k g Calcium (8.5-10.5) mg/dL Total Bilirubin (0.15-1.2) mg/dL AST (0-40) U/L ALT (0-41) U/L Alkaline Phosphata se (40-130) IU/L Troponin T Baselin e (0-15) ng/L Troponin T 120 Min [place] 6.00 (0-15) ng/L Delta Troponin T -3.00 L (0-10) ABS# NT-Pro-B Natriuret Pep (0-125) pg/mL Total Protein (6.6-8.7) g/dL Albumin (3.5-5.2) g/dL Globulin (1.3-4.6) g/dL Lipase 42 (13-60) U/L Ethyl Alcohol (0-10) mg/dL Imaging Data^: CXR: Attestation: I personally reviewed and interpreted this imaging study as follows: Radiologist's impression: [employer] [place] [address] XRay Report Signed Patient: David Lanza JRUnit #: [id number] : [id number]#:[id number] Age/Sex: 60 / MADM Date: 09/13/20 Loc: [facility]/Bed: [facility] Attending Dr: Zafar Elkins MD Ordering Provider/Ordering MD: Jan Jeffers MD, [facility] [place] Date of Service: 09/13/20 Procedure(s): XR chest 1V portable [id number] Accession Number(s): [id number] Report Number: [id number] PROCEDURE INFORMATION: Exam: XR Chest Exam date and time: 09/13/2020 4:47 PM Age: 60 years old Clinical indication: Shortness of breath and wheezing; Chest pain; Prior surgery; Surgery type: Stents; Additional info: Cp, wheezing TECHNIQUE: Imaging protocol: XR of the chest. Views: 1 view. COMPARISON: CR XR chest 1V portable [id number] 06/27/2020 4:54 AM FINDINGS: Lungs: COPD, interstitial disease, chronic granulomatous disease. Pleural spaces: No significant pleural effusion. Heart/Mediastinum: Epicardial fat, without cardiomegaly. Bones/joints: Degenerative change. XR/XR chest 1V portable [id number] IMPRESSION: COPD, interstitial disease, chronic granulomatous disease. Dictated By:Dylan Jamil MD Signed By:Dylan Jamil MDSigned Date/Time:09/14/20751 DD/ 0 EKG Data^: EKG 1: Attestation: I personally reviewed and interpreted this EKG as follows: EKG interpretation date: 09/13/20 EKG interpretation time: 15:35 Prior EKG tracings: not available for review Interpretation: Sinus Tachycardia HR [address] changes EKG 2: Attestation: I personally reviewed and interpreted this EKG as follows: EKG interpretation date: 09/13/20 EKG interpretation time: 18:08 Prior EKG tracings: available for review Interpretation: sinus rhythm HR [address] changes No significant change from earlier Discharge Plan Discharge Patient Disposition: Admitted As Inpatient Admit Provider: Hima,Downing Clinical Impression: COPD exacerbation, Atypical chest pain Alcohol dependence Qualifiers: Substance use status: uncomplicated Qualified Code(s): F10.20 - Alcohol dependence, uncomplicated Condition: Stable Discharge Diet: Cardiac Discharge Activity: Increase activity as tolerated and Limit activity as instructed Coding Level of Care Code ED Solvent Plant Treater for Mara Enriquez
--- NOTE | 2020-09-13 19:19 | PC.PHAR ---
pts verified pts medications
--- NOTE | 2020-09-13 19:33 | P.HP_ITS ---
Providers/Chief Complaint Primary Care Provider: Keyanna Brown MD Chief Complaint: L SIDE CP, SOB History of Present Illness David Lanza JR is a 60 year old male who has history of alcohol dependence, alcoholic liver cirrhosis, active smoker, oxygen dependent severe COPD, hepatitis C, established coronary disease with stent placement/NSTEMI January 2020(balloon angioplasty and drug-eluting stent mid circumflex) presenting today with chief complaint of chest discomfort and shortness of breath. Patient is stating that his symptoms started today with chest discomfort which she is describing as someone stepping on his chest, this pain was radiating towards his back, because of established coronary disease it made him very anxi ous, he is describing this pain as constant which does not get worse on deep breathing, he has not noticed any relieving factors. No diaphoresis, fever. Is also endorsing productive cough, greenish sputum production, he endorses greenish sputum production is new however on review of previous records from July he has been having similar productive cough characteristics. He is using 2 to 3 L of oxygen [id number]. He is endorsing smoking 6 beers and 1 pack of cigarettes in a week. Pulmonary function test reveal severe COPD. Diagnosis in the ER revealed normal CBC, BMP and ABG currently on 3 L supplemental oxygen, complaining of epigastric pain radiating towards back he has not noticed any relief in his symptoms, he has active wheezing along with tachypnea. I have requested CTA chest to rule out aortic dissection, will check lipase level. In the ER he received folic acid, aspirin, Plavix, methylprednisone 125 along DuoNeb treatment with no relief in symptoms of wheezing Review of Systems Const: Reports: chills, body aches and fatigue; Denies: fever(s) Eyes: Denies: change in vision ENMT: Denies: throat pain Card: Reports: chest pain and dyspnea on exertion; Denies: orthopnea Resp: Reports: dyspnea, productive cough, wheezing, change in phlegm color and chest congestion GI: Reports: abdominal pain : Denies: flank pain Musc: Denies: neck pain Skin/Breast: Denies: rash Neuro: Denies: headache(s) Psych: Denies: anxiety Endo: Denies: polyuria Mauri/Lymph: Denies: easy bruising All/Imm: Denies: urticaria Medications/Allergies Home Medications Medication Instructions Recorded Confirmed Last Taken Type albuterol sulfate 2.5 mg CONTINUOUS NEBULIZATION PRN 06/19/19 09/13/20 01/03/20 08:30 History atorvastatin 20 mg tablet 20 mg PO DAILY #90 tab 03/29/20 09/13/20 Unknown Rx clopidogrel 75 mg tablet 75 mg PO DAILY #90 tab 03/29/20 09/13/20 Unknown Rx aspirin 81 mg tablet,delayed 81 mg PO DAILY 06/18/20 09/13/20 09/13/20 15:00 History release citalopram 20 mg tablet 20 mg PO DAILY 07/28/20 09/13/20 Unknown History tiotropium bromide 2.5 2 puff INHALATION DAILY #4 gm 07/29/20 09/13/20 09/13/20 Rx mcg/actuation mist for inhalation midazolam 5 mg/spray (0.1 mL) 1 spray INTRANASAL ONCE PRN 30 08/12/20 09/13/20 Unknown Rx nasal spray Days #2 ea hydrocodone 10 mg-acetaminophen 1 tab PO .6 times a day PRN 30 09/08/20 09/13/20 Unknown Rx 325 mg tablet Days #180 tab hydrocodone 10 mg-acetaminophen 1 tab PO .6 times a day PRN 30 09/08/20 09/13/20 09/13/20 Rx 325 mg tablet Days #180 tab Advair HFA 2 puff INHALATION BID 09/13/20 09/13/20 09/13/20 History Keppra XR 1,000 mg PO BEDTIME 09/13/20 09/13/20 Unknown History tramadol [Ultram] 50 mg PO Q4H PRN 09/13/20 09/13/20 Unknown History Allergies Allergy/AdvReac Type Severity Reaction Status Date / Time gabapentin [From Neurontin] Allergy ADR-Agitate Verified 09/13/20 19:15 d PFSH Acute PFSH: Medical History (Updated 09/13/20 @ 20:52 by Chang Rabago MD) Alcoholic cirrhosis of liver Atherosclerosis of coronary artery of [place] heart without angina pectoris Chronic back pain Chronic pain in left shoulder Chronic pain syndrome Cigarette nicotine dependence Coronary artery disease Dyslipidemia Dyslipidemia (high LDL; low HDL) Encounter for long-term (current) use of NSAIDs Encounter for long-term opiate analgesic use Hepatitis C Liver cirrhosis Recurrent cerebrovascular accidents (CVAs) Syncope and collapse Surgical History Hx of hernia repair Hx of knee surgery Hx of shoulder surgery Family History Mother CAD (coronary artery disease) Had a myocardial infarction at the age of 18. She is alive. She had a PCI? Father CAD (coronary artery disease) Had myocardial infarction in his 70s and is alive Other Diabetes Hypertension Myocardial infarct Social History Smoking and tobacco status: current some day smoker cigarettes [ Other cigarette details: 1 cig every 3 or 4 days ] Quit status (tobacco): has quit using tobacco Year quit tobacco: 2020 6mths ago 2ppd x 40y Second hand smoke exposure: Yes Smoking risk assessment/counseling performed?: Yes Alcohol intake: former Lives independently: Yes Household members: spouse Housing: House Marital status: service: No Current occupational status: disabled Pets and animals: Yes History of recent travel: No Current gender identity: Male Vitals/I&O/Wt Last Vital Signs Temp 97.8 F 09/13/20 15:41 Pulse 99 09/13/20 19:18 Resp 23 H 09/13/20 19:18 BP 157/90 09/13/20 19:18 Pulse Ox 92 09/13/20 19:18 Weight last 48 hrs Weight 95.254 kg Physical Exam Narrative: EXAM NARRATIVE: Middle-age male who appears more than stated age No signs of active fluid overload or dehydration Currently on 2 L nasal cannula with mild tachypnea No conversational dyspnea Complaining of epigastric pain radiating towards his left shoulder Abdomen mildly tender on deep palpation S1, S2 no murmur appreciated Bilateral breath sounds with expiratory wheezing, diffuse bilaterally, no active use of respiratory accessory muscles No cyanosis Lower extremity no edema gangrene or ulcer EOMI, PERRLA No neurological deficit Data : 09/13/20 15:47 09/13/20 15:47 A&P Assessment and plan (1) Atypical chest pain: Status: Acute (2) Epigastric discomfort: Status: Acute (3) Coronary artery disease: Status: Acute Qualifiers: Coronary Disease-Associated Artery/Lesion type: [place] artery [place] vs. transplanted heart: [place] heart Associated angina: with unspecified angina Qualified Code(s): I25.119 - Atherosclerotic heart disease of [place] coronary artery with unspecified angina pectoris (4) Alcoholic cirrhosis of liver: Status: Acute Qualifiers: Ascites presence: unspecified Qualified Code(s): K70.30 - Alcoholic cirrhosis of liver without ascites (5) Tobacco abuse: Status: Acute (6) Alcohol abuse: Status: Acute Additional A&P Information Atypical chest pain Patient is complaining of pressure sensation in mid epigastric region which is radiating towards his back has established coronary disease, EKG unremarkable no significant delta troponin, complaining of active midepigastric discomfort at the time my evaluation, Will request D-dimer to rule out PE Check lipase level and rule out aortic dissection will request CTA chest Blood pressure normal, Considering history of alcohol would keep alcohol-related gastritis in my dif ferential as well, GI cocktail x1 Diffuse active wheezing He has severe COPD, active smoker drinks alcohol DuoNeb every 4 as needed, we will keep him on IV steroids, no active signs of pneumonia, follow-up with D-dimer No active signs of fluid overload I do not suspect fluid overload/cardiac wheez ing at this point Preserved ejection fraction, no active signs of heart failure Alcohol abuse: CIWA protocol No active signs of withdrawal We will check alcohol level Breakthrough seizures: Continue Keppra we will check level as well No active signs History of chronic back pain I will keep him on opioids along bowel regimen and discontinue tramadol because of history of breakthrough seizure Full code Cardiac diet DVT prophylaxis Lovenox Attestations Medical Necessity Statement*: Anticipating discharge in less than 48 hours he has effective diffuse bilateral wheezing and complaining of epigastric pain radiating towards back, active smoker needs to rule out aortic dissection, Time Spent in Patient Care: (>than 50% of time spent in counselling and/or direct pt care on unit) . 40mins Coding Level of Care Code Acute Property Inspector for g Fwd Diagnoses Atypical chest pain R07.89 Epigastric discomfort R10.13 Coronary artery disease I25.119 Coronary Disease-Associated Artery/Lesion type: [place] artery [place] vs. transplanted heart: [place] heart Associated angina: with unspecified angina Alcoholic cirrhosis of liver K70.30 Ascites presence: unspecified Tobacco abuse Z72.0 Alcohol abuse F10.10
[2020-09-13 19:48] LABS: D Dimer 0.55 ug/mIFEU (0-0.59)
[2020-09-13 19:53] LABS: Alcohol Level 103 mg/dL (0-10)
[2020-09-13] MEDS: folic acid 1 MG, multivitamin inj 10 ML, thiamine 100 MG in sodium chloride 0.9% 1,000 ML 252.8 MG IV (20:06)
--- NOTE | 2020-09-13 20:19 | CTR_ITS ---
PROCEDURE INFORMATION: Exam: CTA Chest With Contrast Exam date and time: 09/13/2020 8:25 PM Age: 60 years old Clinical indication: Shortness of breath; Chest pain; Prior surgery; Surgery type: Stents; Additional info: Chest pain radiating to back TECHNIQUE: Imaging protocol: Computed tomographic angiography of the chest with contrast. 3D rendering (Not supervised by radiologist): MIP and/or 3D reconstructed images were created by the technologist. Total images: 1007 Radiation optimization: All CT scans at this facility use at least one of these dose optimization techniques: automated exposure control; mA and/or kV adjustment per patient size (includes targeted exams where dose is matched to clinical indication); or iterative reconstruction. Contrast material: OMNI 350; Contrast volume: 78 ml; Contrast route: INTRAVENOUS (IV); COMPARISON: CT Chest/Abdomen/Pelvis wo IV 12/20/2018 2:31 PM RADIATION DOSE METRICS: Total DLP (mGy-cm): 668.83 FINDINGS: Pulmonary arteries: No visible evidence of pulmonary embolism/pulmonary arterial thrombus. Aorta: The thoracic aorta is nonaneurysmal. No visible intimal flap or dissection. Lungs: Emphysema with COPD/chronic bronchitis. Calcified granulomas of antecedent disease. Stable chronic bronchiolar disease right upper lobe in a classic tree in bud presentation. No visible active interstitial or alveolar airspace disease. Pleural spaces: Calcified pleural plaques again identified. No visible pleural effusion. No visible pneumothorax. Heart: Microcardia. Left ventricular hypertrophy. Coronary artery disease. No visible pericardial effusion. Mediastinal space: Small hiatal hernia. Lymph nodes: No visible active mediastinal or hilar lymphadenopathy. Calcified complexes of antecedent granulomatous disease. Bones/joints: No visible active or acute osseous abnormality. Degenerative disease and degenerative disc disease of the spine. Soft tissues: Unremarkable. CT/CT angio chest PE protcl [id number] IMPRESSION: 1. No visible evidence of pulmonary embolism/pulmonary arterial thrombus. 2. Chronic lung disease as detailed in text above. 3. Coronary artery disease. Radiation Dose CTDIVOL = (mGy): DLP = 668.83 (mGy-cm)
--- NOTE | 2020-09-13 20:19 | CTR_ITS ---
PROCEDURE INFORMATION: Exam: CT Abdomen And Pelvis Without Contrast Exam date and time: 09/13/2020 8:25 PM Age: 60 years old Clinical indication: Nausea; Abdominal pain; Prior surgery; Surgery type: Stents; Additional info: Epigastric pain, alcoholic TECHNIQUE: Imaging protocol: Computed tomography of the abdomen and pelvis without contrast. Total images: 243 Radiation optimization: All CT scans at this facility use at least one of these dose optimization techniques: automated exposure control; mA and/or kV adjustment per patient size (includes targeted exams where dose is matched to clinical indication); or iterative reconstruction. COMPARISON: CT Chest/Abdomen/Pelvis wo IV 12/20/2018 2:31 PM RADIATION DOSE METRICS: Total DLP (mGy-cm): 1634.5 FINDINGS: Lungs: Emphysema. Evidence of antecedent granulomatous disease. Pleural spaces: Small calcified pleural plaques. Mediastinal space: Small hiatal hernia. Liver: No visible hepatic mass or cystic structure. Gallbladder and bile ducts: Normal. No calcified stones. No ductal dilation. Pancreas: Pancreas unremarkable. No visible pancreatic ductal ectasia. Spleen: Small splenule. Spleen otherwise unremarkable. Adrenal glands: Adrenal glands unremarkable. Kidneys and ureters: No hydronephrosis or perinephric fluid bilaterally. Stable small simple renal cortical cysts. Follow-up not recommended. Tiny focus of nonobstructing calyceal nephrolithiasis superior pole right kidney under 2 mm. No visible ureterolithiasis. Stomach and bowel: Diverticulosis coli without visible evidence for acute diverticulitis. Nonobstructive bowel pattern. No visible significant adynamic or reactive ileus. Appendix: The appendix is visualized and appears noninflamed. Intraperitoneal space: No visible evidence of mesenteric lymphadenitis or active mesenteritis/panniculitis. No visible pneumoperitoneum. No visible intraperitoneal ascites. Vasculature: Microcardia. Coronary artery disease. The abdominal aorta is nonaneurysmal. Moderate arterial sclerotic disease. Lymph nodes: No current visible evidence of active mesenteric or retroperitoneal lymphadenopathy. Urinary bladder: Unremarkable as visualized. Reproductive: Mild prostate hypertrophy. Bones/joints: No visible active or acute osseous pathology. Soft tissues: Bilateral small inguinal hernias containing fat only. Small periumbilical ventral hernia containing fat only. Other findings: Obesity. CT/CT abdomen pelvis wo con [id number] IMPRESSION: 1. Currently no visible evidence of acute abdominal or pelvic pathologic process. 2. Emphysema. 3. Tiny focus of nonobstructing nephrolithiasis right kidney. 4. Other nonurgent, nonemergent, chronic, and age related findings as detailed in text above. COMMENTS: Consistent with the [place] [employer]'s Incidental Findings Committee white paper (J Am Todd Radiol 2018): Any incidental renal lesion less than 1 cm or classified as too small to characterize, or any incidental cystic renal lesion characterized as simple-appearing, is likely benign. No follow-up imaging is recommended for these lesions per consensus recommendations based on imaging criteria. Radiation Dose CTDIVOL = (mGy): DLP = 1634.5 (mGy-cm)
[2020-09-13] MEDS: iohexol 350 mg/mL 100 mL Btl IV (20:36)
[2020-09-13 20:44] LABS: Lipase 42 U/L (13-60)
[2020-09-13] MEDS: enoxaparin 40 mg/0.4 mL Syringe SUBCUT (21:22)
[2020-09-13] MEDS: HYDROcodone-acetaminophen 10-325 mg Tablet 1 TAB PO (21:23)
[2020-09-13] MEDS: lidocaine 2% viscous 15 ML, aluminum-mag hydrox-simethicon 30 ML, sucralfate oral liq 1 GM PO (21:24)
[2020-09-13] MEDS: LORazepam 2 mg Tablet PO (23:56)
[2020-09-14] VITALS (8 sets, daily range): BP systolic 146–165; BP diastolic 73–89; PULSE 88–109; RESP 17–18; TEMP 36.6–37.1; O2SAT 94–97
[2020-09-14] MEDS: HYDROcodone-acetaminophen 10-325 mg Tablet 1 TAB PO ×2 (07:21→12:22)
[2020-09-14] MEDS: ipratropium-albuterol 3 mL Neb INHALATION (07:27)
[2020-09-14] MEDS: clopidogrel 75 mg Tablet PO (09:42)
[2020-09-14] MEDS: thiamine 100 mg Tablet PO (09:42)
[2020-09-14] MEDS: atorvastatin 40 mg Tablet 20 MG PO (09:42)
[2020-09-14] MEDS: folic acid 1 mg Tablet PO (09:42)
[2020-09-14] MEDS: pantoprazole DR 40 mg Tablet PO (09:42)
[2020-09-14] MEDS: aspirin 81 mg EC Tablet PO (09:42)
[2020-09-14] MEDS: multivitamin therapeutic Tablet 1 TAB PO (09:42)
[2020-09-14] MEDS: sennosides-docusate Tablet 1 TAB PO (09:42)
--- NOTE | 2020-09-14 11:17 | XRR_ITS ---
PROCEDURE INFORMATION: Exam: XR Lumbosacral Spine Exam date and time: 09/14/2020 11:20 AM Age: 60 years old Clinical indication: Pain and injury or trauma; Fall; Blunt trauma (contusions or hematomas); Patient HX: Low back pain, R posterior back fell a couple of times in the last month. Hurst to touch right iliac area; Additional info: Pain, recent fall, assess for poss compr fr TECHNIQUE: Imaging protocol: XR of the lumbosacral spine. Views: 2 or 3 views. COMPARISON: CT abdomen pelvis wo con [id number] 09/13/2020 8:47 PM FINDINGS: Bones/joints: No acute bony injury or malalignment. Mild degenerative change. Vascular: Vascular calcification. Gastrointestinal tract: Mild bowel dilatation and prominent stool. XR/XR lumbar spine 2-3V* [id number] IMPRESSION: No acute bony injury or malalignment.
--- NOTE | 2020-09-14 12:59 | PM.DCS ---
Discharge Providers Date of Admission: 09/13/20 19:43 Date of Discharge: September 14, 2020 Attending Provider at Admission: Chang Rabago MD Attending Provider at Discharge: Zafar Elkins Primary Care Provider: Keyanna Brown MD Diagnoses at Discharge Discharge Diagnosis (1) Atypical chest pain: Status: Acute (2) Epigastric discomfort: Status: Acute (3) Coronary artery disease: Status: Acute Qualifiers: Associated angina: with unspecified angina Coronary Disease-Associated Artery/Lesion type: [place] artery [place] vs. transplanted heart: [place] heart Qualified Code(s): I25.119 - Atherosclerotic heart disease of [place] coronary artery with unspecified angina pectoris (4) Alcoholic cirrhosis of liver: Status: Acute Qualifiers: Ascites presence: unspecified Qualified Code(s): K70.30 - Alcoholic cirrhosis of liver without ascites (5) Tobacco abuse: Status: Acute (6) Alcohol abuse: Status: Acute Reason for Visit Reason for Visit: L SIDE CP, SOB Hospital Course Hospital Course Pleasant 60-year-old gentleman with history of alcohol dependence, alcoholic liver cirrhosis, hepatitis C, current smoker with COPD, chronic oxygen of 3 L by nasal cannula, coronary artery disease with history of stenting in January 2020, was placed in observation after presenting with left side lower chest/upper abdomen pain, radiating to his back. He was assessed by troponin EKG series which was noted to have no elevation, with normal troponin, and with sinus rhythm, right axis deviation on EKG. He underwent assessment by CT angiogram of the chest, the finding of PE, no major vessel abnormality. Noted emphysema/chronic lung disease. CT abdomen pelvis showed no acute abnormality. Again visible emphysema. Tiny focus of nonobstructive nephrolithiasis of the right kidney. Lipase was normal. He was noted to have some wheezing on presentation and due to that even received a dose of steroid. He was monitored in the hospital with recent seizure, and with noted elevated alcohol on presentation. He was monitored with CIWA protocol, with highest of 8. Not requiring any Ativan. Today he is feeling much better. States yesterday he was concerned about having a heart attack. Due to alcohol consumption, left upper quadrant discomfort, radiating to the back, he will receive GI cocktail. He is currently started on PPI due to concern for alcohol related gastritis. Please follow-up with symptoms, once he is out of acute illness, consider referral for additional assessment by endoscopy given history of smoking, alcohol consumption. He denies any trouble breathing. He has some mild wheezing persistent, and mostly appears to be coming from upper airway. We discussed regarding the finding with him. He currently has had no swelling of his mouth, lips, no trouble breathing is noted, and himself has noticed that the wheezing in upper airway has been present for a while. Appears he may be having some paradoxical vocal cord dysfunction, and due to this we will refer for additional assessment by ENT. Again we discussed differential of possible anaphylaxis, laryngeal edema, other conditions that may contribute, and other more chronic conditions, including malignancy given smoking, alcohol consumption. At this time given he has no respiratory distress, wheezing findings are chronic, and there is no suggestion of oral or pharyngeal or other upper airway edema, with him being on baseline oxygen of 3 L by nasal cannula, we discussed that he should be safe to gradually return home. He is instructed regarding any red flag symptoms to watch out for to immediately call 911. 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 Due to history of seizures, recent seizure several weeks ago, he had a scheduled appointment with his neurologist which she is asked to keep. He is also asked to follow-up with his cardiology clinic with regards to history of coronary disease and follow-up regarding episode of chest discomfort. He is encouraged to abstain from any alcohol consumption. Care coordination was asked to provide him with additional options for rehabilitation should he need this to help him abstain from alcohol. He is encouraged to quit smoking. Please revisit with him regarding both at the next visit. Please continue appropriate follow-up with him regarding liver cirrhosis. Hepatitis C. As he is also noted having a fall about a week ago on his porch, and having lower back pain, with some radiation to the left side, he was additionally assessed for possibility of his back being the source of his pain, and this does appear to be likely as well. He does not have symptoms of acute cord compression, no lower extremity paralysis, sensation loss, no saddle anesthesia, no bowel or bladder incontinence. No signs of sepsis. Lumbosacral x-ray was assessed for possibility of compression fracture and this was unremarkable. Please follow-up on his symptoms, if these persist, please refer for additional assessment. Physical Exam Const: COMMON NORMALS: no acute distress, patient oriented x3 and alert GENERAL APPEARANCE: cooperative ORIENTATION/CONSCIOUSNESS: Yes awake OTHER: Minimal resting tremor HENMT: COMMON NORMALS: oropharynx normal Neck/C-Spine: COMMON NORMALS: no JVD Resp: COMMON NORMALS: normal respiratory effort EFFORT & INSPECTION: Yes audible wheezes (minimal) Cardio: COMMON NORMALS: no JVD, S1 normal heart sound present, S2 normal heart sound present and No murmurs present (Cardio) RATE: tachycardic (mild regular tachy) HEART SOUNDS: S1 normal heart sound present and S2 normal heart sound present GI: COMMON NORMALS: Normal to inspection, nondistended, normoactive bowel sounds present, Soft to palpation and non-tender PALPATION: Yes Soft to palpation Back/Pelvis: OTHER: Lower back pain on firm palpation/compression Extremity: COMMON NORMALS: no joint enlargement and no pedal edema Neuro: COMMON NORMALS: patient oriented x3 and moves all extremities SENSORIUM/ORIENTATION: Yes alert Skin: COMMON NORMALS: no rashes or lesions noted GENERAL SKIN EXAM: no rashes or lesions noted Discharge Data Data Completed and Pending: Completed Studies During Hospitalization Category Date Time Status CT abdomen pelvis wo con [id number] Rout ine Cat Scan 09/13/20 20:[address] angio chest PE protcl [id number] Rout ine Cat Scan 09/13/20 20:19 Completed XR chest 1V lesvia ble [id number] Stat Exams 09/13/20 15:57 Completed XR lumbar spine 2 -3V* [id number] Routine Exams 09/14/20 11:17 Completed Labs from last 24 hours 09/13/20 09/13/20 09/13/20 18:08 18:08 16:15 WBC RBC Hgb Hct MCV MCH MCHC RDW Plt Count MPV Neut % (Auto) Lymph % (Auto) [place] % (Auto) Eos % (Auto) Baso % (Auto) Neut # (Auto) Lymph # (Auto) [place] # (Auto) Eos # (Auto) Baso # (Auto) Nucleated RBC % (a uto) Nucleated RBCs # D-Dimer Specimen Type Arterial Sample Site Brachial, left ABG pH 7.43 ABG pCO2 43.3 ABG pO2 127.0 H ABG HCO3 28.4 H ABG Base Excess 3.5 H Nathanael Test N/a Hematocrit 42.3 O2 Delivery Device Nc O2 Liters/Min 3.0 FiO2 32.0 Waste Reduction Coordinator ID Amh Sodium Potassium Chloride Carbon Dioxide Anion Gap BUN Creatinine GFR Calculation Glucose Calculated Osmolal ity Calcium Total Bilirubin AST ALT Alkaline Phosphata se Troponin T Baselin e Troponin T 120 Min saxman 6.00 Delta Troponin T -3.00 L NT-Pro-B Natriuret Pep Total Protein Albumin Globulin Lipase 42 Ethyl Alcohol 09/13/20 09/13/20 09/13/20 15:47 15:47 15:47 WBC RBC Hgb Hct MCV MCH MCHC RDW Plt Count MPV Neut % (Auto) Lymph % (Auto) [place] % (Auto) Eos % (Auto) Baso % (Auto) Neut # (Auto) Lymph # (Auto) [place] # (Auto) Eos # (Auto) Baso # (Auto) Nucleated RBC % (a uto) Nucleated RBCs # D-Dimer 0.55 Specimen Type Sample Site ABG pH ABG pCO2 ABG pO2 ABG HCO3 ABG Base Excess Nathanael Test Hematocrit O2 Delivery Device O2 Liters/Min FiO2 Waste Reduction Coordinator ID Sodium Potassium Chloride Carbon Dioxide Anion Gap BUN Creatinine GFR Calculation Glucose Calculated Osmolal ity Calcium Total Bilirubin AST ALT Alkaline Phosphata se Troponin T Baselin e 9 Troponin T 120 Min saxman Delta Troponin T NT-Pro-B Natriuret Pep Total Protein Albumin Globulin Lipase Ethyl Alcohol 103 H 09/13/20 09/13/20 15:47 15:47 WBC 6.8 RBC 3.86 L Hgb 13.3 Hct 39.3 L MCV 101.8 H MCH 34.5 H MCHC 33.8 RDW 12.6 Plt Count 208 MPV 8.6 Neut % (Auto) 57.5 Lymph % (Auto) 23.2 [place] % (Auto) 15.7 Eos % (Auto) 2.7 Baso % (Auto) 0.6 Neut # (Auto) 3.89 Lymph # (Auto) 1.6 [place] # (Auto) 1.1 H Eos # (Auto) 0.2 Baso # (Auto) 0.0 Nucleated RBC % (a uto) 0 Nucleated RBCs # 0.0 D-Dimer Specimen Type Sample Site ABG pH ABG pCO2 ABG pO2 ABG HCO3 ABG Base Excess Nathanael Test Hematocrit O2 Delivery Device O2 Liters/Min FiO2 Waste Reduction Coordinator ID Sodium 140 Potassium 3.6 Chloride 101 Carbon Dioxide 26 Anion Gap 16.6 BUN 16 Creatinine 0.7 GFR Calculation 115.4 Glucose 100 Calculated Osmolal ity 291 Calcium 8.8 Total Bilirubin 0.2 AST 14 ALT 14 Alkaline Phosphata se 99 Troponin T Baselin e Troponin T 120 Min saxman Delta Troponin T NT-Pro-B Natriuret Pep 43 Total Protein 6.7 Albumin 4.2 Globulin 2.5 Lipase 48 Ethyl Alcohol Vitals: Last Vital Signs Temp 98.1 F 09/14/20 10:35 Pulse 109 H 09/14/20 10:35 Resp 17 09/14/20 10:35 BP 154/73 09/14/20 10:35 Pulse Ox 94 09/14/20 10:35 Discharge Plan Discharge Patient Disposition: Home Condition: Stable Prescriptions: New multivitamin with folic acid [Thera] 400 mcg Tablet 1 tab PO DAILY Qty: 30 RF: 0 folic acid 1 mg Tablet 1 mg PO DAILY Qty: 30 RF: 0 thiamine mononitrate (vit B1) [Vitamin B-1 (mononitrate)] 100 mg Tablet 100 mg PO DAILY Qty: 30 RF: 0 pantoprazole 40 mg Tablet,Delayed Release (Dr/Ec) 40 mg PO DAILY Qty: 30 RF: 0 Continued albuterol sulfate 2.5 mg /3 mL (0.083 %) solution for nebulization 2.5 mg continuous nebulization PRN RF: 0 aspirin [Adult Low Dose Aspirin] 81 mg tablet,delayed release (DR/EC) 81 mg PO DAILY RF: 0 citalopram [Celexa] 20 mg tablet 20 mg PO DAILY RF: 0 hydrocodone-acetaminophen 10-325 mg tablet 1 tab PO .6 times a day PRN (Reason: pain) 30 Days Qty: 180 RF: 0 hydrocodone-acetaminophen 10-325 mg tablet 1 tab PO .6 times a day PRN (Reason: Pain) 30 Days Qty: 180 RF: 0 midazolam 5 mg/spray (0.1 mL) spray,non-aerosol 1 spray intranasal ONCE PRN (Reason: seizure activity) 30 Days Qty: 2 RF: 4 atorvastatin [Lipitor] 20 mg tablet 20 mg PO DAILY Qty: 90 RF: 1 clopidogrel 75 mg tablet 75 mg PO DAILY Qty: 90 RF: 3 Spiriva Respimat 2.5 mcg/actuation mist 2 puff INHALATION DAILY Qty: 4 RF: 3 Ultram 50 mg Tablet 50 mg PO Q4H PRN (Reason: Pain) RF: 0 Keppra XR 500 mg tablet extended release 24 hr 1,000 mg PO BEDTIME RF: 0 Advair HFA 230-21 mcg/actuation HFA aerosol inhaler 2 puff inhalation BID RF: 0 Discharge Orders: Discharge Order (Routine); Ordered 09/14/20 Ordered By: Zafar Elkins Referrals: Kathleen Stevens MD [Physician] - 09/21/20 10:00 am (As scheduled next week will HAVE EEG) Austin Devine MD [Physician] - 09/23/20 1:00 pm (wheezing) Michoacano Bravo MD [Physician] - 2 weeks (chronic upper airway wheeze, smoking, alcohol consumption) Keisha Begum FNP [Nurse Practitioner] - 09/23/20 1:00 pm (chest pain) Keyanna Brown MD [Primary Care Provider] - 4-7 days Discharge Diet: Cardiac Discharge Activity: Increase activity as tolerated and Limit activity as instructed Patient Instructions: Abuse of Alcohol (GEN), Alcohol Withdrawal (GEN), Fall Prevention (GEN), Opioid Safety Activity Restrictions/Additional Instructions: Please do not drink any alcohol. Please seek rehabilitation to help you stop if needed. Further alcohol consumption will increase your risk for seizures. Will increase your risk of falling and injuring herself, in addition to other complications including chronic cognitive decline and dementia, inflammation or bleeding in your stomach. Worsening of liver cirrhosis. Please do not drink any alcohol. Please continue to avoid smoking as smoking will lead to worsening of your lung condition, low oxygen, in addition to other risks including heart attack, stroke, various cancers and other. Please never smoke anywhere near oxygen due to severe fire hazard. Please follow-up with your primary care doctor with regards to your back pain, side pain. X-ray of your lower back did not show any larger fractures, however, if pain persists, please discuss with your primary doctor referral for additional evaluation. Maintain fall precautions, avoid falls at all costs. Please follow-up with your neurologist with regards to seizure disorder, recent seizure. Please follow-up with ear nose throat doctor due to chronic upper airway wheezes to evaluate for any more dangerous causes. If you experience any tongue swelling, lip swelling, any shortness of breath, or difficulty catching her breath, please call 911 immediately. Please follow-up with your lung doctor as well. Please follow-up with your heart clinic with regards to coronary artery disease. In case you experience any chest pain or pressure, fainting, lightheadedness, severe fatigue, or any other concerning symptoms, please seek medical attention. Please follow-up with your primary care doctor with regards to liver cirrhosis. Hepatatis C. Please avoid any NSAIDs like ibuprofen, Aleve, etc. Discharge Attestations Time Spent in Discharge Care*: greater than 30 min Quality Metrics Clinical Quality Measures During this hospital stay, did patient experience: None Coding Level of Care Code Acute Chg [facility] note Exam Comprehensive Diagnoses Atypical chest pain R07.89 Epigastric discomfort R10.13 Coronary artery disease I25.119 Associated angina: with unspecified angina Coronary Disease-Associated Artery/Lesion type: [place] artery [place] vs. transplanted heart: [place] heart Alcoholic cirrhosis of liver K70.30 Ascites presence: unspecified Tobacco abuse Z72.0 Alcohol abuse F10.10
--- NOTE | 2020-09-14 14:19 | PC.NURSE ---
pt verbalizes understanding of discharge instructions, home medications, and follow up appointments. all current questions answered. pt has attempted to call family for a ride.
== END 2020-09-14 16:22 | disposition home or self-care (01) ==
LOC: ER 16:09 → MEDSURG 19:51
PROVIDERS: Admitting Provider Internal Medicine; Emergency Provider Family Medicine; PCP Family Medicine; Visit Provider Internal Medicine
DX: R41.82 Altered mental status, unspecified (principal); R07.89 Other chest pain; R10.13 Epigastric pain; I25.119 Atherosclerotic heart disease of native coronary artery with unspecified angina pectoris; K70.30 Alcoholic cirrhosis of liver without ascites; F17.210 Nicotine dependence, cigarettes, uncomplicated; F10.10 Alcohol abuse, uncomplicated; Z99.81 Dependence on supplemental oxygen; Z86.19 Personal history of other infectious and parasitic diseases; Z95.5 Presence of coronary angioplasty implant and graft; G89.29 Other chronic pain; Z79.891 Long term (current) use of opiate analgesic; E78.5 Hyperlipidemia, unspecified
CPT/HCPCS: 36600; 71045; 71275; 72100; 74176; 80053; 80307; 82803; 83690; 83880; 84484; 85025; 85378; 93005; 94640; 96361; 96372; 96374; 96375; 99285; G0378; J1650; J2270; J2405; J2920; J2930; J3411; J3490; J7030; J7611; Q9967

== ENCOUNTER → 2020-09-21 10:28 | Outpatient (BNVA) | payer MEDICARE, SELFPAY | PROVIDERS: PCP Family Medicine; Visit Provider Specialist | DX: R55 Syncope and collapse (principal); R56.9 Unspecified convulsions; F17.210 Nicotine dependence, cigarettes, uncomplicated | CPT/HCPCS: 95816 ==

== ENCOUNTER 2020-10-12 10:38 | Inpatient (IN) | payer MEDICARE, SELFPAY ==
[2020-10-12] VITALS (20 sets, daily range): BP systolic 131–157; BP diastolic 72–94; PULSE 61–110; RESP 16–26; TEMP 36.6–36.8; O2SAT 93–100; BMI 27.8
--- NOTE | 2020-10-12 10:58 | XRR_ITS ---
PROCEDURE INFORMATION: Exam: XR Chest Exam date and time: 10/12/2020 11:03 AM Age: 60 years old Clinical indication: Shortness of breath; Chest pain; Type not specified; Additional info: Chest pain/sob TECHNIQUE: Imaging protocol: XR of the chest. Views: 1 view. COMPARISON: CR XR chest 1V portable [id number] 09/13/2020 4:36 PM FINDINGS: Lungs: Mild fibrocalcific changes in the right upper lobe laterally. Lungs are otherwise well aerated. Pleural spaces: Unremarkable. No pleural effusion. No pneumothorax. Heart/Mediastinum: Unremarkable. No cardiomegaly. Bones/joints: Unremarkable. XR/XR chest 1V portable [id number] IMPRESSION: Mild fibrocalcific changes in the right upper lobe laterally. Lungs are otherwise well aerated. Subpulmonic effusion on the right.
--- NOTE | 2020-10-12 10:58 | ECG_ITS ---
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 Measurements Intervals [place] Rate: 64 P: 67 LA: 124 QRS: 102 QRSD: 91 T: 81 QT: 425 QTc: 439 Interpretive Statements SINUS RHYTHM RIGHT AXIS DEVIATION [QRS AXIS > 100] INCOMPLETE RIGHT BUNDLE BRANCH BLOCK [90+ ms QRS DURATION, TERMINAL R IN V1/V2, 40+ ms S IN I/aVL/V4/V5/V6] Compared to ECG 10/12/2020 11:30:52 No significant changes Electronically Signed On 10-12-2020 19:22:57 CDT by Nitesh Corral M.D. [email or web address]
--- NOTE | 2020-10-12 10:59 | W.ED.SOB ---
HPI - SOB/Dyspnea General: Stated Complaint: SOB Time Seen by Provider: 10/12/20 10:50 [facility] ED PFS: Medical History (Updated 09/24/20 @ 14:26 by Kathleen Stevens MD) Alcoholic cirrhosis of liver Atherosclerosis of coronary artery of [place] heart without angina pectoris Chronic back pain Chronic pain in left shoulder Chronic pain syndrome Cigarette nicotine dependence Coronary artery disease Dyslipidemia Dyslipidemia (high LDL; low HDL) Encounter for long-term (current) use of NSAIDs Encounter for long-term opiate analgesic use Hepatitis C Liver cirrhosis Recurrent cerebrovascular accidents (CVAs) Syncope and collapse Surgical History Hx of hernia repair Hx of knee surgery Hx of shoulder surgery Family History Mother CAD (coronary artery disease) Had a myocardial infarction at the age of 18. She is alive. She had a PCI? Father CAD (coronary artery disease) Had myocardial infarction in his 70s and is alive Other Diabetes Hypertension Myocardial infarct Social History Smoking and tobacco status: current some day smoker cigarettes [ Other cigarette details: 1 cig every 3 or 4 days ] Quit status (tobacco): has quit using tobacco Year quit tobacco: 2020 6mths ago 2ppd x 40y Second hand smoke exposure: Yes Smoking risk assessment/counseling performed?: Yes Alcohol intake: former Lives independently: Yes Household members: spouse Housing: House Marital status: service: No Current occupational status: disabled Pets and animals: Yes History of recent travel: No Current gender identity: Male Discharge Plan Discharge Prescriptions: No Action albuterol sulfate 2.5 mg /3 mL (0.083 %) solution for nebulization 2.5 mg continuous nebulization PRN RF: 0 aspirin [Adult Low Dose Aspirin] 81 mg tablet,delayed release (DR/EC) 81 mg PO DAILY RF: 0 citalopram [Celexa] 20 mg tablet 20 mg PO DAILY RF: 0 hydrocodone-acetaminophen 10-325 mg tablet 1 tab PO .6 times a day PRN (Reason: pain) 30 Days Qty: 180 RF: 0 hydrocodone-acetaminophen 10-325 mg tablet 1 tab PO .6 times a day PRN (Reason: Pain) 30 Days Qty: 180 RF: 0 midazolam 5 mg/spray (0.1 mL) spray,non-aerosol 1 spray intranasal ONCE PRN (Reason: seizure activity) 30 Days Qty: 2 RF: 4 atorvastatin [Lipitor] 20 mg tablet 20 mg PO DAILY Qty: 90 RF: 1 clopidogrel 75 mg tablet 75 mg PO DAILY Qty: 90 RF: 3 Spiriva Respimat 2.5 mcg/actuation mist 2 puff INHALATION DAILY Qty: 4 RF: 3 Keppra XR 500 mg tablet extended release 24 hr 1,000 mg PO BEDTIME RF: 0 Advair HFA 230-21 mcg/actuation HFA aerosol inhaler 2 puff inhalation BID RF: 0 pantoprazole 40 mg Tablet,Delayed Release (Dr/Ec) 40 mg PO DAILY Qty: 30 RF: 0 folic acid 1 mg Tablet 1 mg PO DAILY Qty: 30 RF: 0 Vitamin B-1 (mononitrate) 100 mg Tablet 100 mg PO DAILY Qty: 30 RF: 0 Thera 400 mcg Tablet 1 tab PO DAILY Qty: 30 RF: 0 Coding Level of Care Code ED Custom Tailor for Mara Enriquez
[2020-10-12] MEDS: ipratropium-albuterol 3 mL Neb INHALATION ×4 (11:12→23:40)
--- NOTE | 2020-10-12 11:12 | ED_ITS ---
HPI - SOB/Dyspnea General: Chief Complaint: Shortness of Breath/Dyspnea Stated Complaint: SOB Time Seen by Provider: 10/12/20 10:50 History of Present Illness: HPI Narrative: The patient is a 60-year-old male with past medical history COPD on 2 to 3 L nasal cannula, coronary artery disease, MS with stents last fall, alcoholism, hep C, cirrhosis, CVA history, seizure disorder. He comes to the ER complaining of several days of increasing shortness of breath worse with activity. He called EMS who noted he was satting 88% on 4 L that he was wearing at home. They gave him 125 Solu-Medrol during transport but no nebulization. On arrival he is audibly wheezing on 4 L satting in the upper 90s. He has been mild respiratory distress and will be giving a neb. He is complaining of squeezing like a foot is standing on his chest bilaterally. He got his [employer]ik [employer]ik vaccine earlier this year. MD elicited complaint: shortness of breath, cough and chest pain Pertinent past history: COPD Onset (ago): day(s) (5) Timing: constant Severity: moderate Exacerbating factors: exertion and coughing Relieving factors: oxygen and rest Known history of: COPD Associated symptoms: Reports chest pain; Deny abdominal pain, dizziness, extremity pain or polyuria Treatment prior to arrival: other (Solu-Medrol) Review of Systems General: Reports: 10 or more systems reviewed and unremarkable except in HPI and below Const: Denies: fatigue Eyes: Denies: change in vision, blurry vision or eye redness ENMT: Denies: throat pain, swelling of lips/tongue, ear or mastoid pain or nasal congestion Card: Reports: chest pain Resp: Reports: dyspnea, non-productive cough and wheezing; Denies: productive cough GI: Denies: abdominal pain, diarrhea or GI cramping : Denies: flank pain, urinary frequency or urinary urgency Musc: Denies: neck pain, back pain, extremity pain, joint pain, joint redness, limited range of motion or muscle weakness Skin/Breast: Denies: rash, pruritus, erythema, skin pain or skin tenderness Neuro: Denies: headache(s), numbness in extremities, weakness in extremities, sensory changes, difficulty walking, dizziness, confusion or Slurred speech present Psych: Denies: anxiety or depression Endo: Denies: polyuria All/Imm: Denies: urticaria, throat swelling or tongue swelling PFSH ED PFSH: Medical History (Updated 10/12/20 @ 17:39 by Rex Gandhi MD) Alcoholic cirrhosis of liver Atherosclerosis of coronary artery of solomon heart without angina pectoris Chronic back pain Chronic pain in left shoulder Chronic pain syndrome Cigarette nicotine dependence Coronary artery disease Dyslipidemia Dyslipidemia (high LDL; low HDL) Encounter for long-term (current) use of NSAIDs Encounter for long-term opiate analgesic use Hepatitis C Liver cirrhosis Recurrent cerebrovascular accidents (CVAs) Syncope and collapse Surgical History Hx of hernia repair Hx of knee surgery Hx of shoulder surgery Family History Mother CAD (coronary artery disease) Had a myocardial infarction at the age of 18. She is alive. She had a PCI? Father CAD (coronary artery disease) Had myocardial infarction in his 70s and is alive Other Diabetes Hypertension Myocardial infarct Social History Smoking and tobacco status: current some day smoker cigarettes [ Other cigarette details: 1 cig every 3 or 4 days ] Quit status (tobacco): has quit using tobacco Year quit tobacco: 2020 6mths ago 2ppd x 40y Second hand smoke exposure: Yes Smoking risk assessment/counseling performed?: Yes Alcohol intake: former Lives independently: Yes Household members: spouse Housing: House Marital status: service: No Current occupational status: disabled Pets and animals: Yes History of recent travel: No Current gender identity: Male Physical Exam Const: COMMON NORMALS: no acute distress, average body habitus, patient oriented x3, no limitations, healthy appearing, alert and well nourished GENERAL APPEARANCE: cooperative, comfortable, well kempt, well developed and in distress (Mild respiratory distress) ORIENTATION/CONSCIOUSNESS: Yes awake, Yes oriented to person, Yes oriented to place and Yes oriented to time HENMT: COMMON NORMALS: normocephalic, external ears normal and Normal external nose present HEAD & SCALP: normal to inspection and normocephalic NOSE: No rmal external nose present EXTERNAL EAR: Yes external ears normal MOUTH: Normal oral and palatal mucosa present THROAT: posterior oropharynx normal Eye: COMMON NORMALS: Equal, round and reactive pupils present and EOMs intact bilaterally GENERAL EYE: appearance normal, both eyes and all related structures PUPIL: Yes Equal, round and reactive pupils present Neck/C-Spine: COMMON NORMALS: full ROM, no lymphadenopathy, no meningeal signs and no JVD GENERAL: Yes normal visual inspection Lymph: LYMPHATIC: no lymphadenopathy noted Chest: COMMONS NORMALS: normal inspection of the chest and normal palpation of entire chest wall Resp: COMMON NORMALS: No retractions, No use of accessory muscles and percussion normal EFFORT & INSPECTION: Yes able to speak in complete sentences, Yes tachypneic, Yes respiratory distress, Yes Actively coughing, Yes uses accessory muscles and Yes audible wheezes AUSCULTATION: wheezes PERCUSSION: percussion normal Cardio: COMMON NORMALS: no JVD, regular rate, regular rhythm, S1 normal heart sound present, S2 normal heart sound present and Peripheral pulses 2+ throughout RATE: regular rate RHYTHM: regular rhythm HEART SOUNDS: S1 normal heart sound present and S2 normal heart sound present PERIPHERAL PULSES: Peripheral pulses 2+ throughout GI: COMMON NORMALS: Normal to inspection, nondistended, normoactive bowel sounds present, Soft to palpation, non-tender and no masses INSPECTION: Yes normal to inspection PALPATION: Yes Soft to palpation : COMMON NORMALS: Yes no CVA tenderness BLADDER/KIDNEY EXAM: Yes no CVA tenderness Back/Pelvis: COMMON NORMALS: no CVA tenderness, thoracic and lumbar spine normal to inspection, no thoracic nor lumbar tenderness and thoraco-lumbar ROM normal Extremity: COMMON NORMALS: normal to inspection, full ROM, capillary refill normal, no joint enlargement and no pedal edema GENERAL: Yes normal exam except as noted Neuro: COMMON NORMALS: patient oriented x3, CN's II-XII intact bilaterally, moves all extremities, no focal motor deficits, no sensory deficits noted and gait normal SENSORIUM/ORIENTATION: Yes alert, Yes oriented to person, Yes oriented to place and Yes oriented to time MENINGEAL SIGNS: Yes no meningeal signs Psych: COMMON NORMALS: mental status grossly normal, Normal thought process present, cooperative, normal affect and speech normal APPEARANCE: Yes well kempt ATTITUDE: Yes calm SPEECH: Yes normal speech THOUGHT PROCESS: Normal thought process present Skin: COMMON NORMALS: no rashes or lesions noted GENERAL SKIN EXAM: no r ashes or lesions noted Course Vital Signs: Vital signs: Vital Signs Temperature 97.9 F 10/12/20 11:12 Pulse Rate 93 10/12/20 17:34 Respiratory Rate 19 H 10/12/20 17:34 Blood Pressure 131/80 10/12/20 17:34 Pulse Oximetry 96 10/12/20 17:34 MDM - SOB/Dyspnea MDM Narrative: Medical decision making narrative: Patient came to the ER audibly wheezing and respiratory distress requiring 4 L of oxygen. He was given Solu-Medrol and 2 DuoNeb's in the ED with moderate improvement of his symptoms however he continued to wheeze and complain of left-sided chest pain. Troponin normal x2 and EKG as well. Discussed with Dr. Elkins who accepts for observation. Lab Data: Labs: Lab Results 10/12/20 10/12/20 10/12/20 Range/Units 11:14 13:20 13:20 WBC 7.3 (4.0-10.0) 10^3/ uL RBC 4.24 (4.1-5.3) 10^6/u L Hgb 14.6 (11.7-16.6) g/dL Hct 43.4 (42.0-52.0) % MCV 102.4 H (80-94) fL MCH 34.4 H (28.0-34.0) pg MCHC 33.6 (30.0-36.0) g/dL RDW 12.2 (12.1-15.1) % Plt Count 190 (130-400) 10^3/c mm MPV 8.7 (7.4-10.4) fL Neut % (Auto) 89.6 % Lymph % (Auto) 5.8 % [place] % (Auto) 3.3 % Eos % (Auto) 0.3 % Baso % (Auto) 0.5 % Neut # (Auto) 6.52 (1.8-7.7) 10^3/u L Lymph # (Auto) 0.4 L (0.8-4.8) 10^3/u L [place] # (Auto) 0.2 (0.2-0.9) 10^3/u L Eos # (Auto) 0.0 (0.0-0.8) 10^3/u L Baso # (Auto) 0.0 (0.0-0.1) 10^3/u L Nucleated RBC % (a uto) 0 % Nucleated RBCs # 0.0 /100WBC Specimen Type Arterial Sample Site Radial, right ABG pH 7.44 (7.35-7.45) ABG pCO2 40.3 (35-45) mmHg ABG pO2 94.4 (80.0-100.0) mmH g ABG HCO3 27.2 H (22-26) mmol/L ABG O2 Saturation 98.0 ABG Base Excess 2.7 H (-2.0-2.0) mmol/ L Nathanael Test Pos A-a O2 Gradient 7.3 (5-10) mmHg Hematocrit 45.4 (42-52) % Hgb O2 Saturation 96.2 (95-100) % Carboxyhemoglobin 0.9 (0.4-20.1) %THgb Methemoglobin 0.9 (0.4-1.5) % Total Hemoglobin 14.8 (14-18) g/dL Sodium 143.0 141 (131-143) mmol/L Potassium 3.8 3.8 (3.5-5.0) mmol/L Glucose 102.0 110 (70-115) mg/dL Ionized Calcium 1.2 (1.1-1.4) mmol/L O2 Delivery Device Nc O2 Liters/Min 2.0 % FiO2 28.0 % Counter Sales Person ID Ed Chloride 101 (98-107) mmol/L Carbon Dioxide 27 (22-29) mmol/L Anion Gap 16.8 (5-19) BUN 13 (6-20) mg/dL Creatinine 0.7 (0.7-1.2) mg/dL GFR Calculation 115.4 (90-130) mL/min Calculated Osmolal ity 293 (285-295) mOsm/k g Calcium 9.1 (8.5-10.5) mg/dL Total Bilirubin 0.9 (0.15-1.2) mg/dL AST 17 (0-40) U/L ALT 13 (0-41) U/L Alkaline Phosphata se 101 (40-130) IU/L Troponin T Baselin e (0-15) ng/L Troponin T 120 Min [place] (0-15) ng/L Delta Troponin T (0-10) ABS# Total Protein 7.5 (6.6-8.7) g/dL Albumin 4.6 (3.5-5.2) g/dL Globulin 2.9 (1.3-4.6) g/dL Procalcitonin 0.03 (0-0.5) ng/mL Ethyl Alcohol < 10 (0-10) mg/dL SARS-CoV-2 Ag (Rap id) (Negative) 10/12/20 10/12/20 10/12/20 Range/Units 13:20 13:20 15:30 WBC (4.0-10.0) 10^3/ uL RBC (4.1-5.3) 10^6/u L Hgb (11.7-16.6) g/dL Hct (42.0-52.0) % MCV (80-94) fL MCH (28.0-34.0) pg MCHC (30.0-36.0) g/dL RDW (12.1-15.1) % Plt Count (130-400) 10^3/c mm MPV (7.4-10.4) fL Neut % (Auto) % Lymph % (Auto) % [place] % (Auto) % Eos % (Auto) % Baso % (Auto) % Neut # (Auto) (1.8-7.7) 10^3/u L Lymph # (Auto) (0.8-4.8) 10^3/u L [place] # (Auto) (0.2-0.9) 10^3/u L Eos # (Auto) (0.0-0.8) 10^3/u L Baso # (Auto) (0.0-0.1) 10^3/u L Nucleated RBC % (a uto) % Nucleated RBCs # /100WBC Specimen Type Sample Site ABG pH (7.35-7.45) ABG pCO2 (35-45) mmHg ABG pO2 (80.0-100.0) mmH g ABG HCO3 (22-26) mmol/L ABG O2 Saturation ABG Base Excess (-2.0-2.0) mmol/ L [place] Test A-a O2 Gradient (5-10) mmHg Hematocrit (42-52) % Hgb O2 Saturation (95-100) % Carboxyhemoglobin (0.4-20.1) %THgb Methemoglobin (0.4-1.5) % Total Hemoglobin (14-18) g/dL Sodium (131-143) mmol/L Potassium (3.5-5.0) mmol/L Glucose (70-115) mg/dL Ionized Calcium (1.1-1.4) mmol/L O2 Delivery Device O2 Liters/Min % FiO2 % Counter Sales Person ID Chloride (98-107) mmol/L Carbon Dioxide (22-29) mmol/L Anion Gap (5-19) BUN (6-20) mg/dL Creatinine (0.7-1.2) mg/dL GFR Calculation (90-130) mL/min Calculated Osmolal ity (285-295) mOsm/k g Calcium (8.5-10.5) mg/dL Total Bilirubin (0.15-1.2) mg/dL AST (0-40) U/L ALT (0-41) U/L Alkaline Phosphata se (40-130) IU/L Troponin T Baselin e 6 (0-15) ng/L Troponin T 120 Min [place] 6.00 (0-15) ng/L Delta Troponin T 0 (0-10) ABS# Total Protein (6.6-8.7) g/dL Albumin (3.5-5.2) g/dL Globulin (1.3-4.6) g/dL Procalcitonin (0-0.5) ng/mL Ethyl Alcohol (0-10) mg/dL SARS-CoV-2 Ag (Rap id) Negative (Negative) Discharge Plan Discharge Patient Disposition: Placed in Observation Admit Provider: Zafar Elkins Clinical Impression: COPD (chronic obstructive pulmonary disease), Chest pain Coding Level of Care Code ED Duplicator Punch Operator for Chg Fwd Exam Comprehensive
--- NOTE | 2020-10-12 11:19 | PC.NURSE ---
RT at bedside to give nebulizer and obtain ABG
[2020-10-12 11:23] LABS: ABG PCO2 40.3 mmHg (35-45); ABG PH Result 7.44 (7.35-7.45); Arterial Blood Gas Hematocrit 45.4 % (42-52); Base Excess ABG 2.7 mmol/L (-2.0-2.0); Blood Gas Allen Test Pos; Blood Gas Sample Type Arterial; Carboxyhemoglobin 0.9 %THgb (0.4-20.1); HCO3 ABG 27.2 mmol/L (22-26); HGB O2 Sat 96.2 % (95-100); Ionized Calcium Level - ABG 1.2 mmol/L (1.1-1.4); Methemoglobin 0.9 % (0.4-1.5); PO2 ABG 94.4 mmHg (80.0-100.0); Potassium Level - ABG 3.8 mmol/L (3.5-5.0); Total Hemoglobin 14.8 g/dL (14-18)
[2020-10-12 11:24] LABS: Alveolar-Arterial Oxygen Gradi 7.3 mmHg (5-10); Blood Gas Operator Identificat ED; Blood Gas Sample Site Radial, right; Oxygen Device NC
[2020-10-12] MEDS: aspirin 81 mg Chew Tablet 324 MG PO (12:11)
[2020-10-12] MEDS: pantoprazole DR 40 mg Tablet PO (12:37)
[2020-10-12] MEDS: HYDROcodone-acetaminophen 10-325 mg Tablet 1 TAB PO ×3 (12:37→22:17)
[2020-10-12] MEDS: clopidogrel 75 mg Tablet PO (12:37)
[2020-10-12] MEDS: atorvastatin 40 mg Tablet 20 MG PO (12:45)
[2020-10-12] MEDS: citalopram 20 mg Tablet PO (12:45)
--- NOTE | 2020-10-12 12:58 | ECG_ITS ---
[facility] Test Date: 2020-10-12 Pat Name: David Lanza Department: Room: Gender: Male Credit Administration Specialist: : 1960 Requested By: Kailyn Castillo Order Number: [id number] Amalia MD: Nitesh Corral M.D. Measurements Intervals [place] Rate: 67 P: 78 DC: 146 QRS: 102 QRSD: 94 T: 80 QT: 433 QTc: 460 Interpretive Statements SINUS RHYTHM RIGHT AXIS DEVIATION [QRS AXIS > 100] INCOMPLETE RIGHT BUNDLE BRANCH BLOCK [90+ ms QRS DURATION, TERMINAL R IN V1/V2, 40+ ms S IN I/aVL/V4/V5/V6] Compared to ECG 09/13/2020 18:08:09 Incomplete right bundle-branch block now present Electronically Signed On 10-12-2020 19:26:06 CDT by Nitesh Corral M.D. [id number]
[2020-10-12 13:31] LABS: Basophils % 0.5 %; Eosinophils % 0.3 %; Hematocrit 43.4 % (42.0-52.0); Hemoglobin 14.6 g/dL (11.7-16.6); Lymphocytes # 0.4 10^3/uL (0.8-4.8); Lymphocytes % 5.8 %; Mean Corpuscular HGB Conc 33.6 g/dL (30.0-36.0); Mean Corpuscular Hemoglobin 34.4 pg (28.0-34.0); Mean Corpuscular Volume 102.4 fL (80-94); Mean Platelet Volume 8.7 fL (7.4-10.4); Monocytes # 0.2 10^3/uL (0.2-0.9); Monocytes % 3.3 %; Neutrophils # 6.52 10^3/uL (1.8-7.7); Neutrophils % 89.6 %; Nucleated Red Blood Cells % 0 %; Platelet Count 190 10^3/cmm (130-400); Red Blood Count 4.24 10^6/uL (4.1-5.3); Red Cell Distribution Width 12.2 % (12.1-15.1); White Blood Count 7.3 10^3/uL (4.0-10.0)
[2020-10-12 14:19] LABS: Troponin(5th) Baseline 6 ng/L (0-15)
[2020-10-12 14:27] LABS: Procalcitonin 0.03 ng/mL (0-0.5)
[2020-10-12 14:39] LABS: Alanine Aminotransferase 13 U/L (0-41); Albumin Level 4.6 g/dL (3.5-5.2); Alkaline Phosphatase 101 IU/L (40-130); Anion Gap 16.8 (5-19); Aspartate Amino Transferase 17 U/L (0-40); Blood Urea Nitrogen 13 mg/dL (6-20); Calcium 9.1 mg/dL (8.5-10.5); Carbon Dioxide 27 mmol/L (22-29); Chloride 101 mmol/L (98-107); Globulin 2.9 g/dL (1.3-4.6); Glomerular Filtration Rate 115.4 mL/min (90-130); Glucose 110 mg/dL (65-115); Osmolality Calculated 293 mOsm/kg (285-295); Potassium 3.8 mmol/L (3.5-5.1); Sodium 141 mmol/L (136-145); Total Bilirubin 0.9 mg/dL (0.15-1.2); Total Protein 7.5 g/dL (6.6-8.7)
[2020-10-12 14:50] LABS: Alcohol Level < 10 mg/dL (0-10)
[2020-10-12 15:31] LABS: SARS Covid-2 Antigen Negative (Negative)
--- NOTE | 2020-10-12 15:40 | CTR_ITS ---
PROCEDURE INFORMATION: Exam: CTA Chest With Contrast Exam date and time: 10/12/2020 3:48 PM Age: 60 years old Clinical indication: Shortness of breath; Chest pain; Additional info: Dyspnea/ cp TECHNIQUE: Imaging protocol: Computed tomographic angiography of the chest with contrast. 3D rendering (Not supervised by radiologist): MIP and/or 3D reconstructed images were created by the technologist. Radiation optimization: All CT scans at this facility use at least one of these dose optimization techniques: automated exposure control; mA and/or kV adjustment per patient size (includes targeted exams where dose is matched to clinical indication); or iterative reconstruction. Contrast material: OMNI 350; Contrast volume: 95 ml; Contrast route: INTRAVENOUS (IV); COMPARISON: CT angio chest PE protcl [id number] 09/13/2020 8:49 PM RADIATION DOSE METRICS: Total DLP (mGy-cm): 625.75 FINDINGS: Pulmonary arteries: Normal. No pulmonary emboli. Aorta: Unremarkable. No aortic aneurysm. No aortic dissection. Lungs: Scattered fibrotic lung changes. Peripheral honeycombing posteriorly in the right lower lobes. Scattered nodules in both lungs are stable. Scattered calcified granulomas and pleural plaques are stable. Advanced emphysematous lung changes. No focal acute pulmonary consolidation. There is of focal area stenosis at the origin of the right upper lobe bronchi. Focal small endobronchial lesion at the origin of the right upper lobe bronchi on coronal series 601, image 34 and axial series 3, image 26 stable from recent prior but otherwise of unknown significance. Pleural spaces: No pleural fluid. No pneumothorax. Heart: Unremarkable. No cardiomegaly. No pericardial effusion. Lymph nodes: Unremarkable. No enlarged lymph nodes. Kidneys and ureters: Small incidental right renal upper pole cortical cyst. Tiny right renal upper pole nonobstructing stone. Bones/joints: Unremarkable. No acute fracture. Soft tissues: Unremarkable. CT/CT angio chest PE protcl [id number] IMPRESSION: 1. Negative for pulmonary embolism. 2. No focal acute pulmonary disease. 3. Stable granulomatous changes and fibrotic lung changes. 4. Nonspecific stenosis/endobronchial lesion at the origin of right upper lobe segmental bronchi of uncertain significance, stable from recent prior. Endobronchial lesion cannot be excluded. COMMENTS: Consistent with the [place] [employer]'s Incidental Findings Committee white paper (J Am Todd Radiol 2018): Any incidental renal lesion less than 1 cm or classified as too small to characterize, or any incidental cystic renal lesion characterized as simple-appearing, is likely benign. No follow-up imaging is recommended for these lesions per consensus recommendations based on imaging criteria. Radiation Dose CTDIVOL = (mGy): DLP = 625.75 (mGy-cm)
[2020-10-12] MEDS: iohexol 350 mg/mL 100 mL Btl IV (16:10)
[2020-10-12 16:11] LABS: Troponin 5 2HR Delta 0 ABS# (0-10)
--- NOTE | 2020-10-12 16:58 | ECG_ITS ---
[facility] Test Date: 2020-10-12 Pat Name: David Lanza Department: Room: Gender: Male Chair And Couch Maker: : 1960 Requested By: Kailyn Castillo Order Number: [id number] Amalia MD: Nitesh Corral M.D. Measurements Intervals [place] Rate: 62 P: 57 HI: 153 QRS: 93 QRSD: 94 T: 78 QT: 451 QTc: 459 Interpretive Statements SINUS RHYTHM BORDERLINE RIGHT AXIS DEVIATION [QRS AXIS > 90] INCOMPLETE RIGHT BUNDLE BRANCH BLOCK [90+ ms QRS DURATION, TERMINAL R IN V1/V2, 40+ ms S IN I/aVL/V4/V5/V6] Compared to ECG 10/12/2020 12:00:10 No significant changes Electronically Signed On 10-12-2020 19:26:39 CDT by Nitesh Corral M.D. [email or web address] [id number]
--- NOTE | 2020-10-12 18:16 | P.HP_ITS ---
Providers/Chief Complaint Admitting Physician: Zafar Elkins Primary Care Provider: Keyanna Brown MD Chief Complaint: SOB History of Present Illness Pleasant 60-year-old gentleman with history of COPD, chronically on 3 L nasal cannula, CAD with history of stenting, hepatitis C, occasional binge alcohol consumption, reports also history of liver cirrhosis, history of seizure disorder for which he follows with neurology, history of CVA, chronic pain for which he follows with pain specialist, has been trying to cut down and stop smoking for long time, currently still smokes 1-2 cigarettes/day, has gotten progressively more short of breath over the last several days, with cough productive of greenish sputum. Reports chest pain when he does not cough, but also discomfort in his chest with inspiration. Denies pressure. He also states his has noticed that sometimes when he is sleeping he stops breathing, although he denies having orthopnea specifically, sometimes says he does sleep better in a recliner. Denies lower extremity swelling. Does state that his a bdomen sometimes swells when he goes on a binge, but not currently. During recent admission he was also noted to have some persistent wheezing in upper airways for which he was referred for additional assessment by ENT, although I do not see that he has followed up. During his follow-up with pulmonology he has also been reassessed by low-dose CT due to his smoking history, although it appears he may have missed his most recent appointment with them. In ER he is received a breathing treatment. He initially required 4 L of oxygen by nasal cannula. Currently is feeling somewhat better, oxygen requirement appears to be showing improvement. He is still having wheezing, dyspnea, productive cough. He was assessed by chest x-ray showing possibly mild fibrotic changes in the right upper lobe laterally, subpulmonic effusion on the right. CT angiogram chest was obtained which shows no PE, no focal acute pulmonary disease, stable granulomatous changes and fibrotic lung changes, but also with noted nonspecific stenosis/endobronchial lesion at the origin of right upper lobe segmental bronchi of uncertain significance, endobronchial lesion not excluded, comparing to prior imaging at least part of the thickened/stenotic area appears to also have been present during the prior study. Received [employer] vaccine earlier this year. Review of Systems Const: Reports: fatigue; Denies: fever(s), chills, body aches or malaise Eyes: Denies: change in vision or eye redness ENMT: Denies: throat pain, oral sores or ear or mastoid pain Card: Denies: chest pain, edema, pre-syncope or dyspnea on exertion Resp: Reports: dyspnea, productive cough, pain on inspiration and change in phlegm color; Denies: hemoptysis GI: Reports: vomiting (1 episode of vomiting this morning, not currently having any nausea or disc); Denies: abdominal pain, nausea, diarrhea, constipation, hematochezia or melena : Denies: flank pain, difficulty urinating, urinary frequency or hematuria Musc: Denies: back pain, joint swelling or joint redness Skin/Breast: Denies: rash, sores or new lesions Neuro: Denies: headache(s), numbness in extremities, weakness in extremities, dizziness, confusion or seizure-like activity Endo: Denies: polyuria or polydipsia Mauri/Lymph: Denies: easy bleeding or purpura All/Imm: Denies: urticaria, throat swelling or tongue swelling Medications/Allergies Home Medications Medication Instructions Recorded Confirmed Last Taken Type albuterol sulfate 2.5 mg CONTINUOUS NEBULIZATION PRN 06/19/19 10/12/20 01/03/20 08:30 History aspirin 81 mg tablet,delayed 81 mg PO QAM 06/18/20 10/12/20 10/09/20 History release citalopram 20 mg tablet 20 mg PO QAM 07/28/20 10/12/20 10/09/20 History midazolam 5 mg/spray (0.1 mL) 1 spray INTRANASAL ONCE PRN 30 08/12/20 10/12/20 Unknown Rx nasal spray Days #2 ea hydrocodone 10 mg-acetaminophen 1 tab PO .6 times a day PRN 30 09/08/20 10/12/20 10/11/20 Rx 325 mg tablet Days #180 tab Lipitor 20 mg PO QAM 10/12/20 10/12/20 10/09/20 History Spiriva Respimat 2 puff INHALATION QA 10/12/20 10/12/20 Unknown History clopidogrel 75 mg PO QAM 10/12/20 10/12/20 10/09/20 History fluticasone propionate 230 See Rx Instructions .ROUTE 10/12/20 10/12/20 Unknown Rx mcg-salmeterol 21 mcg/actuation .COMPLEX #12 gram HFA inhaler folic acid 1 mg PO QAM 10/12/20 10/12/20 10/09/20 History levetiracetam 1,000 mg PO BEDTIME 10/12/20 10/12/20 10/09/20 History multivitamin with folic acid 1 tab PO QAM 10/12/20 10/12/20 10/09/20 History [Tab-A-Patrick] pantoprazole 40 mg PO QAM 10/12/20 10/12/20 10/09/20 History thiamine mononitrate (vit B1) 100 mg PO QAM 10/12/20 10/12/20 10/09/20 History [Vitamin B-1 (mononitrate)] Allergies Allergy/AdvReac Type Severity Reaction Status Date / Time gabapentin [From Neurontin] Allergy ADR-Agitate Verified 10/12/20 11:48 d PFSH Acute PFSH: Medical History (Updated 10/12/20 @ 18:26 by Zafar Elkins MD) Alcoholic cirrhosis of liver Atherosclerosis of coronary artery of [place] heart without angina pectoris Chronic back pain Chronic pain in left shoulder Chronic pain syndrome Cigarette nicotine dependence Coronary artery disease Dyslipidemia Dyslipidemia (high LDL; low HDL) Encounter for long-term (current) use of NSAIDs Encounter for long-term opiate analgesic use Hepatitis C Liver cirrhosis Recurrent cerebrovascular accidents (CVAs) Syncope and collapse Surgical History H/O elbow surgery Hx of hernia repair Hx of knee surgery Hx of shoulder surgery S/P coronary artery stent placement Family History Mother CAD (coronary artery disease) Had a myocardial infarction at the age of 18. She is alive. She had a PCI? Father CAD (coronary artery disease) Had myocardial infarction in his 70s and is alive Other Diabetes Hypertension Myocardial infarct Social History Smoking and tobacco status: current some day smoker cigarettes Number of cigarettes per day: 1-5 Quit status (tobacco): has quit using tobacco Year quit tobacco: 2019 6mths ago 2ppd x 40y Second hand smoke exposure: Yes Smoking risk assessment/counseling performed?: Yes Alcohol intake: current Alcohol use comment: Not currently, but occasional binge with fifth/d for 2-3d Lives independently: Yes Household members: spouse Housing: House Marital status: service: No Current occupational status: disabled Pets and animals: Yes History of recent travel: No Current gender identity: Male Vitals/I&O/Wt Last Vital Signs Temp 97.9 F 10/12/20 11:12 Pulse 94 10/12/20 17:52 Resp 21 H 10/12/20 17:52 BP 147/94 10/12/20 17:52 Pulse Ox 95 10/12/20 18:12 Weight last 48 hrs Weight 92.986 kg Physical Exam Const: COMMON NORMALS: no acute distress and patient oriented x3 HENMT: COMMON NORMALS: oropharynx normal Neck/C-Spine: COMMON NORMALS: no JVD Resp: COMMON NORMALS: normal respiratory effort AUSCULTATION: wheezes and diminished lung sounds Cardio: COMMON NORMALS: no JVD, regular rhythm, S1 normal heart sound present, S2 normal heart sound present and No murmurs present (Cardio) RHYTHM: regular rhythm HEART SOUNDS: S1 normal heart sound present and S2 normal heart sound present GI: COMMON NORMALS: Normal to inspection, nondistended, normoactive bowel sounds present, Soft to palpation and non-tender PALPATION: Yes Soft to palpation Extremity: COMMON NORMALS: no joint enlargement and no pedal edema Neuro: COMMON NORMALS: patient oriented x3 and moves all extremities Skin: COMMON NORMALS: no rashes or lesions noted GENERAL SKIN EXAM: no rashes or lesions noted Data : 10/12/20 13:20 10/12/20 13:20 A&P Assessment and plan (1) COPD exacerbation: Dyspnea with cough productive of greenish phlegm, diminished air entry, wheezing. No focal pneumonia noted on imaging. No PE. Possible endobronchial lesion. Continues to smoke. Chronically on 3 L nasal cannula oxygen. At this time we will treat for severe COPD exacerbation with dyspnea, purulent phlegm, increased cough, hypoxia noted on presentation. Collect sputum culture. Solu-Medrol, Rocephin, breathing treatments. Will need additional assessment of endobronchial finding, possible lesion. Will need additional assessment of possible sleep apnea. Status: Acute (2) Lesion of bronchus: Appears to have finding of persistent thickening in right upper lobe bronchus with concern regarding possible endobronchial lesion. Discussed with his template storage clerk, lesion appears to been present on prior study as well. Ill- defined. Could even be mucus, but should not persist for such a long time. Will need additional assessment of this. This may explain his persistent upper airway wheezing for which she was referred to ENT during last visit. Status: Acute (3) Pleuritic chest pain: As above. Complete troponin EKG series. Status: Acute (4) Tobacco abuse: Discussed with him smoking cessation for 4 minutes. He understands that he needs to quit. States that he will keep trying. Discussed with him risks of progression of pulmonary disease, concern regarding already known underlying coronary disease, as well as he reports having prior strokes, discussed with him risk of recurrence of either or both, as well as risk of a number of malignancies. Continue to encourage cessation. Nicotine replacement as needed. Status: Acute (5) Alcohol abuse: Reports currently is not drinking but intermittently goes on a binge. Denies known history of prior severe withdrawal. Continue thiamine, folic acid, multivitamin. Monitor for withdrawal. Status: Acute (6) Sleep apnea: Reports his has noticed occasionally will stop breathing at night. Discussed with him will benefit from sleep study. Status: Acute Additional A&P Information CAD Liver cirrhosis Hepatitis C Seizure disorder, following with neurology Chronic pain, following with pain medicine HLD Attestations Medical Necessity Statement*: Place in observation for assessment management of COPD exacerbation with transient hypoxia although currently with improvement, but at this time still with persistence of cough productive of purulent appearing phlegm, wheezing in a gentleman with chronic hypoxia, COPD, current smoker with a number of underlying comorbidities including CAD, history of CVA, liver cirrhosis among others. Coding Level of Care Code Acute Device Processing Engineer for [facility] Fwd Diagnoses COPD exacerbation J44.1 Lesion of bronchus J98.09 Pleuritic chest pain R07.81 Tobacco abuse Z72.0 Alcohol abuse F10.10 Sleep apnea G47.30
[2020-10-12] MEDS: heparin 5,000 unit/mL INJ 1 mL 5000 UNIT SUBCUT (18:22)
[2020-10-12] MEDS: cefTRIAXone 1,000 MG in sodium chloride 0.9% (plus) 50 ML 100 MG IV (18:23)
[2020-10-12 19:32] LABS: Troponin 5 6HR 7.91 ng/L (0-15); Troponin 5 6HR Delta 1.91 ng/L (0-12)
[2020-10-12] MEDS: levETIRAcetam 500 mg Tablet 1000 MG PO (20:25)
--- NOTE | 2020-10-12 21:08 | PC.NURSE ---
Informed Dr Rabago of negative rapid COVID test and received order to discontinue isolation precautions.
[2020-10-13] VITALS (22 sets, daily range): BP systolic 109–161; BP diastolic 76–94; PULSE 78–107; RESP 13–24; TEMP 36.6–37.1; O2SAT 91–94
[2020-10-13] MEDS: zolpidem 5 mg Tablet PO (00:06)
[2020-10-13] MEDS: heparin 5,000 unit/mL INJ 1 mL 5000 UNIT SUBCUT ×3 (00:07→17:37)
--- NOTE | 2020-10-13 02:56 | PC.NURSE ---
Informed Dr Rabago of patient request for something to sleep at 0252. Dr placed order for Ambien 5mg PO at bedtime which was administered as ordered and documented. Patient instructed on potential side effects. Patient verbalized understanding.
[2020-10-13] MEDS: HYDROcodone-acetaminophen 10-325 mg Tablet 1 TAB PO ×5 (03:00→20:33)
[2020-10-13] MEDS: ipratropium-albuterol 3 mL Neb INHALATION ×6 (03:00→23:40)
[2020-10-13 04:55] LABS: Basophils % 0.1 %; Hematocrit 37.8 % (42.0-52.0); Hemoglobin 12.8 g/dL (11.7-16.6); Lymphocytes # 0.3 10^3/uL (0.8-4.8); Lymphocytes % 3.8 %; Mean Corpuscular HGB Conc 33.9 g/dL (30.0-36.0); Mean Corpuscular Hemoglobin 34.2 pg (28.0-34.0); Mean Corpuscular Volume 101.1 fL (80-94); Monocytes # 0.2 10^3/uL (0.2-0.9); Monocytes % 2.5 %; Neutrophils % 93.2 %; Nucleated Red Blood Cells % 0 %; Platelet Count 176 10^3/cmm (130-400); Red Blood Count 3.74 10^6/uL (4.1-5.3); Red Cell Distribution Width 12.1 % (12.1-15.1); White Blood Count 8.9 10^3/uL (4.0-10.0)
[2020-10-13] MEDS: aspirin 81 mg EC Tablet PO (05:04)
[2020-10-13] MEDS: folic acid 1 mg Tablet PO (05:04)
[2020-10-13] MEDS: atorvastatin 40 mg Tablet 20 MG PO (05:05)
[2020-10-13] MEDS: multivitamin therapeutic Tablet 1 TAB PO (05:05)
[2020-10-13] MEDS: citalopram 20 mg Tablet PO (05:05)
[2020-10-13] MEDS: clopidogrel 75 mg Tablet PO (05:05)
[2020-10-13] MEDS: thiamine 100 mg Tablet PO (05:05)
[2020-10-13] MEDS: pantoprazole DR 40 mg Tablet PO (05:05)
[2020-10-13 05:14] LABS: Anion Gap 17.6 (5-19); Blood Urea Nitrogen 14 mg/dL (6-20); Calcium 8.9 mg/dL (8.5-10.5); Carbon Dioxide 22 mmol/L (22-29); Chloride 99 mmol/L (98-107); Glomerular Filtration Rate 98.9 mL/min (90-130); Glucose 175 mg/dL (65-115); Osmolality Calculated 285 mOsm/kg (285-295); Potassium 3.6 mmol/L (3.5-5.1); Sodium 135 mmol/L (136-145)
--- NOTE | 2020-10-13 10:17 | PC.NURSE ---
pt wants bath tonight
[2020-10-13] MEDS: cefTRIAXone 1,000 MG in sodium chloride 0.9% (plus) 50 ML 100 MG IV (17:32)
--- NOTE | 2020-10-13 18:53 | PC.RESP ---
Smoking Cessation information sent to patient. Patient is currently scheduled for PT for Pulmonary Rehab.
--- NOTE | 2020-10-13 19:34 | PC.NURSE ---
Patient requesting something to help with sleep. Patient reports feeling like the breathing treatments and steroids are not allowing to sleep. Patient had Ambien given last night but reports does not want to take tonight it does not work. Patient did not sleep last night. Informed Dr Rabago and received order for Trazodone 25mg PO at bedtime as needed for sleep. RBVO
--- NOTE | 2020-10-13 19:55 | PC.NURSE ---
Received bedside report from BROOKS Parra. Patient reports feeling better this evening. Discussed with patient medication ordered by Dr Rabago to help with sleep tonight. Patient verbalized understanding and expressed thanks. Patient denies needs at this time. Patient reports chronic pain to back and knees 11/11. Discussed with patient regarding timing of medications and patient again verbalized understanding.
[2020-10-13] MEDS: levETIRAcetam 500 mg Tablet 1000 MG PO (20:33)
--- NOTE | 2020-10-13 21:27 | PM.PN ---
Subjective Subjective: Interval history: He is feeling overall better, but still getting dyspneic, cough is somewhat better but still coughing. Still having some wheezing. Does not feel ready to return home. Vitals/I&O/Wt Last Vital Signs Temp 98.3 F 10/13/20 20:00 Pulse 107 H 10/13/20 20:00 Resp 20 H 10/13/20 20:00 BP 161/94 10/13/20 20:00 Pulse Ox 92 10/13/20 20:00 10/13/20 10/13/20 10/13/20 06:59 14:59 22:59 Intake Total 900 / 1310 600 / 600 410 / 1010 Output Total 200 / 200 Balance 700 / 1110 600 / 600 410 / 1010 Weight last 48 hrs Weight 98.838 kg Weight 92.986 kg Physical Exam Const: COMMON NORMALS: no acute distress and patient oriented x3 HENMT: COMMON NORMALS: oropharynx normal Neck/C-Spine: COMMON NORMALS: no JVD Resp: COMMON NORMALS: normal respiratory effort AUSCULTATION: wheezes (Wheezing milder, but persistent mild wheeze on the left) and diminished lung sounds (Improving air entry) Cardio: COMMON NORMALS: no JVD, regular rhythm, S1 normal heart sound present, S2 normal heart sound present and No murmurs present (Cardio) RHYTHM: regular rhythm HEART SOUNDS: S1 normal heart sound present and S2 normal heart sound present GI: COMMON NORMALS: Normal to inspection, nondistended, normoactive bowel sounds present, Soft to palpation and non-tender PALPATION: Yes Soft to palpation Extremity: COMMON NORMALS: no joint enlargement and no pedal edema Neuro: COMMON NORMALS: patient oriented x3 and moves all extremities Skin: COMMON NORMALS: no rashes or lesions noted GENERAL SKIN EXAM: no rashes or lesions noted Data : 10/13/20 04:27 10/13/20 04:27 Micro: Microbiology 10/12/20 11:45 Gram Stain - Final Sputum - Expectorated Sputum A&P Assessment and plan (1) COPD exacerbation: Overall better, but still having dyspnea, wheezing, cough, not ready to return home. Continue treatment of exacerbation, continue steroid, antibiotic, breathing treatments. Oxygen support. Encourage smoking cessation. Chronically on 3 L nasal cannula oxygen. Will need additional assessment of endobronchial finding, possible lesion. Will need additional assessment of possible sleep apnea. Status: Acute (2) Lesion of bronchus: Discussed with his audiovisual lead technician and with him. Since he is on Plavix, and biopsy is likely to be required, plan would be after he improves from current exacerbation of COPD he would hold his Plavix on Sunday with tentative plan for bronchoscopy on Sunday. He is agreeable with plan. Appears to have finding of persistent thickening in right upper lobe bronchus with concern regarding possible endobronchial lesion. Discussed with his audiovisual lead technician, lesion appears to been present on prior study as well. Ill-defined. Could even be mucus, but should not persist for such a long time. Will need additional assessment of this. This may explain his persistent upper airway wheezing for which she was referred to ENT during last visit. Status: Acute (3) Pleuritic chest pain: Appears to be better. As above. Symptoms, troponin series not suggestive of NC. Status: Acute (4) Tobacco abuse: Continue to encourage cessation. Status: Acute (5) Alcohol abuse: Reports currently is not drinking but intermittently goes on a binge. Denies known history of prior severe withdrawal. Continue thiamine, folic acid, multivitamin. Monitor for withdrawal. Status: Acute (6) Sleep apnea: Reports his has noticed occasionally will stop breathing at night. Discussed with him will benefit from sleep study. Status: Acute Additional A&P Information CAD Liver cirrhosis Hepatitis C Seizure disorder, following with neurology Chronic pain, following with pain medicine HLD Attestations Medical Necessity Statement*: Requires admission of over 2 midnights for assessment management of severe COPD exacerbation. Coding Level of Care Code Acute Organizational Development Director for [facility] Diagnoses COPD exacerbation J44.1 Lesion of bronchus J98.09 Pleuritic chest pain R07.81 Tobacco abuse Z72.0 Alcohol abuse F10.10 Sleep apnea G47.30
[2020-10-13] MEDS: trazodone 50 mg Tablet 25 MG PO (21:54)
[2020-10-14] VITALS (14 sets, daily range): BP systolic 130–153; BP diastolic 81–89; PULSE 66–99; RESP 12–29; TEMP 36.6–37; O2SAT 67–95
[2020-10-14] MEDS: heparin 5,000 unit/mL INJ 1 mL 5000 UNIT SUBCUT ×2 (00:40→10:13)
[2020-10-14] MEDS: atorvastatin 40 mg Tablet 20 MG PO (05:49)
[2020-10-14] MEDS: HYDROcodone-acetaminophen 10-325 mg Tablet 1 TAB PO ×3 (05:49→15:10)
[2020-10-14] MEDS: pantoprazole DR 40 mg Tablet PO (05:49)
[2020-10-14] MEDS: thiamine 100 mg Tablet PO (05:49)
[2020-10-14] MEDS: aspirin 81 mg EC Tablet PO (05:49)
[2020-10-14] MEDS: clopidogrel 75 mg Tablet PO (05:49)
[2020-10-14] MEDS: citalopram 20 mg Tablet PO (05:49)
[2020-10-14] MEDS: folic acid 1 mg Tablet PO (05:49)
[2020-10-14] MEDS: multivitamin therapeutic Tablet 1 TAB PO (05:49)
[2020-10-14 08:04] LABS: Basophils % 0.2 %; Hematocrit 39.3 % (42.0-52.0); Hemoglobin 13.5 g/dL (11.7-16.6); Lymphocytes # 0.3 10^3/uL (0.8-4.8); Lymphocytes % 1.7 %; Mean Corpuscular HGB Conc 34.4 g/dL (30.0-36.0); Mean Corpuscular Hemoglobin 34.8 pg (28.0-34.0); Mean Corpuscular Volume 101.3 fL (80-94); Mean Platelet Volume 8.7 fL (7.4-10.4); Monocytes # 0.8 10^3/uL (0.2-0.9); Monocytes % 4.7 %; Neutrophils # 16.22 10^3/uL (1.8-7.7); Neutrophils % 92.3 %; Nucleated Red Blood Cells % 0 %; Platelet Count 187 10^3/cmm (130-400); Red Blood Count 3.88 10^6/uL (4.1-5.3); Red Cell Distribution Width 12.1 % (12.1-15.1); White Blood Count 17.6 10^3/uL (4.0-10.0)
[2020-10-14] MEDS: ipratropium-albuterol 3 mL Neb INHALATION ×3 (08:13→15:34)
[2020-10-14 08:25] LABS: Anion Gap 14.4 (5-19); Blood Urea Nitrogen 15 mg/dL (6-20); Calcium 9.2 mg/dL (8.5-10.5); Carbon Dioxide 27 mmol/L (22-29); Chloride 99 mmol/L (98-107); Glomerular Filtration Rate 115.4 mL/min (90-130); Glucose 161 mg/dL (65-115); Osmolality Calculated 286 mOsm/kg (285-295); Potassium 4.4 mmol/L (3.5-5.1); Sodium 136 mmol/L (136-145)
--- NOTE | 2020-10-14 10:18 | PC.CHAP ---
Pastoral Care Encounter/Spiritual Assessment Type of Contact [] Declined optics engineer visit [] Patient/Family/Request visit [] Outpatient visit [] Follow-up visit [] Physician referral [] Code/Alert [x] Routine visit [] Staff referral [] Actively dying [] Patient sleeping [] Family support [] [] Out of room [] Palliative care [] [x] Receiving care in room [] Pre-surgical visit [] Trauma [x] Long length of stay [] ICU visit [] Other: Relational/Emotional Strength [x] Patient feels connected with others/family/visitors/staff [] Distress [] Loneliness/isolation [] Abandonment Spirituality of Patient [x] Person of [place]ulu [] Attends Anabaptist of their [place] [x] Believes in Prayer [] Reads Bible or Hoahaoism materials [] There are Spiritual issues to be addressed Book Shelver Interventions [x] Prayer [x] Active listening [x] Non-anxious presence [x] Spiritual/emotional support [] Crisis/trauma care [x] Spiritual counseling [] Bereavement support [] Provided bereavement packet [] Provided Bible/devotional materials [] Provided toy/stuffed animal, coloring book to patient or family member [] Provided Communion [] Anointing/[place] [] Salvation [x] Completed spiritual assessment [] Other: Impact on Illness or Injury [] Angry [] Fearful [x] Anxious [] Often cries [] Exhaustion [x] Unable to work [] Unable to attend faith [] Unable to walk/stand [] Unable to read [] Unable to drive [] Unable to eat/drink [] Unable to sleep [] Unable to be with family [] Patient intubated [] Other: Summary retired, SOB lungs dibeadies, Has had tests waiting doctors report, 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
--- NOTE | 2020-10-14 13:48 | PM.CONSULT ---
Providers/Reason For Consult Consulting Physican/Specialty*: Austin Devine MD/ Pulmonary Critical Care Reason for Consult*: COPD and Endobronchial Lesion on CT Chest Requesting Physcian: Zafar Elkins Attending Physician: Zafar Elkins Primary Care Provider: Keyanna Brown MD History of Present Illness History of Present Illness David Lanza Jr is a 60 year old male history of COPD, chronically on 3 L nasal cannula, CAD with history of stenting, hepatitis C, occasional binge alcohol consumption, reports also history of liver cirrhosis, history of seizure disorder for which he follows with neurology, history of CVA, chronic pain for which he follows with pain specialist, has been trying to cut down and stop smoking for long time, currently still smokes 1-2 cigarettes/day, admitted to cardiac stepdown unit for COPD exacerbation. He was assessed by chest x-ray in ER showing possibly mild fibrotic changes in the right upper lobe laterally, subpulmonic effusion on the right. CT angiogram chest was obtained which shows no PE, no focal acute pulmonary disease, stable granulomatous changes and fibrotic lung changes, but also with noted nonspecific stenosis/endobronchial lesion at the origin of right upper lobe segmental bronchi of uncertain significance, endobronchial lesion not excluded, comparing to prior imaging at least part of the thickened/stenotic area appears to also have been present during the prior study. Pulmonary consulted for possible bronchoscopic inspection and biopsy of the suspected endobronchial lesion on CT chest to rule out malignancy given his significant smoking history. Patient seen at bedside today Reported improvement in his symptoms after nebulizations and steroids and antibiotics currently on 4 L nasal cannula. Review of Systems General: Reports: 10 or more systems reviewed and unremarkable except in HPI and below Meds/Allergies Home Medications and Allergies Home Medications Medication Instructions Recorded Confirmed Last Taken Type albuterol sulfate 2.5 mg CONTINUOUS NEBULIZATION PRN 06/19/19 10/12/20 01/03/20 08:30 History aspirin 81 mg tablet,delayed 81 mg PO QAM 06/18/20 10/12/20 10/09/20 History release citalopram 20 mg tablet 20 mg PO QAM 07/28/20 10/12/20 10/09/20 History midazolam 5 mg/spray (0.1 mL) 1 spray INTRANASAL ONCE PRN 30 08/12/20 10/12/20 Unknown Rx nasal spray Days #2 ea hydrocodone 10 mg-acetaminophen 1 tab PO .6 times a day PRN 30 09/08/20 10/12/20 10/11/20 Rx 325 mg tablet Days #180 tab Lipitor 20 mg PO QAM 10/12/20 10/12/20 10/09/20 History Spiriva Respimat 2 puff INHALATION QAM 10/12/20 10/12/20 Unknown History clopidogrel 75 mg PO QAM 10/12/20 10/12/20 10/09/20 History fluticasone propionate 230 See Rx Instructions .ROUTE 10/12/20 10/12/20 Unknown Rx mcg-salmeterol 21 mcg/actuation .COMPLEX #12 gram HFA inhaler folic acid 1 mg PO QAM 10/12/20 10/12/20 10/09/20 History levetiracetam 1,000 mg PO BEDTIME 10/12/20 10/12/20 10/09/20 History pantoprazole 40 mg PO QAM 10/12/20 10/12/20 10/09/20 History multivitamin with folic acid 400 See Rx Instructions .ROUTE 10/13/20 Unknown Rx mcg tablet .COMPLEX #30 tablet thiamine HCl (vitamin B1) 100 mg See Rx Instructions .ROUTE 10/13/20 Unknown Rx tablet .COMPLEX #30 each Allergies Allergy/AdvReac Type Severity Reaction Status Date / Time gabapentin [From Neurontin] Allergy ADR-Agitate Verified 10/12/20 11:48 d Current Medications Current Medications Generic Name Dose Route Start Last Admin Trade Name Freq PRN Reason Stop Dose Admin Hydrocodone Bitart/Acetaminophen 1 tab 10/12/20 17:46 10/14/20 10:12 Hydrocodone-Acetaminophen 10-325 Mg Tablet PO 1 tab Q4H PRN Administration Pain Albuterol/Ipratropium 3 ml 10/12/20 20:00 10/14/20 12:38 Ipratropium-Albuterol 3 Ml Neb INHALATION 3 ml Q4H.RESPIRATORY REBECA Administration Aspirin 81 mg 10/13/20 06:00 10/14/20 05:49 Aspirin 81 Mg Ec Tablet PO 81 mg QAM REBECA Administration Atorvastatin Calcium 20 mg 10/13/20 06:00 10/14/20 05:49 Atorvastatin 40 Mg Tablet PO 20 mg QAM REBECA Administration Citalopram Hydrobromide 20 mg 10/13/20 06:00 10/14/20 05:49 Citalopram 20 Mg Tablet PO 20 mg QAM REBECA Administration Clopidogrel Bisulfate 75 mg 10/13/20 06:00 10/14/20 05:49 Clopidogrel 75 Mg Tablet PO 75 mg QAM REBECA Administration Folic Acid 1 mg 10/13/20 06:00 10/14/20 05:49 Folic Acid 1 Mg Tablet PO 1 mg QAM REBECA Administration Heparin Sodium (Beef Lung) 5,000 unit 10/12/20 18:00 10/14/20 10:13 Heparin 5,000 Unit/Ml Inj 1 Ml SUBCUT 5,000 unit Q8H REBECA Administration Ceftriaxone Sodium 1,000 mg/ 50 mls @ 100 mls/hr 10/12/20 18:00 10/13/20 19:27 Sodium Chloride IV Infused Q24H REBECA Infusion Protocol Levetiracetam 1,000 mg 10/12/20 21:00 10/13/20 20:33 Levetiracetam 500 Mg Tablet PO 1,000 mg BEDTIME REBECA Administration Methylprednisolone Sodium Succinate 60 mg 10/12/20 18:00 10/14/20 12:43 Methylprednisolone Sod Succ 125 Mg/2 Ml Inj IVP 60 mg Q6H REBECA Administration Multivitamins Therapeutic 1 tab 10/13/20 06:00 10/14/20 05:49 Multivitamin Therapeutic Tablet PO 1 tab QAM REBECA Administration Non-Formulary Medication 2 puff 10/12/20 18:00 10/14/20 08:08 Fluticasone Propion-Salmeterol [Advair Hfa] INHALATION Not Given BID REBECA Pantoprazole Sodium 40 mg 10/13/20 06:00 10/14/20 05:[address] 40 Mg Tablet PO 40 mg QAM REBECA Administration Thiamine Mononitrate 100 mg 10/13/20 06:00 10/14/20 05:49 Thiamine 100 Mg Tablet PO 100 mg QAM REBECA Administration Trazodone HCl 25 mg 10/13/20 19:33 10/13/20 21:54 Trazodone 50 Mg Tablet PO 25 mg BEDTIME PRN Administration INSOMNIA Zolpidem Tartrate 5 mg 10/12/20 23:45 10/13/20 20:36 Zolpidem 5 Mg Tablet PO Not Given BEDTIME REBECA PFSH Acute PFSH: Medical History (Updated 10/14/20 @ 14:02 by Austin Devine MD) Alcoholic cirrhosis of liver Atherosclerosis of coronary artery of [place] heart without angina pectoris Chronic back pain Chronic pain in left shoulder Chronic pain syndrome Cigarette nicotine dependence Coronary artery disease Dyslipidemia Dyslipidemia (high LDL; low HDL) Encounter for long-term (current) use of NSAIDs Encounter for long-term opiate analgesic use Hepatitis C Liver cirrhosis Recurrent cerebrovascular accidents (CVAs) Syncope and collapse Surgical History H/O elbow surgery Hx of hernia repair Hx of knee surgery Hx of shoulder surgery S/P coronary artery stent placement Family History Mother CAD (coronary artery disease) Had a myocardial infarction at the age of 18. She is alive. She had a PCI? Father CAD (coronary artery disease) Had myocardial infarction in his 70s and is alive Other Diabetes Hypertension Myocardial infarct Social History Smoking and tobacco status: current some day smoker cigarettes Number of cigarettes per day: 1-5 Quit status (tobacco): has quit using tobacco Year quit tobacco: 2020 6mths ago 2ppd x 40y Second hand smoke exposure: Yes Smoking risk assessment/counseling performed?: Yes Alcohol intake: current Alcohol use comment: Not currently, but occasional binge with fifth/d for 2-3d Lives independently: Yes Household members: spouse Housing: House Marital status: service: No Current occupational status: disabled Pets and animals: Yes History of recent travel: No Current gender identity: Male Vitals/I&O/Wt Last Vital Signs Temp 98.0 F 10/14/20 10:31 Pulse 86 10/14/20 12:45 Resp 16 10/14/20 12:39 BP 137/81 10/14/20 10:31 Pulse Ox 93 10/14/20 12:39 10/13/20 10/14/20 10/14/20 22:59 06:59 14:59 Intake Total 650 / 1250 360 / 1610 600 / 600 Output Total 300 / 300 400 / 400 Balance 650 / 1250 60 / 1310 200 / 200 Weight last 48 hrs Weight 223 lb Weight 222 lb 12.8 oz Weight 217 lb 14.4 oz Physical Exam Narrative: EXAM NARRATIVE: General: alert, NAD HEENT: conj clear, EOMI, PERRL, mmm, Neck: supple, no meningismus Heme: no cervical LAP Pulmonary: Bilateral diffuse end expiratory wheeze more on left side Cardiovascular: rrr, nl s1s2, no mrg Abdomen: soft, nt, nd, no r/g, bs+ Extremities: pulses +, no edema, no c/c : no CVA tenderness Skin: intact, no rash MSK: no back or neck pain Neurologic: grossly intact Data Labs: Other Labs: Laboratory Results WBC 17.6 10^3/uL (4.0 -10.0) H 10/14/20 07:56 RBC 3.88 10^6/uL (4.1 -5.3) L 10/14/20 07:56 Hgb 13.5 g/dL (11.7-1 6.6) 10/14/20 07:56 Hct 39.3 % (42.0-52.0 ) L 10/14/20 07:56 MCV 101.3 fL (80-94) H 10/14/20 07:56 MCH 34.8 pg (28.0-34. 0) H 10/14/20 07:56 MCHC 34.4 g/dL (30.0-3 6.0) 10/14/20 07:56 RDW 12.1 % (12.1-15.1 ) 10/14/20 07:56 Plt Count 187 10^3/cmm (130 -400) 10/14/20 07:56 MPV 8.7 fL (7.4-10.4) 10/14/20 07:56 Neut % (Auto) 92.3 % 10/14/20 07:56 Lymph % (Auto) 1.7 % 10/14/20 07:56 [place] % (Auto) 4.7 % 10/14/20 07:56 Eos % (Auto) 0.0 % 10/14/20 07:56 Baso % (Auto) 0.2 % 10/14/20 07:56 Neut # (Auto) 16.22 10^3/uL (1. 8-7.7) H 10/14/20 07:56 Lymph # (Auto) 0.3 10^3/uL (0.8- 4.8) L 10/14/20 07:56 [place] # (Auto) 0.8 10^3/uL (0.2- 0.9) 10/14/20 07:56 Eos # (Auto) 0.0 10^3/uL (0.0- 0.8) 10/14/20 07:56 Baso # (Auto) 0.0 10^3/uL (0.0- 0.1) 10/14/20 07:56 Nucleated RBC % (a uto) 0 % 10/14/20 07:56 Nucleated RBCs # 0.0 /100WBC 10/14/20 07:56 Specimen Type Arterial 10/12/20 11:14 Sample Site Radial, right 10/12/20 11:14 ABG pH 7.44 (7.35-7.45) 10/12/20 11:14 ABG pCO2 40.3 mmHg (35-45) 10/12/20 11:14 ABG pO2 94.4 mmHg (80.0-1 00.0) 10/12/20 11:14 ABG HCO3 27.2 mmol/L (22-2 6) H 10/12/20 11:14 ABG O2 Saturation 98.0 10/12/20 11:14 ABG Base Excess 2.7 mmol/L (-2.0- 2.0) H 10/12/20 11:14 Nathanael Test Pos 10/12/20 11:14 A-a O2 Gradient 7.3 mmHg (5-10) 10/12/20 11:14 Hematocrit 45.4 % (42-52) 10/12/20 11:14 Hgb O2 Saturation 96.2 % (95-100) 10/12/20 11:14 Carboxyhemoglobin 0.9 %THgb (0.4-20 .1) 10/12/20 11:14 Methemoglobin 0.9 % (0.4-1.5) 10/12/20 11:14 Total Hemoglobin 14.8 g/dL (14-18) 10/12/20 11:14 Sodium 143.0 mmol/L (131 -143) 10/12/20 11:14 Potassium 3.8 mmol/L (3.5-5 .0) 10/12/20 11:14 Glucose 102.0 mg/dL (70-1 15) 10/12/20 11:14 Ionized Calcium 1.2 mmol/L (1.1-1 .4) 10/12/20 11:14 O2 Delivery Device Nc 10/12/20 11:14 O2 Liters/Min 2.0 % 10/12/20 11:14 FiO2 28.0 % 10/12/20 11:14 [employer] ID Ed 10/12/20 11:14 Sodium 136 mmol/L (136-1 45) 10/14/20 07:56 Potassium 4.4 mmol/L (3.5-5 .1) 10/14/20 07:56 Chloride 99 mmol/L (98-107 ) 10/14/20 07:56 Carbon Dioxide 27 mmol/L (22-29) 10/14/20 07:56 Anion Gap 14.4 (5-19) 10/14/20 07:56 BUN 15 mg/dL (6-20) 10/14/20 07:56 Creatinine 0.7 mg/dL (0.7-1. 2) 10/14/20 07:56 GFR Calculation 115.4 mL/min (90- 130) 10/14/20 07:56 Glucose 161 mg/dL (65-115 ) H 10/14/20 07:56 Calculated Osmolal ity 286 mOsm/kg (285- 295) 10/14/20 07:56 Calcium 9.2 mg/dL (8.5-10 .5) 10/14/20 07:56 Total Bilirubin 0.9 mg/dL (0.15-1 .2) 10/12/20 13:20 AST 17 U/L (0-40) 10/12/20 13:20 ALT 13 U/L (0-41) 10/12/20 13:20 Alkaline Phosphata se 101 IU/L (40-130) 10/12/20 13:20 Troponin T Baselin e 6 ng/L (0-15) 10/12/20 13:20 Troponin T 120 Min [place] 6.00 ng/L (0-15) 10/12/20 15:30 Delta Troponin T 0 ABS# (0-10) 10/12/20 15:30 Troponin T Hi Sens 6Hr 7.91 ng/L (0-15) 10/12/20 19:06 Troponin T Hi Sens 6Hr Delta 1.91 ng/L (0-12) 10/12/20 19:06 Total Protein 7.5 g/dL (6.6-8.7 ) 10/12/20 13:20 Albumin 4.6 g/dL (3.5-5.2 ) 10/12/20 13:20 Globulin 2.9 g/dL (1.3-4.6 ) 10/12/20 13:20 Procalcitonin 0.03 ng/mL (0-0.5 ) 10/12/20 13:20 Ethyl Alcohol < 10 mg/dL (0-10) 10/12/20 13:20 SARS-CoV-2 Ag (Rap id) Negative (Negati ve) 10/12/20 13:20 Impressions Chest X-Ray 10/12/20 10:58 IMPRESSION: Mild fibrocalcific changes in the right upper lobe laterally. Lungs are otherwise well aerated. Subpulmonic effusion on the right. Chest CTA 10/12/20 15:40 IMPRESSION: 1. Negative for pulmonary embolism. 2. No focal acute pulmonary disease. 3. Stable granulomatous changes and fibrotic lung changes. 4. Nonspecific stenosis/endobronchial lesion at the origin of right upper lobe segmental bronchi of uncertain significance, stable from recent prior. Endobronchial lesion cannot be excluded. COMMENTS: Consistent with the [employer]'s Incidental Findings Committee white paper (J Am Todd Radiol 2018): Any incidental renal lesion less than 1 cm or classified as too small to characterize, or any incidental cystic renal lesion characterized as simple-appearing, is likely benign. No follow-up imaging is recommended for these lesions per consensus recommendations based on imaging criteria. Radiation Dose CTDIVOL = (mGy): DLP = 625.75 (mGy-cm) PFTs 02/23/2020: consistent with severe obstruction. Lung volumes are consistent with air trapping.Gas exchange (DLCO) is normal. Prebronchodilator FEV1 32% 6-minute walk test 02/19/2020: Patient walked 600 feet desaturated to 87% required 2 L -Low-dose CT 03/03/2020: There are numerous pulmonary nodules bilaterally throughout all lobes. These nodules are predominantly calcified. There are a few additional nodules which may be partially calcified that were also present on the prior study dating back to 2014. Mild thickening along the superior RIGHT major fissure fluoroscopy. There is additional pleural thickening bilaterally which is partially calcified. No new or suspicious nodules. CT chest 03/03/2020:moderate to severe emphysema Micro: Micro: Microbiology 10/12/20 11:45 Gram Stain - Final Sputum - Expector ated Sputum Sputum Culture - P reliminary A&P Assessment and plan (1) COPD exacerbation: Status: Acute (2) Sleep apnea: Status: Acute Qualifiers: Sleep apnea type: unspecified type Qualified Code(s): G47.30 - Sleep apnea, unspecified (3) Tobacco abuse: Status: Acute (4) Lesion of bronchus: Status: Acute #Severe COPD, centrilobular emphysema by CT -currently on exacerbation #Chronic smoker -2 packs/day for over 40 years years -quit February 2020 # Started at age 17 smoked 2 packs/day for over 40 years years and recently cut down to 1 to 2 cigarettes/day -mMRC 2 and COPD grade D - PFTs 02/23/2020: consistent with severe obstruction. Lung volumes are consistent with air trapping.. Gas exchange (DLCO) is normal. Prebronchodilator FEV1 32%. No bronchodilator given to check for response during the test. -6-minute walk test 02/19/2020: Patient walked 600 feet desaturated to 87% required 2 L -CT chest evidence of moderate to severe emphysema. -Currently on DuoNeb every 4 scheduled nebulization and methylprednisone 60 mg every 6 hour -Recommended to taper steroids based on clinical response -changed to 40 q. 8 today -Currently on Rocephin for suspected CAP; added doxycycline for atypical coverage -Sputum stain so far negative; requested bacterial antigen, Legionella antigen, MRSA nares, influenza AMB -Currently down to 3 L nasal cannula -Still smoking 1 to 2 cigarettes and encouraged to quit smoking -on Advair and Spiriva as outpatient and says his symptoms are much better during previous clinic visit in July 2020 -DuoNeb nebulizations and albuterol as needed -Pulmonary rehab referral given but patient does not want to travel all the way to [place]. He lives closer to [facility]. I will schedule him to follow-up with your clinic and will refer to pulmonary rehab once it is established at the ER. # Right endobronchial thickening noted on CT - concern for malignancy given high risk smoking -Could be a mucous plug but similar lesion present during last month admission CT chest -Patient has bronchoscopic inspection of airways and if possible endobronchial biopsy of the lesion -Since he is on Plavix, and biopsy is likely to be required, plan is to treat current exacerbation of COPD and if discharged to hold Plavix 5 days prior to the procedure. -Tentatively scheduled the procedure on 10/22/2020Sunday and patient is instructed to hold his Plavix on Sunday10/17/2020. He is agreeable with plan. -[id number] CT in 03/03/2020: done in clinic There are numerous pulmonary nodules bilaterally throughout all lobes. These nodules are predominantly calcified. There are a few additional nodules which may be partially calcified that were also present on the prior study dating back to 2014. Mild thickening along the superior RIGHT major fissure fluoroscopy. There is additional pleural thickening bilaterally which is partially calcified. No new or suspicious nodules. Medical condition, labs, investigations, medications, counseling regarding medication compliance, side effects, importance of follow-up appointments, smoking-its adverse effects and importance of cessation and plan of care-everything explained in detail to the patient. Patient verbalized understanding and agreed with the plan of care. Recommendations discussed with hospitalist Dr. Elkins taking care of the patient Consult Attestations Medical Necessity Statement: COPD exacerbation-still wheezing and requires IV steroids and DuoNeb nebulization Time Spent in Patient Care: Greater than 35 minutes (>than 50% of time spent in counselling and/or direct pt care on unit). Critical Care Time: Critical Care Time (min): 45 Coding Level of Care Code New Pt Acute Continuity Coordinator for Mara Enriquez Patient Type New History Comprehensive Exam Comprehensive Medical Decision Making Moderate Complexity Diagnoses COPD exacerbation J44.1 Sleep apnea G47.30 Sleep apnea type: unspecified type Tobacco abuse Z72.0 Lesion of bronchus J98.09 Time Spent (min) 45
--- NOTE | 2020-10-14 17:25 | PC.NURSE ---
Patient education provided, pt has no questions or concerns. Patient left via wheelchair with all belongings and accompanied by in er parking lot. VS stable upon departure
--- NOTE | 2020-10-14 22:09 | PM.DCS ---
Discharge Providers Date of Admission: 10/13/20 18:08 Date of Discharge: October 14, 2020 Attending Provider at Admission: Zafar Elkins Attending Provider at Discharge: Zafar Elkins Primary Care Provider: Keyanna Brown MD Diagnoses at Discharge Discharge Diagnosis (1) COPD exacerbation: Status: Acute (2) Sleep apnea: Status: Acute Qualifiers: Sleep apnea type: unspecified type Qualified Code(s): G47.30 - Sleep apnea, unspecified (3) Tobacco abuse: Status: Acute (4) Lesion of bronchus: Status: Acute Reason for Visit Reason for Visit: SOB Hospital Course Hospital Course Pleasant 60-year-old gentleman with history of COPD, chronically on 3 L, CAD with history of stenting, hepatitis C, occasional binge alcohol consumption with reported history of liver cirrhosis, history of seizure disorder following with neurology, history of CVA, chronic pain for which follows with pain specialist current smoker trying to cut down was admitted due to progressive shortness of breath, cough productive of green appearing phlegm, wheezing. During prior admission there was some concern of persistent wheezing for which he was referred for assessment by ENT, although states appointment has been in the works but has not yet attended. He also reports that he has been noted to occasionally stop breathing by his with concern for sleep apnea. On admission on assessment by CT angiogram of the chest due to respiratory symptoms he was noted to have nonspecific stenosis/endobronchial lesion at the origin of right upper lobe segmental bronchi of uncertain significance. This appears to have been also present on the prior scan of the chest. Unclear appearance. Mucous considered less likely given persistence. The finding may also explain the persistence of wheezing. Due to his presentation he was also assessed by pulmonology. While here he was treated for COPD exacerbation with IV steroids due to severity of COPD exacerbation, antibiotics due to bacterial superinfection with purulent sputum, breathing treatments. He was counseled on smoking cessation. Counseled to abstain from alcohol. Today he was feeling better and requested to return home. Additional assessment of possible bronchial lesion is planned by him and pulmonology, tentatively scheduled for next Sunday. Due to anticipated need of likely biopsy he is asked to hold his Plavix starting on Sunday. At discharge he is provided with steroid taper, antibiotics to complete the course, will continue with inhalers at home. He is referred for sleep study. Please revisit with him to follow-up regarding continued improvement of COPD exacerbation. Please follow-up regarding smoking cessation, abstinence from alcohol. Please follow-up sleep study results. Please resume follow-up of other chronic conditions including liver cirrhosis, hepatitis C, CAD, seizure disorder, chronic pain and others. Physical Exam Const: COMMON NORMALS: no acute distress and patient oriented x3 OTHER: Pleasant, conversant, feeling better. In better spirits. At or below baseline oxygen. Feels strong enough to return home. HENMT: COMMON NORMALS: oropharynx normal Neck/C-Spine: COMMON NORMALS: no JVD Resp: COMMON NORMALS: normal respiratory effort AUSCULTATION: wheezes (minimal wheeze R side) and diminished lung sounds (Improving) Cardio: COMMON NORMALS: no JVD, regular rhythm, S1 normal heart sound present, S2 normal heart sound present and No murmurs present (Cardio) RHYTHM: regular rhythm HEART SOUNDS: S1 normal heart sound present and S2 normal heart sound present GI: COMMON NORMALS: Normal to inspection, nondistended, normoactive bowel sounds present, Soft to palpation and non-tender PALPATION: Yes Soft to palpation Extremity: COMMON NORMALS: no joint enlargement and no pedal edema Neuro: COMMON NORMALS: patient oriented x3 and moves all extremities Skin: COMMON NORMALS: no rashes or lesions noted GENERAL SKIN EXAM: no rashes or lesions noted Discharge Data Data Completed and Pending: Completed Studies During Hospitalization Category Date Time Status CT angio chest PE protcl 19088 Stat Cat Scan 10/12/20 15:40 Completed XR chest 1V lesvia ble 25042 Urgent Exams 10/12/20 10:58 Completed Pending at discharge Category Date Time Status Influ A&B Antibod y IGG/M Routine Lab 10/14/20 14:15 Ordered MRSA by PCR [facility] 10/14/20 14:15 Ordered Sputum Culture an d Gram Stain [facility] 10/12/20 11:45 Results Labs from last 24 hours 10/14/20 10/14/20 07:56 07:56 WBC 17.6 H RBC 3.88 L Hgb 13.5 Hct 39.3 L MCV 101.3 H MCH 34.8 H MCHC 34.4 RDW 12.1 Plt Count 187 MPV 8.7 Neut % (Auto) 92.3 Lymph % (Auto) 1.7 [place] % (Auto) 4.7 Eos % (Auto) 0.0 Baso % (Auto) 0.2 Neut # (Auto) 16.22 H Lymph # (Auto) 0.3 L [place] # (Auto) 0.8 Eos # (Auto) 0.0 Baso # (Auto) 0.0 Nucleated RBC % (a uto) 0 Nucleated RBCs # 0.0 Sodium 136 Potassium 4.4 Chloride 99 Carbon Dioxide 27 Anion Gap 14.4 BUN 15 Creatinine 0.7 GFR Calculation 115.4 Glucose 161 H Calculated Osmolal ity 286 Calcium 9.2 Vitals: Last Vital Signs Temp 98.6 F 10/14/20 17:20 Pulse 85 10/14/20 17:20 Resp 12 10/14/20 17:20 BP 130/82 10/14/20 17:20 Pulse Ox 92 10/14/20 17:20 Discharge Plan Discharge Patient Disposition: Home Condition: Stable Prescriptions: New cefdinir 300 mg capsule 300 mg PO BID 5 Days Qty: 10 RF: 0 doxycycline monohydrate 100 mg Tablet 100 mg PO BID Qty: 10 RF: 0 prednisone 20 mg tablet See Rx Instructions .ROUTE .COMPLEX 3 Days Qty: 20 RF: 0 Continued albuterol sulfate 2.5 mg /3 mL (0.083 %) solution for nebulization 2.5 mg continuous nebulization PRN RF: 0 aspirin [Adult Low Dose Aspirin] 81 mg tablet,delayed release (DR/EC) 81 mg PO QAM RF: 0 citalopram [Celexa] 20 mg tablet 20 mg PO QAM RF: 0 hydrocodone-acetaminophen 10-325 mg tablet 1 tab PO .6 times a day PRN (Reason: Pain) 30 Days Qty: 180 RF: 0 midazolam 5 mg/spray (0.1 mL) spray,non-aerosol 1 spray intranasal ONCE PRN (Reason: seizure activity) 30 Days Qty: 2 RF: 4 Advair HFA 230-21 mcg/actuation HFA aerosol inhaler See Rx Instructions .ROUTE .COMPLEX Qty: 12 RF: 1 thiamine HCl (vitamin B1) [Vitamin B-1] 100 mg tablet See Rx Instructions .ROUTE .COMPLEX Qty: 30 RF: 0 Tab-A-Patrick 400 mcg tablet See Rx Instructions .ROUTE .COMPLEX Qty: 30 RF: 5 levetiracetam 500 mg tablet extended release 24 hr 1,000 mg PO BEDTIME RF: 0 Lipitor 20 mg tablet 20 mg PO QAM RF: 0 clopidogrel 75 mg tablet 75 mg PO QAM RF: 0 pantoprazole 40 mg tablet,delayed release (DR/EC) 40 mg PO QAM RF: 0 folic acid 1 mg tablet 1 mg PO QAM RF: 0 Spiriva Respimat 2.5 mcg/actuation mist 2 puff INHALATION QAM RF: 0 Discharge Orders: Discharge Order (Routine); Ordered 10/14/20 Ordered By: Zafar Elkins Other Ambulatory Orders: Sleep Study/Titration (Routine) Timeframe: 1 Week Location: None Selected Ordered By: Zafar Elkins Referrals: Austin Devine MD [Physician] - 10/22/20 (You have a Broncoscopy with Dr. Devine on October 22. You will get a call on Sunday, October 18 with the time and details for your procedure. ) Keyanna Brown MD [Primary Care Provider] - 10/20/20 9:40 am (You have a hospital followup with Dr. Brown at her office on October 20 at 9:40am) Discharge Diet: Cardiac Discharge Activity: Increase activity as tolerated and Oxygen as instructed Patient Instructions: Doxycycline (By mouth), Prednisone (By mouth), Cefdinir (By mouth), Sleep Apnea Syndrome (GEN), How to Stop Smoking (GEN), Cirrhosis (GEN), Cigarette Smoking and Your Health (GEN), Chronic Obstructive Pulmonary Disease (GEN), Abuse of Alcohol (GEN), Chest Pain Stoplight, Opioid Safety Activity Restrictions/Additional Instructions: Please stop smoking, continued smoking will lead to continued worsening of lung function, increases your risk of cardiovascular events including heart attack, stroke. As well as increases your risk of a number of different cancers including lung cancer, genitourinary malignancies gastrointestinal malignancies and other. Please discontinue Plavix as instructed by the lung doctor on Sunday. Pulmonology office will contact you regarding additional instructions for your procedure for next Sunday to closer assess the thickening of the airway in your right lung and possibly take biopsies to exclude malignancy. Continue oxygen at home. Continue breathing treatments. Please complete steroid taper, complete antibiotic course. In case of any worsening of shortness of breath, any chest pain or pressure, any high fever, or any other concerning symptoms, please call 911. Continue to abstain from alcohol. Please follow up for the sleep study to additionally investigate for sleep apnea as noticed by your . Resume follow-up with your neurologist and pain specialist. Resume follow-up with your primary provider with regards to liver cirrhosis, hepatitis C, coronary disease and other chronic medical problems. Discharge Attestations Time Spent in Discharge Care*: greater than 30 min Quality Metrics Clinical Quality Measures During this hospital stay, did patient experience: None Coding Level of Care Code Acute [facility] note Diagnoses COPD exacerbation J44.1 Sleep apnea G47.30 Sleep apnea type: unspecified type Tobacco abuse Z72.0 Lesion of bronchus J98.09
== END 2020-10-14 17:27 | disposition home or self-care (01) | DRG 192 ==
LOC: ER 11:21 → CSU 17:02
PROVIDERS: Physician Assistant; Admitting Provider Internal Medicine; Emergency Provider Family Medicine; PCP Family Medicine; Visit Provider Internal Medicine
DX: J43.2 Centrilobular emphysema (principal); Z99.81 Dependence on supplemental oxygen; I25.10 Atherosclerotic heart disease of native coronary artery without angina pectoris; Z95.5 Presence of coronary angioplasty implant and graft; B18.2 Chronic viral hepatitis C; F10.10 Alcohol abuse, uncomplicated; K70.30 Alcoholic cirrhosis of liver without ascites; G40.909 Epilepsy, unspecified, not intractable, without status epilepticus; Z86.73 Personal history of transient ischemic attack (TIA), and cerebral infarction without residual deficits; G89.4 Chronic pain syndrome; F17.210 Nicotine dependence, cigarettes, uncomplicated; M25.512 Pain in left shoulder; E78.5 Hyperlipidemia, unspecified; J98.09 Other diseases of bronchus, not elsewhere classified; R07.81 Pleurodynia; G47.30 Sleep apnea, unspecified; Z79.51 Long term (current) use of inhaled steroids; Z79.82 Long term (current) use of aspirin; Z79.891 Long term (current) use of opiate analgesic; Z79.02 Long term (current) use of antithrombotics/antiplatelets
CPT/HCPCS: 36415; 36600; 71045; 71275; 80048; 80051; 80053; 80307; 82330; 82805; 84145; 84484; 85025; 87070; 87205; 87426; 87635; 93005; 94640; 94664; 96372; 99285; G0378; J0696; J1644; J2930; Q9967

== ENCOUNTER 2020-10-22 07:14 | Day surgery (SDC) | payer MEDICARE, SELFPAY ==
[2020-10-20 13:56] VITALS: BMI 29.1
--- NOTE | 2020-10-22 07:34 | P.ANESASSM_ITS ---
Pre-Anesthetic Assessment Pre-Anesthetic Assessment: Height/Weight: Height 1.83 m Weight 97.522 kg Preop Diagnosis: UAP/NSTEMUI Proposed Procedure: Operation Date: 10/22/20 09:10 Proposed Procedures p Bronchoscopy J98.09 04023(Not Applicable) - Austin Devine MD Was Beta Chana taken within 24 hours: N/A Was Clonidine taken within 24 hours: N/A Social: Social History: Alcohol and Tobacco Exam: Pre-Anes Outpt Exam: alert, oriented x 3 and regular rate & rhythm Additional Exam Findings (including area of procedure): rhonchi and wheezing Airway: Submandibular: WNL Cervical ROM: WNL MP: 2 Additional comments: Poor dentition, missing most Pulmonary: Pulmonary: COPD (home O2 2 L) and Sleep apnea CV/HEM: CV/HEM: CAD (stents), HTN, [place] and PVD Hepatic: Hepatic: Cirrohsis and Hepatitis (Hep C) GI: GI: GERD Metabolic: Metabolic: Hyperlipidemia and Morbid obesity Neuropsych: Neuropsych: CVA and TIA Anesthetic Plan: ASA status: 3 Anesthesia: General Risk of > 500 ml blood loss (7ml/kg in children): No PFSH Anesthesia PFSH: Medical History (Updated 10/15/20 @ 00:01 by ) Alcohol abuse Alcoholic cirrhosis of liver Atherosclerosis of coronary artery of [place] heart without angina pectoris Chronic back pain Chronic pain in left shoulder Chronic pain syndrome Cigarette nicotine dependence COPD (chronic obstructive pulmonary disease) COPD exacerbation Coronary artery disease Dyslipidemia Dyslipidemia (high LDL; low HDL) Encounter for long-term (current) use of NSAIDs Encounter for long-term opiate analgesic use Hepatitis C Liver cirrhosis Recurrent cerebrovascular accidents (CVAs) Syncope and collapse Surgical History H/O elbow surgery Hx of hernia repair Hx of knee surgery Hx of shoulder surgery S/P coronary artery stent placement Family History Mother CAD (coronary artery disease) Had a myocardial infarction at the age of 18. She is alive. She had a PCI? Father CAD (coronary artery disease) Had myocardial infarction in his 70s and is alive Other Diabetes Hypertension Myocardial infarct Social History Smoking and tobacco status: current some day smoker cigarettes Quit status (tobacco): has quit using tobacco Year quit tobacco: 2020 6mths ago 2ppd x 40y Second hand smoke exposure: Yes Smoking risk assessment/counseling performed?: Yes Alcohol intake: current Lives independently: Yes Household members: spouse Housing: House Marital status: service: No Current occupational status: disabled Pets and animals: Yes History of recent travel: No Current gender identity: Male Data Anesthesia Cardiac Studies: Cardiac Event Monitor 02/12/20
[2020-10-22] MEDS: sodium chloride 0.9% 1,000 ML 30 ML IV (08:04)
--- NOTE | 2020-10-22 08:30 | P.HP_ITS ---
Providers/Chief Complaint Primary Care Provider: Keyanna Brown MD Chief Complaint: Bronchoscopy History of Present Illness David Lanza Jr is a 60 year old male history of COPD, chronically on 3 L nasal cannula, CAD with history of stenting, hepatitis C, occasional binge alcohol consumption, reports also history of liver cirrhosis, history of seizure disorder for which he follows with neurology, history of CVA, chronic pain for w hich he follows with pain specialist, has been trying to cut down and stop smoking for long time, currently still smokes 1-2 cigarettes/day, recently admitted to cardiac stepdown unit for COPD exacerbation. He was assessed with chest x-ray in ER showing possibly mild fibrotic changes in the right upper lobe laterally, subpulmonic effusion on the right. CT angiogram chest 10/12/2020 was obtained which shows no PE, no focal acute pulmonary disease, stable granulomatous changes and fibrotic lung changes, but also with noted nonspecific stenosis/endobronchial lesion at the origin of right upper l obe segmental bronchi of uncertain significance, endobronchial lesion not excluded, comparing to prior imaging at least part of the thickened/stenotic area appears to also have been present during the prior study 09/13/2020 pulmonary consulted for possible bronchoscopic inspection and biopsy of the suspected endobronchial lesion on CT chest to rule out malignancy given his significant smoking history. During hospitalization patient was Plavix for CAD and treated for COPD exacerbation and then discharged. Upon discharge he was told to stop taking Plavix from 10/16/2020 and outpatient bronchoscopy for inspection and possible endobronchial biopsy was planned for today 10/22/2020. As instructed patient stop Plavix 5 days ago. Today we will proceed for bronchoscopy and with airway inspection and possible biopsy of endobronchial lesion Review of Systems General: Reports: 10 or more systems reviewed and unremarkable except in HPI and below Medications/Allergies Home Medications Medication Instructions Recorded Confirmed Last Taken Type albuterol sulfate 2.5 mg CONTINUOUS NEBULIZATION PRN 06/19/19 10/20/20 01/03/20 08:30 History aspirin 81 mg tablet,delayed 81 mg PO QAM 06/18/20 10/20/20 10/09/20 History release citalopram 20 mg tablet 20 mg PO QAM 07/28/20 10/20/20 10/09/20 History hydrocodone 10 mg-acetaminophen 1 tab PO .6 times a day PRN 30 09/08/20 10/20/2010/11/21 Rx 325 mg tablet Days #180 tab Spiriva Respimat 2 puff INHALATION QAM 10/12/20 10/20/20 Unknown History atorvastatin [Lipitor] 20 mg PO QAM 10/12/20 10/20/20 10/09/20 History clopidogrel 75 mg PO QAM 10/12/20 10/20/20 10/09/20 History fluticasone propionate 230 See Rx Instructions .ROUTE 10/12/20 10/20/20 Unknown Rx mcg-salmeterol 21 mcg/actuation .COMPLEX #12 gram HFA inhaler folic acid 1 mg PO QAM 10/12/20 10/20/20 10/09/20 History levetiracetam 1,000 mg PO BEDTIME 10/12/20 10/20/20 10/09/20 History pantoprazole 40 mg PO QAM 10/12/20 10/20/20 10/09/20 History multivitamin with folic acid 400 See Rx Instructions .ROUTE 10/13/20 10/20/20 Unknown Rx mcg tablet .COMPLEX #30 tablet thiamine HCl (vitamin B1) 100 mg See Rx Instructions .ROUTE 10/13/20 10/20/20 Unknown Rx tablet .COMPLEX #30 each doxycycline monohydrate 100 mg PO BID #10 tab 10/14/20 10/20/20 Unknown Rx Allergies Allergy/AdvReac Type Severity Reaction Status Date / Time gabapentin [From Neurontin] Allergy ADR-Agitate Verified 10/22/20 07:51 d PFSH PFSH: Medical History (Updated 10/22/20 @ 08:36 by Austin Devine MD) Alcohol abuse Alcoholic cirrhosis of liver Atherosclerosis of coronary artery of [place] heart without angina pectoris Chronic back pain Chronic pain in left shoulder Chronic pain syndrome Cigarette nicotine dependence COPD (chronic obstructive pulmonary disease) COPD exacerbation Coronary artery disease Dyslipidemia Dyslipidemia (high LDL; low HDL) Encounter for long-term (current) use of NSAIDs Encounter for long-term opiate analgesic use Hepatitis C Liver cirrhosis Recurrent cerebrovascular accidents (CVAs) Syncope and collapse Surgical History H/O elbow surgery Hx of hernia repair Hx of knee surgery Hx of shoulder surgery S/P coronary artery stent placement Family History Mother CAD (coronary artery disease) Had a myocardial infarction at the age of 18. She is alive. She had a PCI? Father CAD (coronary artery disease) Had myocardial infarction in his 70s and is alive Other Diabetes Hypertension Myocardial infarct Social History Smoking and tobacco status: current some day smoker cigarettes Quit status (tobacco): has quit using tobacco Year quit tobacco: 2020 6mths ago 2ppd x 40y Second hand smoke exposure: Yes Smoking risk assessment/counseling performed?: Yes Alcohol intake: current Lives independently: Yes Household members: spouse Housing: House Marital status: service: No Current occupational status: disabled Pets and animals: Yes History of recent travel: No Current gender identity: Male Dietary Habits: Caffeine: Yes Caffeine intake frequency: carbonated beverages Vital Signs Weight: Weight last 48 hrs Weight 215 lb Physical Exam Narrative: EXAM NARRATIVE: General: alert, NAD HEENT: conj clear, EOMI, PERRL, mmm, Neck: supple, no meningismus Heme: no cervical LAP Pulmonary: Mild bilateral diffuse end expiratory wheeze Cardiovascular: rrr, nl s1s2, no mrg Abdomen: soft, nt, nd, no r/g, bs+ Extremities: pulses +, no edema, no c/c : no CVA tenderness Skin: intact, no rash MSK: no back or neck pain Neurologic: grossly intact Data Other Data: Other data: CTA 10/12/2020: 1. Negative for pulmonary embolism. 2. No focal acute pulmonary disease. 3. Stable granulomatous changes and fibrotic lung changes. 4. Nonspecific stenosis/endobronchial lesion at the origin of right upper lobe segmental bronchi of uncertain significance, stable from recent prior. Endobronchial lesion cannot be excluded. CTA 09/13/2020: 1. No visible evidence of pulmonary embolism/pulmonary arterial thrombus. 2. Chronic lung disease as detailed in text above. 3. Coronary artery disease. A&P Assessment and plan (1) Lesion of bronchus: Status: Acute (2) Sleep apnea: Status: Acute Qualifiers: Sleep apnea type: unspecified type Qualified Code(s): G47.30 - Sleep apnea, unspecified (3) COPD (chronic obstructive pulmonary disease): Status: Acute Qualifiers: COPD type: unspecified COPD Qualified Code(s): J44.9 - Chronic obstructive pulmonary disease, unspecified #Nonspecific stenosis/endobronchial lesion at the origin of right upper lobe segmental bronchi of uncertain significance stable from CT 1 month ago -Schedule for bronchoscopy with airway inspection and possible endobronchial biopsy and bronchoalveolar lavage today -Patient to in 7 to 10 days in clinic -Benefits, risks, alternatives, nature of the procedure and complications including bleeding and pneumothorax associated with the procedure were explained in detail to the patient and he verbalized understanding and agreed to proceed with the procedure. Coding Level of Care Code New Pt Acute [facility] Scalder for Chg Fwd Patient Type New History Comprehensive Exam Comprehensive Medical Decision Making Moderate Complexity Diagnoses Lesion of bronchus J98.09 Sleep apnea G47.30 Sleep apnea type: unspecified type COPD (chronic obstructive pulmonary disease) J44.9 COPD type: unspecified COPD Time Spent (min) 30
[2020-10-22] MEDS: lidocaine 2% INJ 20 mL XX (09:25)
[2020-10-22 09:40] VITALS: BP 127/72; PULSE 73; RESP 18; TEMP 36.3; O2SAT 94
[2020-10-22 09:45] VITALS: BP 121/73; PULSE 68; RESP 18; O2SAT 93
--- NOTE | 2020-10-22 09:48 | P.OP_ITS ---
Operative Report Date of procedure: Name of the procedure: Bronchoscopy with airway inspecion and retrieval of foreign body Indication: Endobronchial lesion on CT chest in patient who is a chronic smoker and history of COPD Anesthesia: Monitored anesthesia care. Local anesthesia: 1% lidocaine 2 mL drain and 2 mL in left mainstem bronchus and 2 mL in right mainstem bronchus a total of 6 mL. Description of the procedure: The patient was positioned optimally. Monitored anesthesia care was initiated by the anesthesia team. The bronchoscope was advanced through the ET tube. The bronchoscope was passed through the vocal cords and the airway was anesthetized with 1% lidocaine again. Main lamont noted to be sharp. Sequentially inspected left mainstem bronchi followed by segments and subsegments up to 3rd level. No endobronchial lesions identified in Clear secretions were suctioned right away.Then the scope was pulled back to the main lamont and as soon as entered mainstem and turn towards right upper lobe, a 2 x 1 cm black-colored foreign body identified and suctioned with therapeutic scope right away and sent to pathology in formalin. Post foreign body retrieval, bronchoscopy was again passed through the ET tube and inspected right upper lobe subsegments, bronchus intermedius and right middle lobe, lower lobe and V6 subsegments. Mucosa appeared normal with no endobronchial lesions and there were some clear secretions throughout which were suctioned right away. After making sure there is no evidence of bleeding, procedure was terminated and the bronchoscope was pulled out. Complications: There is no immediate complications. Patient tolerated the procedure well Duration of the procedure: 15 minutes. Estimated Blood Loss: None Specimens: 2 x 1 cm black foreign body placed in formalin, dated and labeled and sent to pathology for gross evaluation. Disposition: After postop recovery, patient is good to go to home and can start Plavix from tomorrow Austin Devine MD Pulmonary critical Care Medicine [facility] Pre-op Diagnosis: UAP/NSTEMUI Associated Problem List Diagnoses (1) COPD (chronic obstructive pulmonary disease): Qualifiers: COPD type: unspecified COPD Qualified Code(s): J44.9 - Chronic obstructive pulmonary disease, unspecified (2) Lesion of bronchus: (3) Foreign body aspiration:
[2020-10-22 09:50] VITALS: BP 124/64; PULSE 69; RESP 20; O2SAT 93
[2020-10-22 09:55] VITALS: BP 126/80; PULSE 72; RESP 18; O2SAT 92
[2020-10-22 09:57] VITALS: BP 124/76; PULSE 74; RESP 18; TEMP 36.5; O2SAT 94
[2020-10-22 10:09] VITALS: BP 127/80; PULSE 70; RESP 18; O2SAT 93
--- NOTE | 2020-10-22 12:47 | ANE.PACU2 ---
Inpatient post-anesthesia follow up: Airway intact: Yes Vital signs: Temperature 97.7 F Pulse Rate 70 Respiratory Rate 18 Blood Pressure 127/80 Pulse Oximetry 93 Oxygen Delivery Me thod Nasal Cannula Oxygen Flow Rate 2 Fraction of Inspir ed Oxygen Hydration adequate: Yes Nausea and vomiting: No Pain level: 2 Mental status: Baseline
== END 2020-10-22 10:35 | disposition home or self-care (01) ==
PROVIDERS: PCP Family Medicine; Visit Provider Internal Medicine Pulmonary Disease
PROC: 0BJ08ZZ Inspection of Tracheobronchial Tree, Via Natural or Artificial Opening Endoscopic (ICD-10-PCS; CPT 31622; principal; 2020-10-22 09:00)
DX: T17.900A Unspecified foreign body in respiratory tract, part unspecified causing asphyxiation, initial encounter (principal); J44.9 Chronic obstructive pulmonary disease, unspecified; J98.09 Other diseases of bronchus, not elsewhere classified; G47.30 Sleep apnea, unspecified; Z99.81 Dependence on supplemental oxygen; I25.10 Atherosclerotic heart disease of native coronary artery without angina pectoris; Z95.5 Presence of coronary angioplasty implant and graft; I10 Essential (primary) hypertension; I25.2 Old myocardial infarction; E78.5 Hyperlipidemia, unspecified; E66.01 Morbid (severe) obesity due to excess calories; Z68.29 Body mass index [BMI] 29.0-29.9, adult; Z86.73 Personal history of transient ischemic attack (TIA), and cerebral infarction without residual deficits; Z82.49 Family history of ischemic heart disease and other diseases of the circulatory system; F17.210 Nicotine dependence, cigarettes, uncomplicated
CPT/HCPCS: 31622; 88300; 96360; 96361; J0330; J2704; J3010; J7030

== ENCOUNTER 2020-11-14 22:33 | Emergency (ER) | payer MEDICARE, SELFPAY ==
--- NOTE | 2020-11-14 22:59 | W.ED.ABDPA2 ---
HPI - Abdominal Pain General: Chief Complaint: Abdominal Pain Stated Complaint: ABD PAIN Time Seen by Provider: 11/14/20 22:59 History of Present Illness: HPI narrative: Patient comes in with epigastric abd pain, and distention. Patient admits to alcohol consumption this morning. Patient has history of COPD, CAD, Liver disease. Patient lives at home in [facility]. Pt. states feels bloated since this morning after alcohol consumption. MD elicited complaint: abdominal pain Onset (ago): hour(s) Pain Consistency: intermittent Location: Epigastric Quality: fullness Radiation: epigastric Migration to: no migration Exacerbating factors: other (alcohol consumption) Relieving factors: nothing Review of Systems General: Reports: 10 or more systems reviewed and unremarkable except in HPI and below GI: Reports: abdominal pain PFSH ED PFSH: Medical History Alcohol abuse Alcoholic cirrhosis of liver Atherosclerosis of coronary artery of [place] without angina pectoris Chronic back pain Chronic pain in left shoulder Chronic pain syndrome Cigarette nicotine dependence COPD (chronic obstructive pulmonary disease) COPD exacerbation Coronary artery disease Dyslipidemia Dyslipidemia (high LDL; low HDL) Encounter for long-term (current) use of NSAIDs Encounter for long-term opiate analgesic use Hepatitis C Liver cirrhosis Recurrent cerebrovascular accidents (CVAs) Syncope and collapse Surgical History H/O elbow surgery Hx of hernia repair Hx of knee surgery Hx of shoulder surgery S/P coronary artery stent placement Family History Mother CAD (coronary artery disease) Had a myocardial infarction at the age of 18. She is alive. She had a PCI? Father CAD (coronary artery disease) Had myocardial infarction in his 70s and is alive Other Diabetes Hypertension Myocardial infarct Social History Smoking and tobacco status: current some day smoker cigarettes Quit status (tobacco): has quit using tobacco Year quit tobacco: 2019 6mths ago 2ppd x 40y Second hand smoke exposure: Yes Smoking risk assessment/counseling performed?: Yes Alcohol intake: current Lives independently: Yes Household members: spouse Housing: House Marital status: service: No Current occupational status: disabled Pets and animals: Yes History of recent travel: No Current gender identity: Male Physical Exam Const: COMMON NORMALS: no acute distress and patient oriented x3 GENERAL APPEARANCE: cooperative HENMT: COMMON NORMALS: normocephalic and Normal external nose present HEAD & SCALP: normal to inspection and normocephalic NOSE: Normal external nose present MOUTH: Normal oral and palatal mucosa present Eye: GENERAL EYE: appearance normal, both eyes and all related structures Neck/C-Spine: COMMON NORMALS: full ROM Lymph: LYMPHATIC: no lymphadenopathy noted Chest: COMMONS NORMALS: normal inspection of the chest Resp: COMMON NORMALS: normal respiratory effort EFFORT & INSPECTION: Yes able to speak in complete sentences Cardio: COMMON NORMALS: regular rate and regular rhythm RATE: regular rate RHYTHM: regular rhythm GI: COMMON NORMALS: Soft to palpation INSPECTION: Yes abdominal distension AUSCULTATION: Yes normoactive bowel sounds PALPATION: Yes Soft to palpation PERCUSSION: dullness to percussion : COMMON NORMALS: Yes no CVA tenderness BLADDER/KIDNEY EXAM: Yes no CVA tenderness Back/Pelvis: COMMON NORMALS: no CVA tenderness and thoracic and lumbar spine normal to inspection Extremity: COMMON NORMALS: normal to inspection Neuro: COMMON NORMALS: patient oriented x3 and moves all extremities Psych: COMMON NORMALS: mental status grossly normal and cooperative Skin: COMMON NORMALS: no rashes or lesions noted GENERAL SKIN EXAM: no rashes or lesions noted Course ED course: 0200, reviewed labs with patient and recommendations for treatment and follow-up. Patient reports that he was having abdominal discomfort and once for pain and was becoming agitated. Patient was given 1 mg Ativan due to my concern that he may be having alcohol withdrawal. 0210, patient reports that he was having a seizure and was talking through his tremors. Patient was becoming more agitated with staff. I ordered 5 mg of Haldol due to my concerns for pseudoseizure and agitation. 245, patient is resting well and is calm and relaxed. Discussed with Dr. Parra patient's condition we will continue to monitor patient and plan for discharge when his ride is here. Vital Signs: Vital signs: Vital Signs Temperature 97.1 F L 11/14/20 23:01 Pulse Rate 102 H 11/15/20 01:30 Respiratory Rate 22 H 11/14/20 23:44 Blood Pressure 142/82 11/15/20 01:30 Pulse Oximetry 95 11/15/20 01:30 MDM - Abdominal Pain MDM Narrative: Medical decision making narrative: Patient came in tonight for complaints of feeling of bloating and abdominal discomfort. On exam patient reported epigastric tenderness. Respirations were even lungs were wheezing throughout. Vital signs were normal. Differential diagnosis includes but not limited to bowel obstruction, gastritis, ascites, liver failure. Laboratory values were unremarkable. CT scan of abdomen and pelvis indicated no acute problems. Reviewed exam with patient he became agitated stating that he felt there was ascites on there and we needed to draw it off. I discussed this with patient after review with Dr. Parra and there was no signs of ascites on CT or any other indications acute illness. Patient is a chronically ill individual with COPD and alcoholism. At this time there is no sign of any significant illness that require hospitalization. Patient was given 1 Ativan and 5 the Haldol for his agitation. Lab Data: Labs: Lab Results 11/14/20 11/14/20 Range/Units 23:10 23:10 WBC 7.8 (4.0-10.0) 10^3/ uL RBC 4.13 (4.1-5.3) 10^6/u L Hgb 14.3 (11.7-16.6) g/dL Hct 42.0 (42.0-52.0) % MCV 101.7 H (80-94) fL MCH 34.6 H (28.0-34.0) pg MCHC 34.0 (30.0-36.0) g/dL RDW 11.9 L (12.1-15.1) % Plt Count 202 (130-400) 10^3/c mm MPV 8.3 (7.4-10.4) fL Neut % (Auto) 58.4 % Lymph % (Auto) 21.0 % Winn % (Auto) 15.1 % Eos % (Auto) 4.0 % Baso % (Auto) 0.6 % Neut # (Auto) 4.52 (1.8-7.7) 10^3/u L Lymph # (Auto) 1.6 (0.8-4.8) 10^3/u L Winn # (Auto) 1.2 H (0.2-0.9) 10^3/u L Eos # (Auto) 0.3 (0.0-0.8) 10^3/u L Baso # (Auto) 0.1 (0.0-0.1) 10^3/u L Nucleated RBC % (a uto) 0 % Nucleated RBCs # 0.0 /100WBC Sodium 141 (136-145) mmol/L Potassium 4.0 (3.5-5.1) mmol/L Chloride 105 (98-107) mmol/L Carbon Dioxide 22 (22-29) mmol/L Anion Gap 18.0 (5-19) BUN 13 (6-20) mg/dL Creatinine 0.8 (0.7-1.2) mg/dL GFR Calculation 98.9 (90-130) mL/min Glucose 95 (65-115) mg/dL Calculated Osmolal ity 292 (285-295) mOsm/k g Calcium 9.8 (8.5-10.5) mg/dL Total Bilirubin 0.5 (0.15-1.2) mg/dL AST 44 H (0-40) U/L ALT 50 H (0-41) U/L Alkaline Phosphata se 131 H (40-130) IU/L Total Protein 7.0 (6.6-8.7) g/dL Albumin 4.4 (3.5-5.2) g/dL Globulin 2.6 (1.3-4.6) g/dL Lipase 32 (13-60) U/L EKG Data ^: EKG 1: Attestation: I personally reviewed and interpreted this EKG as follows: (0010, ekg shows sinus tach rate of 108 bpm and regular, no ectopy or ST elevation, no availabe ekg for immediate comparison.) Discharge Plan Discharge Patient Disposition: Home Clinical Impression: Abdominal pain Qualifiers: Abdominal location: epigastric Qualified Code(s): R10.13 - Epigastric pain COPD (chronic obstructive pulmonary disease) Qualifiers: COPD type: unspecified COPD Qualified Code(s): J44.9 - Chronic obstructive pulmonary disease, unspecified Alcohol dependence Qualifiers: Substance use status: unspecified alcohol-induced disorder Qualified Code(s): F10.29 - Alcohol dependence with unspecified alcohol-induced disorder Condition: Stable Prescriptions: No Action albuterol sulfate 2.5 mg /3 mL (0.083 %) solution for nebulization 2.5 mg continuous nebulization PRN RF: 0 aspirin [Adult Low Dose Aspirin] 81 mg tablet,delayed release (DR/EC) 81 mg PO QAM RF: 0 citalopram [Celexa] 20 mg tablet 20 mg PO QAM RF: 0 hydrocodone-acetaminophen 10-325 mg tablet 1 tab PO .6 times a day PRN (Reason: Pain) 30 Days Qty: 180 RF: 0 Advair HFA 230-21 mcg/actuation HFA aerosol inhaler See Rx Instructions .ROUTE .COMPLEX Qty: 12 RF: 1 thiamine HCl (vitamin B1) [Vitamin B-1] 100 mg tablet See Rx Instructions .ROUTE .COMPLEX Qty: 30 RF: 0 Tab-A-Patrick 400 mcg tablet See Rx Instructions .ROUTE .COMPLEX Qty: 30 RF: 5 levetiracetam 500 mg tablet extended release 24 hr 1,000 mg PO BEDTIME RF: 0 atorvastatin [Lipitor] 20 mg tablet 20 mg PO QAM RF: 0 clopidogrel 75 mg tablet 75 mg PO QAM RF: 0 pantoprazole 40 mg tablet,delayed release (DR/EC) 40 mg PO QAM RF: 0 folic acid 1 mg tablet 1 mg PO QAM RF: 0 Spiriva Respimat 2.5 mcg/actuation mist 2 puff INHALATION QAM RF: 0 Discharge Orders: Discharge ED (Routine); Ordered 11/15/20 Ordered By: Isrrael Ferreira Referrals: Keyanna Brown MD [Primary Care Provider] - Discharge Diet: Usual diet Discharge Activity: Increase activity as tolerated Patient Instructions: Abdominal Pain (ED), Opioid Safety Activity Restrictions/Additional Instructions: Follow-up with primary care in for further treatment. Return to ER for worsening symptoms or new concern Coding Level of Care Code ED Banquet Bartender for Chg Fwd Exam Comprehensive
[2020-11-14 23:01] VITALS: BP 169/90; PULSE 113; RESP 26; TEMP 36.2; O2SAT 96; BMI 28.5
--- NOTE | 2020-11-14 23:04 | XRR_ITS ---
PROCEDURE INFORMATION: Exam: XR Chest Exam date and time: 11/14/2020 11:04 PM Age: 60 years old Clinical indication: Other: Abdomen; Epigastric-distention; Prior surgery; Surgery date: 6+ months; Surgery type: Coronary artery stent placement. Hernia repair; Patient HX: Abdominal pain-epigastric. /distention. HX of copd, cad, liver disease; Additional info: Wheezing, copd TECHNIQUE: Imaging protocol: XR of the chest. Views: 1 view. COMPARISON: CR XR chest 1V portable [id number] 10/12/2020 11:01 AM FINDINGS: Lungs: Bilateral calcified granulomas and COPD changes are seen. No consolidation. Pleural spaces: Unremarkable. No pleural effusion. No pneumothorax. Heart/Mediastinum: Unremarkable. No cardiomegaly. Bones/joints: Unremarkable. XR/XR chest 1V portable [id number] IMPRESSION: No acute findings.
--- NOTE | 2020-11-14 23:05 | ECG_ITS ---
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 Measurements Intervals [place] Rate: 108 P: 75 [place]: 152 QRS: 176 QRSD: 103 T: 52 QT: 337 QTc: 453 Interpretive Statements SINUS TACHYCARDIA POSSIBLE RIGHT VENTRICULAR HYPERTROPHY PROBABLE INFERIOR MYOCARDIAL INFARCTION,OF INDETERMINATE AGE Compared to ECG 10/12/2020 15:03:32 Atrial abnormality now present Myocardial infarct finding now present Sinus rhythm no longer present Incomplete right bundle-branch block no longer present Electronically Signed On 11-15-2020 10:07:21 CDT by Silvia Garduno M.D. [id number]
[2020-11-14 23:13] LABS: Basophils # 0.1 10^3/uL (0.0-0.1); Basophils % 0.6 %; Eosinophils # 0.3 10^3/uL (0.0-0.8); Hemoglobin 14.3 g/dL (11.7-16.6); Lymphocytes # 1.6 10^3/uL (0.8-4.8); Mean Corpuscular Hemoglobin 34.6 pg (28.0-34.0); Mean Corpuscular Volume 101.7 fL (80-94); Mean Platelet Volume 8.3 fL (7.4-10.4); Monocytes # 1.2 10^3/uL (0.2-0.9); Monocytes % 15.1 %; Neutrophils # 4.52 10^3/uL (1.8-7.7); Neutrophils % 58.4 %; Nucleated Red Blood Cells % 0 %; Platelet Count 202 10^3/cmm (130-400); Red Blood Count 4.13 10^6/uL (4.1-5.3); Red Cell Distribution Width 11.9 % (12.1-15.1); White Blood Count 7.8 10^3/uL (4.0-10.0)
--- NOTE | 2020-11-14 23:17 | CTR_ITS ---
PROCEDURE INFORMATION: Exam: CT Abdomen And Pelvis With Contrast Exam date and time: 11/14/2020 11:17 PM Age: 60 years old Clinical indication: Abdominal pain; Prior surgery; Surgery date: 6+ months; Surgery type: Hernia; Patient HX: C/O epigastric pain w nausea and distention - HX of hep c and cirrhosis; Additional info: Epigastric pain, nausea TECHNIQUE: Imaging protocol: Computed tomography of the abdomen and pelvis with contrast. Radiation optimization: All CT scans at this facility use at least one of these dose optimization techniques: automated exposure control; mA and/or kV adjustment per patient size (includes targeted exams where dose is matched to clinical indication); or iterative reconstruction. Contrast material: OMNI 300; Contrast volume: 95 ml; Contrast route: INTRAVENOUS (IV); COMPARISON: CT abdomen pelvis wo con [id number] 09/13/2020 8:47 PM RADIATION DOSE METRICS: Total DLP (mGy-cm): 1634.73 FINDINGS: Liver: Hepatic steatosis. Gallbladder and bile ducts: Normal. No calcified stones. No ductal dilation. Pancreas: Normal. No ductal dilation. Spleen: Normal. No splenomegaly. Adrenal glands: Normal. No mass. Kidneys and ureters: Several right kidney cysts, negative for follow-up advised. Right kidney upper pole punctate nonobstructing renal calyceal stone. Stomach and bowel: Unremarkable. No obstruction. No mucosal thickening. Appendix: No evidence of appendicitis. Intraperitoneal space: Unremarkable. No free air. No significant fluid collection. Vasculature: Unremarkable. No abdominal aortic aneurysm. Lymph nodes: Unremarkable. No enlarged lymph nodes. Urinary bladder: Unremarkable as visualized. Reproductive: Unremarkable as visualized. Bones/joints: Unremarkable. No acute fracture. Soft tissues: Small umbilical hernia containing omentum without bowel. Other findings: Emphysematous changes. CT/CT abdomen pelvis w con* [id number] IMPRESSION: 1. Negative for acute inflammatory process in the abdomen or pelvis. 2. Hepatic steatosis. 3. Small umbilical hernia containing omentum without bowel. 4. Several right kidney cysts, negative for follow-up advised. 5. Right kidney upper pole punctate nonobstructing renal calyceal stone. 6. Emphysematous changes. COMMENTS: Consistent with the [place]'s Incidental Findings Committee white paper (J Am Todd Radiol 2018): Any incidental renal lesion less than 1 cm or classified as too small to characterize, or any incidental cystic renal lesion characterized as simple-appearing, is likely benign. No follow-up imaging is recommended for these lesions per consensus recommendations based on imaging criteria. Radiation Dose CTDIVOL = (mGy): DLP = 1634.73 (mGy-cm)
[2020-11-14 23:29] LABS: Alanine Aminotransferase 50 U/L (0-41); Albumin Level 4.4 g/dL (3.5-5.2); Alkaline Phosphatase 131 IU/L (40-130); Aspartate Amino Transferase 44 U/L (0-40); Blood Urea Nitrogen 13 mg/dL (6-20); Calcium 9.8 mg/dL (8.5-10.5); Carbon Dioxide 22 mmol/L (22-29); Chloride 105 mmol/L (98-107); Globulin 2.6 g/dL (1.3-4.6); Glomerular Filtration Rate 98.9 mL/min (90-130); Glucose 95 mg/dL (65-115); Lipase 32 U/L (13-60); Osmolality Calculated 292 mOsm/kg (285-295); Sodium 141 mmol/L (136-145); Total Bilirubin 0.5 mg/dL (0.15-1.2)
[2020-11-14 23:41] VITALS: PULSE 94; RESP 18; O2SAT 96
[2020-11-14] MEDS: ipratropium-albuterol 3 mL Neb INHALATION (23:41)
[2020-11-14 23:44] VITALS: BP 169/90; PULSE 101; PULSE 96; RESP 22; O2SAT 92
[2020-11-15] MEDS: iohexol 300 mg/mL 100 mL Btl IV (00:13)
[2020-11-15 01:30] VITALS: BP 142/82; PULSE 102; O2SAT 95
[2020-11-15] MEDS: LORazepam 2 mg/mL INJ 1 mL 1 MG IVP (01:50)
[2020-11-15] MEDS: haloperidol inj 5 mg/mL INJ 1 mL IVP (02:20)
[2020-11-15 05:58] VITALS: BP 120/71; PULSE 92; RESP 20; O2SAT 96
== END 2020-11-15 06:35 | disposition home or self-care (01) ==
PROVIDERS: Emergency Medicine; Emergency Provider Nurse Practitioner Family; PCP Family Medicine
DX: R10.13 Epigastric pain (principal); J44.9 Chronic obstructive pulmonary disease, unspecified; F10.29 Alcohol dependence with unspecified alcohol-induced disorder; Z79.82 Long term (current) use of aspirin; Z79.02 Long term (current) use of antithrombotics/antiplatelets; I25.10 Atherosclerotic heart disease of native coronary artery without angina pectoris; E78.5 Hyperlipidemia, unspecified; Z86.19 Personal history of other infectious and parasitic diseases; F17.210 Nicotine dependence, cigarettes, uncomplicated
CPT/HCPCS: 71045; 74177; 80053; 83690; 85025; 93005; 94640; 96374; 96375; 99283; J1630; J2060; Q9967

== ENCOUNTER → 2020-11-29 15:34 | Outpatient (BNVA) | payer MEDICARE, SELFPAY | PROVIDERS: PCP Family Medicine; Visit Provider Nurse Practitioner Family | DX: E78.5 Hyperlipidemia, unspecified (principal); J44.9 Chronic obstructive pulmonary disease, unspecified; I77.9 Disorder of arteries and arterioles, unspecified; K21.9 Gastro-esophageal reflux disease without esophagitis; F41.9 Anxiety disorder, unspecified; F32.9 Major depressive disorder, single episode, unspecified; M54.9 Dorsalgia, unspecified; G89.29 Other chronic pain | CPT/HCPCS: 80053; 80061; 85025 ==

== ENCOUNTER → 2020-12-01 07:58 | Outpatient (BNVA) | payer MEDICARE, SELFPAY | PROVIDERS: PCP Family Medicine; Visit Provider Anesthesiology | DX: G89.29 Other chronic pain (principal); M54.9 Dorsalgia, unspecified; M25.512 Pain in left shoulder; F17.219 Nicotine dependence, cigarettes, with unspecified nicotine-induced disorders; Z79.891 Long term (current) use of opiate analgesic | CPT/HCPCS: 99214 ==

== ENCOUNTER 2021-01-11 21:05 | Emergency (ER) | payer MEDICARE, SELFPAY ==
[2021-01-11 21:10] VITALS: BP 128/78; PULSE 102; RESP 26; TEMP 36.8; O2SAT 96; BMI 28.5
--- NOTE | 2021-01-11 21:21 | ECG_ITS ---
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 Measurements Intervals [place] Rate: 97 P: 68 [place]: 145 QRS: 124 QRSD: 101 T: 56 QT: 359 QTc: 457 Interpretive Statements SINUS RHYTHM INCOMPLETE RIGHT BUNDLE BRANCH BLOCK [90+ ms QRS DURATION, TERMINAL R IN V1/V2, 40+ ms S IN I/aVL/V4/V5/V6] POSSIBLE RIGHT VENTRICULAR HYPERTROPHY [SOME/ALL OF: PROMINENT R IN V1, LATE TRANSITION, RAD, ELI, SSS] SEPTAL MYOCARDIAL INFARCTION [40+ ms Q WAVE IN V1/V2], OF INDETERMINATE AGE Compared to ECG 11/15/2020 00:04:52 Incomplete right bundle-branch block now present Sinus tachycardia no longer present Myocardial infarct finding still present Electronically Signed On 01-13-2021 7:40:43 CDT by Silvia Garduno M.D. [id number]
[2021-01-11] MEDS: sodium chloride 0.9% 1,000 ML 999 ML IV (21:26)
--- NOTE | 2021-01-11 21:31 | XRR_ITS ---
PROCEDURE INFORMATION: Exam: XR Chest Exam date and time: 01/11/2021 9:31 PM Age: 60 years old Clinical indication: Shortness of breath; Additional info: Copd TECHNIQUE: Imaging protocol: XR of the chest. Views: 1 view. COMPARISON: CR XR chest 1V portable [id number] 11/14/2020 11:00 PM FINDINGS: Lungs: There are multiple calcified pulmonary nodules consistent with prior granulomatous disease. Hazy left basilar opacity which could be secondary to atelectasis or pneumonia. Pleural spaces: Unremarkable. No pleural effusion. No pneumothorax. Heart/Mediastinum: There is mild cardiomegaly. Bones/joints: Unremarkable. XR/XR chest 1V portable [id number] IMPRESSION: 1. Hazy left basilar opacity which could be secondary to atelectasis or pneumonia. 2. Mild cardiomegaly.
--- NOTE | 2021-01-11 21:31 | XRR_ITS ---
PROCEDURE INFORMATION: Exam: XR Pelvis Exam date and time: 01/11/2021 9:31 PM Age: 60 years old Clinical indication: Pelvic pain; Additional info: Evaluate for R sided hip pain TECHNIQUE: Imaging protocol: XR pelvis. Views: 1 or 2 view. COMPARISON: CT abdomen pelvis w con* [id number] 11/15/2020 12:10 AM FINDINGS: Bones/joints: Unremarkable. No acute fracture. Soft tissues: Unremarkable. XR/XR pelvis 1-2V* [id number] IMPRESSION: No acute findings.
--- NOTE | 2021-01-11 21:33 | ED_ITS ---
HPI - General Adult General: Chief complaint: Seizure Stated complaint: SEIZURE LIKE ACTIVITY Time Seen by Provider: 01/11/21 21:14 History of Present Illness: HPI narrative: HPI: [60]yo patient w/ hx of alcoholic dependence (last drink 3 days ago)c/b alcohol withdrawal, cirrhosis, CAD, COPD on home O2 BIBA to the ED with breakthrough episode of the seizures x 2. The incident was witnessed by patient's family today while he sitting down in a chair. Since his last drink 3 days ago, patient has one episode of fall. En route, the patient had a fingerstick glucose of wnl and was back to baseline. HDS without any signs of focal neurological deficits. On arrival, the patient is AAOx3, GCS of 15 and answering all questions. The patient denies any associated chest pain, shortness of breath, palpitations, or any focal pain in the arms and legs. Patient is on keppra 1g for his seizure outbreak and is compliant with his medicine. Onset: earlier today Duration:x 2 episodes Location: home Severity: moderate Review of Systems Narrative: Constitutional: No fever, no chills. HEENT: No vision changes CV: No chest pain, no palpitations PULM: No productive cough, + dyspnea. GI: No abdominal pain, no N/V/D. : No Dysuria MSKEL: No muscle pain, +R hip pain SKIN: No new rashes, no lesions. NEURO: No headache, no focal weakness. + 1 episode of seizure HEME: No visible bruises PSYCH: Normal mood PFSH ED PFSH: Medical History Alcohol abuse Alcoholic cirrhosis of liver Atherosclerosis of coronary artery of [place] heart without angina pectoris Chronic back pain Chronic pain in left shoulder Chronic pain syndrome Cigarette nicotine dependence COPD (chronic obstructive pulmonary disease) COPD exacerbation Coronary artery disease Dyslipidemia Dyslipidemia (high LDL; low HDL) Encounter for long-term (current) use of NSAIDs Encounter for long-term opiate analgesic use Hepatitis C Liver cirrhosis Recurrent cerebrovascular accidents (CVAs) Syncope and collapse Surgical History H/O elbow surgery Hx of hernia repair Hx of knee surgery Hx of shoulder surgery S/P coronary artery stent placement Family History Mother CAD (coronary artery disease) Had a myocardial infarction at the age of 18. She is alive. She had a PCI? Father CAD (coronary artery disease) Had myocardial infarction in his 70s and is alive Other Diabetes Hypertension Myocardial infarct Social History (Updated 12/01/20 @ 08:26 by Katlin Kang LPN) Smoking and tobacco status: current every day smoker cigarettes Quit status (tobacco): has quit using tobacco Year quit tobacco: 2020 6mths ago 2ppd x 40y Second hand smoke exposure: Yes Smoking risk assessment/counseling performed?: Yes Alcohol intake: former Lives independently: Yes Household members: spouse Housing: House Marital status: service: No Current occupational status: disabled Pets and animals: Yes History of recent travel: No Current gender identity: Male Physical Exam Narrative: EXAM NARRATIVE: Head: Atraumatic Eyes: PERRL, conjunctiva without injection, eyes tracking ENT: Mucous membrane moist NECK: Supple without lymphadenopathy LUNGS: Mild b/l wheezing CV: RRR ABDOMEN: Soft, nontender in all quadrants, no guarding or rebound tenderness, no CVA or flank tenderness bilaterally EXTREMITY: Normal ROM SKIN: No rash or erythema NEURO: CN II-XII tested and intact. Sensation intact to sharp/dull differentiation in all extremities. Motor: Normal tone and bulk. No abnormal movements appreciated. No pronator drift. Strength tested and 5/5 in bilateral wrist flexion/extension, elbow flexion/extension, shoulder abduction, straight leg raise, knee flexion/extension, ankle dorsiflexion/plantarflexion. Patient ambulates with a steady gait. Coordination: Finger to nose and heel to barragan testing intact bilaterally. Reflexes intact in the ankles, knees, and elbows bilaterally PSYCH: Cooperative mood and affect Course Vital Signs: Vital signs: Vital Signs Temperature 98.2 F 01/11/21 21:10 Pulse Rate 90 01/12/21 02:41 Respiratory Rate 20 H 01/12/21 02:41 Blood Pressure 109/78 01/12/21 00:42 Pulse Oximetry 95 01/12/21 02:41 MDM - General Adult MDM Narrative: Medical decision making narrative: [60]yo patient w/ known hx of seizure 2/2 alcohol withdralw on keppra BIBA after two episodes of seizures at home . Back to baseline on arrival, AAOX3 with non-focal neuro exam. HDS. Exam revealed no focal trauma/deformity/bruises.The episode of seizure was witnessed and without any trauma/injury to the head. No immunosuppression hx and without preceding fever. No history of alcohol abuse or suspicion for toxin ingestion. Hx of prior seizure likely breakthrough seizure in the setting of medication change/non-compliance. H No lips/tongue lacerations. No visible bowel/bladder incontinence Airway protected. No drooling. Unlikely to be stroke, neurogenic syncope, acute delirium, intracranial tumor/mass, intracranial bleed, SAH/subdural hematoma/epidural hematoma, meningitis, or intracranial abscess, or from alcohol withdrawal. Today, patient is satting around 93-94%, reports that he has not been taking albuterol at home, and requests for breathing treatments. +Mild R hip tenderness to palpation EMS Interventions: None POC glucose: wnl Workup: CBC, BMP, Magnesium, EKG CT brain given recent fall, troponin, EKG Intervention: IVF, keppra 1g, and ativan for mild alcohol withdraw, duo-neb for dyspnea and wheezing ED Interventions: 1g of keppra, PO challenge, serial reassessment EKG: No e/o STEMI. No evidence of Brugada?s sign, delta wave, epsilon wave, significantly prolonged QTc, or malignant arrhythmia. Lab findings: Electrolytes including K and Mg wnl. [12:00am] On reassessment, patient back to baseline. In the ED, the patient received 1g of keppra in the ED. No other witnessed episodes of seizure while the patient was observed in the ED. Repeat neuro exam is non-focal. Patient tolerated PO in the ED and was able to ambulate without difficulties. Unlikely to be alternative causes of seizures since the patient has no hx of immunosuppression, no recent fevers, no recent abx/CARDIAC TECHNICIAN shunt, no recent toxic exposure, no unilateral or focal weakness, or trauma. CT negative for brain bleed. O2 sats improved after duo-neb. XR showed possible PNA in the L base. Continues to be satting well. No signs of hypoxemia or increased work of breathing. Low PSI score. Will treat outpatient with Z-seth and amoxicillin 500mg TID x 7 days. XR hip did not show any signs of fracture or pelvic injuries. Rx keppra 500mg BID for seizure Rx Z-seth and amoxicillin 500mg TID x 7 days Disposition: Discharge. Patient is given instruction for follow-up with PCP and Neurology in the next 24-48 hours. Given seizure precautions including no driving, swimming, or bathing until the patient is fully evaluated by neil arroyo. Lab Data: Labs: Lab Results 01/11/21 01/11/21 01/12/21 Range/Units 21:15 21:15 00:30 WBC 8.2 8.1 (4.0-10.0) 10^3/ uL RBC 4.29 3.94 L (4.1-5.3) 10^6/u L Hgb 14.6 13.6 (11.7-16.6) g/dL Hct 43.4 42.3 (42.0-52.0) % MCV 101.2 H 107.4 H D (80-94) fL MCH 34.0 34.5 H (28.0-34.0) pg MCHC 33.6 32.2 (30.0-36.0) g/dL RDW 12.0 L 12.0 L (12.1-15.1) % Plt Count 261 222 (130-400) 10^3/c mm MPV 8.5 8.4 (7.4-10.4) fL Neut % (Auto) 72.7 72.3 % Lymph % (Auto) 11.0 12.7 % [place] % (Auto) 14.3 13.5 % Eos % (Auto) 1.1 0.7 % Baso % (Auto) 0.5 0.4 % Neut # (Auto) 5.97 5.87 (1.8-7.7) 10^3/u L Lymph # (Auto) 0.9 1.0 (0.8-4.8) 10^3/u L [place] # (Auto) 1.2 H 1.1 H (0.2-0.9) 10^3/u L Eos # (Auto) 0.1 0.1 (0.0-0.8) 10^3/u L Baso # (Auto) 0.0 0.0 (0.0-0.1) 10^3/u L Nucleated RBC % (a uto) 0 0 % Nucleated RBCs # 0.0 0.0 /100WBC Specimen Type Sample Site Nathanael Test VBG pH (7.32-7.42) VBG pCO2 (41-51) mmHg VBG pO2 (25-40) mmHg VBG HCO3 (24-28) mmol/L VBG Base Excess (-3.0-3.0) mmol/ L VBG Hematocrit (42-52) % O2 Delivery Device Digital Photographer ID Sodium 138 (136-145) mmol/L Potassium 3.8 (3.5-5.1) mmol/L Chloride 101 (98-107) mmol/L Carbon Dioxide 22 (22-29) mmol/L Anion Gap 18.8 (5-19) BUN 14 (6-20) mg/dL Creatinine 0.8 (0.7-1.2) mg/dL GFR Calculation 98.9 (90-130) mL/min Glucose 90 (65-115) mg/dL Calculated Osmolal ity 286 (285-295) mOsm/k g Calcium 8.8 (8.5-10.5) mg/dL Magnesium 1.9 (1.7-2.3) mg/dL Total Bilirubin 0.5 (0.15-1.2) mg/dL AST 33 (0-40) U/L ALT 29 (0-41) U/L Alkaline Phosphata se 101 (40-130) IU/L Total Protein 7.3 (6.6-8.7) g/dL Albumin 4.1 (3.5-5.2) g/dL Globulin 3.2 (1.3-4.6) g/dL Lipase 53 (13-60) U/L 01/12/21 Range/Units 00:30 WBC (4.0-10.0) 10^3/ uL RBC (4.1-5.3) 10^6/u L Hgb (11.7-16.6) g/dL Hct (42.0-52.0) % MCV (80-94) fL MCH (28.0-34.0) pg MCHC (30.0-36.0) g/dL RDW (12.1-15.1) % Plt Count (130-400) 10^3/c mm MPV (7.4-10.4) fL Neut % (Auto) % Lymph % (Auto) % [place] % (Auto) % Eos % (Auto) % Baso % (Auto) % Neut # (Auto) (1.8-7.7) 10^3/u L Lymph # (Auto) (0.8-4.8) 10^3/u L [place] # (Auto) (0.2-0.9) 10^3/u L Eos # (Auto) (0.0-0.8) 10^3/u L Baso # (Auto) (0.0-0.1) 10^3/u L Nucleated RBC % (a uto) % Nucleated RBCs # /100WBC Specimen Type Venous Sample Site Not specified Nathanael Test N/a VBG pH 7.31 L (7.32-7.42) VBG pCO2 54.1 H (41-51) mmHg VBG pO2 27.8 (25-40) mmHg VBG HCO3 27.0 (24-28) mmol/L VBG Base Excess -0.3 (-3.0-3.0) mmol/ L VBG Hematocrit 42.5 (42-52) % O2 Delivery Device N/field marketing manager ID Amh Sodium (136-145) mmol/L Potassium (3.5-5.1) mmol/L Chloride (98-107) mmol/L Carbon Dioxide (22-29) mmol/L Anion Gap (5-19) BUN (6-20) mg/dL Creatinine (0.7-1.2) mg/dL GFR Calculation (90-130) mL/min Glucose (65-115) mg/dL Calculated Osmolal ity (285-295) mOsm/k g Calcium (8.5-10.5) mg/dL Magnesium (1.7-2.3) mg/dL Total Bilirubin (0.15-1.2) mg/dL AST (0-40) U/L ALT (0-41) U/L Alkaline Phosphata se (40-130) IU/L Total Protein (6.6-8.7) g/dL Albumin (3.5-5.2) g/dL Globulin (1.3-4.6) g/dL Lipase (13-60) U/L Imaging Data^: Other Imaging: Radiologist's impression: [place] [id number] 75XRay ReportSigned Patient: PoolDavid Jolanta JrUnit #: [id number]: [id number]#:[id number]/Sex: 60 / MADM Date: 01/11/21Loc: ERRoom/Bed:Attending Dr: Ordering Provider/Ordering MD: Poonam Ugalde MD Date of Service: 01/11/21 Procedure(s): XR pelvis 1-2V* [id number] Accession Number(s): [id number] Report Number: [id number] PROCEDURE INFORMATION: Exam: XR Pelvis Exam date and time: 01/11/2021 9:31 PM Age: 60 years old Clinical indication: Pelvic pain; Additional info: Evaluate for R sided hip pain TECHNIQUE: Imaging protocol: XR pelvis. Views: 1 or 2 view. COMPARISON: CT abdomen pelvis w con* [id number] 11/15/2020 12:10 AM FINDINGS: Bones/joints: Unremarkable. No acute fracture. Soft tissues: Unremarkable. XR/XR pelvis 1-2V* [id number] IMPRESSION: No acute findings. Dictated By:Josh Foster By:Josh Foster Date/Time:01/11/212244DD/ [address] [id number] Scan ReportSigned Patient: David Lanza Unit #: [id number]: [id number]#:[id number]/Sex: 60 / MADM Date: 01/11/21Loc: ERRoom/Bed:Attending Dr: Ordering Provider/Ordering MD: Poonam Ugalde MD Date of Service: 01/11/21 Procedure(s): CT head wo con* [id number] Accession Number(s): [id number] Report Number: [id number] PROCEDURE INFORMATION: Exam: CT Head Without Contrast Exam date and time: 01/11/2021 9:31 PM Age: 60 years old Clinical indication: Condition or disease; Convulsions or seizures; Epilepsy; Severity not specified; Unspecified; Patient HX: HX of seizures off meds x 1 month 2 seizures today; Additional info: Rule out brain bleed TECHNIQUE: Imaging protocol: Computed tomography of the head without contrast. Radiation optimization: All CT scans at this facility use at least one of these dose optimization techniques: automated exposure control; mA and/or kV adjustment per patient size (includes targeted exams where dose is matched to clinical indication); or iterative reconstruction. COMPARISON: CT head wo con* [id number] 06/27/2020 5:00 AM RADIATION DOSE METRICS: Total DLP (mGy-cm): 833.76 FINDINGS: Brain: No acute infarct or hemorrhage. Cerebral ventricles: No ventriculomegaly. Paranasal sinuses: There is mild ethmoid sinus mucosal thickening. Mastoid air cells: Visualized mastoid air cells are clear. Bones/joints: No calvarial or skull base fracture. Soft tissues: Unremarkable. CT/CT head wo con* [id number] IMPRESSION: 1. No calvarial or skull base fracture. 2. No acute infarct or hemorrhage. Radiation Dose CTDIVOL = (mGy): DLP = 833.76 (mGy-cm) Dictated By:Josh Foster By:Josh Foster Date/Time:01/11/212224DD/ [address] [address]ASdy ReportSigned Patient: David Lanza JrUnit #: [id number]: 1961cc#:[id number]/Sex: 60 / MADM Date: 01/11/21Loc: ERRoom/Bed:Attending Dr: Ordering Provider/Ordering MD: Poonam Ugalde MD Date of Service: 01/11/21 Procedure(s): XR chest 1V portable [id number] Accession Number(s): [id number] Report Number: [id number] PROCEDURE INFORMATION: Exam: XR Chest Exam date and time: 01/11/2021 9:31 PM Age: 60 years old Clinical indication: Shortness of breath; Additional info: Copd TECHNIQUE: Imaging protocol: XR of the chest. Views: 1 view. COMPARISON: CR XR chest 1V portable [id number] 11/14/2020 11:00 PM FINDINGS: Lungs: There are multiple calcified pulmonary nodules consistent with prior granulomatous disease. Hazy left basilar opacity which could be secondary to atelectasis or pneumonia. Pleural spaces: Unremarkable. No pleural effusion. No pneumothorax. Heart/Mediastinum: There is mild cardiomegaly. Bones/joints: Unremarkable. XR/XR chest 1V portable [id number] IMPRESSION: 1. Hazy left basilar opacity which could be secondary to atelectasis or pneumonia. 2. Mild cardiomegaly. Dictated By:Josh Foster By:Josh Foster Date/Time:01/11/212244DD/ 42 Discharge Plan Discharge Patient Disposition: Home Clinical Impression: COPD (chronic obstructive pulmonary disease), Seizure, Pneumonia Condition: Stable Prescriptions: New Keppra 500 mg tablet 500 mg PO BID 14 Days Qty: 28 RF: 0 amoxicillin 500 mg capsule 500 mg PO TID 7 Days Qty: 21 RF: 0 Zithromax TRI-SETH 500 mg tablet See Rx Instructions .ROUTE .COMPLEX Qty: 3 RF: 0 No Action albuterol sulfate 2.5 mg /3 mL (0.083 %) solution for nebulization 2.5 mg continuous nebulization PRN RF: 0 aspirin [Adult Low Dose Aspirin] 81 mg tablet,delayed release (DR/EC) 81 mg PO QAM RF: 0 atorvastatin [Lipitor] 20 mg tablet 20 mg PO QAM Qty: 90 RF: 1 citalopram [Celexa] 20 mg tablet 20 mg PO QAM Qty: 90 RF: 1 Advair HFA 230-21 mcg/actuation HFA aerosol inhaler See Rx Instructions .ROUTE .COMPLEX Qty: 12 RF: 1 Spiriva Respimat 2.5 mcg/actuation mist 2 puff INHALATION QAM Qty: 12 RF: 1 clopidogrel 75 mg tablet 75 mg PO QAM Qty: 90 RF: 1 hydrocodone-acetaminophen 10-325 mg tablet 1 tab PO .6 times a day PRN (Reason: Pain) 30 Days Qty: 180 RF: 0 hydrocodone-acetaminophen 10-325 mg tablet 1 tab PO .6 times a day PRN (Reason: Pain) 30 Days Qty: 180 RF: 0 Tab-A-Patrick 400 mcg tablet See Rx Instructions .ROUTE .COMPLEX Qty: 30 RF: 5 levetiracetam 500 mg tablet extended release 24 hr 1,000 mg PO BEDTIME RF: 0 folic acid 1 mg tablet 1 mg PO QAM RF: 0 Discharge Orders: Discharge ED (Routine); Ordered 01/12/21 Ordered By: Poonam Ugalde Referrals: Krystal Wild FNP [Primary Care Provider] - Discharge Diet: Regular Discharge Activity: Resume usual activity Patient Instructions: Pneumonia (ED), Seizures Activity Restrictions/Additional Instructions: Do not swim, drive, take shower or bathe by yourself. Please take your antibiotics as instructed for your pneumonia. Please follow-up with your primary care provider for further evaluation. Coding Level of Care Code ED Nightclub Manager for Mara Enriquez
[2021-01-11 21:41] LABS: Basophils % 0.5 %; Eosinophils # 0.1 10^3/uL (0.0-0.8); Eosinophils % 1.1 %; Hematocrit 43.4 % (42.0-52.0); Hemoglobin 14.6 g/dL (11.7-16.6); Lymphocytes # 0.9 10^3/uL (0.8-4.8); Mean Corpuscular HGB Conc 33.6 g/dL (30.0-36.0); Mean Corpuscular Volume 101.2 fL (80-94); Mean Platelet Volume 8.5 fL (7.4-10.4); Monocytes # 1.2 10^3/uL (0.2-0.9); Monocytes % 14.3 %; Neutrophils # 5.97 10^3/uL (1.8-7.7); Neutrophils % 72.7 %; Nucleated Red Blood Cells % 0 %; Platelet Count 261 10^3/cmm (130-400); Red Blood Count 4.29 10^6/uL (4.1-5.3); White Blood Count 8.2 10^3/uL (4.0-10.0)
[2021-01-11 21:51] LABS: Alanine Aminotransferase 29 U/L (0-41); Albumin Level 4.1 g/dL (3.5-5.2); Alkaline Phosphatase 101 IU/L (40-130); Aspartate Amino Transferase 33 U/L (0-40); Blood Urea Nitrogen 14 mg/dL (6-20); Calcium 8.8 mg/dL (8.5-10.5); Carbon Dioxide 22 mmol/L (22-29); Chloride 101 mmol/L (98-107); Globulin 3.2 g/dL (1.3-4.6); Glomerular Filtration Rate 98.9 mL/min (90-130); Glucose 90 mg/dL (65-115); Lipase 53 U/L (13-60); Magnesium 1.9 mg/dL (1.7-2.3); Osmolality Calculated 286 mOsm/kg (285-295); Sodium 138 mmol/L (136-145); Total Bilirubin 0.5 mg/dL (0.15-1.2); Total Protein 7.3 g/dL (6.6-8.7)
[2021-01-11 21:54] LABS: Anion Gap 18.8 (5-19); Potassium 3.8 mmol/L (3.5-5.1)
[2021-01-11] MEDS: LORazepam 2 mg/mL INJ 1 mL 4 MG IVP (21:58)
[2021-01-11 21:59] VITALS: BP 127/70; PULSE 98; RESP 18; O2SAT 93
--- NOTE | 2021-01-11 22:39 | PC.NURSE ---
patient removed his IV and an unknown amount of his Keppra is now on the floor. I informed physician who will order Keppra PO, at this time does not want IV restarted.
[2021-01-11 22:43] VITALS: BP 117/69; PULSE 90; RESP 18; O2SAT 95
[2021-01-11 22:57] VITALS: PULSE 97; RESP 18; O2SAT 95
[2021-01-11] MEDS: levETIRAcetam 500 mg Tablet 1000 MG PO (23:59)
[2021-01-12] MEDS: predniSONE 20 mg Tablet 60 MG PO
[2021-01-12] MEDS: LORazepam 2 mg Tablet PO (00:01)
[2021-01-12 00:04] VITALS: BP 128/67; PULSE 95; RESP 18; O2SAT 95
[2021-01-12] MEDS: ipratropium-albuterol 3 mL Neb INHALATION (00:33)
[2021-01-12 00:40] LABS: Basophils % 0.4 %; Eosinophils # 0.1 10^3/uL (0.0-0.8); Eosinophils % 0.7 %; Hematocrit 42.3 % (42.0-52.0); Hemoglobin 13.6 g/dL (11.7-16.6); Lymphocytes % 12.7 %; Mean Corpuscular HGB Conc 32.2 g/dL (30.0-36.0); Mean Corpuscular Hemoglobin 34.5 pg (28.0-34.0); Mean Corpuscular Volume 107.4 fL (80-94); Mean Platelet Volume 8.4 fL (7.4-10.4); Monocytes # 1.1 10^3/uL (0.2-0.9); Monocytes % 13.5 %; Neutrophils # 5.87 10^3/uL (1.8-7.7); Neutrophils % 72.3 %; Nucleated Red Blood Cells % 0 %; Platelet Count 222 10^3/cmm (130-400); Red Blood Count 3.94 10^6/uL (4.1-5.3); White Blood Count 8.1 10^3/uL (4.0-10.0)
[2021-01-12 00:42] VITALS: BP 109/78; PULSE 93; RESP 22; O2SAT 94
[2021-01-12 00:43] LABS: Blood Gas Operator Identificat AMH; Blood Gas Sample Site Not specified; Blood Gas Sample Type Venous
[2021-01-12 00:45] LABS: Base Excess VBG -0.3 mmol/L (-3.0-3.0); PCO2 VBG 54.1 mmHg (41-51); PO2 VBG 27.8 mmHg (25-40); Venous Blood Gas Hematocrit 42.5 % (42-52); pH VBG 7.31 (7.32-7.42)
[2021-01-12 01:04] VITALS: RESP 18
[2021-01-12 01:50] VITALS: PULSE 86; RESP 18; O2SAT 95
[2021-01-12 02:41] VITALS: PULSE 90; RESP 20; O2SAT 95
== END 2021-01-12 02:42 | disposition home or self-care (01) ==
PROVIDERS: Emergency Provider Emergency Medicine; PCP Nurse Practitioner Family
DX: R56.9 Unspecified convulsions (principal); J18.9 Pneumonia, unspecified organism; J44.9 Chronic obstructive pulmonary disease, unspecified; I25.10 Atherosclerotic heart disease of native coronary artery without angina pectoris; E78.5 Hyperlipidemia, unspecified; Z86.73 Personal history of transient ischemic attack (TIA), and cerebral infarction without residual deficits; F17.210 Nicotine dependence, cigarettes, uncomplicated; Z99.81 Dependence on supplemental oxygen
CPT/HCPCS: 70450; 71045; 72170; 80053; 82803; 83690; 83735; 85025; 93005; 94640; 96361; 96374; 96375; 99281; 99284; J1953; J2060; J7030; J7512

== ENCOUNTER 2021-01-12 03:00 | Emergency (ER) | payer MEDICARE, SELFPAY ==
[2021-01-12 03:05] VITALS: BP 127/77; PULSE 99; RESP 18; TEMP 36.7; O2SAT 96; BMI 28.5
[2021-01-12 04:44] VITALS: BP 128/70; PULSE 87; RESP 16; O2SAT 94
[2021-01-12 05:32] VITALS: BP 122/87; PULSE 78; RESP 16; O2SAT 97
== END 2021-01-12 05:33 ==
PROVIDERS: Emergency Provider Emergency Medicine; PCP Nurse Practitioner Family
DX: Z76.89 Persons encountering health services in other specified circumstances (principal)
CPT/HCPCS: 99281

== ENCOUNTER 2021-02-02 19:34 | Emergency (ER) | payer MEDICARE, SELFPAY ==
[2021-02-02] VITALS (10 sets, daily range): BP systolic 116–123; BP diastolic 75–94; PULSE 96–127; RESP 18–30; TEMP 37.7; O2SAT 90–94; BMI 29.1
--- NOTE | 2021-02-02 19:40 | XRR_ITS ---
PROCEDURE INFORMATION: Exam: XR Chest Exam date and time: 02/02/2021 7:40 PM Age: 60 years old Clinical indication: Shortness of breath; Additional info: SOB TECHNIQUE: Imaging protocol: XR of the chest. Views: 1 view. COMPARISON: CR (CHEST, ) 01/11/2021 9:52 PM FINDINGS: Lungs: Lingular and right upper lobe subsegmental atelectasis versus infiltrate with perhaps some underlying nodularity more prominent compared to prior exam in the right upper lobe, chest CT could further evaluate this as clinically indicated; Right upper lobe probable subpleural bleb. Pleural spaces: Unremarkable. No pleural effusion. No pneumothorax. Heart/Mediastinum: Cardiomegaly. Large hiatal hernia. Bones/joints: Unremarkable. XR/XR chest 1V portable [id number] IMPRESSION: 1. Lingular and right upper lobe subsegmental atelectasis versus infiltrate with perhaps some underlying nodularity more prominent compared to prior exam in the right upper lobe, chest CT could further evaluate this as clinically indicated 2. Right upper lobe probable subpleural bleb. 3. Cardiomegaly. 4. Large hiatal hernia.
--- NOTE | 2021-02-02 19:52 | ED_ITS ---
HPI - COVID General: Chief Complaint: COVID symptoms Stated Complaint: FEVER/COUGH/SOB Time Seen by Provider: 02/02/21 19:36 Source: patient and EMS Mode of arrival: EMS Limitations: no limitations Triage information: Has fever, cough or shortness of breath . No known COVID + exposure last 14 days History of Present Illness: HPI Narrative: 60-year-old male states that over the last 5 to 6 days been having cough congestion along with low-grade fevers. States has had some diarrhea as well. He states he is concerned that he has Covid. He did get vaccinated earlier in the year. He states he also has history of COPD and is been prone to bronchitis. Patient here is 94% on 2 L. He states he does wear oxygen at home as needed due to his COPD. Denies any worsening improving factors currently. COVID 19 common symptoms: positive non-productive cough; negative fever(s), chills, body aches, headache(s), throat pain, nausea, vomiting or diarrhea COVID 19 other sytmptoms: negative chest pain COVID Results: SARS-CoV-2 Antigen (Rapid) Negative (Negative) 02/02/21 19:53 02/02/21 SARS-CoV-2 RNA (RT-PCR) Not detected (NOT DETECTED) 01/01/20 14:00 01/01/20 Nasal/Oral Coronavirus 2019 PCR Not detected 10/19/20 10:04 10/19/20 Review of Systems Const: Denies: fever(s), chills, body aches or change in appetite Eyes: Denies: blurry vision or eye discomfort ENMT: Denies: throat pain or dental pain Card: Denies: chest pain Resp: Reports: non-productive cough and wheezing GI: Denies: abdominal pain, nausea, vomiting or diarrhea : Denies: dysuria Musc: Denies: neck pain or back pain Skin/Breast: Denies: rash Neuro: Denies: headache(s) Psych: Denies: depression Mauri/Lymph: Denies: easy bruising All/Imm: Denies: urticaria PFS ED PFSH: Medical History Alcohol abuse Alcoholic cirrhosis of liver Atherosclerosis of coronary artery of [place] heart without angina pectoris Chronic back pain Chronic pain in left shoulder Chronic pain syndrome Cigarette nicotine dependence COPD (chronic obstructive pulmonary disease) COPD exacerbation Coronary artery disease Dyslipidemia Dyslipidemia (high LDL; low HDL) Encounter for long-term (current) use of NSAIDs Encounter for long-term opiate analgesic use Hepatitis C Liver cirrhosis Recurrent cerebrovascular accidents (CVAs) Syncope and collapse Surgical History H/O elbow surgery Hx of hernia repair Hx of knee surgery Hx of shoulder surgery S/P coronary artery stent placement Family History Mother CAD (coronary artery disease) Had a myocardial infarction at the age of 18. She is alive. She had a PCI? Father CAD (coronary artery disease) Had myocardial infarction in his 70s and is alive Other Diabetes Hypertension Myocardial infarct Social History Smoking and tobacco status: current every day smoker cigarettes Quit status (tobacco): has quit using tobacco Year quit tobacco: 2019 6mths ago 2ppd x 40y Second hand smoke exposure: Yes Smoking risk assessment/counseling performed?: Yes Alcohol intake: former Lives independently: Yes Household members: spouse Housing: House Marital status: service: No Current occupational status: disabled Pets and animals: Yes History of recent travel: No Current gender identity: Male Physical Exam Const: COMMON NORMALS: no acute distress, patient oriented x3 and healthy appearing HENMT: COMMON NORMALS: normocephalic and atraumatic HEAD & SCALP: normocep halic and atraumatic Eye: COMMON NORMALS: Equal, round and reactive pupils present and EOMs intact bilaterally PUPIL: Yes Equal, round and reactive pupils present Neck/C-Spine: COMMON NORMALS: full ROM and supple Chest: COMMONS NORMALS: normal inspection of the chest and normal palpation of entire chest wall Resp: COMMON NORMALS: normal respiratory effort, No retractions and No use of accessory muscles AUSCULTATION: wheezes Cardio: COMMON NORMALS: regular rate, regular rhythm and No murmurs present (Cardio) RATE: regular rate RHYTHM: regular rhythm GI: COMMON NORMALS: Normal to inspection, nondistended, normoactive bowel sounds present, Soft to palpation, non-tender and no masses PALPATION: Yes Soft to palpation Extremity: COMMON NORMALS: normal to inspection and full ROM Neuro: COMMON NORMALS: patient oriented x3, moves all extremities and no focal motor deficits Psych: COMMON NORMALS: mental status grossly normal, Normal thought process present and cooperative THOUGHT PROCESS: Normal thought process present Skin: COMMON NORMALS: no rashes or lesions noted and no wounds GENERAL SKIN EXAM: no rashes or lesions noted Course Vital Signs: Vital signs: Vital Signs Temperature 99.8 F H 02/02/21 19:45 Pulse Rate 97 02/02/21 22:22 Respiratory Rate 22 H 02/02/21 22:57 Blood Pressure 117/75 02/02/21 22:57 Pulse Oximetry 90 02/02/21 22:57 MDM - COVID MDM Narrative: Medical decision making narrative: Patient presents with cough congestion dyspnea likely bronchitis. CT scan showed no signs of pulmonary embolism his Covid here is negative. We will start him on doxycycline. Patient's oxygen sats here been in the mid 90s on room air he does have home at 2 at home as needed. He states he wants to try to quit drinking we will place him on Librium informed him that he cannot drink with the Librium but is to take it if he has any withdrawal symptoms. Is no signs of active withdrawal here. He is return if worsening. Lab Data: Labs: Lab Results 02/02/21 02/02/21 02/02/21 Range/Units 19:45 19:45 19:45 WBC 11.2 H (4.0-10.0) 10^3/ uL RBC 4.43 (4.1-5.3) 10^6/u L Hgb 14.8 (11.7-16.6) g/dL Hct 44.6 (42.0-52.0) % MCV 100.7 H (80-94) fl MCH 33.4 (28.0-34.0) pg MCHC 33.2 (30.0-36.0) g/dL RDW 11.7 L (12.1-15.1) % Plt Count 294 (130-400) 10^3/c mm MPV 8.3 (7.4-10.4) fL Neut % (Auto) 63.4 % Lymph % (Auto) 18.2 % [place] % (Auto) 13.7 % Eos % (Auto) 3.0 % Baso % (Auto) 0.6 % Neut # (Auto) 7.08 (1.8-7.7) 10^3/u L Lymph # (Auto) 2.0 (0.8-4.8) 10^3/u L [place] # (Auto) 1.5 H (0.2-0.9) 10^3/u L Eos # (Auto) 0.3 (0.0-0.8) 10^3/u L Baso # (Auto) 0.1 (0.0-0.1) 10^3/u L Nucleated RBC % (a uto) 0 % Nucleated RBCs # 0.0 /100WBC D-Dimer (0-0.59) ug/mIFE U Sodium 137 (136-145) mmol/L Potassium 4.3 (3.5-5.1) mmol/L Chloride 98 (98-107) mmol/L Carbon Dioxide 23 (22-29) mmol/L Anion Gap 20.3 H (5-19) BUN 11 (6-20) mg/dL Creatinine 1.2 (0.7-1.2) mg/dL GFR Calculation 62.0 L (90-130) mL/min Glucose 94 (65-115) mg/dL Calculated Osmolal ity 283 L (285-295) mOsm/k g Lactic Acid 2.1 (0.5-2.2) mmol/L Lactic Acid (Sepsi s) (0.5-2.2) mmol/L Calcium 9.6 (8.5-10.5) mg/dL Total Bilirubin 0.6 (0.15-1.2) mg/dL AST 17 (0-40) U/L ALT 12 (0-41) U/L Alkaline Phosphata se 115 (40-130) IU/L Troponin T Baselin e (0-15) ng/L Troponin T 120 Min [place] (0-15) ng/L Delta Troponin T (0-10) ABS# C-Reactive Protein 2.1 (0.0-4.9) mg/L NT-Pro-B Natriuret Pep 55 (0-125) pg/mL Total Protein 7.4 (6.6-8.7) g/dL Albumin 4.4 (3.5-5.2) g/dL Globulin 3.0 (1.3-4.6) g/dL SARS-CoV-2 Ag (Rap id) (Negative) 02/02/21 02/02/21 02/02/21 Range/Units 19:45 19:45 19:53 WBC (4.0-10.0) 10^3/ uL RBC (4.1-5.3) 10^6/u L Hgb (11.7-16.6) g/dL Hct (42.0-52.0) % MCV (80-94) fl MCH (28.0-34.0) pg MCHC (30.0-36.0) g/dL RDW (12.1-15.1) % Plt Count (130-400) 10^3/c mm MPV (7.4-10.4) fL Neut % (Auto) % Lymph % (Auto) % [place] % (Auto) % Eos % (Auto) % Baso % (Auto) % Neut # (Auto) (1.8-7.7) 10^3/u L Lymph # (Auto) (0.8-4.8) 10^3/u L [place] # (Auto) (0.2-0.9) 10^3/u L Eos # (Auto) (0.0-0.8) 10^3/u L Baso # (Auto) (0.0-0.1) 10^3/u L Nucleated RBC % (a uto) % Nucleated RBCs # /100WBC D-Dimer 0.72 H (0-0.59) ug/mIFE U Sodium (136-145) mmol/L Potassium (3.5-5.1) mmol/L Chloride (98-107) mmol/L Carbon Dioxide (22-29) mmol/L Anion Gap (5-19) BUN (6-20) mg/dL Creatinine (0.7-1.2) mg/dL GFR Calculation (90-130) mL/min Glucose (65-115) mg/dL Calculated Osmolal ity (285-295) mOsm/k g Lactic Acid (0.5-2.2) mmol/L Lactic Acid (Sepsi s) (0.5-2.2) mmol/L Calcium (8.5-10.5) mg/dL Total Bilirubin (0.15-1.2) mg/dL AST (0-40) U/L ALT (0-41) U/L Alkaline Phosphata se (40-130) IU/L Troponin T Baselin e 10 (0-15) ng/L Troponin T 120 Min [place] (0-15) ng/L Delta Troponin T (0-10) ABS# C-Reactive Protein (0.0-4.9) mg/L NT-Pro-B Natriuret Pep (0-125) pg/mL Total Protein (6.6-8.7) g/dL Albumin (3.5-5.2) g/dL Globulin (1.3-4.6) g/dL SARS-CoV-2 Ag (Rap id) Negative (Negative) 02/02/21 02/02/21 Range/Units 21:55 21:55 WBC (4.0-10.0) 10^3/ uL RBC (4.1-5.3) 10^6/u L Hgb (11.7-16.6) g/dL Hct (42.0-52.0) % MCV (80-94) fl MCH (28.0-34.0) pg MCHC (30.0-36.0) g/dL RDW (12.1-15.1) % Plt Count (130-400) 10^3/c mm MPV (7.4-10.4) fL Neut % (Auto) % Lymph % (Auto) % [place] % (Auto) % Eos % (Auto) % Baso % (Auto) % Neut # (Auto) (1.8-7.7) 10^3/u L Lymph # (Auto) (0.8-4.8) 10^3/u L [place] # (Auto) (0.2-0.9) 10^3/u L Eos # (Auto) (0.0-0.8) 10^3/u L Baso # (Auto) (0.0-0.1) 10^3/u L Nucleated RBC % (a uto) % Nucleated RBCs # /100WBC D-Dimer (0-0.59) ug/mIFE U Sodium (136-145) mmol/L Potassium (3.5-5.1) mmol/L Chloride (98-107) mmol/L Carbon Dioxide (22-29) mmol/L Anion Gap (5-19) BUN (6-20) mg/dL Creatinine (0.7-1.2) mg/dL GFR Calculation (90-130) mL/min Glucose (65-115) mg/dL Calculated Osmolal ity (285-295) mOsm/k g Lactic Acid (0.5-2.2) mmol/L Lactic Acid (Sepsi s) 1.4 (0.5-2.2) mmol/L Calcium (8.5-10.5) mg/dL Total Bilirubin (0.15-1.2) mg/dL AST (0-40) U/L ALT (0-41) U/L Alkaline Phosphata se (40-130) IU/L Troponin T Baselin e (0-15) ng/L Troponin T 120 Min [place] 8.62 (0-15) ng/L Delta Troponin T -1.38 L (0-10) ABS# C-Reactive Protein (0.0-4.9) mg/L NT-Pro-B Natriuret Pep (0-125) pg/mL Total Protein (6.6-8.7) g/dL Albumin (3.5-5.2) g/dL Globulin (1.3-4.6) g/dL SARS-CoV-2 Ag (Rap id) (Negative) EKG Data: EKG 1: Attestation: I personally reviewed and interpreted this EKG as follows: EKG interpretation date: 02/02/21 EKG interpretation time: 19:54 Interpretation: sinus tach hr [address] or t wave abnormalities qrs 92 qtc 395 EKG 2: Attestation: I personally reviewed and interpreted this EKG as follows: EKG interpretation date: 02/02/21 EKG interpretation time: 21:35 Interpretation: sinus tach hr100 with no st or t wave abonrmalities qrs 97 qtc 404 COVID Results: SARS-CoV-2 Antigen (Rapid) Negative (Negative) 02/02/21 19:53 02/02/21 SARS-CoV-2 RNA (RT-PCR) Not detected (NOT DETECTED) 01/01/20 14:00 01/01/20 Nasal/Oral Coronavirus 2019 PCR Not detected 10/19/20 10:04 10/19/20 Discharge Plan Discharge Patient Disposition: Home Clinical Impression: Bronchitis, Alcohol abuse Condition: Stable Prescriptions: New chlordiazepoxide HCl 10 mg capsule 10 mg PO Q6H PRN (Reason: withdrawal symptoms) Qty: 20 RF: 0 No Action albuterol sulfate 2.5 mg /3 mL (0.083 %) solution for nebulization 2.5 mg continuous nebulization PRN RF: 0 aspirin [Adult Low Dose Aspirin] 81 mg tablet,delayed release (DR/EC) 81 mg PO DAILY RF: 0 Advair HFA 230-21 mcg/actuation HFA aerosol inhaler See Rx Instructions .ROUTE .COMPLEX Qty: 12 RF: 1 hydrocodone-acetaminophen 10-325 mg tablet 1 tab PO .6 times a day PRN (Reason: Pain) 30 Days Qty: 180 RF: 0 levetiracetam 500 mg tablet extended release 24 hr 1,000 mg PO BEDTIME RF: 0 folic acid 1 mg tablet 1 mg PO DAILY RF: 0 Lipitor 20 mg tablet 20 mg PO DAILY RF: 0 clopidogrel 75 mg tablet 75 mg PO DAILY RF: 0 Celexa 20 mg tablet 20 mg PO DAILY RF: 0 Spiriva Respimat 2.5 mcg/actuation mist 2 puff INHALATION DAILY RF: 0 Discharge Orders: Discharge ED (Routine); Ordered 02/02/21 Ordered By: Shahrzad Parra Referrals: Krystal Wild FNP [Primary Care Provider] - 1-3 days Discharge Diet: Advance as tolerated Discharge Activity: Resume usual activity Patient Instructions: Viral Syndrome (ED) Coding Level of Care Code ED Negative Restorer for Mara Fwd Exam Comprehensive
[2021-02-02 19:57] LABS: Basophils # 0.1 10^3/uL (0.0-0.1); Basophils % 0.6 %; Eosinophils # 0.3 10^3/uL (0.0-0.8); Hematocrit 44.6 % (42.0-52.0); Hemoglobin 14.8 g/dL (11.7-16.6); Lymphocytes % 18.2 %; Mean Corpuscular HGB Conc 33.2 g/dL (30.0-36.0); Mean Corpuscular Hemoglobin 33.4 pg (28.0-34.0); Mean Corpuscular Volume 100.7 fl (80-94); Mean Platelet Volume 8.3 fL (7.4-10.4); Monocytes # 1.5 10^3/uL (0.2-0.9); Monocytes % 13.7 %; Neutrophils # 7.08 10^3/uL (1.8-7.7); Neutrophils % 63.4 %; Nucleated Red Blood Cells % 0 %; Platelet Count 294 10^3/cmm (130-400); Red Blood Count 4.43 10^6/uL (4.1-5.3); Red Cell Distribution Width 11.7 % (12.1-15.1); White Blood Count 11.2 10^3/uL (4.0-10.0)
[2021-02-02] MEDS: albuterol 8 gm MDI 2 PUFF INHALATION (20:06)
[2021-02-02] MEDS: dexamethasone 4 mg/mL INJ 6 MG IVP (20:15)
[2021-02-02] MEDS: acetaminophen 325 mg Tablet 650 MG PO (20:15)
[2021-02-02 20:23] LABS: SARS Covid-2 Antigen Negative (Negative)
[2021-02-02 20:46] LABS: D Dimer 0.72 ug/mIFEU (0-0.59)
[2021-02-02 20:48] LABS: Alanine Aminotransferase 12 U/L (0-41); Albumin Level 4.4 g/dL (3.5-5.2); Alkaline Phosphatase 115 IU/L (40-130); Anion Gap 20.3 (5-19); Aspartate Amino Transferase 17 U/L (0-40); Blood Urea Nitrogen 11 mg/dL (6-20); C Reactive Protein 2.1 mg/L (0.0-4.9); Calcium 9.6 mg/dL (8.5-10.5); Carbon Dioxide 23 mmol/L (22-29); Chloride 98 mmol/L (98-107); Creatinine Clr Calc Pharmacy 80.2208; Glucose 94 mg/dL (65-115); Lactic Sepsis W/Reflex 2.1 mmol/L (0.5-2.2); NT Pro B Type Natriuretic Pept 55 pg/mL (0-125); Osmolality Calculated 283 mOsm/kg (285-295); Potassium 4.3 mmol/L (3.5-5.1); Sodium 137 mmol/L (136-145); Total Bilirubin 0.6 mg/dL (0.15-1.2); Total Protein 7.4 g/dL (6.6-8.7); Troponin(5th) Baseline 10 ng/L (0-15)
--- NOTE | 2021-02-02 20:50 | CTR_ITS ---
PROCEDURE INFORMATION: Exam: CTA Chest With Contrast Exam date and time: 02/02/2021 8:50 PM Age: 60 years old Clinical indication: Cough and shortness of breath; Prior surgery; Surgery type: Stents; Additional info: SOB TECHNIQUE: Imaging protocol: Computed tomographic angiography of the chest with contrast. 3D rendering (Not supervised by radiologist): MIP and/or 3D reconstructed images were created by the technologist. Radiation optimization: All CT scans at this facility use at least one of these dose optimization techniques: automated exposure control; mA and/or kV adjustment per patient size (includes targeted exams where dose is matched to clinical indication); or iterative reconstruction. Contrast material: OMNI 350; Contrast volume: 75 ml; Contrast route: INTRAVENOUS (IV); COMPARISON: CT angio chest PE protcl [id number] 10/12/2020 4:03 PM RADIATION DOSE METRICS: Total DLP (mGy-cm): 627.24 FINDINGS: Pulmonary arteries: Normal. No pulmonary emboli. Aorta: Unremarkable. No aortic aneurysm. No aortic dissection. Lungs: Emphysematous changes. Scattered subcentimeter pulmonary nodules throughout both lung [place] appear similar in size and number compared to prior exam, likely reflecting chronic granulomatous changes. Lingular atelectasis versus infiltrate. Pleural spaces: Unremarkable. No pneumothorax. No pleural effusion. Heart: Coronary artery atherosclerotic calcifications. Lymph nodes: Several subcentimeter nonspecific prominent mediastinal lymph nodes. Bones/joints: Unremarkable. No acute fracture. Soft tissues: Unremarkable. CT/CT angio chest PE protcl [id number] IMPRESSION: 1. Negative for pulmonary embolus. 2. Several subcentimeter nonspecific prominent mediastinal lymph nodes. 3. Coronary artery atherosclerotic calcifications. 4. Emphysematous changes. 5. Scattered subcentimeter pulmonary nodules throughout both lung [place] appear similar in size and number compared to prior exam, likely reflecting chronic granulomatous changes. 6. Lingular atelectasis versus infiltrate. Radiation Dose CTDIVOL = (mGy): DLP = 627.24 (mGy-cm)
[2021-02-02] MEDS: iohexol 350 mg/mL 100 mL Btl IV (21:15)
[2021-02-02 21:39] LABS: Reflex Lactate Order REFLEX LACTIC ORDERD
--- NOTE | 2021-02-02 21:40 | ECG_ITS ---
[facility] Test Date: 2021-02-02 Pat Name: David Lanza Department: Room: Gender: Male Translator: : 1960 Requested By: Shahrzad Parra Order Number: [id number] Amalia MD: Silvia Garduno M.D. Measurements Intervals [place] Rate: 100 P: 78 DE: 159 QRS: 148 QRSD: 97 T: 59 QT: 347 QTc: 449 Interpretive Statements SINUS TACHYCARDIA INCOMPLETE RIGHT BUNDLE BRANCH BLOCK [90+ ms QRS DURATION, TERMINAL R IN V1/V2, 40+ ms S IN I/aVL/V4/V5/V6] POSSIBLE RIGHT VENTRICULAR HYPERTROPHY [SOME/ALL OF: PROMINENT R IN V1, LATE TRANSITION, RAD, ELI, SSS] Compared to ECG 01/11/2021 22:06:22 Sinus rhythm no longer present Myocardial infarct finding no longer present Electronically Signed On 02-04-2021 9:09:38 CDT by Silvia Garduno M.D. [id number]
[2021-02-02] MEDS: ipratropium-albuterol 3 mL Neb INHALATION (22:15)
[2021-02-02 22:19] LABS: Troponin 5 2HR 8.62 ng/L (0-15)
[2021-02-02 22:20] LABS: Troponin 5 2HR Delta -1.38 ABS# (0-10)
[2021-02-02 22:21] LABS: Lactic Acid level (Lactate) 1.4 mmol/L (0.5-2.2)
[2021-02-02] MEDS: LORazepam 2 mg/mL INJ 1 mL 1 MG IVP (22:28)
[2021-02-08 17:37] LABS: ABG PCO2 33.9 mmHg (35-45); ABG PH Result 7.47 (7.35-7.45); Arterial Blood Gas Hematocrit 44.5 % (42-52); Base Excess ABG 1.6 mmol/L (-2.0-2.0); Blood Gas Operator Identificat HARKR; Blood Gas Sample Site Brachial, left; Blood Gas Sample Type Arterial; HCO3 ABG 24.8 mmol/L (22-26); Oxygen Device NC; PO2 ABG 70.6 mmHg (80.0-100.0)
== END 2021-02-02 22:50 | disposition home or self-care (01) ==
PROVIDERS: Emergency Provider Emergency Medicine; PCP Nurse Practitioner Family
DX: J40 Bronchitis, not specified as acute or chronic (principal); F10.10 Alcohol abuse, uncomplicated; Z79.82 Long term (current) use of aspirin; Z79.02 Long term (current) use of antithrombotics/antiplatelets; I25.10 Atherosclerotic heart disease of native coronary artery without angina pectoris; J44.9 Chronic obstructive pulmonary disease, unspecified; E78.5 Hyperlipidemia, unspecified; Z86.19 Personal history of other infectious and parasitic diseases; F17.210 Nicotine dependence, cigarettes, uncomplicated; Z20.822 Contact with and (suspected) exposure to COVID-19
CPT/HCPCS: 36415; 36600; 71045; 71275; 80053; 82803; 83605; 83880; 84484; 85025; 85378; 86140; 87040; 87205; 87426; 93005; 94640; 96374; 96375; 99284; J1100; J2060; J3535; J7611; Q9967

== ENCOUNTER 2021-02-03 00:38 | Emergency (ER) | payer MEDICARE, SELFPAY ==
[2021-02-03 00:46] VITALS: BP 132/70; PULSE 120; RESP 28; TEMP 36.7; O2SAT 93; BMI 29.1
--- NOTE | 2021-02-03 01:43 | ED_ITS ---
HPI - General Adult General: Chief complaint: General Medical Stated complaint: DT Time Seen by Provider: 02/03/21 01:27 Source: patient Mode of arrival: ambulatory Limitations: no limitations History of Present Illness: HPI narrative: 60-year-old male who seen here earlier in the night was discharged. States he did not have a ride home he has not taken his Haldol tonight states is getting a tremor now. He states he gets his tremor when he does not take his Haldol. His blood pressure here is normal. He has no signs of withdrawal. Denies any chest pain. Denies any shortness of breath. Associated symptoms: Deny chest pain, dyspnea, headache(s), nausea, rash or vomiting Review of Systems Const: Denies: fever(s), chills, body aches or change in appetite Eyes: Denies: blurry vision or eye discomfort ENMT: Denies: throat pain or dental pain Card: Denies: chest pain Resp: Denies: dyspnea GI: Denies: abdominal pain, nausea, vomiting or diarrhea : Denies: dysuria Musc: Denies: neck pain or back pain Skin/Breast: Denies: rash Neuro: Denies: headache(s) Psych: Denies: depression Mauri/Lymph: Denies: easy bruising All/Imm: Denies: urticaria PFSH ED PFSH: Medical History Alcohol abuse Alcoholic cirrhosis of liver Atherosclerosis of coronary artery of [place] heart without angina pectoris Chronic back pain Chronic pain in left shoulder Chronic pain syndrome Cigarette nicotine dependence COPD (chronic obstructive pulmonary disease) COPD exacerbation Coronary artery disease Dyslipidemia Dyslipidemia (high LDL; low HDL) Encounter for long-term (current) use of NSAIDs Encounter for long-term opiate analgesic use Hepatitis C Liver cirrhosis Recurrent cerebrovascular accidents (CVAs) Syncope and collapse Surgical History H/O elbow surgery Hx of hernia repair Hx of knee surgery Hx of shoulder surgery S/P coronary artery stent placement Family History Mother CAD (coronary artery disease) Had a myocardial infarction at the age of 18. She is alive. She had a PCI? Father CAD (coronary artery disease) Had myocardial infarction in his 70s and is alive Other Diabetes Hypertension Myocardial infarct Social History Smoking and tobacco status: current every day smoker cigarettes Quit status (tobacco): has quit using tobacco Year quit tobacco: 2020 6mths ago 2ppd x 40y Second hand smoke exposure: Yes Smoking risk assessment/counseling performed?: Yes Alcohol intake: former Lives independently: Yes Household members: spouse Housing: House Marital status: service: No Current occupational status: disabled Pets and animals: Yes History of recent travel: No Current gender identity: Male Physical Exam Const: COMMON NORMALS: no acute distress, patient oriented x3 and healthy appearing HENMT: COMMON NORMALS: normocephalic and atraumatic HEAD & SCALP: normocephalic and atraumatic Eye: COMMON NORMALS: Equal, round and reactive pupils present and EOMs intact bilaterally PUPIL: Yes Equal, round and reactive pupils present Neck/C-Spine: COMMON NORMALS: full ROM and supple Chest: COMMONS NORMALS: normal inspection of the chest and normal palpation of entire chest wall Resp: COMMON NORMALS: normal respiratory effort, No retractions, No use of accessory muscles and clear to auscultation bilaterally AUSCULTATION: clear to auscultation bilaterally Cardio: COMMON NORMALS: regular rhythm and No murmurs present (Cardio) RATE: tachycardic RHYTHM: regular rhythm GI: COMMON NORMALS: Normal to inspection, nondistended, normoactive bowel sounds present, Soft to palpation, non-tender and no masses PALPATION: Yes Soft to palpation Extremity: COMMON NORMALS: normal to inspection and full ROM Neuro: COMMON NORMALS: patient oriented x3, moves all extremities and no focal motor deficits Psych: COMMON NORMALS: mental status grossly normal, Normal thought process present and cooperative THOUGHT PROCESS: Normal thought process present Skin: COMMON NORMALS: no rashes or lesions noted and no wounds GENERAL SKIN EXAM: no rashes or lesions noted Course Vital Signs: Vital signs: Vital Signs Temperature 98.0 F 02/03/21 00:46 Pulse Rate 120 H 02/03/21 00:46 Respiratory Rate 28 H 02/03/21 00:46 Blood Pressure 132/70 02/03/21 00:46 Pulse Oximetry 93 02/03/21 00:46 MDM - General Adult MDM Narrative: Medical decision making narrative: Patient presents with tremors he states is not taken his Haldol. Patient given Haldol and Ativan here he feels improved. He has no signs of withdrawals. His blood pressure has been stable. He is stable for discharge is to follow-up with PCP and return if worsening. Discharge Plan Discharge Patient Disposition: Home Clinical Impression: Tremor Condition: Stable Prescriptions: No Action albuterol sulfate 2.5 mg /3 mL (0.083 %) solution for nebulization 2.5 mg continuous nebulization PRN RF: 0 aspirin [Adult Low Dose Aspirin] 81 mg tablet,delayed release (DR/EC) 81 mg PO DAILY RF: 0 Advair HFA 230-21 mcg/actuation HFA aerosol inhaler See Rx Instructions .ROUTE .COMPLEX Qty: 12 RF: 1 hydrocodone-acetaminophen 10-325 mg tablet 1 tab PO .6 times a day PRN (Reason: Pain) 30 Days Qty: 180 RF: 0 levetiracetam 500 mg tablet extended release 24 hr 1,000 mg PO BEDTIME RF: 0 folic acid 1 mg tablet 1 mg PO DAILY RF: 0 Lipitor 20 mg tablet 20 mg PO DAILY RF: 0 clopidogrel 75 mg tablet 75 mg PO DAILY RF: 0 Celexa 20 mg tablet 20 mg PO DAILY RF: 0 Spiriva Respimat 2.5 mcg/actuation mist 2 puff INHALATION DAILY RF: 0 chlordiazepoxide HCl 10 mg capsule 10 mg PO Q6H PRN (Reason: withdrawal symptoms) Qty: 20 RF: 0 Discharge Orders: Discharge ED (Routine); Ordered 02/03/21 Ordered By: Shahrzad Parra Referrals: Krystal Wild FNP [Primary Care Provider] - 1-3 days Discharge Diet: Advance as tolerated Discharge Activity: Resume usual activity Coding Level of Care Code ED Adapted Physical Education Teacher for Devorag Fwd Exam Comprehensive
[2021-02-03] MEDS: haloperidol inj 5 mg/mL INJ 1 mL 2 MG IM ×2 (02:05→02:43)
[2021-02-03] MEDS: LORazepam 2 mg/mL INJ 1 mL IM (02:05)
[2021-02-03] MEDS: LORazepam 2 mg/mL INJ 1 mL 1 MG IM (02:44)
[2021-02-03 04:08] VITALS: BP 100/61; PULSE 96; RESP 16; O2SAT 92
== END 2021-02-03 04:07 | disposition home or self-care (01) ==
PROVIDERS: Emergency Provider Emergency Medicine; PCP Nurse Practitioner Family
DX: R25.1 Tremor, unspecified (principal); Z79.82 Long term (current) use of aspirin; Z79.02 Long term (current) use of antithrombotics/antiplatelets; I25.10 Atherosclerotic heart disease of native coronary artery without angina pectoris; J44.9 Chronic obstructive pulmonary disease, unspecified; E78.5 Hyperlipidemia, unspecified; Z86.19 Personal history of other infectious and parasitic diseases; F17.210 Nicotine dependence, cigarettes, uncomplicated
CPT/HCPCS: 96372; 99284; J1630; J2060

== ENCOUNTER → 2021-02-16 13:06 | Outpatient (BNVA) | payer MEDICARE, SELFPAY | PROVIDERS: PCP Nurse Practitioner Family; Visit Provider Nurse Practitioner | DX: G89.29 Other chronic pain (principal); M54.5 Low back pain; M25.512 Pain in left shoulder; F17.219 Nicotine dependence, cigarettes, with unspecified nicotine-induced disorders; Z79.891 Long term (current) use of opiate analgesic; Z71.6 Tobacco abuse counseling | CPT/HCPCS: 99213; 99214 ==

== ENCOUNTER 2021-02-19 11:58 | Emergency (ER) | payer MEDICARE, SELFPAY ==
[2021-02-19] VITALS (11 sets, daily range): BP systolic 86–160; BP diastolic 60–92; PULSE 95–116; RESP 20–37; TEMP 36.9–37.1; O2SAT 93–98; BMI 30.5
--- NOTE | 2021-02-19 12:03 | CTR_ITS ---
PROCEDURE INFORMATION: Exam: CT Head Without Contrast Exam date and time: 02/19/2021 12:03 PM Age: 60 years old Clinical indication: Coma or unconsciousness; Patient HX: PT found down approx 1030 lkw 0300; Additional info: Unconscious patient TECHNIQUE: Imaging protocol: Computed tomography of the head without contrast. Radiation optimization: All CT scans at this facility use at least one of these dose optimization techniques: automated exposure control; mA and/or kV adjustment per patient size (includes targeted exams where dose is matched to clinical indication); or iterative reconstruction. COMPARISON: CT head wo con* [id number] 01/11/2021 9:46 PM RADIATION DOSE METRICS: Total DLP (mGy-cm): 2601.82 FINDINGS: Brain: There is acute subdural hemorrhage along the left frontal, parietal, and temporal calvarium measuring 13 mm thick with effacement of the underlying sulci. There is a 12 mm rightward midline shift. The left lateral ventricle and 3rd ventricle are effaced. There is acute subdural hemorrhage along the falx cerebrum in left side of the tentorium. Cerebral ventricles: See Brain finding. Paranasal sinuses: There are air-fluid levels in the maxillary sinuses. Fluid and/or mucosal thickening is present in the ethmoid air cells. There is a small air-fluid level in the left sphenoid sinus. Mastoid air cells: Visualized mastoid air cells are well aerated. Bones/joints: There is a small amount of acute extra-axial hemorrhage along the right frontal calvarium measuring 1.5 mm thick. Soft tissues: Unremarkable. Nasopharynx: There is frothy fluid in the nasopharynx. CT/CT head wo con* [id number] IMPRESSION: 1. There is acute subdural hemorrhage along the left calvarium with underlying sulcal effacement and a rightward midline shift. 2. There is a small amount of acute extra-axial hemorrhage along the right frontal calvarium. 3. There is acute subdural hemorrhage along the falx and left tentorium. 4. Paranasal sinusitis. Radiation Dose CTDIVOL = (mGy): DLP = 2601.82 (mGy-cm)
--- NOTE | 2021-02-19 12:03 | ECG_ITS ---
[facility] Test Date: 2021-02-19 Pat Name: David Lanza Department: Room: Gender: Male Recreation Professor: : 1960 Requested By: Tamir Ramirez Order Number: [id number] Amalia MD: Nitesh Corral M.D. Measurements Intervals [place] Rate: 102 P: 66 UT: 128 QRS: 104 QRSD: 120 T: 33 QT: 346 QTc: 452 Interpretive Statements SINUS TACHYCARDIA RIGHT AXIS DEVIATION [QRS AXIS > 100] RIGHT BUNDLE BRANCH BLOCK [120+ ms QRS DURATION, UPRIGHT V1, 40+ ms S IN I/aVL/V4/V5/V6] Compared to ECG 02/19/2021 03:27:25 Right-axis deviation now present Right bundle-branch block now present Sinus rhythm no longer present Myocardial infarct finding no longer present Electronically Signed On 02-20-2021 17:40:37 CDT by Nitesh Corral M.D. [id number]
--- NOTE | 2021-02-19 12:04 | XRR_ITS ---
PROCEDURE INFORMATION: Exam: XR Chest Exam date and time: 02/19/2021 12:04 PM Age: 60 years old Clinical indication: Device placement; Other: Intubation; Additional info: Intubated patient TECHNIQUE: Imaging protocol: XR of the chest. Views: 1 view. COMPARISON: CR (CHEST, ) 02/02/2021 8:01 PM FINDINGS: Tubes, catheters and devices: Tip of the ET tube projects 3.8 cm superior to the lamont. Lungs: There is consolidation at the left lung base. Scarring at the lung apices is similar to the prior study. There are pulmonary parenchymal calcifications consistent with remote granulomatous organism exposure. Pleural spaces: Unremarkable. No pleural effusion. No pneumothorax. Heart/Mediastinum: Unremarkable. No cardiomegaly. Diaphragm: There is mild elevation of the left hemidiaphragm. Bones/joints: Unremarkable. XR/XR chest 1V portable [id number] IMPRESSION: There is consolidation of the left lung base consistent with pneumonia.
[2021-02-19 12:13] LABS: Arterial Blood Gas Hematocrit 39.5 % (42-52); Base Excess ABG -0.5 mmol/L (-2.0-2.0); Blood Gas Allen Test Pos; Blood Gas Sample Site Radial, left; Blood Gas Sample Type Arterial; HCO3 ABG 31.1 mmol/L (22-26); Oxygen Device VENT
[2021-02-19 12:16] LABS: ABG PCO2 91.6 mmHg (35-45); ABG PH Result 7.14 (7.35-7.45)
--- NOTE | 2021-02-19 12:16 | ED_ITS ---
HPI - Neuro Symptoms/Deficit General: Chief Complaint: Neuro Symptoms/Deficit Stated Complaint: RESP DISTRESS Time Seen by Provider: 02/19/21 12:03 Source: EMS and old records reviewed Mode of arrival: EMS Limitations: altered mental status History of Present Illness: HPI Narrative: Mr. Oro this is a 60-year-old gentleman with history of per chart review of hypertension, hyperlipidemia, COPD, history of stroke, alcohol abuse resulting in liver cirrhosis in addition to hepatitis C, and seizure disorder who presents emerged department due to altered mental status. Per EMS report patient was last seen normal at about 3 AM. He was subsequently found sitting in his recliner at about 10:30 AM covered in emesis and unresponsive. EMS intubated the patient prior to arrival. Reported prior neurologic exam was left-sided deficits though with the specifics are unclear. History is otherwise limited by patient's current medical state and acuity of condition. Review of Systems General: Reports: ROS unobtainable due to endotracheal tube, ROS unobtainable due to medical condition and ROS unobtainable due to mental status PFSH ED PFSH: Medical History Alcohol abuse Alcoholic cirrhosis of liver Atherosclerosis of coronary artery of [place] heart without angina pectoris Chronic back pain Chronic pain in left shoulder Chronic pain syndrome Cigarette nicotine dependence COPD (chronic obstructive pulmonary disease) COPD exacerbation Coronary artery disease Dyslipidemia Dyslipidemia (high LDL; low HDL) Encounter for long-term (current) use of NSAIDs Encounter for long-term opiate analgesic use Hepatitis C Liver cirrhosis Recurrent cerebrovascular accidents (CVAs) Syncope and collapse Surgical History H/O elbow surgery Hx of hernia repair Hx of knee surgery Hx of shoulder surgery S/P coronary artery stent placement Family History Mother CAD (coronary artery disease) Had a myocardial infarction at the age of 18. She is alive. She had a PCI? Father CAD (coronary artery disease) Had myocardial infarction in his 70s and is alive Other Diabetes Hypertension Myocardial infarct Social History Quit status (tobacco): has quit using tobacco Year quit tobacco: 2019 6mths ago 2ppd x 40y Second hand smoke exposure: Yes Smoking risk assessment/counseling performed?: Yes Alcohol intake: former Lives independently: Yes Household members: spouse Housing: House Marital status: service: No Current occupational status: disabled Pets and animals: Yes History of recent travel: No Current gender identity: Male Physical Exam Narrative: EXAM NARRATIVE: GENERAL/CONSTITUTIONAL -ill appearing. Dark brown emesis. Intubated. Eyes - PERRL, pupils 3 mm and equal bilaterally. ENMT - Atraumatic external nose and ears. Dry mucous membranes NECK - supple. trachea midline CARDIOVASCULAR - regular rate and rhythm. RESPIRATORY -coarse to auscultation bilaterally worse at the bases. Mechanically ventilated ABDOMEN/GI - Nontender, Nondistended. MSK - Extremities without obvious deformity or abnormality SKIN - Warm, Dry. Circular nia noted on abdomen of unclear etiology NEURO - unresponsive, GCS 3T. Upgoing Babinski Procedures EJ/Peripheral Line Arm R: Size (gauge): 18 IV Secured and Dressing Applied: Yes Patient Tolerated Procedure: well Course ED course: - Patient was seen and evaluated by me at bedside immediately upon arrival - Patient placed on cardiac monitors, patient has prehospital IV access and prehospital airway - Initial evaluation notable for ill appearance, unresponsive and intubated. There is dark brown emesis concerning for GI bleed noted nares and oropharynx. Coarse breath sounds worse at the bases - Based on clinical history concern for central nervous system pathology as explanation for patient's deterioration of mental status. Unfortunately the emergency department adjacent CT scanner is not operational and patient will require transport across the hospital to CT scanner. Initially was suggested that we use the EMS crew to do this however based on clinical appearance chest x-ray and ABG obtained first. Initial ABG notable for pH 7.14, PCO2 of 91.6. As such patient requires stabilization prior to transport to CT. Given PCO2 I suspect that this may be due to the need for increased PEEP given aspiration and increased respiratory rate. - I performed video laryngoscopy to ensure that the ET tube had not slipped into the hypopharynx, under direct visualization ET tube in satisfactory location. There is copious secretions/brown emesis that were suctioned. - X-ray with consolidation and ET tube in satisfactory position. - Repeat ABG improved and patient transported to CT. Imaging notable for subdural hematoma with midline shift. - Labs notable for leukocytosis, macrocytic anemia. Metabolic panel overall appears similar to prior though BUN is elevated possibly from GI bleed. - For GI bleed Pepcid and Rocephin given. This was prior to identification of pneumonia meeting sepsis criteria. - Broad-spectrum antibiotics ordered. - Troponin is elevated and uptrending, suspect this is due to subdural hematoma, regardless patient is not a candidate for anticoagulation given brain bleed. - Patient is on aspirin/Plavix, there is questionable evidence for reversal however this is a moot point as we do not have platelets at our facility. - Upon serial reexamination after treatment the patient was similar. - Patient's updated via telephone - Patient transported to [facility] by air EMS in critical condition. Vital Signs: Vital signs: Vital Signs Temperature 98.7 F 02/19/21 15:28 Pulse Rate 95 02/19/21 15:28 Respiratory Rate 21 H 02/19/21 15:28 Blood Pressure 100/73 02/19/21 15:28 Pulse Oximetry 96 02/19/21 15:28 MDM - Neuro Symptoms/Deficit Medical Records: Attestation: I reviewed the patient's medical records. Lab Data: Attestation: I reviewed the patient's lab results. Labs: Lab Results 02/19/21 02/19/21 02/19/21 Range/Units 12:05 12:15 12:15 WBC 12.7 H (4.0-10.0) 10^3/ uL RBC 3.78 L (4.1-5.3) 10^6/u L Hgb 12.8 (11.7-16.6) g/dL Hct 40.1 L (42.0-52.0) % MCV 106.1 H (80-94) fl MCH 33.9 (28.0-34.0) pg MCHC 31.9 (30.0-36.0) g/dL RDW 12.7 (12.1-15.1) % Plt Count 240 (130-400) 10^3/c mm MPV 8.5 (7.4-10.4) fL Neut % (Auto) 86.2 % Lymph % (Auto) 3.1 % [place] % (Auto) 9.7 % Eos % (Auto) 0.2 % Baso % (Auto) 0.2 % Neut # (Auto) 10.95 H (1.8-7.7) 10^3/u L Lymph # (Auto) 0.4 L (0.8-4.8) 10^3/u L [place] # (Auto) 1.2 H (0.2-0.9) 10^3/u L Eos # (Auto) 0.0 (0.0-0.8) 10^3/u L Baso # (Auto) 0.0 (0.0-0.1) 10^3/u L Nucleated RBC % (a uto) 0 % Nucleated RBCs # 0.0 /100WBC Specimen Type Arterial Sample Site Radial, left ABG pH 7.14 L* (7.35-7.45) ABG pCO2 91.6 H* (35-45) mmHg ABG pO2 335.0 H (80.0-100.0) mmH g ABG HCO3 31.1 H (22-26) mmol/L ABG O2 Saturation ABG Base Excess -0.5 (-2.0-2.0) mmol/ L Nathanael Test Pos A-a O2 Gradient (5-10) mmHg Hematocrit 39.5 L (42-52) % Hgb O2 Saturation (95-100) % Carboxyhemoglobin (0.4-20.1) %THgb Methemoglobin (0.4-1.5) % Total Hemoglobin (14-18) g/dL Ionized Calcium (1.1-1.4) mmol/L O2 Delivery Device Vent FiO2 100.0 % Tidal Volume PEEP cmH20 City Recorder ID [id number] Sodium 137 (136-145) mmol/L Potassium 5.0 (3.5-5.1) mmol/L Chloride 101 (98-107) mmol/L Carbon Dioxide 30 H (22-29) mmol/L Anion Gap 11.0 (5-19) BUN 25 H (6-20) mg/dL Creatinine 1.0 (0.7-1.2) mg/dL GFR Calculation 76.5 L (90-130) mL/min Glucose 137 H (65-115) mg/dL POC Glucose (70-110) mg/dL Calculated Osmolal ity 291 (285-295) mOsm/k g Lactate (0.5-2.2) mmol/L Calcium 9.1 (8.5-10.5) mg/dL Total Bilirubin 0.2 (0.15-1.2) mg/dL AST 23 (0-40) U/L ALT 13 (0-41) U/L Alkaline Phosphata se 98 (40-130) IU/L Creatine Kinase 496 H* (39-308) U/L Troponin T Baselin e (0-15) ng/L Troponin T 120 Min jaymie (0-15) ng/L Delta Troponin T (0-10) ABS# Total Protein 6.1 L (6.6-8.7) g/dL Albumin 3.8 (3.5-5.2) g/dL Globulin 2.3 (1.3-4.6) g/dL Urine Color (Yellow) Urine Appearance (CLEAR) Urine pH (5-7) Ur Specific Gravit y (1.005-1.030) Urine Protein (Negative) Urine Glucose (UA) (Normal) Urine Ketones (Negative) Urine Blood (Negative) Urine Nitrate (Negative) Urine Bilirubin (Negative) Urine Urobilinogen (Negative) mg/dL Ur Leukocyte Rylee ase (Negative) 02/19/21 02/19/21 02/19/21 Range/Units 12:15 12:15 12:15 WBC (4.0-10.0) 10^3/ uL RBC (4.1-5.3) 10^6/u L Hgb (11.7-16.6) g/dL Hct (42.0-52.0) % MCV (80-94) fl MCH (28.0-34.0) pg MCHC (30.0-36.0) g/dL RDW (12.1-15.1) % Plt Count (130-400) 10^3/c mm MPV (7.4-10.4) fL Neut % (Auto) % Lymph % (Auto) % [place] % (Auto) % Eos % (Auto) % Baso % (Auto) % Neut # (Auto) (1.8-7.7) 10^3/u L Lymph # (Auto) (0.8-4.8) 10^3/u L [place] # (Auto) (0.2-0.9) 10^3/u L Eos # (Auto) (0.0-0.8) 10^3/u L Baso # (Auto) (0.0-0.1) 10^3/u L Nucleated RBC % (a uto) % Nucleated RBCs # /100WBC Specimen Type Sample Site ABG pH (7.35-7.45) ABG pCO2 (35-45) mmHg ABG pO2 (80.0-100.0) mmH g ABG HCO3 (22-26) mmol/L ABG O2 Saturation ABG Base Excess (-2.0-2.0) mmol/ L Nathanael Test A-a O2 Gradient (5-10) mmHg Hematocrit (42-52) % Hgb O2 Saturation (95-100) % Carboxyhemoglobin (0.4-20.1) %THgb Methemoglobin (0.4-1.5) % Total Hemoglobin (14-18) g/dL Ionized Calcium (1.1-1.4) mmol/L O2 Delivery Device FiO2 % Tidal Volume PEEP cmH20 City Recorder ID Sodium (136-145) mmol/L Potassium (3.5-5.1) mmol/L Chloride (98-107) mmol/L Carbon Dioxide (22-29) mmol/L Anion Gap (5-19) BUN (6-20) mg/dL Creatinine (0.7-1.2) mg/dL GFR Calculation (90-130) mL/min Glucose (65-115) mg/dL POC Glucose 129 H (70-110) mg/dL Calculated Osmolal ity (285-295) mOsm/k g Lactate 0.9 (0.5-2.2) mmol/L Calcium (8.5-10.5) mg/dL Total Bilirubin (0.15-1.2) mg/dL AST (0-40) U/L ALT (0-41) U/L Alkaline Phosphata se (40-130) IU/L Creatine Kinase (39-308) U/L Troponin T Baselin e 140 H* (0-15) ng/L Troponin T 120 Min jaymie (0-15) ng/L Delta Troponin T (0-10) ABS# Total Protein (6.6-8.7) g/dL Albumin (3.5-5.2) g/dL Globulin (1.3-4.6) g/dL Urine Color (Yellow) Urine Appearance (CLEAR) Urine pH (5-7) Ur Specific Gravit y (1.005-1.030) Urine Protein (Negative) Urine Glucose (UA) (Normal) Urine Ketones (Negative) Urine Blood (Negative) Urine Nitrate (Negative) Urine Bilirubin (Negative) Urine Urobilinogen (Negative) mg/dL Ur Leukocyte Rylee ase (Negative) 02/19/21 02/19/21 02/19/21 Range/Units 12:50 13:09 14:19 WBC (4.0-10.0) 10^3/ uL RBC (4.1-5.3) 10^6/u L Hgb (11.7-16.6) g/dL Hct (42.0-52.0) % MCV (80-94) fl MCH (28.0-34.0) pg MCHC (30.0-36.0) g/dL RDW (12.1-15.1) % Plt Count (130-400) 10^3/c mm MPV (7.4-10.4) fL Neut % (Auto) % Lymph % (Auto) % [place] % (Auto) % Eos % (Auto) % Baso % (Auto) % Neut # (Auto) (1.8-7.7) 10^3/u L Lymph # (Auto) (0.8-4.8) 10^3/u L [place] # (Auto) (0.2-0.9) 10^3/u L Eos # (Auto) (0.0-0.8) 10^3/u L Baso # (Auto) (0.0-0.1) 10^3/u L Nucleated RBC % (a uto) % Nucleated RBCs # /100WBC Specimen Type Arterial Sample Site Brachial, left ABG pH 7.32 L (7.35-7.45) ABG pCO2 52.4 H (35-45) mmHg ABG pO2 84.2 (80.0-100.0) mmH g ABG HCO3 26.8 H (22-26) mmol/L ABG O2 Saturation 97.2 ABG Base Excess -0.1 (-2.0-2.0) mmol/ L Nathanael Test Pos A-a O2 Gradient 22.6 H (5-10) mmHg Hematocrit 37.9 L (42-52) % Hgb O2 Saturation 96.1 (95-100) % Carboxyhemoglobin 1.2 (0.4-20.1) %THgb Methemoglobin 0.0 L (0.4-1.5) % Total Hemoglobin 12.4 L (14-18) g/dL Ionized Calcium 1.2 (1.1-1.4) mmol/L O2 Delivery Device Vent FiO2 45.0 % Tidal Volume 0.45 PEEP 6.0 cmH20 City Recorder ID jmn Sodium 137.0 (136-145) mmol/L Potassium 4.7 (3.5-5.1) mmol/L Chloride (98-107) mmol/L Carbon Dioxide (22-29) mmol/L Anion Gap (5-19) BUN (6-20) mg/dL Creatinine (0.7-1.2) mg/dL GFR Calculation (90-130) mL/min Glucose 166.0 H (65-115) mg/dL POC Glucose (70-110) mg/dL Calculated Osmolal ity (285-295) mOsm/k g Lactate (0.5-2.2) mmol/L Calcium (8.5-10.5) mg/dL Total Bilirubin (0.15-1.2) mg/dL AST (0-40) U/L ALT (0-41) U/L Alkaline Phosphata se (40-130) IU/L Creatine Kinase (39-308) U/L Troponin T Baselin e (0-15) ng/L Troponin T 120 Min jaymie 214.3 H (0-15) ng/L Delta Troponin T 74.3 H* (0-10) ABS# Total Protein (6.6-8.7) g/dL Albumin (3.5-5.2) g/dL Globulin (1.3-4.6) g/dL Urine Color Yellow (Yellow) Urine Appearance Clear (CLEAR) Urine pH 5 (5-7) Ur Specific Gravit y 1.020 (1.005-1.030) Urine Protein Neg (Negative) Urine Glucose (UA) Norm (Normal) Urine Ketones Negative (Negative) Urine Blood Neg (Negative) Urine Nitrate Negative (Negative) Urine Bilirubin 1+ H (Negative) Urine Urobilinogen 1 H (Negative) mg/dL Ur Leukocyte Rylee ase Negative (Negative) EKG Data^: EKG 1: Attestation: I personally reviewed and interpreted this EKG as follows: EKG interpretation date: 02/19/21 EKG interpretation time: 14:12 Interpretation: 12 lead shows a regular sinus rhythm at rate of 102 TX 128, QRS 120, QTC 405 normal axis Interpretation: sinus tachycardia. Critical Care Time Critical Care Time: Critical Care Time: Yes Total Critical Care Time: 75 Attestation: Due to a high probability of clinically significant, possibly life threatening deterioration, the patient required my highest level of attention and preparedness to intervene emergently and I personally spent this critical care time directly and personally managing the patient. This critical care time included obtaining a history; examining the patient; pulse oximetry; ordering and review of laboratory and imaging studies; arranging urgent treatment with development of a management plan; evaluation of patient's response to treatment; frequent reassessment; and, discussions with other providers as applicable. It was exclusive of separately billable procedures. Discharge Plan Discharge Prescriptions: No Action albuterol sulfate 2.5 mg /3 mL (0.083 %) solution for nebulization 2.5 mg continuous nebulization PRN RF: 0 aspirin [Adult Low Dose Aspirin] 81 mg tablet,delayed release (DR/EC) 81 mg PO DAILY RF: 0 Advair HFA 230-21 mcg/actuation HFA aerosol inhaler See Rx Instructions .ROUTE .COMPLEX Qty: 12 RF: 1 hydrocodone-acetaminophen 10-325 mg tablet 1 tab PO .6 times a day PRN (Reason: Pain) 30 Days Qty: 180 RF: 0 diazepam [Valium] 5 mg tablet 5 mg PO BID PRN (Reason: withdrawal symptoms) Qty: 30 RF: 1 levetiracetam 500 mg tablet extended release 24 hr 1,000 mg PO BEDTIME RF: 0 folic acid 1 mg tablet 1 mg PO DAILY RF: 0 atorvastatin [Lipitor] 20 mg tablet 20 mg PO DAILY RF: 0 clopidogrel 75 mg tablet 75 mg PO DAILY RF: 0 citalopram [Celexa] 20 mg tablet 20 mg PO DAILY RF: 0 Spiriva Respimat 2.5 mcg/actuation mist 2 puff INHALATION DAILY RF: 0 prednisone 20 mg tablet See Rx Instructions .ROUTE .COMPLEX RF: 0 doxycycline hyclate 100 mg tablet 100 mg PO BID RF: 0 chlordiazepoxide 25 mg Tablet 25 mg PO BID MDD SEE PHARMACY COMMENT RF: 0 Coding Level of Care Code ED Agriculture Instructor for g Zoe
[2021-02-19 12:18] LABS: Glucose Point of Care 129 mg/dL (70-110)
[2021-02-19 12:22] LABS: Basophils % 0.2 %; Eosinophils % 0.2 %; Hematocrit 40.1 % (42.0-52.0); Hemoglobin 12.8 g/dL (11.7-16.6); Lymphocytes # 0.4 10^3/uL (0.8-4.8); Lymphocytes % 3.1 %; Mean Corpuscular HGB Conc 31.9 g/dL (30.0-36.0); Mean Corpuscular Hemoglobin 33.9 pg (28.0-34.0); Mean Corpuscular Volume 106.1 fl (80-94); Mean Platelet Volume 8.5 fL (7.4-10.4); Monocytes # 1.2 10^3/uL (0.2-0.9); Monocytes % 9.7 %; Neutrophils # 10.95 10^3/uL (1.8-7.7); Neutrophils % 86.2 %; Nucleated Red Blood Cells % 0 %; Platelet Count 240 10^3/cmm (130-400); Red Blood Count 3.78 10^6/uL (4.1-5.3); Red Cell Distribution Width 12.7 % (12.1-15.1); White Blood Count 12.7 10^3/uL (4.0-10.0)
[2021-02-19] MEDS: pantoprazole 40 mg SDV 80 MG IVP (12:25)
[2021-02-19] MEDS: cefTRIAXone 1,000 MG in sodium chloride 0.9% (plus) 50 ML 100 MG IV (12:25)
[2021-02-19] MEDS: fentaNYL 50 mcg/mL INJ 2mL 100 MCG IVP ×2 (12:25→12:27)
[2021-02-19] MEDS: propofol 1,000 MG/100 ML INJ 24.49 MG IV (12:32)
[2021-02-19 12:46] LABS: Alanine Aminotransferase 13 U/L (0-41); Albumin Level 3.8 g/dL (3.5-5.2); Alkaline Phosphatase 98 IU/L (40-130); Blood Urea Nitrogen 25 mg/dL (6-20); Calcium 9.1 mg/dL (8.5-10.5); Carbon Dioxide 30 mmol/L (22-29); Chloride 101 mmol/L (98-107); Globulin 2.3 g/dL (1.3-4.6); Glomerular Filtration Rate 76.5 mL/min (90-130); Glucose 137 mg/dL (65-115); Osmolality Calculated 291 mOsm/kg (285-295); Sodium 137 mmol/L (136-145); Total Bilirubin 0.2 mg/dL (0.15-1.2); Total Protein 6.1 g/dL (6.6-8.7)
[2021-02-19 12:49] LABS: Aspartate Amino Transferase 23 U/L (0-40)
[2021-02-19 12:50] LABS: Creatine Phosphokinase 496 U/L (39-308)
[2021-02-19 12:51] LABS: Troponin(5th) Baseline 140 ng/L (0-15)
[2021-02-19 13:04] LABS: Add Urine Microscopic? NO; Charge for UA Resulting for Rev
[2021-02-19 13:06] LABS: Urine Appearance Clear (CLEAR); Urine Color Yellow (Yellow); pH Urine 5 (5-7)
[2021-02-19 13:07] LABS: Bilirubin Urine 1+ (Negative); Blood Urine Neg (Negative); Glucose Urine UA Norm (Normal); Ketones Urine Negative (Negative); Leukocyte Esterase Urine Negative (Negative); Nitrate Urine Negative (Negative); Protein Urine Neg (Negative); Urobilinogen Urine 1 mg/dL (Negative)
--- NOTE | 2021-02-19 13:07 | PC.NURSE ---
Stopped Propofol, informed Dr Ramirez of Low BP.
[2021-02-19 13:11] LABS: ABG PCO2 52.4 mmHg (35-45); ABG PH Result 7.32 (7.35-7.45); Alveolar-Arterial Oxygen Gradi 22.6 mmHg (5-10); Arterial Blood Gas Hematocrit 37.9 % (42-52); Base Excess ABG -0.1 mmol/L (-2.0-2.0); Blood Gas Allen Test Pos; Blood Gas Sample Site Brachial, left; Blood Gas Sample Type Arterial; Blood Gas Tidal Volume 0.45; Carboxyhemoglobin 1.2 %THgb (0.4-20.1); HCO3 ABG 26.8 mmol/L (22-26); HGB O2 Sat 96.1 % (95-100); Ionized Calcium Level - ABG 1.2 mmol/L (1.1-1.4); Oxygen Device VENT; Oxygen Saturation ABG 97.2; PO2 ABG 84.2 mmHg (80.0-100.0); Potassium Level - ABG 4.7 mmol/L (3.5-5.0); Total Hemoglobin 12.4 g/dL (14-18)
--- NOTE | 2021-02-19 13:13 | PC.NURSE ---
Arrives via EMS from home from around [facility]. came home from work, found in recliner slumped over with dark emesis on chest and face. Called EMS around 1046, on scene 1052, unable to arouse and gargling respiration. EMS intubated on scene with 8.0 , 26 at teeth. On arrival noted dark brown liquid on chest , nostrils, and face. Given Hugh 100 mg, Ketamine 110 mg and BiCarb 50 meq in 20 g in left wrist. BS- 139 Moved over to cot, another IV 18g in RAC. BS-129 Dr Ramirez in room , assessment completed.
[2021-02-19 13:56] LABS: Lactate (Lactic Acid level) 0.9 mmol/L (0.5-2.2)
[2021-02-19] MEDS: piperacillin-tazobactam 4.5 GM in sodium chloride 0.9% (plus) 50 ML IV (14:00)
--- NOTE | 2021-02-19 14:03 | ECG_ITS ---
[facility] Test Date: 2021-02-19 Pat Name: David Lanza Department: Room: Gender: Male Field Representative/Health Education: : 1960 Requested By: Tamir Ramirez Order Number: [id number] Amalia MD: Nitesh Corral M.D. Measurements Intervals [place] Rate: 69 P: -8 VT: 146 QRS: 61 QRSD: 86 T: 110 QT: 425 QTc: 455 Interpretive Statements SINUS RHYTHM LOW QRS VOLTAGE IN EXTREMITY LEADS [QRS DEFLECTION < 0.5 mV IN LIMB LEADS] POSSIBLE RIGHT VENTRICULAR CONDUCTION DELAY [RSR (QR) IN V1/V2] POSSIBLE LATERAL MYOCARDIAL INFARCTION , OF INDETERMINATE AGE [30 ms Q WAVE IN I/aVL/V5/V6] Compared to ECG 02/02/2021 21:35:35 Low QRS voltage now present Myocardial infarct finding now present Sinus tachycardia no longer present Incomplete right bundle-branch block no longer present Atrial abnormality no longer present Electronically Signed On 02-20-2021 18:10:04 CDT by Nitesh Corral M.D. [id number]
[2021-02-19 15:05] LABS: Troponin 5 2HR 214.3 ng/L (0-15); Troponin 5 2HR Delta 74.3 ABS# (0-10)
== END 2021-02-19 15:53 ==
PROVIDERS: Emergency Provider Emergency Medicine
DX: R41.82 Altered mental status, unspecified (principal); Z79.02 Long term (current) use of antithrombotics/antiplatelets; J44.9 Chronic obstructive pulmonary disease, unspecified; I25.10 Atherosclerotic heart disease of native coronary artery without angina pectoris; E78.5 Hyperlipidemia, unspecified; Z86.19 Personal history of other infectious and parasitic diseases; F17.210 Nicotine dependence, cigarettes, uncomplicated
CPT/HCPCS: 36415; 36416; 36600; 51702; 70450; 71045; 80051; 80053; 81003; 82330; 82550; 82803; 82805; 82962; 83605; 84484; 85025; 87040; 87070; 87077; 87186; 87205; 93005; 94002; 94799; 96365; 96367; 96375; 99291; 99292; C9113; J0696; J2543; J2704; J3010; J3370; J7040